=== PATIENT | female | born 1970 | race Caucasian/White ===

== ENCOUNTER 2016-07-11 12:33 | Inpatient (IN) | payer MEDICARE, OTHER ==
[~2016-07-11] VITALS: Ht 162.6 cm; Wt 71.2 kg
[~2016-07-11 12:33] MED LIST: BACT800T5 PO; CALTTAB10 PO; DARU800T PO; DOLU1TAB PO; FLUC200T63 PO; RITO100 PO; ZITH600T PO; [UNRECOGNIZED DRUG - CODE] PO
[2016-07-11 12:35] VITALS: BP 108/67; PULSE 121; RESP 14; TEMP 99.1; O2SAT 92
[2016-07-11 18:16] VITALS: TEMP 100.5
--- NOTE | 2016-07-11 18:24 | PD ---
HPI Chief Complaint: Headache Time Seen by Provider: 18:17 Travel History International Travel<30 days: No Contact w/Intl Traveler<30days: No Traveled to known affect area: No History of Present Illness HPI 46-year-old female presents to the emergency department for evaluation of severe headache, burning sensation in her throat, chest pain, abdominal pain, fevers. Patient states she walked her dog yesterday evening. When she came home, she felt tired so she laid down. She states that her dog came up to hurt all of a sudden she had a severe headache. She states that she has had a severe headache since then. She states she ran a fever of 103.0 this morning. She took 3 Tylenol which helped her symptoms. Patient also reports some mild chest pain, cough. Patient reports history of HIV. She states she is taking antivirals, but does not know the name. She does not know her CD4 count. 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 Patient denies any chance of reporting female sexual partner. PFSH Past Medical History Arthritis: Yes Autoimmune Disease: Yes (AIDS 2004) Anxiety: Yes Depression: Yes Cancer: No Cardiovascular Problems: No Cerebrovascular Accident: No Diminished Hearing: No Endocrine: No Genitourinary: No Immune Disorder: Yes Musculoskeletal: Yes Reproductive: No Respiratory: Yes Immunizations Current: Yes Migraines: Yes Seizures: No ?: Not LMP: 07/08/16 Past Surgical History Abdominal Surgery: Yes (hernia surgery as an ) Section: Yes Ear Surgery: No Endocrine Surgery: No Eye Surgery: No Gynecologic Surgery: Yes ( 2011) Oral Surgery: Yes (tooth extractionx 5) Social History Alcohol Use: Yes (1 BEER A DAY) Tobacco Use: No (QUIT 2 WEEKS AGO) Substance Use: No Allergies-Medications (Allergen,Severity, Reaction): Coded Allergies: Penicillin (Verified Allergy, Intermediate, 11/01/14) Reported Meds & Prescriptions Reported Meds & Active Scripts Active Bactrim DS (Sulfamethoxazole-Trimethoprim DS) 1 Tab Tab 2 Tab PO DAILY PCP Prophylaxis Zithromax (Azithromycin) 600 Mg Tab 1,200 Mg PO Q7D MAC prohpylaxis Reported Prezista (Darunavir Ethanolate) 800 Mg Tab 800 Mg PO DAILY TAKE WITH DINNER Norvir (Ritonavir) 100 Mg Cap 100 Mg PO DAILY TAKE WITH DINNER Lamivudine 300 Mg Tab 300 Mg PO DAILY TAKE WITH DINNER Tivicay (Dolutegravir Sodium) 50 Mg Tab 50 Mg PO BID TAKE TWICE A DAY FOR 6 WEEKS THEN DECREASE TO ONCE A DAY Caltrate 600+D (Calcium/Vitamin D) + Tab 1 Tab PO BID Diflucan 200 mg (Fluconazole) 200 Mg Tab 200 Mg PO DAILY Review of Systems Except as stated in HPI: all other systems reviewed are Neg Physical Exam Narrative GENERAL: Well-developed well-nourished female patient, temp of 100.5. Patient is moaning and crying in exam room. SKIN: Warm and dry. HEAD: Normocephalic. Atraumatic. EYES: No scleral icterus. No injection or drainage. NECK: Supple, trachea midline. No JVD or lymphadenopathy. CARDIOVASCULAR: Regular rate and rhythm without murmurs, gallops, or rubs. RESPIRATORY: Breath sounds equal bilaterally. No accessory muscle use. Lungs sounds are clear to auscultation. GASTROINTESTINAL: Abdomen soft, non-tender, nondistended. MUSCULOSKELETAL: No cyanosis, or edema. Bilateral upper and lower extremity strength 5/5. All extremities are neurovascularly intact. BACK: Nontender without obvious deformity. No CVA tenderness. NEUROLOGICAL: Awake and alert. Cranial nerves II through XII intact. Motor and sensory grossly within normal limits. Five out of 5 muscle strength in all muscle groups. Normal speech. Data Data Last Documented VS Vital Signs Date Time Temp Pulse Resp B/P Pulse Ox O2 Delivery O2 Flow Rate FiO2 07/11/16 18:16 100.5 07/11/16 12:35 121 14 108/67 92 Room Air Orders Electrocardiogram (07/11/16 18:15) Complete Blood Count With Diff (07/11/16 18:15) Comprehensive Metabolic Panel (07/11/16 18:15) Prothrombin Time / Inr (Pt) (07/11/16 18:15) Act Partial Throm Time (Ptt) (07/11/16 18:15) Lactic Acid Sepsis Protocol (07/11/16 18:15) Magnesium (Mg) (07/11/16 18:15) Lipase (07/11/16 18:15) Ckmb (Isoenzyme) Profile (07/11/16 18:15) Troponin I (07/11/16 18:15) Urinalysis - C+S If Indicated (07/11/16 18:15) Influenzae A/B Antigen (07/11/16 18:15) Blood Culture (07/11/16 18:15) Chest, Single Ap (07/11/16 18:15) Blood Glucose (07/11/16 18:15) Ecg Monitoring (07/11/16 18:15) Iv Access Insert/Monitor (07/11/16 18:15) Oximetry (07/11/16 18:15) Oxygen Administration (07/11/16 18:15) Ct Brain W/O Iv Contrast(Rout) (07/11/16 18:15) Sodium Chlor 0.9% 1000 Ml Inj (Ns 1000 M (07/11/16 19:00) Labs Laboratory Tests Test 07/11/16 18:15 White Blood Count 1.4 TH/MM3 Red Blood Count 3.01 MIL/MM3 Hemoglobin 8.8 GM/DL Hematocrit 26.4 % Mean Corpuscular Volume 87.6 FL Mean Corpuscular Hemoglobin 29.2 PG Mean Corpuscular Hemoglobin 33.3 % Concent Red Cell Distribution Width 17.3 % Platelet Count 106 TH/MM3 Mean Platelet Volume 9.1 FL Neutrophils (%) (Auto) % Lymphocytes (%) (Auto) % Monocytes (%) (Auto) % Eosinophils (%) (Auto) % Basophils (%) (Auto) % Neutrophils # (Auto) TH/MM3 Lymphocytes # (Auto) TH/MM3 Monocytes # (Auto) TH/MM3 Eosinophils # (Auto) TH/MM3 Basophils # (Auto) TH/MM3 CBC Comment AUTO DIFF Prothrombin Time 11.6 SEC Prothromb Time International 1.0 RATIO Ratio Activated Partial 35.9 SEC Thromboplast Time Lactic Acid Level 1.0 mmol/L MDM Medical Decision Making Medical Screen Exam Complete: Yes Emergency Medical Condition: Yes Medical Record Reviewed: Yes Differential Diagnosis Pneumonia versus sepsis versus UTI versus meningitis Narrative Course 46-year-old female with a past medical history of HIV. Patient was admitted in 2014 for AIDS and sepsis. Patient reports fever, severe headache, cough, wheezing. EKG, CBC, CMP, lipase, CK-MB, troponin magnesium, PTT, PT/INR, blood cultures 2, lactic acid, influenza swab, chest x-ray, CT of the brain are ordered and pending. Workup is initiated in triage. Once a medical bed becomes available, patient will be transferred and care assumed by that provider. Elizabeth Agosto Jul 11, 2016 18:24
[2016-07-11 18:45] LABS: HEMATOCRIT 26.4 % (35.0-46.0); MEAN CELL VOLUME 87.6 FL (80.0-100.0); MEAN CORPUSCULAR HEMOGLOBIN 29.2 PG (27.0-34.0); MEAN CORPUSCULAR HGB CONC 33.3 % (32.0-36.0); PLATELET COUNT 106 TH/MM3 (150-450); RED BLOOD COUNT 3.01 MIL/MM3 (4.00-5.30); RED CELL DISTRIBUTION WIDTH 17.3 % (11.6-17.2); WHITE BLOOD COUNT 1.4 TH/MM3 (4.0-11.0)
[2016-07-11 18:58] LABS: APTT (PATIENT) 35.9 SEC (24.3-30.1); PROTHROMBIN TIME - PATIENT 11.6 SEC (9.8-11.6)
[2016-07-11] MEDS ORDERED: SODIUM CHLOR 0.9% 1000 ML INJ 1,000 ML IV ONE ×2 (19:00→21:45)
[2016-07-11 19:01] LABS: HEMO FLAGS AUTO DIFF
--- NOTE | 2016-07-11 19:12 | RADRPT ---
EXAM DATE/TIME: 07/11/2016 18:59 [facility] COMPARISON: No previous studies available for comparison. INDICATIONS : Cephalgia with left neck pain starting today. RADIATION DOSE: 42.47 CTDIvol (mGy) MEDICAL HISTORY : AIDS SURGICAL HISTORY : None. ENCOUNTER: Initial ACUITY: 1 day PAIN SCALE: 10/10 LOCATION: cranial TECHNIQUE: Multiple contiguous axial images were obtained of the head. Using automated exposure control and adj ustment of the mA and/or kV according to patient size, radiation dose was kept as low as reasonably a chievable to obtain optimal diagnostic quality images. FINDINGS: CEREBRUM: The ventricles are normal for age. No evidence of midline shift, mass lesion, hemorrhage or acute in farction. No extra-axial fluid collections are seen. POSTERIOR FOSSA: The cerebellum and brainstem are intact. The 4th ventricle is midline. The cerebellopontine angle i s unremarkable. EXTRACRANIAL: The visualized portion of the orbits is intact. There is mucosal disease throughout the sinuses. Ther e is increased density seen in the mastoid air cells bilaterally. SKULL: The calvaria is intact. No evidence of skull fracture. CONCLUSION: 1. No intracranial abnormality seen. 2. Sinus disease throughout and scattered areas of increased density/fluid in the mastoid air cells. . Anderson Gary MD on July 11, 2016 at 19:09 Board Certified Radiologist. This report was verified electronically.
--- NOTE | 2016-07-11 19:14 | RADRPT ---
EXAM DATE/TIME: 07/11/2016 18:47 [facility] COMPARISON: CHEST SINGLE AP, November 03, 2014, 9:03. INDICATIONS : Fever and short of breath for 2 days. MEDICAL HISTORY : None. SURGICAL HISTORY : None. ENCOUNTER: Initial ACUITY: 2 days PAIN SCORE: 2/10 LOCATION: Bilateral chest FINDINGS: A single view of the chest demonstrates the lungs to be symmetrically aerated without evidence of mas s, infiltrate or effusion. The cardiomediastinal contours are unremarkable. Osseous structures are intact. CONCLUSION: No acute disease. Anderson Gary MD on July 11, 2016 at 19:12 Board Certified Radiologist. This report was verified electronically.
[2016-07-11 19:17] LABS: ALKALINE PHOSPHATASE 105 U/L (45-117); ALT (GPT) 10 U/L (10-53); ANION GAP 10 MEQ/L (5-15); AST (GOT) 19 U/L (15-37); BICARBONATE 21.6 MEQ/L (21.0-32.0); BLOOD UREA NITROGEN 13 MG/DL (7-18); CHLORIDE 93 MEQ/L (98-107); GLOMERULAR FILTRATION RATE 42 ML/MIN (>89); MAGNESIUM 1.7 MG/DL (1.5-2.5); SODIUM (NA) 125 MEQ/L (136-145); TOTAL BILIRUBIN ADULT 0.3 MG/DL (0.2-1.0)
[2016-07-11 19:25] LABS: CREATINE KINASE 90 U/L (26-192); POTASSIUM 3.7 MEQ/L (3.5-5.1)
[2016-07-11] MEDS ORDERED: IBUPROFEN 800 MG TAB PO ONE (19:30)
[2016-07-11 19:35] VITALS: BP 122/64; PULSE 120; RESP 20; TEMP 102.7; O2SAT 96
[2016-07-11] MEDS ORDERED: AZTREONAM INJ 2,000 MG in SODIUM CHLORIDE 0.9% INJ 100 ML IV STA (19:40)
[2016-07-11] MEDS ORDERED: VANCOMYCIN INJ 1,000 MG in SODIUM CHLOR 0.9% 250 ML INJ 250 ML IV STA (19:40)
[2016-07-11] MEDS ORDERED: ONDANSETRON HCL 4 MG/2 ML VIAL IV PUSH ONE (19:45)
[2016-07-11] MEDS ORDERED: ORPHENADRINE INJ 60 MG/2 ML AMP IV ONE (19:45)
--- NOTE | 2016-07-11 19:50 | PD ---
HPI Chief Complaint: Headache Time Seen by Provider: 19:43 Travel History International Travel<30 days: No Contact w/Intl Traveler<30days: No Traveled to known affect area: No History of Present Illness HPI Patient is a 46-year-old female who presented to emergency department for evaluation of fevers and headache. Patient was initially seen in triage where her workup was initiated. Patient states that she was walking her dog last night when she started to feel very fatigued, but at times she got home she had the worse headache of her life. She states that it was accompanied by significant neck pain that felt like a "popping sensation". Patient reports nausea and vomiting as well. Patient is HIV positive, she reports compliance with her antiviral medications. She is unsure of her CD4 count but stated that her viral load was undetectable 3 months ago. PFSH Past Medical History Arthritis: Yes Autoimmune Disease: Yes (HIV positive) Anxiety: Yes Depression: Yes Cancer: No Cardiovascular Problems: No Cerebrovascular Accident: No Diminished Hearing: No Endocrine: No Genitourinary: No Headaches: Yes Reproductive: No Respiratory: Yes Immunizations Current: Yes Migraines: Yes Seizures: No Tetanus Vaccination: > 5 Years Influenza Vaccination: Yes ?: Not LMP: 07/08/16 Past Surgical History Abdominal Surgery: Yes (hernia surgery as an ) Section: Yes Ear Surgery: No Endocrine Surgery: No Eye Surgery: No Gynecologic Surgery: Yes ( 2011) Oral Surgery: Yes (tooth extraction x 5) Other Surgery: Yes Social History Alcohol Use: Yes (1 BEER A DAY) Tobacco Use: No (QUIT 5 DAYS AGO) Substance Use: No Allergies-Medications (Allergen,Severity, Reaction): Coded Allergies: Penicillin (Verified Allergy, Intermediate, 11/01/14) Reported Meds & Prescriptions Reported Meds & Active Scripts Active Reported Vitamin D (Cholecalciferol) 1,000 Unit Tab 1,000 Units PO DAILY Valtrex (Valacyclovir HCl) 1 Gm Tab 1,000 Mg PO DAILY Sulfamethoxazole-Trimethoprim 800-160 Mg Tab 1 Tab PO MO WE FR Thera (Multiple Vitamin) 1 Tab Tab 1 Tab PO DAILY Prezcobix (Darunavir-Cobicistat) 800-150 Mg Tab 1 Tab PO DAILY Lamivudine 300 Mg Tab 300 Mg PO DAILY Fluconazole 200 Mg Tab 200 Mg PO DAILY Calcium 600 with Vitamin D (Calcium Carbonate-Cholecalciferol) 600-400 mg-Unit Tab 1 Tab PO BID Review of Systems Except as stated in HPI: all other systems reviewed are Neg General / Constitutional: Positive: Fever, Chills Eyes: No: Visual changes HENT: Positive: Headaches, Sore Throat, Neck Stiffness, Neck Pain Cardiovascular: No: Chest Pain or Discomfort Respiratory: No: Shortness of Breath Gastrointestinal: Positive: Nausea, Vomiting, No: Abdominal Pain Genitourinary: No: Dysuria Musculoskeletal: Positive: Myalgias Neurologic: Positive: Weakness, Headache, No: Dizziness, Syncope, Focal Abnormalities, Change in Mentation, Sensory Disturbance Physical Exam Narrative GENERAL: Well-developed, well-nourished, alert female. Appears acutely uncomfortable, in no distress. Patient is tearful. SKIN: Warm and dry. HEAD: Atraumatic. Normocephalic. EYES: Pupils equal and round. No scleral icterus. No injection or drainage. Photophobia ENT: No nasal bleeding or discharge. Mucous membranes pink and moist. NECK: Trachea midline. No JVD. Tenderness to palpation in cervical paraspinal musculature on the left side. Positive meningeal signs CARDIOVASCULAR: Regular rate and rhythm. No murmur appreciated. RESPIRATORY: No accessory muscle use. Expiratory wheezing noted in bases bilaterally. No increased work of breathing, no nasal flaring, no retractions noted. GASTROINTESTINAL: Abdomen soft, non-tender, nondistended. Hepatic and splenic margins not palpable. MUSCULOSKELETAL: No obvious deformities. No clubbing. No cyanosis. No edema. NEUROLOGICAL: Awake and alert. No obvious cranial nerve deficits. Motor grossly within normal limits. Normal speech. PSYCHIATRIC: Appropriate mood and affect; insight and judgment normal. Data Data Last Documented VS Vital Signs Date Time Temp Pulse Resp B/P Pulse Ox O2 Delivery O2 Flow Rate FiO2 07/11/16 21:10 99.8 97 20 102/61 96 Room Air Orders Electrocardiogram (07/11/16 18:15) Complete Blood Count With Diff (07/11/16 18:15) Comprehensive Metabolic Panel (07/11/16 18:15) Prothrombin Time / Inr (Pt) (07/11/16 18:15) Act Partial Throm Time (Ptt) (07/11/16 18:15) Lactic Acid Sepsis Protocol (07/11/16 18:15) Magnesium (Mg) (07/11/16 18:15) Lipase (07/11/16 18:15) Ckmb (Isoenzyme) Profile (07/11/16 18:15) Troponin I (07/11/16 18:15) Urinalysis - C+S If Indicated (07/11/16 18:15) Influenzae A/B Antigen (07/11/16 18:15) Blood Culture (07/11/16 18:15) Chest, Single Ap (07/11/16 18:15) Blood Glucose (07/11/16 18:15) Ecg Monitoring (07/11/16 18:15) Iv Access Insert/Monitor (07/11/16 18:15) Oximetry (07/11/16 18:15) Oxygen Administration (07/11/16 18:15) Ct Brain W/O Iv Contrast(Rout) (07/11/16 18:15) Sodium Chlor 0.9% 1000 Ml Inj (Ns 1000 M (07/11/16 19:00) Ibuprofen (Motrin) (07/11/16 19:30) Orphenadrine Inj (Norflex Inj) (07/11/16 19:45) Ondansetron Inj (Zofran Inj) (07/11/16 19:45) Pneumococcal Urinary Antigen (07/11/16 19:40) Legionella Urinary Antigen (07/11/16 19:40) Aztreonam Inj (Azactam Inj) (07/11/16 19:40) Vancomycin Inj (Vancomycin Inj) (07/11/16 19:40) Bacterial Antigen Csf (07/11/16 19:51) Csf Hsv I/Ii Dna,Pcr (07/11/16 19:51) Csf Cell Count + Differential (07/11/16 19:51) Glucose, Csf (07/11/16 19:51) Total Protein, Csf (07/11/16 19:51) Csf Culture And Gram Stain (07/11/16 19:51) Cath For Specimen (07/11/16 20:03) Urine Culture (07/11/16 19:54) Csf Cryptococcus Antigen (07/11/16 21:00) Sodium Chlor 0.9% 1000 Ml Inj (Ns 1000 M (07/11/16 21:45) Admit Order (Ed Use Only) (07/11/16 21:36) Labs Laboratory Tests Test 07/11/16 07/11/16 18:15 19:54 White Blood Count 1.4 TH/MM3 Red Blood Count 3.01 MIL/MM3 Hemoglobin 8.8 GM/DL Hematocrit 26.4 % Mean Corpuscular Volume 87.6 FL Mean Corpuscular Hemoglobin 29.2 PG Mean Corpuscular Hemoglobin 33.3 % Concent Red Cell Distribution Width 17.3 % Platelet Count 106 TH/MM3 Mean Platelet Volume 9.1 FL Neutrophils (%) (Auto) % Lymphocytes (%) (Auto) % Monocytes (%) (Auto) % Eosinophils (%) (Auto) % Basophils (%) (Auto) % Neutrophils # (Auto) TH/MM3 Lymphocytes # (Auto) TH/MM3 Monocytes # (Auto) TH/MM3 Eosinophils # (Auto) TH/MM3 Basophils # (Auto) TH/MM3 CBC Comment AUTO DIFF Differential Total Cells 100 Counted Neutrophils % (Manual) 3 % Lymphocytes % 47 % Monocytes % 50 % Neutrophils # (Manual) 0.0 TH/MM3 Differential Comment FINAL DIFF MANUAL Platelet Estimate LOW Platelet Morphology Comment NORMAL Ovalocytes 1+ Prothrombin Time 11.6 SEC Prothromb Time International 1.0 RATIO Ratio Activated Partial 35.9 SEC Thromboplast Time Sodium Level 125 MEQ/L Potassium Level 3.7 MEQ/L Chloride Level 93 MEQ/L Carbon Dioxide Level 21.6 MEQ/L Anion Gap 10 MEQ/L Blood Urea Nitrogen 13 MG/DL Creatinine 1.36 MG/DL Estimat Glomerular Filtration 42 ML/MIN Rate Random Glucose 112 MG/DL Lactic Acid Level 1.0 mmol/L Calcium Level 8.6 MG/DL Magnesium Level 1.7 MG/DL Total Bilirubin 0.3 MG/DL Aspartate Amino Transf 19 U/L (AST/SGOT) Alanine Aminotransferase 10 U/L (ALT/SGPT) Alkaline Phosphatase 105 U/L Total Creatine Kinase 90 U/L Troponin I LESS THAN 0.02 NG/ML Total Protein 7.9 GM/DL Albumin 2.8 GM/DL Lipase 85 U/L Urine Color YELLOW Urine Turbidity CLOUDY Urine pH 7.0 Urine Specific [place] 1.028 Urine Protein 100 mg/dL Urine Glucose (UA) NEG mg/dL Urine Ketones NEG mg/dL Urine Occult Blood MOD Urine Nitrite NEG Urine Bilirubin NEG Urine Urobilinogen 2.0 MG/DL Urine Leukocyte Esterase NEG Urine RBC LESS THAN 1 /hpf Urine WBC 3 /hpf Urine Squamous Epithelial 13 /hpf Cells Urine Bacteria RARE /hpf Urine Mucus FEW /lpf Microscopic Urinalysis Comment CATH-CULTURE IND MDM Medical Decision Making Medical Screen Exam Complete: Yes Emergency Medical Condition: Yes Interpretation(s) Vital Signs Date Time Temp Pulse Resp B/P Pulse Ox O2 Delivery O2 Flow Rate FiO2 07/11/16 18:16 100.5 07/11/16 12:35 99.1 121 14 108/67 92 Room Air Differential Diagnosis Bacterial meningitis versus viral meningitis versus sinusitis versus pneumonia versus sepsis versus AIDS Narrative Course Patient's a 46-year-old female presenting to emergency department for evaluation of headache, neck pain, fever. Patient's symptoms started last night , she reports nausea and vomiting. Patient's workup was started in triage, upon presentation to the room she was noted to have a fever of 102.7. Patient is placed on telemetry monitoring, IV access was initiated, IV fluids, Motrin, antibiotics ordered per sepsis protocol. CBC shows neutropenia with a white blood cell count 1.4, neutrophils at 0.0. Chemistry with a sodium of 125, creatinine 1.36, lactic acid is 1, troponin is normal. Urinalysis shows occult blood, rare bacteria, mucus. Reflex culture pending. Chest x-ray shows no acute disease CT of the brain shows no intracranial abnormality, it does report sinus disease throughout and scattered areas of increased density fluid in the mastoid air cells. Due to meningeal signs lumbar puncture was performed by my attending physician. Please see attending physician's note regarding that procedure. Patient tolerated well. Vital signs are reassessed, patient is currently afebrile. Her heart rate responded well to the IV fluids. Additional liter is ordered. Patient is neutropenic, meet sepsis criteria. She will be admitted. Discussed with Dr. Degroot, who accepted admission. Sepsis Criteria SIRS Criteria (2 or more): Temp > 100.9 or < 96.8, Heart rate over 90, WBC > 79854, < 4000 or > 10% bands Criteria Outcome: Meets SIRS criteria Diagnosis Primary Impression: Sepsis Qualified Code: A41.9 - Sepsis, due to unspecified organism Additional Impressions: Fever Qualified Code: R50.9 - Fever, unspecified fever cause Sinusitis Qualified Code: J32.9 - Sinusitis, unspecified chronicity, unspecified location Immunocompromised state Neutropenia, febrile Admitting Information Admitting Physician Requests: Admit Condition: Stable Kaylan Gleason Jul 11, 2016 19:50
[2016-07-11 20:15] LABS: OVALOCYTES 1+ (NORMAL); PLATELET ESTIMATE SMEAR LOW (NORMAL); PLATELET MORPHOLOGY NORMAL (NORMAL); POLYS (SEG NEUTROPHILS) 3 % (16-70); SCAN/DIFF FINAL DIFF MANUAL; WBC DIFF SAMPLE 100
[2016-07-11 20:37] LABS: BACTERIA, URINE RARE /hpf; BLOOD, URINE MOD (NEG); GLUCOSE,URINE NEG (NEG); KETONE, URINE NEG (NEG); MUCUS URINE FEW /lpf (OCC); NITRITE,URINE NEG (NEG); SQUAMOUS EPITHELIAL CELL URINE 13 /hpf (0-5); URINE COLOR YELLOW (YELLW/STRAW)
[2016-07-11 20:39] LABS: COMMENT (UR) CATH-CULTURE IND; CULTURE IF INDICATED CATH CULTURE IND
[2016-07-11 20:42] VITALS: BP 97/62; PULSE 118; RESP 20; O2SAT 96
[2016-07-11] MEDS ORDERED: DARU1TAB2 PO (21:09)
[2016-07-11] MEDS ORDERED: FLUC200T2 PO (21:09)
[2016-07-11] MEDS ORDERED: CALC1TAB87 PO (21:09)
[2016-07-11] MEDS ORDERED: THERTAB56 PO (21:09)
[2016-07-11] MEDS ORDERED: LAMI1TAB8 PO (21:09)
[2016-07-11] MEDS ORDERED: VITA100064 PO (21:09)
[2016-07-11] MEDS ORDERED: SULF1TAB23 PO (21:09)
[2016-07-11] MEDS ORDERED: VALT1TAB PO (21:09)
[2016-07-11 21:10] VITALS: BP 102/61; PULSE 97; RESP 20; TEMP 99.8; O2SAT 96
--- NOTE | 2016-07-11 21:22 | PD ---
Physical Exam Narrative I, Dr. Curtis, have reviewed the advance practice practitioner's documentation and am in agreement, met with the patient face to face, made the diagnosis, and the medical decision making was done by me. *My assessment and Findings: Sinus headache vs. sinusitis vs. meningitis 46yo F with HIV here with headache, fever, neck pain. She does have left ear pain, URI symptoms and ttp sinusitis. However, pt empirically given antibiotics to cover meningitis and LP was performed in the ED after negative CT brain. Pt febrile and tachycardic, admitted for sepsis work up in neutropenic/immunocompromised patient. Data Data Last Documented VS Vital Signs Date Time Temp Pulse Resp B/P Pulse Ox O2 Delivery O2 Flow Rate FiO2 07/11/16 21:10 99.8 97 20 102/61 96 Room Air Orders Electrocardiogram (07/11/16 18:15) Complete Blood Count With Diff (07/11/16 18:15) Comprehensive Metabolic Panel (07/11/16 18:15) Prothrombin Time / Inr (Pt) (07/11/16 18:15) Act Partial Throm Time (Ptt) (07/11/16 18:15) Lactic Acid Sepsis Protocol (07/11/16 18:15) Magnesium (Mg) (07/11/16 18:15) Lipase (07/11/16 18:15) Ckmb (Isoenzyme) Profile (07/11/16 18:15) Troponin I (07/11/16 18:15) Urinalysis - C+S If Indicated (07/11/16 18:15) Influenzae A/B Antigen (07/11/16 18:15) Blood Culture (07/11/16 18:15) Chest, Single Ap (07/11/16 18:15) Blood Glucose (07/11/16 18:15) Ecg Monitoring (07/11/16 18:15) Iv Access Insert/Monitor (07/11/16 18:15) Oximetry (07/11/16 18:15) Oxygen Administration (07/11/16 18:15) Ct Brain W/O Iv Contrast(Rout) (07/11/16 18:15) Sodium Chlor 0.9% 1000 Ml Inj (Ns 1000 M (07/11/16 19:00) Ibuprofen (Motrin) (07/11/16 19:30) Orphenadrine Inj (Norflex Inj) (07/11/16 19:45) Ondansetron Inj (Zofran Inj) (07/11/16 19:45) Pneumococcal Urinary Antigen (07/11/16 19:40) Legionella Urinary Antigen (07/11/16 19:40) Aztreonam Inj (Azactam Inj) (07/11/16 19:40) Vancomycin Inj (Vancomycin Inj) (07/11/16 19:40) Bacterial Antigen Csf (07/11/16 19:51) Csf Hsv I/Ii Dna,Pcr (07/11/16 19:51) Csf Cell Count + Differential (07/11/16 19:51) Glucose, Csf (07/11/16 19:51) Total Protein, Csf (07/11/16 19:51) Csf Culture And Gram Stain (07/11/16 19:51) Cath For Specimen (07/11/16 20:03) Urine Culture (07/11/16 19:54) Csf Cryptococcus Antigen (07/11/16 21:00) Sodium Chlor 0.9% 1000 Ml Inj (Ns 1000 M (07/11/16 21:45) Admit Order (Ed Use Only) (07/11/16 21:36) Labs Laboratory Tests Test 07/11/16 07/11/16 07/11/16 18:15 19:54 20:50 White Blood Count 1.4 TH/MM3 Red Blood Count 3.01 MIL/MM3 Hemoglobin 8.8 GM/DL Hematocrit 26.4 % Mean Corpuscular Volume 87.6 FL Mean Corpuscular Hemoglobin 29.2 PG Mean Corpuscular Hemoglobin 33.3 % Concent Red Cell Distribution Width 17.3 % Platelet Count 106 TH/MM3 Mean Platelet Volume 9.1 FL Neutrophils (%) (Auto) % Lymphocytes (%) (Auto) % Monocytes (%) (Auto) % Eosinophils (%) (Auto) % Basophils (%) (Auto) % Neutrophils # (Auto) TH/MM3 Lymphocytes # (Auto) TH/MM3 Monocytes # (Auto) TH/MM3 Eosinophils # (Auto) TH/MM3 Basophils # (Auto) TH/MM3 CBC Comment AUTO DIFF Differential Total Cells 100 Counted Neutrophils % (Manual) 3 % Lymphocytes % 47 % Monocytes % 50 % Neutrophils # (Manual) 0.0 TH/MM3 Differential Comment FINAL DIFF MANUAL Platelet Estimate LOW Platelet Morphology Comment NORMAL Ovalocytes 1+ Prothrombin Time 11.6 SEC Prothromb Time International 1.0 RATIO Ratio Activated Partial 35.9 SEC Thromboplast Time Sodium Level 125 MEQ/L Potassium Level 3.7 MEQ/L Chloride Level 93 MEQ/L Carbon Dioxide Level 21.6 MEQ/L Anion Gap 10 MEQ/L Blood Urea Nitrogen 13 MG/DL Creatinine 1.36 MG/DL Estimat Glomerular Filtration 42 ML/MIN Rate Random Glucose 112 MG/DL Lactic Acid Level 1.0 mmol/L Calcium Level 8.6 MG/DL Magnesium Level 1.7 MG/DL Total Bilirubin 0.3 MG/DL Aspartate Amino Transf 19 U/L (AST/SGOT) Alanine Aminotransferase 10 U/L (ALT/SGPT) Alkaline Phosphatase 105 U/L Total Creatine Kinase 90 U/L Troponin I LESS THAN 0.02 NG/ML Total Protein 7.9 GM/DL Albumin 2.8 GM/DL Lipase 85 U/L Urine Color YELLOW Urine Turbidity CLOUDY Urine pH 7.0 Urine Specific [place] 1.028 Urine Protein 100 mg/dL Urine Glucose (UA) NEG mg/dL Urine Ketones NEG mg/dL Urine Occult Blood MOD Urine Nitrite NEG Urine Bilirubin NEG Urine Urobilinogen 2.0 MG/DL Urine Leukocyte Esterase NEG Urine RBC LESS THAN 1 /hpf Urine WBC 3 /hpf Urine Squamous Epithelial 13 /hpf Cells Urine Bacteria RARE /hpf Urine Mucus FEW /lpf Microscopic Urinalysis Comment CATH-CULTURE IND CSF Volume (Tube 1) 1.0 ML CSF Supernatant Color (tube 1) CLEAR CSF Gross Blood (Tube 1) TRACE CSF Volume (Tube 2) 1.1 ML CSF Supernatant Color (tube 2) CLEAR CSF Gross Blood (Tube 2) 0 CSF WBC (Tube 2) 62 /MM3 CSF RBC (Tube 2) 1 /MM3 CSF Volume (Tube 3) 1.0 ML CSF Supernatant Color (tube 3) CLEAR CSF Volume (Tube 4) 1.5 ML CSF Supernatant Color (tube 4) CLEAR CSF Gross Blood (Tube 4) 0 CSF Neutrophils 0 % CSF Lymphocytes 88 % CSF Monocytes 12 % CSF Glucose 63 MG/DL CSF Total Protein 50.2 MG/DL MDM Supervised Visit with MARIAA: Yes Procedures Procedure Narrative LUMBAR PUNCTURE: The patient was placed in the sitting position. The lumbar area of the back was prepped with Betadine and sterilely draped. The L3 -- L4 interspace was infiltrated with 1% lidocaine plain. Number 20 gauge LP needle was placed in the interspace. Opening pressure deferred. Number 4 milliliters of clear CSF were obtained. First few drops were pinkish, likely secondary to traumatic tap. Patient tolerated procedure well. Diagnosis Primary Impression: Sepsis Qualified Code: A41.9 - Sepsis, due to unspecified organism Admitting Information Admitting Physician Requests: Admit Adriana Curtis DO Jul 11, 2016 21:22
[2016-07-11] MEDS ORDERED: SODIUM CHLORIDE 0.9% FLUSH 5 ML FLUSH FLUSH PRN (21:45)
[2016-07-11] MEDS ORDERED: BISACODYL 10 MG SUPP PR PRN (21:45)
[2016-07-11] MEDS ORDERED: Vancomycin Consult Pharmacy 1 EA OTHER SCH (21:45)
--- NOTE | 2016-07-11 21:45 | HHI.HP ---
[facility] Marek Dangelo MD Admission Diagnosis sepsis, fever, neutropenia Diagnoses: (1) Sepsis Diagnosis: Principal (2) Neutropenic fever Diagnosis: Principal (3) AIDS Diagnosis: Principal (4) Renal insufficiency Diagnosis: Principal Travel History International Travel<30 Days: No Contact w/Intl Traveler <30 Da: No Traveled to Known Affected Are: No History of Present Illness This is a 46-year-old female with a PMH of HIV/AIDS (unknown CD4), Anxiety and Depression who presented to the ER with complaints of generalized weakness, headache, sore throat and fever. Reports temp of 103 this morning, notes progressive weakness throughout the day. Report compliance w/ HAART regimen but doesn't know names of medications and doesn't know CD4 count, states last viral level 3 months ago was undetectable. On arrival, BP 108/67, HR 121, O2 sat 92% on RA, Temp 102.7. WBC 1.4, absolute neutrophil count 0, Platelets 106 , previously 281 on 11/08/14. Na 125. Creatinine 1.36, previously 1.21 on . Lactic Acid 1.0. U/a negative for UTI. CT Head with no acute intracranial findings. CXR with no acute disease. S/p LP in ER, pending results. Blood/Urine cultures sent, s/p Vanc/Azactam. Review of Systems Except as stated in HPI: all other systems reviewed are Neg ROS: 14 point review of systems otherwise negative. Past Family Social History Past Medical History PMH: HIV/AIDS (unknown CD4), Anxiety and Depression Past Surgical History PAST SURGICAL HISTORY: Hernia Repair, , Tooth Extraction Allergies: Coded Allergies: Penicillin (Verified Allergy, Intermediate, 11/01/14) Family History PAST FAMILY HISTORY: Reviewed. No h/o DM or CAD Social History PAST SOCIAL HISTORY: Drinks 1 beer daily. Quit tobacco 2 weeks ago. Negative for drug abuse. Physical Exam Vital Signs Vital Signs Date Time Temp Pulse Resp B/P Pulse Ox O2 Delivery O2 Flow Rate FiO2 07/11/16 21:10 99.8 97 20 102/61 96 Room Air 07/11/16 20:42 118 20 97/62 96 07/11/16 19:35 102.7 120 20 122/64 96 Room Air 07/11/16 18:16 100.5 07/11/16 12:35 99.1 121 14 108/67 92 Room Air Physical Exam PE: GENERAL: Middle-aged female in no acute distress. HEENT: PERRLA, EOMI. No scleral icterus or conjunctival pallor. No lid lag or facial droop. CARDIOVASCULAR: Regular rate and rhythm. No obvious murmurs to auscultation. No chest tenderness to palpation. RESPIRATORY: No obvious rhonchi or wheezing. Clear to auscultation. Breath sounds equal bilaterally. GASTROINTESTINAL: Abdomen soft, non-tender, nondistended. BS normal. MUSCULOSKELETAL: Extremities without clubbing, cyanosis, or edema. No obvious deformities. NEUROLOGICAL: Awake, alert and oriented x4. No focal neurologic deficits. Moving both upper and lower extremities spontaneously. Laboratory Laboratory Tests Test 07/11/16 07/11/16 18:15 19:54 White Blood Count 1.4 Red Blood Count 3.01 Hemoglobin 8.8 Hematocrit 26.4 Mean Corpuscular Volume 87.6 Mean Corpuscular Hemoglobin 29.2 Mean Corpuscular Hemoglobin 33.3 Concent Red Cell Distribution Width 17.3 Platelet Count 106 Mean Platelet Volume 9.1 Neutrophils (%) (Auto) Lymphocytes (%) (Auto) Monocytes (%) (Auto) Eosinophils (%) (Auto) Basophils (%) (Auto) Neutrophils # (Auto) Lymphocytes # (Auto) Monocytes # (Auto) Eosinophils # (Auto) Basophils # (Auto) CBC Comment AUTO DIFF Differential Total Cells 100 Counted Neutrophils % (Manual) 3 Lymphocytes % 47 Monocytes % 50 Neutrophils # (Manual) 0.0 Differential Comment FINAL DIFF MANUAL Platelet Estimate LOW Platelet Morphology Comment NORMAL Ovalocytes 1+ Prothrombin Time 11.6 Prothromb Time International 1.0 Ratio Activated Partial 35.9 Thromboplast Time Sodium Level 125 Potassium Level 3.7 Chloride Level 93 Carbon Dioxide Level 21.6 Anion Gap 10 Blood Urea Nitrogen 13 Creatinine 1.36 Estimat Glomerular Filtration 42 Rate Random Glucose 112 Lactic Acid Level 1.0 Calcium Level 8.6 Magnesium Level 1.7 Total Bilirubin 0.3 Aspartate Amino Transf 19 (AST/SGOT) Alanine Aminotransferase 10 (ALT/SGPT) Alkaline Phosphatase 105 Total Creatine Kinase 90 Troponin I LESS THAN 0.02 Total Protein 7.9 Albumin 2.8 Lipase 85 Urine Color YELLOW Urine Turbidity CLOUDY Urine pH 7.0 Urine Specific Bard 1.028 Urine Protein 100 Urine Glucose (UA) NEG Urine Ketones NEG Urine Occult Blood MOD Urine Nitrite NEG Urine Bilirubin NEG Urine Urobilinogen 2.0 Urine Leukocyte Esterase NEG Urine RBC LESS THAN 1 Urine WBC 3 Urine Squamous Epithelial 13 Cells Urine Bacteria RARE Urine Mucus FEW Microscopic Urinalysis Comment CATH-CULTURE IND Date/Time Procedure Status Source Growth 07/11/16 19:54 Urine Culture Received Urine Catheterized Urine Pending 07/11/16 19:54 Legionella Antigen Received Urine Clean Catch Pending 07/11/16 19:54 Streptococcus pneumoniae Antigen (M Received Urine Clean Catch Pending 07/11/16 18:15 Aerobic Blood Culture Received Blood Peripheral Pending 07/11/16 18:15 Anaerobic Blood Culture Received Blood Peripheral Pending 07/11/16 18:10 Influenza Types A,B Antigen (DALE) - Final Complete Nasal Aspirate NEGATIVE FOR FLU A AND B ANTIGEN.... Result Diagram: 07/11/16181407/11/161814 Assessment and Plan Problem List: (1) Sepsis ICD Code: A41.9 Status: Acute (2) Neutropenic fever ICD Code: D70.9 Status: Acute (3) AIDS ICD Code: B20 Status: Acute (4) Renal insufficiency ICD Code: N28.9 Status: Acute Assessment and Plan A/P: 1. Sepsis: Temp 102.7, WBC 1.4, HR 118, Source-unclear. +Immunocompromised. S/p LP in ER, results pending. Blood/Urine cultures sent, s/p IV Vanc/Azactam. Follow up cultures, continue IV Abx, add IV Acyclovir. Consult ID for further recommendations. 2. Neutropenic Fever: WBC 1.4, neutrophil count 0, etiology unclear as above. +Immunocompromised w/ h/o HIV/AIDS, continue w/ broad spectrum antibiotics, add antiviral for further coverage. ID Consult as above. CT Head w/ no acute findings, CXR negative, images reviewed by me. 3. HIV/AIDS: Reports compliance w/ HAART however cannot recall name of medications, doesn't know CD4 count. States last viral level 3 months ago was undetectable. Check CD4. 4. Renal Insufficiency: Acute on Chronic. Creatinine 1.36, previously 1.21 on 11/08/14. U/a negative. IVF, repeat labs in am. 5. DVT Prophylaxis: SCD/Teds. 6. Social work for d/c planning as needed. 7. Case discussed w/ ER physician at length. Physician Certification 2 Midnight Certification Type: Admission for Inpatient Services Order for Inpatient Services The services are ordered in accordance with Medicare regulations or non- Medicare payer requirements, as applicable. In the case of services not specified as inpatient-only, they are appropriately provided as inpatient services in accordance with the 2-midnight benchmark. Estimated LOS (days): 2 days is the estimated time the patient will need to remain in the hospital, assuming treatment plan goals are met and no additional complications. Post-Hospital Plan: Not yet determined Problem Qualifiers (1) Sepsis: Qualified Code: A41.9 - Sepsis, due to unspecified organism Adriana Degroot MD Jul 11, 2016 21:44
[2016-07-11] MEDS: SODIUM CHLOR 0.9% 1000 ML INJ 1,000 ML IV SCH (22:06)
[2016-07-11 22:24] LABS: GROSS BLOOD TUBE #1 TRACE (0); GROSS BLOOD TUBE #4 0 (0); SUPERNATE COLOR TUBE #1 CLEAR (CLEAR); SUPERNATE COLOR TUBE #2 CLEAR (CLEAR); SUPERNATE COLOR TUBE #3 CLEAR (CLEAR); SUPERNATE COLOR TUBE #4 CLEAR (CLEAR); VOLUME TUBE # 2 1.1 ML; VOLUME TUBE # 4 1.5 ML; WBC TUBE #2 62 /MM3 (0-10)
[2016-07-11 22:48] LABS: CSF LYMPHOCYTES 88 %; CSF NEUTROPHILS 0 %; GROSS BLOOD TUBE #2 0 (0)
[2016-07-11 22:49] LABS: CSF MONOCYTES 12 %
[2016-07-11 23:05] VITALS: BP 98/54; PULSE 88; RESP 16; TEMP 98.4; O2SAT 95
[2016-07-11] MEDS: SODIUM CHLORIDE 0.9% IV SCH (23:42)
[2016-07-11] MEDS: ACYCLOVIR IV SCH (23:42)
[2016-07-12] VITALS (8 sets, daily range): BP systolic 94–118; BP diastolic 51–68; PULSE 92–108; RESP 18–22; TEMP 97.9–102.6; O2SAT 95–97
[2016-07-12] MEDS: AZTREONAM INJ 2,000 MG in SODIUM CHLORIDE 0.9% INJ 100 ML IV SCH ×3 (04:46→20:55)
[2016-07-12 05:18] LABS: BASOPHIL % 1.5 % (0.0-2.0); EOSINOPHIL % 2.7 % (0.0-4.0); HEMATOCRIT 21.7 % (35.0-46.0); LYMPH % 44.9 % (9.0-44.0); LYMPHOCYTE # 0.5 TH/MM3 (1.0-4.8); MEAN CELL VOLUME 87.1 FL (80.0-100.0); MEAN CORPUSCULAR HEMOGLOBIN 29.9 PG (27.0-34.0); MEAN CORPUSCULAR HGB CONC 34.4 % (32.0-36.0); MONO % 46.8 % (0.0-8.0); NEUT % 4.1 % (16.0-70.0); PLATELET COUNT 77 TH/MM3 (150-450); RED BLOOD COUNT 2.49 MIL/MM3 (4.00-5.30); RED CELL DISTRIBUTION WIDTH 17.2 % (11.6-17.2); WHITE BLOOD COUNT 1.1 TH/MM3 (4.0-11.0)
[2016-07-12 05:21] LABS: HEMO FLAGS AUTO DIFF
[2016-07-12] MEDS: MORPHINE SULFATE 4 MG/ML INJ IV PRN ×4 (05:33→21:02)
[2016-07-12 05:52] LABS: ALKALINE PHOSPHATASE 85 U/L (45-117); ALT (GPT) 7 U/L (10-53); ANION GAP 9 MEQ/L (5-15); AST (GOT) 9 U/L (15-37); BICARBONATE 21.2 MEQ/L (21.0-32.0); BLOOD UREA NITROGEN 15 MG/DL (7-18); CHLORIDE 104 MEQ/L (98-107); GLOMERULAR FILTRATION RATE 39 ML/MIN (>89); POTASSIUM 3.4 MEQ/L (3.5-5.1); SODIUM (NA) 134 MEQ/L (136-145); TOTAL BILIRUBIN ADULT 0.2 MG/DL (0.2-1.0)
[2016-07-12] MEDS: SODIUM CHLORIDE 0.9% IV SCH ×2 (06:00→18:41)
[2016-07-12] MEDS: ACYCLOVIR IV SCH ×2 (06:00→18:41)
[2016-07-12 07:14] LABS: BANDS 1 % (0-6); BASOPHILS 1 % (0-2); EOSINOPHILS 2 % (0-4); METAMYELOCYTES 1 % (0-1); POLYS (SEG NEUTROPHILS) 3 % (16-70); WBC DIFF SAMPLE 100
[2016-07-12 07:21] LABS: NEUTROPHIL # MANUAL DIFF 0.1 TH/MM3 (1.8-7.7)
[2016-07-12 07:22] LABS: PLATELET ESTIMATE SMEAR LOW (NORMAL); PLATELET MORPHOLOGY NORMAL (NORMAL); SCAN/DIFF FINAL DIFF MANUAL
[2016-07-12] MEDS: SODIUM CHLOR 0.9% 1000 ML INJ 1,000 ML IV SCH ×2 (07:36→17:16)
[2016-07-12] MEDS: SODIUM CHLORIDE 0.9% FLUSH 5 ML FLUSH FLUSH SCH ×2 (08:20→20:54)
--- NOTE | 2016-07-12 08:44 | EKG ---
Date Performed: 07/11/2016 Time Performed: 18:23:20 PTAGE: 46 years EKG: SINUS TACHYCARDIA NONSPECIFIC T-WAVE ABNORMALITY ABNORMAL RHYTHM ECG NO PREVIOUS TRACING DOCTOR: Dilip Fajardo Interpretating Date/Time 07/12/2016 08:41:15
[2016-07-12] MEDS ORDERED: DARU800T PO (11:14)
[2016-07-12] MEDS ORDERED: DOLU1TAB PO (11:16)
[2016-07-12] MEDS ORDERED: LAMI1TAB8 PO (11:17)
[2016-07-12] MEDS ORDERED: RITO100 PO (11:19)
[2016-07-12] MEDS: VANCOMYCIN INJ 1,500 MG in SODIUM CHLORID 0.9% 500 ML INJ 500 ML IV SCH (12:29)
[2016-07-12] MEDS ORDERED: valACYclovir HCL 500 MG TAB PO SCH (13:30)
--- NOTE | 2016-07-12 13:38 | HHI.PR ---
Subjective Remarks Follow-up sepsis/neutropenic fever 07/12/16-patient seen and examined, reports improvement of nausea and vomiting. Currently afebrile. States she is very compliant with HAART Objective Vitals Vital Signs Date Time Temp Pulse Resp B/P Pulse Ox O2 Delivery O2 Flow Rate FiO2 07/12/16 11:32 96 07/12/16 08:00 98.9 107 22 95/62 97 07/12/16 08:00 Room Air 07/12/16 04:00 98.1 96 18 98/55 96 07/12/16 00:00 98.0 92 18 94/52 95 07/11/16 23:05 98.4 88 16 98/54 95 07/11/16 23:00 Room Air 07/11/16 21:10 99.8 97 20 102/61 96 Room Air 07/11/16 20:42 118 20 97/62 96 07/11/16 19:35 102.7 120 20 122/64 96 Room Air 07/11/16 18:16 100.5 Result Diagram: 07/12/16 0501 07/12/16 0501 Imaging Last Impressions Head CT 07/11/161814 Signed Impressions: Service Date/Time: Monday, July 11, 2016 18:59 - CONCLUSION: 1. No intracranial abnormality seen. 2. Sinus disease throughout and scattered areas of increased density/fluid in the mastoid air cells. . Anderson Gary MD Chest X-Ray 07/11/161814 Signed Impressions: Service Date/Time: Monday, July 11, 2016 18:47 - CONCLUSION: No acute disease. Anderson Gary MD Objective Remarks GENERAL: NAD SKIN: Warm and dry. HEAD: Normocephalic. EYES: No scleral icterus. No injection or drainage. NECK: Supple, trachea midline. No JVD or lymphadenopathy. CARDIOVASCULAR: Regular rate and rhythm without murmurs, gallops, or rubs. RESPIRATORY: Breath sounds equal bilaterally. No accessory muscle use. GASTROINTESTINAL: Abdomen soft, non-tender, nondistended. MUSCULOSKELETAL: No cyanosis, or edema. BACK: Nontender without obvious deformity. No CVA tenderness. A/P Problem List: (1) Sepsis ICD Code: A41.9 Status: Acute (2) Neutropenic fever ICD Code: D70.9 Status: Acute (3) AIDS ICD Code: B20 Status: Acute (4) Renal insufficiency ICD Code: N28.9 Status: Acute Assessment and Plan 46-year-old female with 1. Sepsis: Source-unclear. +Immunocompromised. S/p LP in ER, results pending. Blood/Urine cultures sent, continue with IV Vanc/Azactam/acyclovir. Will check flu A and B antigen as well as urinary pneumococcal antigens Follow up cultures, continue IV Abx, add IV Acyclovir. Consult ID for further recommendations. 2. Neutropenic Fever: WBC 1.4, neutrophil count 0, etiology unclear as above. +Immunocompromised w/ h/o HIV/AIDS, continue w/ broad spectrum antibiotics. ID Consult as above. CT Head w/ no acute findings, CXR negative, 3. HIV/AIDS: Resume HAART; lymphocyte profile pending 4. Renal Insufficiency: Acute on Chronic. Continue with gentle IV fluid hydration 5. DVT Prophylaxis: SCD/Teds. Problem Qualifiers (1) Sepsis: Qualified Code: A41.9 - Sepsis, due to unspecified organism Erickson Mayen MD Jul 12, 2016 13:38
[2016-07-12] MEDS ORDERED: DOLUTEGRAVIR SODIUM 50 MG TAB PO SCH (15:00)
[2016-07-12] MEDS ORDERED: RITONAVIR 100 MG TAB PO SCH (16:00)
[2016-07-12] MEDS ORDERED: DARUNAVIR 800 MG TAB PO SCH (16:00)
[2016-07-12 16:50] LABS: AMPHETAMINE, URINE NEG (NEG); BARBITURATES, URINE NEG (NEG); COCAINE, URINE NEG (NEG)
[2016-07-12] MEDS: DOLUTEGRAVIR SODIUM 50 MG TAB PO SCH (17:00)
[2016-07-12] MEDS: MULTIVITAMIN TAB PO SCH (17:16)
[2016-07-12] MEDS: cefTRIAXone INJ 2,000 MG in SODIUM CHLORIDE 0.9% INJ 100 ML IV SCH (17:16)
[2016-07-12] MEDS: ACETAMINOPHEN 325 MG TAB PO PRN (18:09)
[2016-07-12] MEDS: NYSTATIN SUSP 500,000 U/5 ML CUP SWISH-SWAL SCH ×2 (18:41→20:55)
[2016-07-12] MEDS: CALCIUM/VITAMIN D 250 MG/125 U TAB PO SCH (20:54)
[2016-07-13] VITALS (8 sets, daily range): BP systolic 94–120; BP diastolic 54–68; PULSE 83–118; RESP 16–20; TEMP 97.6–100.3; O2SAT 95–99
[2016-07-13] MEDS: MORPHINE SULFATE 4 MG/ML INJ IV PRN (00:24)
[2016-07-13] MEDS: SODIUM CHLOR 0.9% 1000 ML INJ 1,000 ML IV SCH ×3 (03:05→21:20)
[2016-07-13] MEDS: cefTRIAXone INJ 2,000 MG in SODIUM CHLORIDE 0.9% INJ 100 ML IV SCH ×2 (03:05→16:04)
[2016-07-13] MEDS: ACETAMINOPHEN/HYDROcodone 325 MG/5 MG TAB PO PRN ×5 (03:15→21:18)
[2016-07-13] MEDS: AZTREONAM INJ 2,000 MG in SODIUM CHLORIDE 0.9% INJ 100 ML IV SCH ×3 (03:48→21:16)
[2016-07-13] MEDS: SODIUM CHLORIDE 0.9% IV SCH ×2 (05:45→18:31)
[2016-07-13] MEDS: ACYCLOVIR IV SCH ×2 (05:45→18:31)
[2016-07-13] MEDS: DOLUTEGRAVIR SODIUM 50 MG TAB PO SCH ×2 (05:46→17:00)
[2016-07-13 08:01] LABS: MEAN CELL VOLUME 87.4 FL (80.0-100.0); MEAN CORPUSCULAR HEMOGLOBIN 29.7 PG (27.0-34.0); PLATELET COUNT 103 TH/MM3 (150-450); RED BLOOD COUNT 2.23 MIL/MM3 (4.00-5.30); RED CELL DISTRIBUTION WIDTH 17.6 % (11.6-17.2); WHITE BLOOD COUNT 1.3 TH/MM3 (4.0-11.0)
[2016-07-13 08:28] LABS: BICARBONATE 19.7 MEQ/L (21.0-32.0); POTASSIUM 3.3 MEQ/L (3.5-5.1)
[2016-07-13 08:50] LABS: HEMO FLAGS AUTO DIFF
[2016-07-13 08:53] LABS: HEMATOCRIT 19.5 % (35.0-46.0)
[2016-07-13] MEDS: NYSTATIN SUSP 500,000 U/5 ML CUP SWISH-SWAL SCH ×4 (08:54→21:17)
[2016-07-13] MEDS: MULTIVITAMIN TAB PO SCH (08:55)
[2016-07-13] MEDS: CALCIUM/VITAMIN D 250 MG/125 U TAB PO SCH ×2 (08:55→21:17)
[2016-07-13] MEDS: SODIUM CHLORIDE 0.9% FLUSH 5 ML FLUSH FLUSH SCH ×2 (08:55→21:17)
[2016-07-13] MEDS ORDERED: SULFAMETHOXAZOLE-TRIMETHOPRIM DS 800-160 MG TAB PO SCH (09:00)
[2016-07-13 09:44] LABS: HSV 1,PCR Negative (Negative)
[2016-07-13 09:57] LABS: BANDS 7 % (0-6); BASOPHILS 5 % (0-2); EOSINOPHILS 9 % (0-4); POLYS (SEG NEUTROPHILS) 3 % (16-70); WBC DIFF SAMPLE 100
[2016-07-13 09:59] LABS: KERATOCYTES OCC (NORMAL); OVALOCYTES 1+ (NORMAL); PLATELET ESTIMATE SMEAR LOW (NORMAL); PLATELET MORPHOLOGY NORMAL (NORMAL); SCAN/DIFF FINAL DIFF MANUAL
[2016-07-13] MEDS ORDERED: INFLUENZA VIRUS VACCINE (QUADRIVALENT) 0.5 ML SYR IM ONE (10:00)
[2016-07-13] MEDS ORDERED: PNEUMOCOCCAL POLYVALENT INJ 25 MCG/0.5 ML SYR IM ONE (10:00)
[2016-07-13 10:03] LABS: NEUTROPHIL # MANUAL DIFF 0.1 TH/MM3 (1.8-7.7)
--- NOTE | 2016-07-13 11:38 | HHI.PR ---
Subjective Remarks Follow-up sepsis/neutropenic fever 07/12/16-patient seen and examined, reports improvement of nausea and vomiting. Currently afebrile. States she is very compliant with HAART 07/13/16-patient seen and examined, spiking fevers with nonproductive cough, states she's at the end of her periods Objective Vitals Vital Signs Date Time Temp Pulse Resp B/P Pulse Ox O2 Delivery O2 Flow Rate FiO2 07/13/16 10:28 88 07/13/16 08:00 98.3 87 18 99/57 97 07/13/16 08:00 Room Air 07/13/16 04:00 100.3 102 18 94/54 95 07/13/16 00:00 99.7 104 20 110/63 99 07/12/16 20:00 96 Room Air 07/12/16 20:00 97.9 106 18 96/51 96 07/12/16 19:55 105 07/12/16 16:00 102.6 108 20 118/68 95 07/12/16 12:00 99.5 103 22 106/59 96 I/O 07/12/16 07/12/16 07/12/16 07/13/16 07/13/16 07/13/16 07:00 15:00 23:00 07:00 15:00 23:00 Intake Total 720 ml 400 ml 1280 ml Output Total 1750 ml Balance -1030 ml 400 ml 1280 ml Intake Oral 720 ml 480 ml IV Total 400 ml 800 ml Output Urine Total 1750 ml # Voids 2 5 # Bowel Movements 3 0 Result Diagram: 07/13/1612 07/13/16 0712 Objective Remarks GENERAL: NAD SKIN: Warm and dry. HEAD: Normocephalic. EYES: No scleral icterus. No injection or drainage. NECK: Supple, trachea midline. No JVD or lymphadenopathy. CARDIOVASCULAR: Regular rate and rhythm without murmurs, gallops, or rubs. RESPIRATORY: Breath sounds equal bilaterally. No accessory muscle use. GASTROINTESTINAL: Abdomen soft, non-tender, nondistended. MUSCULOSKELETAL: No cyanosis, or edema. BACK: Nontender without obvious deformity. No CVA tenderness. A/P Problem List: (1) Sepsis ICD Code: A41.9 Status: Acute (2) Neutropenic fever ICD Code: D70.9 Status: Acute (3) AIDS ICD Code: B20 Status: Acute (4) Renal insufficiency ICD Code: N28.9 Status: Acute Assessment and Plan 46-year-old female with 1. Sepsis: Source-unclear. +Immunocompromised. S/p LP in ER and monitor report. Blood/Urine cultures sent, continue with IV Vanc/Azactam/acyclovir. flu A and B antigen negative however as positive for urinary pneumococcal antigen. Follow up cultures, continue IV Abx, add IV Acyclovir. Consult ID for further recommendations. 2. Neutropenic Fever: WBC 1.4, neutrophil count 0, etiology unclear as above. +Immunocompromised w/ h/o HIV/AIDS, continue w/ broad spectrum antibiotics. ID Consult as above. CT Head w/ no acute findings, CXR negative, 3. HIV/AIDS: continue HAART; lymphocyte profile pending 4. Renal Insufficiency: Acute on Chronic. Continue with gentle IV fluid hydration 5. DVT Prophylaxis: SCD/Teds. 6. Anemia: Likely of acute blood loss, repeat H&H now and transfuse 1 unit packed red blood cell. Monitor H/H Problem Qualifiers (1) Sepsis: Qualified Code: A41.9 - Sepsis, due to unspecified organism Erickson Mayen MD Jul 13, 2016 11:38
[2016-07-13 13:06] LABS: HEMATOCRIT 21.1 % (35.0-46.0)
[2016-07-13] MEDS: VANCOMYCIN INJ 1,500 MG in SODIUM CHLORID 0.9% 500 ML INJ 500 ML IV SCH (13:19)
[2016-07-13] MEDS ORDERED: ACETAMINOPHEN 325 MG TAB PO PRN (14:15)
[2016-07-13] MEDS ORDERED: diphenhydrAMINE HCL 25 MG CAP PO PRN (14:15)
[2016-07-13] MEDS ORDERED: SODIUM CHLOR 0.9% 250 ML INJ 250 ML IV ONE (15:00)
--- NOTE | 2016-07-13 19:12 | PD.ID.CON ---
History of Present Illness Service ID Consult Requested By Dr Degroot Reason for Consult HIV and neutropenic fever Primary Care Physician Marek Dangelo MD Diagnoses: History of Present Illness This is a 46-year-old female with a PMH of HIV/AIDS (unknown CD4), Anxiety and Depression who presented to the ER with complaints of generalized weakness, headache, sore throat and fever of 103 this morning notes progressive weakness throughout the day. Report compliance w/ HAART regimen but doesn't know names of medications and doesn't know CD4 count, states last viral level 3 months ago was undetectable. Her absolute neutrophil count was 0 on admission, today up to 100 She was started on Vanc/Azactam. SHe has P done and she has lymphocytic pleocytosis and elevated protein, CSF clx negative at 48 hrs she has positive pneumococcal antigen and CFTX was added Head CT showed increased density/fluid in the mastoid air cells and her CXR was negative Review of Systems Constitutional: COMPLAINS OF: Fatigue, Fever Ears, nose, mouth, throat: COMPLAINS OF: Hearing loss, Throat pain Musculoskeletal: COMPLAINS OF: Neck pain Neurologic: COMPLAINS OF: Headache Except as stated in HPI: all other systems reviewed are Neg Past Family Social History Allergies: Coded Allergies: Penicillin (Verified Allergy, Intermediate, 11/01/14) Past Medical History HIV/AIDS (unknown CD4), Anxiety and Depression Past Surgical History Hernia Repair, , Tooth Extraction Active Ordered Medications Medications where reviewed in EMR Antibiotics Include: azactam acyclovir vancomycin trim-sulfa CFTX Family History Reviewed. No h/o DM or CAD Social History Drinks 1 beer daily. Quit tobacco 2 weeks ago. Negative for drug abuse. Physical Exam Vital Signs Vital Signs Date Time Temp Pulse Resp B/P Pulse Ox O2 Delivery O2 Flow Rate FiO2 07/13/16 16:00 98.1 90 18 108/55 96 07/13/16 12:00 97.6 83 20 98/61 95 07/13/16 10:28 88 07/13/16 08:00 98.3 87 18 99/57 97 07/13/16 08:00 Room Air 07/13/16 04:00 100.3 102 18 94/54 95 07/13/16 00:00 99.7 104 20 110/63 99 07/12/16 20:00 96 Room Air 07/12/16 20:00 97.9 106 18 96/51 96 07/12/16 19:55 105 Physical Exam CONSTITUTIONAL/GENERAL: This is an adequately nourished patient, in no apparent distress. TUBES/LINES/DRAINS: SKIN: No jaundice, rashes, or lesions. Ecchymoses on upper extremities. No wounds seen anteriorly. Skin temperature appropriate. Not diaphoretic. HEAD: Atraumatic. Normocephalic. EYES: Pupils equal and round and reactive. Extraocular motions intact. No scleral icterus. No injection or drainage. Fundi not examined. ENT: Hearing grossly mildly decreased. Nose without bleeding or purulent drainage. Throat without visible erythema, exudates, masses, or lesions. NECK: Trachea midline. Somewhat stiff, tender. Tender to palpation over mostly back of the neck and mastoid sinuses b/l CARDIOVASCULAR: Regular rate and rhythm without murmurs, gallops, or rubs. No JVD. Peripheral pulses symmetric. RESPIRATORY/CHEST: Symmetric, unlabored respirations. Clear to auscultation. Breath sounds equal bilaterally. No wheezes, rales, or rhonchi. GASTROINTESTINAL: Abdomen soft, non-tender, nondistended. No hepato-splenomegaly , or palpable masses. No guarding. Bowel sounds present. GENITOURINARY: Without palpable bladder distension. MUSCULOSKELETAL: Extremities without clubbing, cyanosis, or edema. No joint tenderness or effusion noted. No calf tenderness. No mottling or clubbing. LYMPHATICS: No palpable cervical or supraclavicular adenopathy. NEUROLOGICAL: Awake and alert. Motor and sensory grossly within normal limits. Follows commands. Speech normal. Moves all extremities. PSYCHIATRIC: No obvious anxiety/depression. no apparent hallucinations or other psychotic thought process. Laboratory Laboratory Tests Test 07/13/16 07/13/16 07/13/16 07/13/16 07:12 12:31 17:47 18:15 White Blood Count 1.3 Red Blood Count 2.23 Hemoglobin 6.6 7.2 Hematocrit 19.5 21.1 Mean Corpuscular Volume 87.4 Mean Corpuscular Hemoglobin 29.7 Mean Corpuscular Hemoglobin 34.0 Concent Red Cell Distribution Width 17.6 Platelet Count 103 Mean Platelet Volume 9.3 Neutrophils (%) (Auto) Lymphocytes (%) (Auto) Monocytes (%) (Auto) Eosinophils (%) (Auto) Basophils (%) (Auto) Neutrophils # (Auto) Lymphocytes # (Auto) Monocytes # (Auto) Eosinophils # (Auto) Basophils # (Auto) CBC Comment AUTO DIFF Differential Total Cells 100 Counted Neutrophils % (Manual) 3 Band Neutrophils % 7 Lymphocytes % 36 Monocytes % 40 Eosinophils % 9 Basophils % 5 Neutrophils # (Manual) 0.1 Differential Comment FINAL DIFF MANUAL Platelet Estimate LOW Platelet Morphology Comment NORMAL Ovalocytes 1+ Keratocytes OCC Sodium Level 134 Potassium Level 3.3 Chloride Level 105 Carbon Dioxide Level 19.7 Anion Gap 9 Blood Urea Nitrogen 11 Creatinine 1.13 Estimat Glomerular Filtration 52 Rate Random Glucose 98 Calcium Level 7.6 Blood Type O POSITIVE O POSITIVE Antibody Screen NEGATIVE Crossmatch Leukocyte-Reduced Red Blood Cells Blood Bank Comment Date/Time Procedure Status Source Growth 07/12/16 14:30 Streptococcus pneumoniae Antigen (M - Final Complete Urine Clean Catch Pos For Pneumococcal Antigen 07/11/16 20:50 Gram Stain - Final Resulted Cerebral Spinal Fluid Lumbar Puncture 07/11/16 20:50 CSF Culture - Preliminary Resulted Cerebral Spinal Fluid Lumbar Puncture NO GROWTH IN 48 HOURS. 07/11/16 19:54 Urine Culture - Final Complete Urine Catheterized Urine 10-50,000 CFU/ML MIXED MIC... 07/11/16 19:54 Legionella Antigen - Final Complete Urine Clean Catch PRESUMPTIVE NEGATIVE FOR LEGIONELLA P... 07/11/16 19:54 Streptococcus pneumoniae Antigen (M - Final Complete Pos For Pneumococcal Antigen 07/11/16 18:15 Aerobic Blood Culture - Preliminary Resulted Blood Peripheral NO GROWTH IN 2 DAYS 07/11/16 18:15 Anaerobic Blood Culture - Preliminary Resulted Blood Peripheral NO GROWTH IN 2 DAYS 07/11/16 18:10 Influenza Types A,B Antigen (DALE) - Final Complete Nasal Aspirate NEGATIVE FOR FLU A AND B ANTIGEN.... Result Diagram: 07/13/16 1231 07/13/16 0712 Imaging Last Impressions Head CT 07/11/161814 Signed Impressions: Service Date/Time: Monday, July 11, 2016 18:59 - CONCLUSION: 1. No intracranial abnormality seen. 2. Sinus disease throughout and scattered areas of increased density/fluid in the mastoid air cells. . Anderson Gary MD Chest X-Ray 07/11/161814 Signed Impressions: Service Date/Time: Monday, July 11, 2016 18:47 - CONCLUSION: No acute disease. Anderson Gary MD Assessment and Plan Assessment and Plan HIV, AIDS, states compliance - Dr Sunmer pt - per pt account CD4 > 200 and viral load close to undetectable - denies OIs Neutropenia ? infx vs medx Invasive pneumococcal dz : ? mastoiditis vs meningitis (CSF clx is neg so far) - CXR not cw PNA - cont HAART as per pt s profile:Prezcobix, Epivir and Tivicay - Hematology consult - cont CFTX dc acyclovir since HSV negative Adilia Tanner MD Jul 13, 2016 19:12
[2016-07-14] VITALS (9 sets, daily range): BP systolic 109–117; BP diastolic 55–80; PULSE 86–100; RESP 16–20; TEMP 98.1–99.1; O2SAT 95–97
[2016-07-14] MEDS: ACETAMINOPHEN/HYDROcodone 325 MG/5 MG TAB PO PRN ×2 (02:07→09:28)
[2016-07-14] MEDS: ONDANSETRON HCL 4 MG/2 ML VIAL IVP PRN (02:07)
[2016-07-14 03:54] LABS: CD4/CD8 RATIO 0.8 (0.86-5.00)
[2016-07-14] MEDS: AZTREONAM INJ 2,000 MG in SODIUM CHLORIDE 0.9% INJ 100 ML IV SCH ×3 (04:44→20:04)
[2016-07-14] MEDS: cefTRIAXone INJ 2,000 MG in SODIUM CHLORIDE 0.9% INJ 100 ML IV SCH ×2 (04:46→15:18)
[2016-07-14] MEDS: SODIUM CHLORIDE 0.9% IV SCH ×2 (05:55→17:07)
[2016-07-14] MEDS: DOLUTEGRAVIR SODIUM 50 MG TAB PO SCH ×2 (05:55→17:00)
[2016-07-14] MEDS: ACYCLOVIR IV SCH ×2 (05:55→17:07)
[2016-07-14] MEDS: MORPHINE SULFATE 4 MG/ML INJ IV PRN ×2 (06:25→09:25)
[2016-07-14 07:38] LABS: MEAN CELL VOLUME 86.9 FL (80.0-100.0); MEAN CORPUSCULAR HEMOGLOBIN 29.9 PG (27.0-34.0); MEAN CORPUSCULAR HGB CONC 34.4 % (32.0-36.0); PLATELET COUNT 137 TH/MM3 (150-450); RED BLOOD COUNT 2.53 MIL/MM3 (4.00-5.30); RED CELL DISTRIBUTION WIDTH 16.9 % (11.6-17.2)
[2016-07-14 07:57] LABS: HEMO FLAGS AUTO DIFF
[2016-07-14 08:05] LABS: BICARBONATE 18.6 MEQ/L (21.0-32.0); POTASSIUM 3.6 MEQ/L (3.5-5.1)
[2016-07-14] MEDS: SODIUM CHLORIDE 0.9% FLUSH 5 ML FLUSH FLUSH SCH ×2 (09:00→20:06)
[2016-07-14] MEDS ORDERED: PNEUMOCOCCAL POLYVALENT INJ 25 MCG/0.5 ML SYR IM ONE (09:00)
[2016-07-14] MEDS ORDERED: INFLUENZA VIRUS VACCINE (QUADRIVALENT) 0.5 ML SYR IM ONE (09:00)
[2016-07-14] MEDS: CALCIUM/VITAMIN D 250 MG/125 U TAB PO SCH ×2 (09:27→20:02)
[2016-07-14] MEDS: SODIUM CHLOR 0.9% 1000 ML INJ 1,000 ML IV SCH ×2 (09:27→20:07)
[2016-07-14] MEDS: MULTIVITAMIN TAB PO SCH (09:27)
[2016-07-14] MEDS: NYSTATIN SUSP 500,000 U/5 ML CUP SWISH-SWAL SCH ×4 (09:27→20:13)
[2016-07-14 10:21] LABS: EOSINOPHILS 5 % (0-4); WBC DIFF SAMPLE 100
[2016-07-14 10:28] LABS: PLATELET ESTIMATE SMEAR LOW (NORMAL); PLATELET MORPHOLOGY NORMAL (NORMAL); SCAN/DIFF FINAL DIFF MANUAL
[2016-07-14 10:29] LABS: OVALOCYTES 1+ (NORMAL)
--- NOTE | 2016-07-14 11:28 | HHI.PR ---
Subjective Remarks Reports she does not like Morphine. Kake better but some upset stomach. Expressed frustration about her current condition. Reports fullness in ears bilaterally. Reports pain behind the ears. Objective Vitals Vital Signs Date Time Temp Pulse Resp B/P Pulse Ox O2 Delivery O2 Flow Rate FiO2 07/14/16 10:53 20 07/14/16 09:24 22 07/14/16 08:00 98.1 96 16 113/65 95 07/14/16 04:30 98.4 96 18 112/65 95 07/14/16 04:00 98.4 94 18 112/65 95 07/14/16 01:35 98.6 90 16 110/74 97 07/14/16 01:15 99.1 95 16 117/80 95 07/14/16 00:00 99.1 95 16 117/80 95 07/13/16 20:00 98.5 103 16 120/68 98 07/13/16 19:58 118 07/13/16 19:45 Room Air 07/13/16 16:00 98.1 90 18 108/55 96 07/13/16 12:00 97.6 83 20 98/61 95 I/O 07/13/16 07/13/16 07/13/16 07/14/16 07/14/16 07/14/16 07:00 15:00 23:00 07:00 15:00 23:00 Intake Total 1280 ml 480 ml 240 ml 120 ml Balance 1280 ml 480 ml 240 ml 120 ml Intake Oral 480 ml 480 ml 240 ml 120 ml IV Total 800 ml # Voids 5 7 1 1 # Bowel Movements 0 0 1 0 Result Diagram: 07/14/16 0635 07/14/16 0635 Objective Remarks GENERAL: This is a well-nourished, well-developed patient, in no apparent distress. ENT: Right ear is full of hard wax, unable to visualize TM. Left ear TM is bulging and there is fluid behind it. Tender to palpation over the right mastoid. CARDIOVASCULAR: Normal rate and regular rhythm without murmurs, gallops, or rubs. RESPIRATORY: Good respiratory efforts. Breath sounds equal and clear to auscultation bilaterally. GASTROINTESTINAL: Abdomen soft, non-tender, non-distended. Normal active bowel sounds MUSCULOSKELETAL: Extremities without cyanosis, or edema. NEURO: Alert & Oriented x4 to person, place, time, situation. Moves all ext x4 PSYCH: Appropriate mood and affect. A/P Problem List: (1) Sepsis ICD Code: A41.9 Status: Acute (2) Neutropenic fever ICD Code: D70.9 Status: Acute (3) AIDS ICD Code: B20 Status: Acute (4) Renal insufficiency ICD Code: N28.9 Status: Acute Assessment and Plan 46-year-old female with Sepsis: positive for urinary pneumococcal antigen. +Immunocompromised. Source- unclear. ? Invasive pneumococcal disease, questionable mastoiditis, otitis media, meningitis less likely S/p LP in ER. Blood/Urine cultures sent, continue Rocephin per infectious disease.. flu A and B antigen negative. Follow cultures. Neutropenic Fever: Neutrophil count 0, etiology unclear as above. + Immunocompromised w/ h/o HIV/AIDS, continue w/ broad spectrum antibiotics. ID following as above. Consult hematology for assistance given neutropenia, anemia , and thrombocytopenia.. HIV/AIDS: continue HAART; lymphocyte profile pending Anemia: Likely of acute blood loss from menses, S/P transfusion. Follow H&H. Renal Insufficiency: Acute on Chronic. Improving. Continue with gentle IV fluid hydration DVT Prophylaxis: SCD/Teds. Problem Qualifiers (1) Sepsis: Qualified Code: A41.9 - Sepsis, due to unspecified organism Candelario Rasheed MD Jul 14, 2016 11:28
[2016-07-14] MEDS ORDERED: PHARMACY ORDERED LAB XX ONE (12:45)
[2016-07-14] MEDS: VANCOMYCIN INJ 1,500 MG in SODIUM CHLORID 0.9% 500 ML INJ 500 ML IV SCH (13:28)
[2016-07-14] MEDS ORDERED: DIATRIZOATE MEGLUM/DIATRIZOATE SOD 9 ML CUP PO ONE (14:30)
[2016-07-14 14:36] LABS: RETIC % 0.2 % (0.4-3.0)
[2016-07-14 15:11] LABS: BETA HCG QUANT LESS THAN 1 MIU/ML (0-5); FERRITIN 340 NG/ML (8-252); LDH SERUM 155 U/L (84-246); TRANSFERRIN IRON PROFILE 167 MG/DL (200-360)
--- NOTE | 2016-07-14 15:27 | MB ---
cc: TIANA MCNAMARA M.D.CANKaren DATE OF CONSULTATION: 07/14/2016. REASON FOR CONSULTATION: Hematology was consulted to render opinion regarding a patient with HIV admitted with neutropenic fever and pancytopenia. HISTORY OF PRESENT ILLNESS: The patient is 46-year-old female diagnosed with HIV / AIDS in 2004. She is being followed by Dr. Dangelo. She states that she has been compliant with taking her HAART. Checkup in March was good. She was doing well until she experienced fever up to 103. She had a sore throat, headache and increased weakness. She came to the hospital and was found to have pancytopenia. Her hemoglobin trended down to as low as 6.6 and she had one unit of packed red blood cell transfusion. White cell count trended down to 1000 with an absolute neutrophil count of 0. She denies any weight loss. She had nausea, occasional vomiting. She had some abdominal discomfort. She has been having diarrhea once or twice a day. She denies any dysuria or hematuria. She denies any bleeding or bruising. PAST MEDICAL HISTORY: 1. HIV / AIDS. 2. Anxiety and depression. PAST SURGICAL HISTORY: 1. Hernia repair. 2. section. 3. Tooth extraction. FAMILY HISTORY: Noncontributory. SOCIAL HISTORY: She smokes two packs a day for 33 years. She just quit two weeks ago. She drinks six or seven beers a day. ALLERGIES: PENICILLIN. MEDICATIONS: 1. Bactrim. 2. Calcium. 3. Acyclovir. 4. Nystatin. 5. Epivir. 6. . 7. Ceftriaxone. 8. Multivitamins. 9. Vancomycin. 10. Azactam. REVIEW OF SYSTEMS: CONSTITUTIONAL: Had fever as above. EYES: Denies any blurry vision or double vision. ENT: Denies any mouth sores or voice changes. CARDIOVASCULAR: Denies any chest pressure or palpitations. RESPIRATORY: Denies shortness of breath. She had dyspnea on exertion and cough with whitish sputum. GI: Had had nausea. Occasional vomiting. She had abdominal discomfort and diarrhea. Denies any melena or hematochezia. : Denies any dysuria or hematuria. MUSCULOSKELETAL: Negative. HEMATOLOGIC: As above. DERMATOLOGIC: Negative. PSYCHIATRIC: Negative. NEUROLOGIC: Negative. PHYSICAL EXAMINATION: VITAL SIGNS: Temperature 98.1, blood pressure 109/55, 02 saturation 97%. GENERAL: She is alert and oriented times three and in no acute distress. She is a little pale. HEAD, EYES, EARS, NOSE, THROAT: Atraumatic, normocephalic. Pupils equal, round, reactive to light. Extraocular muscles are intact. No scleral icterus. OROPHARYNX: Moist mucosa. No lesions. NECK: No thyromegaly. No palpable mass. LYMPHATIC: No palpable cervical, clavicular, axillary or inguinal lymph nodes. CARDIOVASCULAR: Regular S1 and S2. No murmur. LUNGS: Clear to auscultation. wheezing. ABDOMEN: Abdomen soft. A little fullness in the left upper quadrant. No significant tenderness. I could not palpate the liver. EXTREMITIES: No cyanosis. No clubbing. No significant edema. BACK: No paravertebral tenderness. SKIN: No rash or petechiae. NEUROLOGIC EXAM: Nonfocal. LABORATORY DATA: Reviewed. ASSESSMENT: 1. Pancytopenia. She presented with significant leukopenia with an absolute neutrophil count of 0. She also had significant anemia and received one unit of packed red blood cells transfusion. Platelet count has been fluctuating the last few days. She may have pancytopenia due to underlying HIV / AIDS. She could also have a viral infection that is causing further bone marrow suppression. Other differential would include a vitamin deficiency, iron deficiency. There is also a possibility she may have splenomegaly causing the pancytopenia. At this point, I am going to check her iron and vitamin studies. Will also get a CT scan to further evaluate the liver and spleen. Will consider giving her a Neupogen injection if workup is unremarkable. Will consider doing a bone marrow biopsy if her blood count does not continue to improve. 2. Sepsis / neutropenic fever. Blood culture showed Pneumococcal antigen. She is currently on antibiotics per infectious disease. She is now afebrile. 3. HIV / AIDS. She is currently on HAART. She is followed by infectious disease. 4. Anxiety and depression. 5. Renal insufficiency may be due to the HIV. RECOMMENDATIONS: 1. Proceed with laboratory evaluation as outlined above. 2. Get a CT to evaluate the liver and spleen. 3. Consider giving her Neupogen. 4. Will consider doing a bone marrow biopsy if her blood count does not continue to improve. Thank you Dr. Rasheed for asking me to see this patient. MD VIVIENNE Dumont/FRANCESCA /1:57 PM /3:14 PM IS[facility]
--- NOTE | 2016-07-14 19:12 | RADRPT ---
EXAM DATE/TIME: 07/14/2016 18:35 [facility] COMPARISON: No previous studies available for comparison. INDICATIONS : Sepsis, neutropenia. Patient with history of HIV. ORAL CONTRAST: Prescribed oral contrast ingested. RADIATION DOSE: 13.12 CTDIvol (mGy) MEDICAL HISTORY : HIV. SURGICAL HISTORY : section. Umbilical hernia repair. ENCOUNTER: Initial ACUITY: 1 day PAIN SCALE: 0/10 LOCATION: abdomen TECHNIQUE: Volumetric scanning of the abdomen and pelvis was performed. Using automated exposure control and ad justment of the mA and/or kV according to patient size, radiation dose was kept as low as reasonably achievable to obtain optimal diagnostic quality images. FINDINGS: There are small bilateral effusions with patchy basilar airspace disease. The liver is enlarged to 22.7 cm and the spleen is 17 cm. Small hiatal. There is a 1.7 cm left adrena l adenoma. Right adrenal unremarkable. Kidneys and pancreas unremarkable. There is some gallbladder w all thickening. No bowel obstruction. Small amount of free fluid in the pelvis. Minimal anasarca. No acute bony abnor malities. CONCLUSION: 1. Patchy basilar air space disease in the lungs which could represent mild bronchopneumonia with sma ll bilateral pleural effusions. 2. Hepatosplenomegaly as above with mild ascites. Minimal anasarca. No obstruction or free air. Mild ileus. Urbano Yee MD on July 14, 2016 at 19:04 Board Certified Radiologist. This report was verified electronically.
[2016-07-15] VITALS (7 sets, daily range): BP systolic 102–129; BP diastolic 61–73; PULSE 86–94; RESP 12–20; TEMP 98–99.8; O2SAT 93–97
[2016-07-15] MEDS: cefTRIAXone INJ 2,000 MG in SODIUM CHLORIDE 0.9% INJ 100 ML IV SCH ×2 (01:25→16:15)
[2016-07-15 03:25] LABS: CSF CRYPTOCOCCUS AG CONF ND (NOT DETECTD)
[2016-07-15] MEDS: AZTREONAM INJ 2,000 MG in SODIUM CHLORIDE 0.9% INJ 100 ML IV SCH ×3 (03:59→20:18)
[2016-07-15] MEDS: VANCOMYCIN INJ 1,000 MG in SODIUM CHLOR 0.9% 250 ML INJ 250 ML IV SCH (05:43)
[2016-07-15] MEDS: SODIUM CHLOR 0.9% 1000 ML INJ 1,000 ML IV SCH (05:44)
[2016-07-15] MEDS: SODIUM CHLORIDE 0.9% IV SCH ×2 (05:45→17:09)
[2016-07-15] MEDS: ACYCLOVIR IV SCH ×2 (05:45→17:09)
[2016-07-15] MEDS: SODIUM CHLORIDE 0.9% FLUSH 5 ML FLUSH FLUSH SCH ×2 (08:32→20:20)
--- NOTE | 2016-07-15 08:32 | PD.ONC.PN ---
Subjective Subjective Remarks Tmax 99.8 overnight. Patient complaining of feeling of fullness in her ears and difficulty hearing present since she entered the hospital. No other complaints. Objective Data Date Time Temp Pulse Resp B/P Pulse Ox O2 Delivery O2 Flow Rate FiO2 07/15/16 04:00 99.8 93 20 102/70 94 07/15/16 00:00 99.1 94 20 116/71 93 07/14/16 20:14 100 07/14/16 20:00 98.9 95 20 112/72 96 07/14/16 19:45 Room Air 07/14/16 18:49 20 07/14/16 12:00 98.1 86 16 109/55 97 07/14/16 10:53 20 07/14/16 09:24 22 07/15/16 07/15/16 07/15/16 06:59 14:59 22:59 Intake Total 320 ml Balance 320 ml Result Diagram: 07/14/16 0635 07/14/16 0635 Laboratory Results Laboratory Tests Test 07/14/16 13:25 Iron Level 76 MCG/DL Total Iron Binding Capacity 234 MCG/DL Percent Iron Saturation 32.5 % Ferritin 340 NG/ML Lactate Dehydrogenase 155 U/L Vitamin B12 Level 1606 PG/ML Folate GREATER THAN 20.0 NG/ML Human Chorionic Gonadotropin, LESS THAN 1 Quant MIU/ML Vancomycin Level Trough 8.0 MCG/ML Culture Results Microbiology Date/Time Procedure Status Source Growth 07/12/16 14:30 Streptococcus pneumoniae Antigen (M - Final Complete Urine Clean Catch Pos For Pneumococcal Antigen Imaging Studies Last Impressions Abdomen/Pelvis CT 07/14/16 0000 Signed Impressions: Service Date/Time: Thursday, July 14, 2016 18:35 - CONCLUSION: 1. Patchy basilar air space disease in the lungs which could represent mild bronchopneumonia with small bilateral pleural effusions. 2. Hepatosplenomegaly as above with mild ascites. Minimal anasarca. No obstruction or free air. Mild ileus. Urbano Yee MD Head CT 07/11/161814 Signed Impressions: Service Date/Time: Monday, July 11, 2016 18:59 - CONCLUSION: 1. No intracranial abnormality seen. 2. Sinus disease throughout and scattered areas of increased density/fluid in the mastoid air cells. . Anderson Gary MD Chest X-Ray 07/11/161814 Signed Impressions: Service Date/Time: Monday, July 11, 2016 18:47 - CONCLUSION: No acute disease. Anderson Gary MD Administered Medications Medications (Trade) Dose Ordered Sig/Carolyn Route PRN Reason Start Time Stop Time Status Last Admin Dose Admin Aztreonam 2000 mg/ Sodium Chloride 100 ml @ 200 mls/hr Q8H IV 07/12/16 04:00 07/15/16 03:59 Sodium Chloride (NS 1000 ml Inj) 1,000 ml @ 100 mls/hr Q10H IV 07/11/16 21:36 07/15/16 05:44 IV Flush (NS Flush) 2 ml BID FLUSH 07/12/16 09:00 07/14/16 20:06 Ondansetron HCl (Zofran Inj) 4 mg Q6H PRN IVP NAUSEA OR VOMITING 07/11/16 21:45 07/14/16 02:07 Acetaminophen 650 mg 650 mg Q6H PRN PO FEVER/PAIN SCALE 1 TO 2 07/11/16 21:45 07/12/16 18:09 Acyclovir Sodium 680 mg/Sodium Chloride 150 ml @ 150 mls/hr Q12H IV 07/12/16 18:00 07/15/16 05:45 Ceftriaxone Sodium/Sodium Chloride (Rocephin Inj/NS Inj) 100 ml @ 200 mls/hr Q12H IV 07/12/16 15:00 07/15/16 01:25 Nystatin (Mycostatin Liq) 5 ml QID SWISH-SWAL 07/12/16 18:00 07/14/16 17:08 Oxycodone HCl 10 mg 10 mg Q4H PRN PO PAIN GREATER THAN 5 07/14/16 12:45 07/15/16 05:45 Vancomycin HCl/ Sodium Chloride (Vancomycin Inj/ NS 250 ml Inj) 260 ml @ 260 mls/hr Q18H IV 07/15/16 06:00 07/15/16 05:43 Calcium/Vitamin D (Oscal-D 250-125) 250 mg DAILY@21 PO 07/14/16 21:00 07/14/16 20:02 Objective Remarks GENERAL: Young woman, sitting up in bed in nad. SKIN: Warm and dry. HEAD: Normocephalic. EYES: No scleral icterus. No injection or drainage. ' EARS: external canal's clear bilaterally with scant soft cerumen present. TMs full without visible cone of light. no perforation. no erythema. NECK: Supple, trachea midline CARDIOVASCULAR: Regular rate and rhythm RESPIRATORY: Breath sounds equal bilaterally. No accessory muscle use. GASTROINTESTINAL: Abdomen soft, non-tender, nondistended. EXTREMITIES: No cyanosis MUSCULOSKELETAL: Adequate muscle tone. NEUROLOGICAL: No obvious focal deficit. Awake, alert, and oriented x3. Assessment/Plan Problem List: (1) Sepsis Status: Acute Plan: --urine culture + Pneumococcal antigen. --BC no growth --on antibiotics per infectious disease. (2) Pancytopenia Status: Acute Plan: --likely multifactorial due to underlying HIV / AIDS +splenomegaly + viral infection --iron studies more consistent with anemia of chronic disease than iron deficiency --vitamin B12/folate--no deficiency --CT ab shows hepatosplenomegaly --Will consider giving Neupogen if workup unremarkable. --Will consider bone marrow biopsy if blood count does not improve. Assessment 46y/o female HIV admitted with neutropenic fever and pancytopenia. h/o HIV / AIDS-dx 2004. compliant with HAART Anxiety and depression. +renal insufficiency Plan 1. UPDATE: will start Neupogen today 2. continue abx per ID Attending Statement The exam, history, and the medical decision-making described in the above note were completed with the assistance of the mid-level provider. I reviewed and agree with the findings presented. I attest that I had a [id number] encounter with the patient on the same day, and personally performed and documented my assessment and findings in the medical record. No new complaints. Remains neutropenic. CT showed HSM likely due to HIV/AIDS. Will check hepatitis panel/CMV. Reviewed CT with her. Start neupogen. If no improvement, will need bone marrow biopsy. Problem Qualifiers (1) Sepsis: Qualified Code: A41.9 - Sepsis, due to unspecified organism Yolanda Bustamante Jul 15, 2016 08:32 Leonidas Ogden MD Jul 15, 2016 11:47
[2016-07-15] MEDS: NYSTATIN SUSP 500,000 U/5 ML CUP SWISH-SWAL SCH ×4 (08:33→20:21)
[2016-07-15] MEDS ORDERED: PNEUMOCOCCAL POLYVALENT INJ 25 MCG/0.5 ML SYR IM ONE (10:00)
[2016-07-15] MEDS ORDERED: INFLUENZA VIRUS VACCINE (QUADRIVALENT) 0.5 ML SYR IM ONE (10:00)
[2016-07-15 10:08] LABS: HEMATOCRIT 22.6 % (35.0-46.0); MEAN CELL VOLUME 87.2 FL (80.0-100.0); MEAN CORPUSCULAR HEMOGLOBIN 29.7 PG (27.0-34.0); PLATELET COUNT 158 TH/MM3 (150-450); RED BLOOD COUNT 2.59 MIL/MM3 (4.00-5.30); RED CELL DISTRIBUTION WIDTH 16.6 % (11.6-17.2); WHITE BLOOD COUNT 0.9 TH/MM3 (4.0-11.0)
[2016-07-15 10:16] LABS: HEMO FLAGS AUTO DIFF
[2016-07-15 10:39] LABS: BICARBONATE 21.4 MEQ/L (21.0-32.0); POTASSIUM 3.3 MEQ/L (3.5-5.1)
[2016-07-15 11:16] LABS: BANDS 2 % (0-6); BASOPHILS 4 % (0-2); EOSINOPHILS 4 % (0-4); METAMYELOCYTES 2 % (0-1); POLYS (SEG NEUTROPHILS) 4 % (16-70); WBC DIFF SAMPLE 100
[2016-07-15 11:17] LABS: OVALOCYTES 1+ (NORMAL); PLATELET ESTIMATE SMEAR NORMAL (NORMAL); PLATELET MORPHOLOGY NORMAL (NORMAL); SCAN/DIFF FINAL DIFF MANUAL
[2016-07-15 11:20] LABS: NEUTROPHIL # MANUAL DIFF 0.1 TH/MM3 (1.8-7.7)
--- NOTE | 2016-07-15 11:24 | HHI.PR ---
Subjective Remarks Coughing yellow, occasional blood tinged sputum. Reports that she has hearing loss and has to read lips but could hear me while I'm wearing a mask. When I informed the patient about her CD4 count being 65, she immediately started crying. She reports she has been compliant and only missed a couple of doses. Objective Vitals Vital Signs Date Time Temp Pulse Resp B/P Pulse Ox O2 Delivery O2 Flow Rate FiO2 07/15/16 08:32 20 07/15/16 08:00 98.6 93 12 114/61 95 07/15/16 04:00 99.8 93 20 102/70 94 07/15/16 00:00 99.1 94 20 116/71 93 07/14/16 20:14 100 07/14/16 20:00 98.9 95 20 112/72 96 07/14/16 19:45 Room Air 07/14/16 12:00 98.1 86 16 109/55 97 I/O 07/14/16 07/14/16 07/14/16 07/15/16 07/15/16 07/15/16 07:00 15:00 23:00 07:00 15:00 23:00 Intake Total 120 ml 480 ml 2299 ml 320 ml Balance 120 ml 480 ml 2299 ml 320 ml Intake Oral 120 ml 480 ml 400 ml 320 ml IV Total 1899 ml # Voids 1 0 3 3 # Bowel Movements 0 0 0 1 Result Diagram: 07/15/1690407/15/16904 Objective Remarks GENERAL: This is a well-nourished, well-developed patient, in no apparent distress. ENT: Right ear is full of hard wax, unable to visualize TM. Left ear TM is bulging and there is fluid behind it. Tender to palpation over the right mastoid. CARDIOVASCULAR: Normal rate and regular rhythm without murmurs, gallops, or rubs. RESPIRATORY: Good respiratory efforts. Breath sounds equal and clear to auscultation bilaterally. GASTROINTESTINAL: Abdomen soft, non-tender, non-distended. Normal active bowel sounds MUSCULOSKELETAL: Extremities without cyanosis, or edema. NEURO: Alert & Oriented x4 to person, place, time, situation. Moves all ext x4 PSYCH: Appropriate mood and affect. A/P Problem List: (1) Sepsis ICD Code: A41.9 Status: Acute (2) Neutropenic fever ICD Code: D70.9 Status: Acute (3) AIDS ICD Code: B20 Status: Acute (4) Renal insufficiency ICD Code: N28.9 Status: Acute Assessment and Plan 46-year-old female with Sepsis: positive for urinary pneumococcal antigen. +Immunocompromised. Source- unclear. ? Invasive pneumococcal disease, possible pneumonia on CT. questionable mastoiditis, otitis media, meningitis less likely S/p LP in ER. Blood/Urine cultures sent, continue Rocephin per infectious disease.. flu A and B antigen negative. Follow cultures. - Obtain sputum culture. Neutropenic Fever and pancytopenia: Neutrophil count 0. +Immunocompromised w/ h/o HIV/AIDS, continue w/ broad spectrum antibiotics. ID following as above. Appreciate hematology following. Patient started on Neupogen. Reported hearing loss: She does have effusion on the right hear as I can see. Left hear is full of wax. Will try Debrox to clean out the ears. HIV/AIDS: continue HAART; lymphocyte profile shows CD4 count of 65. Patient reports compliance with HAART medications. Infectious disease following. Anemia: Likely of acute blood loss from menses, S/P transfusion. Follow H&H. Renal Insufficiency: Acute on Chronic. Resolved with IV fluid. Continue to monitor labs. DVT Prophylaxis: SCD/Teds. Chemoprophylaxis contraindicated given pancytopenia. Problem Qualifiers (1) Sepsis: Qualified Code: A41.9 - Sepsis, due to unspecified organism Candelario Rasheed MD Jul 15, 2016 11:23
[2016-07-15] MEDS: CARBAMIDE PEROXIDE 6.5% OTIC SOLN 15 ML BTL EACH EAR SCH ×2 (16:13→20:17)
[2016-07-15] MEDS: FILGRASTIM 480 MCG/1.6 ML VIAL SQ SCH (17:09)
[2016-07-15] MEDS: CALCIUM/VITAMIN D 250 MG/125 U TAB PO SCH (20:20)
[2016-07-16] VITALS (7 sets, daily range): BP systolic 98–130; BP diastolic 52–77; PULSE 68–94; RESP 12–20; TEMP 98–100; O2SAT 93–97
[2016-07-16] MEDS: VANCOMYCIN INJ 1,000 MG in SODIUM CHLOR 0.9% 250 ML INJ 250 ML IV SCH ×2 (00:27→16:04)
[2016-07-16] MEDS: cefTRIAXone INJ 2,000 MG in SODIUM CHLORIDE 0.9% INJ 100 ML IV SCH ×2 (02:37→15:02)
[2016-07-16] MEDS: AZTREONAM INJ 2,000 MG in SODIUM CHLORIDE 0.9% INJ 100 ML IV SCH ×2 (04:14→12:15)
[2016-07-16] MEDS: SODIUM CHLORIDE 0.9% IV SCH (05:32)
[2016-07-16] MEDS: ACYCLOVIR IV SCH (05:32)
[2016-07-16 08:45] LABS: HEMATOCRIT 22.6 % (35.0-46.0); MEAN CELL VOLUME 86.4 FL (80.0-100.0); MEAN CORPUSCULAR HEMOGLOBIN 30.1 PG (27.0-34.0); MEAN CORPUSCULAR HGB CONC 34.8 % (32.0-36.0); PLATELET COUNT 150 TH/MM3 (150-450); RED BLOOD COUNT 2.62 MIL/MM3 (4.00-5.30); RED CELL DISTRIBUTION WIDTH 16.6 % (11.6-17.2); WHITE BLOOD COUNT 2.1 TH/MM3 (4.0-11.0)
[2016-07-16 08:54] LABS: HEMO FLAGS AUTO DIFF
[2016-07-16] MEDS: ONDANSETRON HCL 4 MG/2 ML VIAL IVP PRN ×2 (09:14→18:29)
[2016-07-16] MEDS: SODIUM CHLORIDE 0.9% FLUSH 5 ML FLUSH FLUSH SCH ×2 (09:14→21:24)
[2016-07-16] MEDS: CARBAMIDE PEROXIDE 6.5% OTIC SOLN 15 ML BTL EACH EAR SCH ×2 (09:15→21:26)
[2016-07-16] MEDS: NYSTATIN SUSP 500,000 U/5 ML CUP SWISH-SWAL SCH ×4 (09:19→21:00)
[2016-07-16 09:47] LABS: BICARBONATE 22.2 MEQ/L (21.0-32.0); POTASSIUM 3.7 MEQ/L (3.5-5.1)
--- NOTE | 2016-07-16 10:17 | PD.ONC.PN ---
Subjective Subjective Remarks Tmax 100.0 overnight. Pt sitting up in bed talking with nurse. She is complaining that she still cannot hear well. She is hoping that her ears can be flushed. No other complaints. Objective Data Date Time Temp Pulse Resp B/P Pulse Ox O2 Delivery O2 Flow Rate FiO2 07/16/16 08:00 99.2 94 12 98/52 93 07/16/16 04:00 100.0 86 20 101/54 95 07/16/16 00:00 98.2 94 20 130/76 97 07/15/16 20:20 86 07/15/16 20:00 98.0 88 20 123/72 97 07/15/16 19:30 Room Air 07/15/16 17:44 95 Room Air 07/15/16 17:26 20 07/15/16 16:00 99.3 90 12 129/73 93 07/15/16 12:00 98.8 87 12 112/70 95 07/16/16 07/16/16 07/16/16 07:00 15:00 23:00 Intake Total 380 ml Balance 380 ml Result Diagram: 07/16/16 0747 07/16/16 0856 Laboratory Results Laboratory Tests Test 07/16/16 07/16/16 07:47 08:56 White Blood Count 2.1 TH/MM3 Red Blood Count 2.62 MIL/MM3 Hemoglobin 7.9 GM/DL Hematocrit 22.6 % Mean Corpuscular Volume 86.4 FL Mean Corpuscular Hemoglobin 30.1 PG Mean Corpuscular Hemoglobin 34.8 % Concent Red Cell Distribution Width 16.6 % Platelet Count 150 TH/MM3 Mean Platelet Volume 8.0 FL Neutrophils (%) (Auto) % Lymphocytes (%) (Auto) % Monocytes (%) (Auto) % Eosinophils (%) (Auto) % Basophils (%) (Auto) % Neutrophils # (Auto) TH/MM3 Lymphocytes # (Auto) TH/MM3 Monocytes # (Auto) TH/MM3 Eosinophils # (Auto) TH/MM3 Basophils # (Auto) TH/MM3 CBC Comment AUTO DIFF Sodium Level 133 MEQ/L Potassium Level 3.7 MEQ/L Chloride Level 100 MEQ/L Carbon Dioxide Level 22.2 MEQ/L Anion Gap 11 MEQ/L Blood Urea Nitrogen 7 MG/DL Creatinine 0.97 MG/DL Estimat Glomerular Filtration 62 ML/MIN Rate Random Glucose 99 MG/DL Calcium Level 8.4 MG/DL Culture Results Microbiology Date/Time Procedure Status Source Growth 07/15/16 12:30 Gram Stain - Final Resulted Sputum Expectorated Sputum 07/15/16 12:30 Sputum Culture Resulted Sputum Expectorated Sputum Pending 07/15/16 12:30 Fungal Smear Received Sputum Expectorated Sputum Pending 07/15/16 12:30 Fungal Culture Received Sputum Expectorated Sputum Pending 07/15/16 12:30 Acid Fast Stain Received Sputum Expectorated Sputum Pending 07/15/16 12:30 Mycobacterial Culture Received Sputum Expectorated Sputum Pending Administered Medications Medications (Trade) Dose Ordered Sig/Carolyn Route PRN Reason Start Time Stop Time Status Last Admin Dose Admin Aztreonam/Sodium Chloride (Azactam Inj/NS Inj) 100 ml @ 200 mls/hr Q8H IV 07/12/16 04:00 07/16/16 04:14 IV Flush (NS Flush) 2 ml BID FLUSH 07/12/16 09:00 07/16/16 09:14 Ondansetron HCl (Zofran Inj) 4 mg Q6H PRN IVP NAUSEA OR VOMITING 07/11/16 21:45 07/16/16 09:14 Acetaminophen (Tylenol) 650 mg Q6H PRN PO FEVER/PAIN SCALE 1 TO 2 07/11/16 21:45 07/12/16 18:09 Patient Own Medication PT OWN MED: Darunavir-Cobicistat 800-150... DAILY PO 07/12/16 16:00 Hold 07/15/16 08:30 Acyclovir Sodium 680 mg/Sodium Chloride 150 ml @ 150 mls/hr Q12H IV 07/12/16 18:00 07/16/16 05:32 Ceftriaxone Sodium/Sodium Chloride (Rocephin Inj/NS Inj) 100 ml @ 200 mls/hr Q12H IV 07/12/16 15:00 07/16/16 02:37 Nystatin (Mycostatin Liq) 5 ml QID SWISH-SWAL 07/12/16 18:00 07/14/16 17:08 Oxycodone HCl 10 mg 10 mg Q4H PRN PO PAIN GREATER THAN 5 07/14/16 12:45 07/16/16 05:32 Vancomycin HCl/ Sodium Chloride (Vancomycin Inj/ NS 250 ml Inj) 260 ml @ 260 mls/hr Q18H IV 07/15/16 06:00 07/16/16 00:27 Calcium/Vitamin D (Oscal-D 250-125) 250 mg DAILY@21 PO 07/14/16 21:00 07/15/16 20:20 Carbamide Peroxide (Debrox 6.5% Otic) 5 drop Q12HR EACH EAR 07/15/16 13:00 07/16/16 09:15 Filgrastim (Neupogen Inj) 480 mcg DAILY@14 SQ 07/15/16 14:00 07/15/16 17:09 Objective Remarks GENERAL: Young adult female, sitting up in bed in no distress. SKIN: Warm and dry. HEAD: Normocephalic. EYES: No scleral icterus. No injection or drainage. NECK: Supple, trachea midline CARDIOVASCULAR: +S1/S2. RESPIRATORY: Breath sounds equal bilaterally. No accessory muscle use. GASTROINTESTINAL: Abdomen soft, non-tender, nondistended. EXTREMITIES: No cyanosis. No edema. MUSCULOSKELETAL: Adequate muscle tone. NEUROLOGICAL: No obvious focal deficit. Awake, alert, and oriented x3. Assessment/Plan Problem List: (1) Sepsis Status: Acute Plan: -- Sputum cultures pending --urine culture + Pneumococcal antigen. --BC no growth --on antibiotics per infectious disease. (2) Pancytopenia Status: Acute Plan: -- WBC slightly improved today; ANC pending. --likely multifactorial due to underlying HIV / AIDS +splenomegaly + viral infection --iron studies more consistent with anemia of chronic disease than iron deficiency --vitamin B12/folate--no deficiency --CT ab shows hepatosplenomegaly --Will consider bone marrow biopsy if blood count does not improve. Assessment 46y/o female HIV admitted with neutropenic fever and pancytopenia. h/o HIV / AIDS-dx 2004. compliant with HAART Anxiety and depression. +renal insufficiency Plan 1. Continue daily Neupogen. 2. WBC somewhat improved today; ANC pending. 3. Continue Abx. 4. Supportive care. Attending Statement The exam, history, and the medical decision-making described in the above note were completed with the assistance of the mid-level provider. I reviewed and agree with the findings presented. I attest that I had a [id number] encounter with the patient on the same day, and personally performed and documented my assessment and findings in the medical record. Has low grade fever. Received neupogen yesterday, WBC trending up. CMV pending. Continue neupogen and monitor CBC. Problem Qualifiers (1) Sepsis: Qualified Code: A41.9 - Sepsis, due to unspecified organism Dolly Smith Jul 16, 2016 10:17 Leonidas Ogden MD Jul 16, 2016 15:20
[2016-07-16 10:57] LABS: BANDS 16 % (0-6); EOSINOPHILS 3 % (0-4); POLYS (SEG NEUTROPHILS) 31 % (16-70); WBC DIFF SAMPLE 100
[2016-07-16 10:58] LABS: PLATELET ESTIMATE SMEAR NORMAL (NORMAL); PLATELET MORPHOLOGY NORMAL (NORMAL); SCAN/DIFF FINAL DIFF MANUAL
--- NOTE | 2016-07-16 12:27 | HHI.PR ---
Subjective Remarks Patient still complains of ear fullness, otherwise reports that she is feeling better. Afebrile. Coughing less. Objective Vitals Vital Signs Date Time Temp Pulse Resp B/P Pulse Ox O2 Delivery O2 Flow Rate FiO2 07/16/16 12:00 98.5 80 12 101/58 94 07/16/16 09:48 87 07/16/16 09:48 Room Air 07/16/16 08:00 99.2 94 12 98/52 93 07/16/16 04:00 100.0 86 20 101/54 95 07/16/16 00:00 98.2 94 20 130/76 97 07/15/16 20:20 86 07/15/16 20:00 98.0 88 20 123/72 97 07/15/16 19:30 Room Air 07/15/16 17:44 95 Room Air 07/15/16 17:26 20 07/15/16 16:00 99.3 90 12 129/73 93 I/O 07/15/16 07/15/16 07/15/16 07/16/16 07/16/16 07/16/16 07:00 15:00 23:00 07:00 15:00 23:00 Intake Total 320 ml 300 ml 3769 ml 380 ml Balance 320 ml 300 ml 3769 ml 380 ml Intake Oral 320 ml 300 ml 680 ml 380 ml IV Total 3089 ml # Voids 3 3 3 # Bowel Movements 1 1 1 0 Result Diagram: 07/16/16 0747 07/16/16 0856 Objective Remarks GENERAL: This is a well-nourished, well-developed patient, in no apparent distress. ENT: Right ear is full of hard wax, unable to visualize TM. Left ear TM is bulging and there is fluid behind it. Tender to palpation over the right mastoid. CARDIOVASCULAR: Normal rate and regular rhythm without murmurs, gallops, or rubs. RESPIRATORY: Good respiratory efforts. Breath sounds equal and clear to auscultation bilaterally. GASTROINTESTINAL: Abdomen soft, non-tender, non-distended. Normal active bowel sounds MUSCULOSKELETAL: Extremities without cyanosis, or edema. NEURO: Alert & Oriented x4 to person, place, time, situation. Moves all ext x4 PSYCH: Appropriate mood and affect. A/P Problem List: (1) Sepsis ICD Code: A41.9 Status: Acute (2) Neutropenic fever ICD Code: D70.9 Status: Acute (3) AIDS ICD Code: B20 Status: Acute (4) Renal insufficiency ICD Code: N28.9 Status: Acute Assessment and Plan 46-year-old female with Sepsis: positive for urinary pneumococcal antigen. +Immunocompromised. Possible Invasive pneumococcal disease, probable pneumonia on CT. questionable mastoiditis, otitis media, meningitis less likely S/p LP in ER. Blood/Urine cultures sent, continue Rocephin and vancomycin per infectious disease.. flu A and B antigen negative. Follow cultures. -Sputum culture pending Neutropenic Fever and pancytopenia: Neutrophil count 0. +Immunocompromised w/ h/o HIV/AIDS, continue w/ broad spectrum antibiotics. ID following as above. Appreciate hematology following. Patient started on Neupogen per hematology. Reported hearing loss: She does have effusion on the right hear as I can see. Left hear is full of wax. Tried to irrigate with water without success. Will attempt to disimpact tomorrow. HIV/AIDS: continue HAART; lymphocyte profile shows CD4 count of 65. Patient reports compliance with HAART medications. Infectious disease following. Anemia: Likely of acute blood loss from menses, S/P transfusion. H&H stable. Continue to follow. On Neupogen per hematology as above. Renal Insufficiency: Acute on Chronic. Resolved with IV fluid. Continue to monitor labs. DVT Prophylaxis: SCD/Teds. Chemoprophylaxis contraindicated given pancytopenia. Problem Qualifiers (1) Sepsis: Qualified Code: A41.9 - Sepsis, due to unspecified organism Candelario Rasheed MD Jul 16, 2016 12:27
[2016-07-16] MEDS: FILGRASTIM 480 MCG/1.6 ML VIAL SQ SCH (15:03)
--- NOTE | 2016-07-16 16:37 | HHI.IDPN ---
Subjective Subjective Remarks doing better WBC up co some GI upset ambulating afebrile Antibiotics acyclovir azactam CFTX vanco Past Medical History HIV Allergies: Coded Allergies: Penicillin (Verified Allergy, Intermediate, 11/01/14) Objective . Vital Signs Date Time Temp Pulse Resp B/P Pulse Ox O2 Delivery O2 Flow Rate FiO2 07/16/16 12:00 98.5 80 12 101/58 94 07/16/16 09:48 87 07/16/16 09:48 Room Air 07/16/16 08:00 99.2 94 12 98/52 93 07/16/16 04:00 100.0 86 20 101/54 95 07/16/16 00:00 98.2 94 20 130/76 97 07/15/16 20:20 86 07/15/16 20:00 98.0 88 20 123/72 97 07/15/16 19:30 Room Air 07/15/16 17:44 95 Room Air 07/15/16 17:26 20 07/15/16 07/15/16 07/16/16 15:00 23:00 07:00 Intake Total 300 ml 3769 ml 380 ml Balance 300 ml 3769 ml 380 ml Intake Oral 300 ml 680 ml 380 ml IV Total 3089 ml # Voids 3 3 # Bowel Movements 1 1 0 . Laboratory Tests Test 07/15/16 07/16/16 09:05 07:47 White Blood Count 0.9 TH/MM3 2.1 TH/MM3 Red Blood Count 2.59 MIL/MM3 2.62 MIL/MM3 Hemoglobin 7.7 GM/DL 7.9 GM/DL Hematocrit 22.6 % 22.6 % Mean Corpuscular Volume 87.2 FL 86.4 FL Mean Corpuscular Hemoglobin 29.7 PG 30.1 PG Mean Corpuscular Hemoglobin 34.0 % 34.8 % Concent Red Cell Distribution Width 16.6 % 16.6 % Platelet Count 158 TH/MM3 150 TH/MM3 Mean Platelet Volume 8.3 FL 8.0 FL Neutrophils (%) (Auto) % % Lymphocytes (%) (Auto) % % Monocytes (%) (Auto) % % Eosinophils (%) (Auto) % % Basophils (%) (Auto) % % Neutrophils # (Auto) TH/MM3 TH/MM3 Lymphocytes # (Auto) TH/MM3 TH/MM3 Monocytes # (Auto) TH/MM3 TH/MM3 Eosinophils # (Auto) TH/MM3 TH/MM3 Basophils # (Auto) TH/MM3 TH/MM3 CBC Comment AUTO DIFF AUTO DIFF Differential Total Cells 100 100 Counted Neutrophils % (Manual) 4 % 31 % Band Neutrophils % 2 % 16 % Lymphocytes % 50 % 27 % Monocytes % 34 % 23 % Eosinophils % 4 % 3 % Basophils % 4 % Neutrophils # (Manual) 0.1 TH/MM3 1.0 TH/MM3 Metamyelocytes 2 % Differential Comment FINAL DIFF FINAL DIFF MANUAL MANUAL Platelet Estimate NORMAL NORMAL Platelet Morphology Comment NORMAL NORMAL Ovalocytes 1+ Laboratory Tests Test 07/15/16 07/16/16 09:05 08:56 Sodium Level 132 MEQ/L 133 MEQ/L Potassium Level 3.3 MEQ/L 3.7 MEQ/L Chloride Level 100 MEQ/L 100 MEQ/L Carbon Dioxide Level 21.4 MEQ/L 22.2 MEQ/L Anion Gap 11 MEQ/L 11 MEQ/L Blood Urea Nitrogen 8 MG/DL 7 MG/DL Creatinine 1.00 MG/DL 0.97 MG/DL Estimat Glomerular Filtration 60 ML/MIN 62 ML/MIN Rate Random Glucose 118 MG/DL 99 MG/DL Calcium Level 8.0 MG/DL 8.4 MG/DL Lactate Dehydrogenase 161 U/L Microbiology Date/Time Procedure Status Source Growth 07/15/16 12:30 Gram Stain - Final Resulted Sputum Expectorated Sputum 07/15/16 12:30 Sputum Culture - Preliminary Resulted Sputum Expectorated Sputum IMMATURE GROWTH - REINCUBATE 07/15/16 12:30 Fungal Smear Received Sputum Expectorated Sputum Pending 07/15/16 12:30 Fungal Culture Received Sputum Expectorated Sputum Pending 07/15/16 12:30 Acid Fast Stain Received Sputum Expectorated Sputum Pending 07/15/16 12:30 Mycobacterial Culture Received Sputum Expectorated Sputum Pending Imaging Last Impressions Abdomen/Pelvis CT 07/14/16 0000 Signed Impressions: Service Date/Time: Thursday, July 14, 2016 18:35 - CONCLUSION: 1. Patchy basilar air space disease in the lungs which could represent mild bronchopneumonia with small bilateral pleural effusions. 2. Hepatosplenomegaly as above with mild ascites. Minimal anasarca. No obstruction or free air. Mild ileus. Urbano Yee MD Head CT 07/11/161814 Signed Impressions: Service Date/Time: Monday, July 11, 2016 18:59 - CONCLUSION: 1. No intracranial abnormality seen. 2. Sinus disease throughout and scattered areas of increased density/fluid in the mastoid air cells. . Anderson Gary MD Chest X-Ray 07/11/161814 Signed Impressions: Service Date/Time: Monday, July 11, 2016 18:47 - CONCLUSION: No acute disease. Anderson Gary MD Physical Exam CONSTITUTIONAL/GENERAL: This is an adequately nourished patient, in no apparent distress. TUBES/LINES/DRAINS: SKIN: No jaundice, rashes, or lesions. Ecchymoses on upper extremities. No wounds seen anteriorly. Skin temperature appropriate. Not diaphoretic. EYES: Pupils equal and round and reactive. Extraocular motions intact. No scleral icterus. No injection or drainage. Fundi not examined. ENT: Hearing grossly mildly decreased. Nose without bleeding or purulent drainage. Throat without visible erythema, exudates, masses, or lesions. CARDIOVASCULAR: Regular rate and rhythm without murmurs, gallops, or rubs. No JVD. Peripheral pulses symmetric. RESPIRATORY/CHEST: Symmetric, unlabored respirations. Clear to auscultation. Breath sounds equal bilaterally. No wheezes, rales, or rhonchi. GASTROINTESTINAL: Abdomen soft, non-tender, nondistended. No hepato-splenomegaly , or palpable masses. No guarding. Bowel sounds present. MUSCULOSKELETAL: Extremities without clubbing, cyanosis, or edema. NEUROLOGICAL: Awake and alert. Motor and sensory grossly within normal limits. Follows commands. Speech normal. Moves all extremities. PSYCHIATRIC: No obvious anxiety/depression. no apparent hallucinations or other psychotic thought process. Assessment & Plan Remarks HIV, AIDS, states compliance - Neutropenia ? infx - WBC improving Invasive pneumococcal dz : ? mastoiditis vs meningitis (CSF clx is neg so far) - CXR not cw PNA CSF clx neg; HSV neg, everything seem ne except for elevted protein - cont HAART as per pt s profile:Prezcobix, Epivir and Tivicay: dw pharmacy/ nurse - appreciate Hematology consult - cont CFTX, - cont vanco for now - dc azactam dc acyclovir since HSV negative fu sputum clx Adilia Tanner MD Jul 16, 2016 16:37
[2016-07-16 17:52] LABS: HAEMOPHILUS FLU AG TYPE B Not Detected (Not Detected); N MENINGITIDIS GRP B/ECOLI K1 Not Detected (Not Detected); N MENINGITIDIS GRP C/W135 Not Detected (Not Detected); N.MENINGITIDIS GRP A/Y Not Detected (Not Detected); STREPTOCOCCUS PNEUMONIAE Not Detected (Not Detected)
[2016-07-16] MEDS: CALCIUM/VITAMIN D 250 MG/125 U TAB PO SCH (21:25)
[2016-07-17] VITALS (8 sets, daily range): BP systolic 100–119; BP diastolic 56–75; PULSE 73–90; RESP 16–20; TEMP 97.6–98.3; O2SAT 94–96
[2016-07-17] MEDS: cefTRIAXone INJ 2,000 MG in SODIUM CHLORIDE 0.9% INJ 100 ML IV SCH ×2 (03:33→16:47)
[2016-07-17 07:18] LABS: HEMATOCRIT 21.8 % (35.0-46.0); MEAN CELL VOLUME 86.2 FL (80.0-100.0); MEAN CORPUSCULAR HEMOGLOBIN 29.9 PG (27.0-34.0); MEAN CORPUSCULAR HGB CONC 34.7 % (32.0-36.0); PLATELET COUNT 125 TH/MM3 (150-450); RED BLOOD COUNT 2.53 MIL/MM3 (4.00-5.30); RED CELL DISTRIBUTION WIDTH 16.6 % (11.6-17.2); WHITE BLOOD COUNT 3.9 TH/MM3 (4.0-11.0)
[2016-07-17 07:33] LABS: HEMO FLAGS AUTO DIFF
[2016-07-17 08:31] LABS: BANDS 43 % (0-6); EOSINOPHILS 5 % (0-4); NEUTROPHIL # MANUAL DIFF 2.6 TH/MM3 (1.8-7.7); POLYS (SEG NEUTROPHILS) 24 % (16-70); WBC DIFF SAMPLE 100
[2016-07-17 08:32] LABS: DOHLE BODIES PRESENT (NONE SEEN); TOXIC GRANULATION 1+ (NORMAL)
[2016-07-17 08:33] LABS: PLATELET ESTIMATE SMEAR LOW (NORMAL); PLATELET MORPHOLOGY NORMAL (NORMAL); SCAN/DIFF FINAL DIFF MANUAL
[2016-07-17] MEDS: ONDANSETRON HCL 4 MG/2 ML VIAL IVP PRN ×2 (09:10→19:59)
[2016-07-17] MEDS: SODIUM CHLORIDE 0.9% FLUSH 5 ML FLUSH FLUSH SCH ×2 (09:14→20:43)
[2016-07-17] MEDS: NYSTATIN SUSP 500,000 U/5 ML CUP SWISH-SWAL SCH ×4 (09:14→20:42)
[2016-07-17] MEDS: CARBAMIDE PEROXIDE 6.5% OTIC SOLN 15 ML BTL EACH EAR SCH (09:14)
--- NOTE | 2016-07-17 09:54 | PD.ONC.PN ---
Subjective Subjective Remarks Afebrile overnight. Patient resting comfortably. No bleeding. She slept okay last night. She is tolerating Neupogen injection. Objective Data Date Time Temp Pulse Resp B/P Pulse Ox O2 Delivery O2 Flow Rate FiO2 07/17/16 04:00 98.3 77 16 101/56 96 07/17/16 00:00 97.8 81 18 106/60 94 07/16/16 20:00 98.1 83 18 113/77 94 07/16/16 16:00 98.0 68 12 114/56 94 07/16/16 12:00 98.5 80 12 101/58 94 Result Diagram: 07/17/16 0620 07/16/16 0856 Laboratory Results Laboratory Tests Test 07/17/16 06:20 White Blood Count 3.9 TH/MM3 Red Blood Count 2.53 MIL/MM3 Hemoglobin 7.6 GM/DL Hematocrit 21.8 % Mean Corpuscular Volume 86.2 FL Mean Corpuscular Hemoglobin 29.9 PG Mean Corpuscular Hemoglobin 34.7 % Concent Red Cell Distribution Width 16.6 % Platelet Count 125 TH/MM3 Mean Platelet Volume 8.3 FL Neutrophils (%) (Auto) % Lymphocytes (%) (Auto) % Monocytes (%) (Auto) % Eosinophils (%) (Auto) % Basophils (%) (Auto) % Neutrophils # (Auto) TH/MM3 Lymphocytes # (Auto) TH/MM3 Monocytes # (Auto) TH/MM3 Eosinophils # (Auto) TH/MM3 Basophils # (Auto) TH/MM3 CBC Comment AUTO DIFF Differential Total Cells 100 Counted Neutrophils % (Manual) 24 % Band Neutrophils % 43 % Lymphocytes % 10 % Monocytes % 18 % Eosinophils % 5 % Neutrophils # (Manual) 2.6 TH/MM3 Differential Comment FINAL DIFF MANUAL Toxic Granulation 1+ Dohle Bodies PRESENT Platelet Estimate LOW Platelet Morphology Comment NORMAL Culture Results Microbiology Date/Time Procedure Status Source Growth 07/15/16 12:30 Gram Stain - Final Complete Sputum Expectorated Sputum 07/15/16 12:30 Sputum Culture - Final Complete Sputum Expectorated Sputum HEAVY GROWTH NORMAL RESPIRATORY MIC 07/15/16 12:30 Fungal Smear - Final Resulted Sputum Expectorated Sputum FEW BUDDING YEAST WITH PSEUDOHYPHAE 07/15/16 12:30 Fungal Culture Resulted Sputum Expectorated Sputum Pending 07/15/16 12:30 Acid Fast Stain Received Sputum Expectorated Sputum Pending 07/15/16 12:30 Mycobacterial Culture Received Sputum Expectorated Sputum Pending Administered Medications Medications (Trade) Dose Ordered Sig/Carolyn Route PRN Reason Start Time Stop Time Status Last Admin Dose Admin IV Flush (NS Flush) 2 ml BID FLUSH 07/12/16 09:00 07/17/16 09:14 Ondansetron HCl (Zofran Inj) 4 mg Q6H PRN IVP NAUSEA OR VOMITING 07/11/16 21:45 07/17/16 09:10 Acetaminophen 650 mg 650 mg Q6H PRN PO FEVER/PAIN SCALE 1 TO 2 07/11/16 21:45 07/12/16 18:09 Ceftriaxone Sodium/Sodium Chloride (Rocephin Inj/NS Inj) 100 ml @ 200 mls/hr Q12H IV 07/12/16 15:00 07/17/16 03:33 Nystatin (Mycostatin Liq) 5 ml QID SWISH-SWAL 07/12/16 18:00 07/16/16 15:02 Oxycodone HCl 10 mg 10 mg Q4H PRN PO PAIN GREATER THAN 5 07/14/16 12:45 07/17/16 09:10 Vancomycin HCl/ Sodium Chloride (Vancomycin Inj/ NS 250 ml Inj) 260 ml @ 260 mls/hr Q18H IV 07/15/16 06:00 07/16/16 16:04 Calcium/Vitamin D (Oscal-D 250-125) 250 mg DAILY@21 PO 07/14/16 21:00 07/16/16 21:25 Carbamide Peroxide (Debrox 6.5% Otic) 5 drop Q12HR EACH EAR 07/15/16 13:00 07/17/16 09:14 Filgrastim (Neupogen Inj) 480 mcg DAILY@14 SQ 07/15/16 14:00 07/16/16 15:03 Patient Own Medication PT OWN MED: Darunavir-Cobicistat 800-150... DAILY PO 07/16/16 16:00 07/17/16 09:10 Objective Remarks GENERAL: Young woman, lying in bed watching TV SKIN: Warm and dry. HEAD: Normocephalic. EYES: No injection or drainage. NECK: Supple, trachea midline CARDIOVASCULAR: Regular rate and rhythm RESPIRATORY: Breath sounds equal bilaterally. No accessory muscle use. GASTROINTESTINAL: Abdomen soft, non-tender, nondistended. EXTREMITIES: No cyanosis MUSCULOSKELETAL: Adequate muscle tone. NEUROLOGICAL: awake and alert, normal speech. moving all extremities. Assessment/Plan Problem List: (1) Sepsis Status: Acute Plan: -- Sputum cultures + yeast --urine culture + Pneumococcal antigen. --BC no growth --on antibiotics per infectious disease. (2) Pancytopenia Status: Acute Plan: -- WBC improving with Neupogen --likely multifactorial due to underlying HIV / AIDS +splenomegaly + viral infection --iron studies more consistent with anemia of chronic disease than iron deficiency --vitamin B12/folate--no deficiency --CT ab shows hepatosplenomegaly --Will consider bone marrow biopsy if blood count does not improve. Assessment 46y/o female HIV admitted with neutropenic fever and pancytopenia. h/o HIV / AIDS-dx 2004. compliant with HAART Anxiety and depression. +renal insufficiency Plan 1. Continue daily Neupogen. 2. d/c neutropenic precautions 3. will defer to ID for management of antibiotics. Attending Statement The exam, history, and the medical decision-making described in the above note were completed with the assistance of the mid-level provider. I reviewed and agree with the findings presented. I attest that I had a [id number] encounter with the patient on the same day, and personally performed and documented my assessment and findings in the medical record. Tolerating neupogen. WBC trending up, neutropenia has resolved. Continue CBC. Problem Qualifiers (1) Sepsis: Qualified Code: A41.9 - Sepsis, due to unspecified organism Yolanda Bustamante Jul 17, 2016 09:54 Leonidas Ogden MD Jul 17, 2016 17:00
[2016-07-17] MEDS ORDERED: PHARMACY ORDERED LAB XX ONE (11:45)
[2016-07-17] MEDS: VANCOMYCIN INJ 1,000 MG in SODIUM CHLOR 0.9% 250 ML INJ 250 ML IV SCH (12:27)
--- NOTE | 2016-07-17 13:58 | HHI.PR ---
Subjective Remarks Patient reports that she is feeling better. No shortness of breath. Hearing is better today. Objective Vitals Vital Signs Date Time Temp Pulse Resp B/P Pulse Ox O2 Delivery O2 Flow Rate FiO2 07/17/16 09:20 Room Air 07/17/16 09:20 79 07/17/16 08:00 97.9 90 20 119/75 95 07/17/16 04:00 98.3 77 16 101/56 96 07/17/16 00:00 97.8 81 18 106/60 94 07/16/16 20:00 98.1 83 18 113/77 94 07/16/16 16:00 98.0 68 12 114/56 94 I/O 07/16/16 07/16/16 07/16/16 07/17/16 07/17/16 07/17/16 07:00 15:00 23:00 07:00 15:00 23:00 Intake Total 380 ml 720 ml 720 ml Balance 380 ml 720 ml 720 ml Intake Oral 380 ml 720 ml 720 ml # Voids 3 5 6 # Bowel Movements 0 0 0 Result Diagram: 07/17/16 0620 07/16/16 0856 Objective Remarks GENERAL: This is a well-nourished, well-developed patient, in no apparent distress. ENT: Right ear is full of hard wax, unable to visualize TM. Left ear TM is bulging and there is fluid behind it. Bilateral ear canals appear to be inflamed but improved compared to prior exam. Less tenderness over the right mastoid. CARDIOVASCULAR: Normal rate and regular rhythm without murmurs, gallops, or rubs. RESPIRATORY: Good respiratory efforts. Breath sounds equal and clear to auscultation bilaterally. GASTROINTESTINAL: Abdomen soft, non-tender, non-distended. Normal active bowel sounds MUSCULOSKELETAL: Extremities without cyanosis, or edema. NEURO: Alert & Oriented x4 to person, place, time, situation. Moves all ext x4 PSYCH: Appropriate mood and affect. A/P Problem List: (1) Sepsis ICD Code: A41.9 Status: Acute (2) Neutropenic fever ICD Code: D70.9 Status: Acute (3) AIDS ICD Code: B20 Status: Acute (4) Renal insufficiency ICD Code: N28.9 Status: Acute Assessment and Plan 46-year-old female with Sepsis: positive for urinary pneumococcal antigen. +Immunocompromised. Possible Invasive pneumococcal disease, probable pneumonia on CT. questionable mastoiditis, otitis media, meningitis less likely S/p LP in ER. Blood/Urine cultures sent, continue Rocephin and vancomycin per infectious disease.. flu A and B antigen negative. Follow cultures. -Sputum culture pending Neutropenic Fever and pancytopenia: Neutrophil count 0 on admission. + Immunocompromised w/ h/o HIV/AIDS, continue w/ broad spectrum antibiotics. ID following as above. Appreciate hematology following. Patient started on Neupogen per hematology. Cell counts improving. Reported hearing loss/pain: She does have effusion on the right hear as I can see. Left hear is full of wax. Tried to irrigate with water without success. Ear canal appear to be inflamed. Will try dexamethasone drops. HIV/AIDS: continue HAART; lymphocyte profile shows CD4 count of 65. Patient reports compliance with HAART medications. Infectious disease following. Anemia: Likely of acute blood loss from menses, S/P transfusion. H&H stable. Continue to follow. On Neupogen per hematology as above. Renal Insufficiency: Acute on Chronic. Resolved with IV fluid. Continue to monitor labs. DVT Prophylaxis: SCD/Teds. Chemoprophylaxis contraindicated given pancytopenia. Problem Qualifiers (1) Sepsis: Qualified Code: A41.9 - Sepsis, due to unspecified organism Candelario Rasheed MD Jul 17, 2016 13:58
[2016-07-17] MEDS: FILGRASTIM 480 MCG/1.6 ML VIAL SQ SCH (16:47)
[2016-07-17] MEDS: ACETAMINOPHEN 325 MG TAB PO PRN (16:54)
[2016-07-17] MEDS: NEOMYCIN/POLYMYXIN/HYDROCORT OTIC SOLN 10 ML BTL EACH EAR SCH (18:10)
[2016-07-17] MEDS: CALCIUM/VITAMIN D 250 MG/125 U TAB PO SCH (20:35)
[2016-07-18] VITALS (7 sets, daily range): BP systolic 99–106; BP diastolic 54–70; PULSE 69–104; RESP 16–18; TEMP 97.8–98.7; O2SAT 93–96
[2016-07-18] MEDS: ONDANSETRON HCL 4 MG/2 ML VIAL IVP PRN ×3 (02:14→21:12)
[2016-07-18] MEDS: cefTRIAXone INJ 2,000 MG in SODIUM CHLORIDE 0.9% INJ 100 ML IV SCH ×2 (04:05→14:25)
[2016-07-18] MEDS: NEOMYCIN/POLYMYXIN/HYDROCORT OTIC SOLN 10 ML BTL EACH EAR SCH ×4 (06:00→17:35)
[2016-07-18] MEDS: NYSTATIN SUSP 500,000 U/5 ML CUP SWISH-SWAL SCH ×4 (09:00→21:00)
[2016-07-18] MEDS: SODIUM CHLORIDE 0.9% FLUSH 5 ML FLUSH FLUSH SCH ×2 (09:31→21:13)
--- NOTE | 2016-07-18 10:23 | PD.ONC.PN ---
Subjective Subjective Remarks Afebrile overnight. Patient continues to complain of persistent difficulty with hearing. No bleeding. Tolerating Neupogen injection. Objective Data Date Time Temp Pulse Resp B/P Pulse Ox O2 Delivery O2 Flow Rate FiO2 07/18/16 08:01 98.2 82 18 101/70 95 07/18/16 04:00 98.7 86 18 102/60 93 07/18/16 00:00 98.5 77 18 104/61 93 07/17/16 20:10 97.6 73 17 111/62 07/17/16 20:03 Room Air 07/17/16 20:03 Room Air 07/17/16 17:25 97.6 77 18 115/65 95 07/17/16 16:00 97.6 77 18 115/65 95 07/17/16 12:00 97.6 77 20 100/58 95 07/18/16 07/18/16 07/18/16 07:00 15:00 23:00 Intake Total 480 ml Balance 480 ml Result Diagram: 07/17/16 0620 07/16/16 0856 Laboratory Results Laboratory Tests Test 07/17/16 12:30 Vancomycin Level Trough 9.4 MCG/ML Culture Results Microbiology Date/Time Procedure Status Source Growth 07/15/16 12:30 Gram Stain - Final Complete Sputum Expectorated Sputum 07/15/16 12:30 Sputum Culture - Final Complete Sputum Expectorated Sputum HEAVY GROWTH NORMAL RESPIRATORY MIC 07/15/16 12:30 Fungal Smear - Final Resulted Sputum Expectorated Sputum FEW BUDDING YEAST WITH PSEUDOHYPHAE 07/15/16 12:30 Fungal Culture - Preliminary Resulted Yeast Species 07/15/16 12:30 Acid Fast Stain - Final Resulted Sputum Expectorated Sputum NO ACID FAST BACILLI SEEN 07/15/16 12:30 Mycobacterial Culture Resulted Sputum Expectorated Sputum Pending Administered Medications Medications (Trade) Dose Ordered Sig/Carolyn Route PRN Reason Start Time Stop Time Status Last Admin Dose Admin IV Flush (NS Flush) 2 ml BID FLUSH 07/12/16 09:00 07/18/16 09:31 Ondansetron HCl (Zofran Inj) 4 mg Q6H PRN IVP NAUSEA OR VOMITING 07/11/16 21:45 07/18/16 02:14 Acetaminophen 650 mg 650 mg Q6H PRN PO FEVER/PAIN SCALE 1 TO 2 07/11/16 21:45 07/17/16 16:54 Ceftriaxone Sodium/Sodium Chloride (Rocephin Inj/NS Inj) 100 ml @ 200 mls/hr Q12H IV 07/12/16 15:00 07/18/16 04:05 Nystatin (Mycostatin Liq) 5 ml QID SWISH-SWAL 07/12/16 18:00 07/16/16 15:02 Oxycodone HCl (Roxicodone) 10 mg Q4H PRN PO PAIN GREATER THAN 5 07/14/16 12:45 07/18/16 06:15 Calcium/Vitamin D (Oscal-D 250-125) 250 mg DAILY@21 PO 07/14/16 21:00 07/17/16 20:35 Filgrastim (Neupogen Inj) 480 mcg DAILY@14 SQ 07/15/16 14:00 07/17/16 16:47 Patient Own Medication PT OWN MED: Darunavir-Cobicistat 800-150... DAILY PO 07/16/16 16:00 07/18/16 09:35 Vancomycin HCl/ Sodium Chloride (Vancomycin Inj/ NS 250 ml Inj) 250 ml @ 250 mls/hr Q12H IV 07/18/16 00:00 07/18/16 00:00 Neomycin/ Polymyxin/ Hydrocortisone (Cortisporin Otic Soln) 3 drop Q6HR EACH EAR 07/17/16 18:00 07/18/16 06:00 Objective Remarks GENERAL: Young woman, sitting up in bed in [facility]. SKIN: Warm and dry. HEAD: Normocephalic. EYES: No injection or drainage. NECK: Supple, trachea midline CARDIOVASCULAR: Regular rate and rhythm RESPIRATORY: Breath sounds equal bilaterally. No accessory muscle use. GASTROINTESTINAL: Abdomen soft, non-tender, nondistended. EXTREMITIES: No cyanosis MUSCULOSKELETAL: Adequate muscle tone. NEUROLOGICAL: AO x 3. normal speech. moving all extremities. Assessment/Plan Problem List: (1) Sepsis Status: Acute Plan: -- Sputum cultures + yeast --urine culture + Pneumococcal antigen. --BC no growth --on antibiotics per infectious disease. (2) Pancytopenia Status: Acute Plan: -- WBC improving with Neupogen --likely multifactorial due to underlying HIV / AIDS +splenomegaly + viral infection --iron studies more consistent with anemia of chronic disease than iron deficiency --vitamin B12/folate--no deficiency --CT ab shows hepatosplenomegaly Assessment 46y/o female HIV admitted with neutropenic fever and pancytopenia. h/o HIV / AIDS-dx 2004. compliant with HAART Anxiety and depression. +renal insufficiency Plan 1. Continue daily Neupogen until WBC >10K 2. supportive care Attending Statement The exam, history, and the medical decision-making described in the above note were completed with the assistance of the mid-level provider. I reviewed and agree with the findings presented. I attest that I had a [id number] encounter with the patient on the same day, and personally performed and documented my assessment and findings in the medical record. WBC trending up. No longer neutropenic. Stop the neupogen. Hgb stable. Problem Qualifiers (1) Sepsis: Qualified Code: A41.9 - Sepsis, due to unspecified organism Yolanda Bustamante Jul 18, 2016 10:23 Leonidas Ogden MD Jul 18, 2016 18:18
[2016-07-18 11:46] LABS: BASOPHIL % 0.3 % (0.0-2.0); EOSINOPHIL # 0.1 TH/MM3 (0-0.4); EOSINOPHIL % 0.5 % (0.0-4.0); HEMATOCRIT 22.4 % (35.0-46.0); LYMPH % 7.2 % (9.0-44.0); LYMPHOCYTE # 0.8 TH/MM3 (1.0-4.8); MEAN CORPUSCULAR HEMOGLOBIN 29.3 PG (27.0-34.0); MEAN CORPUSCULAR HGB CONC 33.7 % (32.0-36.0); MONO % 5.5 % (0.0-8.0); NEUT % 86.5 % (16.0-70.0); PLATELET COUNT 127 TH/MM3 (150-450); RED BLOOD COUNT 2.57 MIL/MM3 (4.00-5.30); RED CELL DISTRIBUTION WIDTH 16.6 % (11.6-17.2); WHITE BLOOD COUNT 11.6 TH/MM3 (4.0-11.0)
[2016-07-18 11:49] LABS: HEMO FLAGS AUTO DIFF
[2016-07-18 12:31] LABS: BANDS 29 % (0-6); BASOPHILS 1 % (0-2); EOSINOPHILS 2 % (0-4); NEUTROPHIL # MANUAL DIFF 9.9 TH/MM3 (1.8-7.7); POLYS (SEG NEUTROPHILS) 56 % (16-70); TOXIC GRANULATION 1+ (NORMAL); WBC DIFF SAMPLE 100
[2016-07-18 12:32] LABS: DOHLE BODIES PRESENT (NONE SEEN); KERATOCYTES OCC (NORMAL); PLATELET ESTIMATE SMEAR LOW (NORMAL); PLATELET MORPHOLOGY NORMAL (NORMAL); SCAN/DIFF FINAL DIFF MANUAL
[2016-07-18] MEDS: VANCOMYCIN 1,000 MG/NS 250 ML IV SCH ×4 (13:11)
[2016-07-18] MEDS: FILGRASTIM 480 MCG/1.6 ML VIAL SQ SCH (13:11)
--- NOTE | 2016-07-18 13:55 | HHI.PR ---
Subjective Remarks Patient continues to report persistent ear pain and hearing loss. Left ear pain is worse. No fevers. Objective Vitals Vital Signs Date Time Temp Pulse Resp B/P Pulse Ox O2 Delivery O2 Flow Rate FiO2 07/18/16 12:00 97.9 81 18 99/60 96 07/18/16 08:01 98.2 82 18 101/70 95 07/18/16 04:00 98.7 86 18 102/60 93 07/18/16 00:00 98.5 77 18 104/61 93 07/17/16 20:10 97.6 73 17 111/62 07/17/16 20:03 Room Air 07/17/16 20:03 Room Air 07/17/16 17:25 97.6 77 18 115/65 95 07/17/16 16:00 97.6 77 18 115/65 95 I/O 07/17/16 07/17/16 07/17/16 07/18/16 07/18/16 07/18/16 07:00 15:00 23:00 07:00 15:00 23:00 Intake Total 600 ml 240 ml 480 ml Balance 600 ml 240 ml 480 ml Intake Oral 600 ml 240 ml 480 ml # Voids 5 3 2 # Bowel Movements 2 0 0 Result Diagram: 07/18/16 1119 07/16/16 0856 Objective Remarks GENERAL: This is a well-nourished, well-developed patient, in no apparent distress. ENT: Right ear is full of hard wax, unable to visualize TM. Left ear TM is bulging and there is fluid behind it. Bilateral ear canals appear to be inflamed. Tenderness over the right mastoid. Cannot hear much on the left. CARDIOVASCULAR: Normal rate and regular rhythm without murmurs, gallops, or rubs. RESPIRATORY: Good respiratory efforts. Breath sounds equal and clear to auscultation bilaterally. GASTROINTESTINAL: Abdomen soft, non-tender, non-distended. Normal active bowel sounds MUSCULOSKELETAL: Extremities without cyanosis, or edema. NEURO: Alert & Oriented x4 to person, place, time, situation. Moves all ext x4. PSYCH: Appropriate mood and affect. A/P Problem List: (1) Sepsis ICD Code: A41.9 Status: Acute (2) Neutropenic fever ICD Code: D70.9 Status: Acute (3) AIDS ICD Code: B20 Status: Acute (4) Renal insufficiency ICD Code: N28.9 Status: Acute Assessment and Plan 46-year-old female with Sepsis: positive for urinary pneumococcal antigen. +Immunocompromised. Possible Invasive pneumococcal disease. Discussed with infectious disease, probably mastoiditis, and otitis as the source of sepsis. Meningitis less likely S/p LP in ER which has been negative. Blood/Urine cultures negative, continue Rocephin and vancomycin per infectious disease. flu A and B antigen negative. Follow cultures. -DW ID Consult ENT for mastoiditis, persistent hearing loss and hear pain. Neutropenic Fever and pancytopenia: Neutrophil count was 0 on admission. + Immunocompromised w/ h/o HIV/AIDS, continue w/ broad spectrum antibiotics. ID following as above. Appreciate hematology following. Patient started on Neupogen per hematology. Cell counts improving. Reported hearing loss/pain: She does have effusion on the right hear as I can see. Left hear is full of wax. Tried to irrigate with water without success. Ear canal appear to be inflamed. Trial of Corticosporin drops started yesterday.ENT consulted as above. HIV/AIDS: continue HAART; lymphocyte profile shows CD4 count of 65. Patient reports compliance with HAART medications. Infectious disease following. Anemia: Likely of acute blood loss from menses, S/P transfusion. H&H stable. Continue to follow. On Neupogen per hematology as above. Renal Insufficiency: Acute on Chronic. Resolved with IV fluid. Continue to monitor labs. DVT Prophylaxis: SCD/Teds. Chemoprophylaxis contraindicated given pancytopenia. Problem Qualifiers (1) Sepsis: Qualified Code: A41.9 - Sepsis, due to unspecified organism Candelario Rasheed MD Jul 18, 2016 13:55
[2016-07-18] MEDS ORDERED: FAMOTIDINE 20 MG TAB PO ONE (14:00)
[2016-07-18] MEDS: CALCIUM/VITAMIN D 250 MG/125 U TAB PO SCH (21:12)
[2016-07-18] MEDS: FAMOTIDINE 20 MG TAB PO SCH (21:12)
[2016-07-18] MEDS: ACETAMINOPHEN 325 MG TAB PO PRN (21:20)
[2016-07-19] VITALS (7 sets, daily range): BP systolic 107–125; BP diastolic 64–74; PULSE 64–91; RESP 16–18; TEMP 97.6–98.4; O2SAT 92–96
[2016-07-19] MEDS: VANCOMYCIN 1,000 MG/NS 250 ML IV SCH ×4 (01:10→12:00)
[2016-07-19] MEDS: NEOMYCIN/POLYMYXIN/HYDROCORT OTIC SOLN 10 ML BTL EACH EAR SCH ×4 (01:16→17:24)
[2016-07-19] MEDS: ACETAMINOPHEN 325 MG TAB PO PRN (01:31)
[2016-07-19] MEDS: cefTRIAXone INJ 2,000 MG in SODIUM CHLORIDE 0.9% INJ 100 ML IV SCH ×2 (02:44→15:11)
[2016-07-19] MEDS: NYSTATIN SUSP 500,000 U/5 ML CUP SWISH-SWAL SCH ×4 (08:08→21:00)
[2016-07-19] MEDS: FAMOTIDINE 20 MG TAB PO SCH ×2 (08:17→21:25)
[2016-07-19] MEDS: SODIUM CHLORIDE 0.9% FLUSH 5 ML FLUSH FLUSH SCH ×2 (08:19→21:25)
[2016-07-19] MEDS: ONDANSETRON HCL 4 MG/2 ML VIAL IVP PRN ×2 (08:24→15:13)
[2016-07-19 08:27] LABS: HEMATOCRIT 22.4 % (35.0-46.0); MEAN CELL VOLUME 86.7 FL (80.0-100.0); MEAN CORPUSCULAR HEMOGLOBIN 30.2 PG (27.0-34.0); MEAN CORPUSCULAR HGB CONC 34.8 % (32.0-36.0); PLATELET COUNT 109 TH/MM3 (150-450); RED BLOOD COUNT 2.59 MIL/MM3 (4.00-5.30); REVIEW FLAG FINAL; WHITE BLOOD COUNT 9.8 TH/MM3 (4.0-11.0)
[2016-07-19 08:31] LABS: AUTOMATED NEUTROPHIL # 8.1 TH/MM3 (1.8-7.7); BASOPHIL % 0.1 % (0.0-2.0); EOSINOPHIL # 0.1 TH/MM3 (0-0.4); HEMATOCRIT 22.3 % (35.0-46.0); LYMPH % 8.3 % (9.0-44.0); LYMPHOCYTE # 0.8 TH/MM3 (1.0-4.8); MEAN CELL VOLUME 86.9 FL (80.0-100.0); MEAN CORPUSCULAR HEMOGLOBIN 29.5 PG (27.0-34.0); MONO % 6.7 % (0.0-8.0); NEUT % 83.9 % (16.0-70.0); PLATELET COUNT 100 TH/MM3 (150-450); RED BLOOD COUNT 2.57 MIL/MM3 (4.00-5.30); RED CELL DISTRIBUTION WIDTH 16.9 % (11.6-17.2); WHITE BLOOD COUNT 9.7 TH/MM3 (4.0-11.0)
[2016-07-19 08:35] LABS: HEMO FLAGS AUTO DIFF
[2016-07-19 09:04] LABS: POTASSIUM 3.5 MEQ/L (3.5-5.1)
[2016-07-19 09:20] LABS: BANDS 4 % (0-6); BASOPHILS 3 % (0-2); EOSINOPHILS 1 % (0-4); MYELOCYTES 1 % (0-0); NEUTROPHIL # MANUAL DIFF 8.9 TH/MM3 (1.8-7.7); POLYS (SEG NEUTROPHILS) 87 % (16-70); WBC DIFF SAMPLE 100
[2016-07-19 09:21] LABS: HOWELL-JOLLY BODIES PRESENT (NONE SEEN); PLATELET ESTIMATE SMEAR LOW (NORMAL); PLATELET MORPHOLOGY NORMAL (NORMAL); SCAN/DIFF FINAL DIFF MANUAL
--- NOTE | 2016-07-19 10:32 | PD.ONC.PN ---
Subjective Subjective Remarks Afebrile overnight. patient continuing to complain of difficulty hearing. She had a hard time sleeping last night. Objective Data Date Time Temp Pulse Resp B/P Pulse Ox O2 Delivery O2 Flow Rate FiO2 07/19/16 08:01 97.6 74 18 115/65 96 07/19/16 04:00 97.7 66 17 111/69 94 07/19/16 00:00 97.8 64 17 107/65 93 07/18/16 21:24 Room Air 07/18/16 20:00 98.1 69 17 106/57 96 07/18/16 20:00 98.1 69 17 105/54 93 07/18/16 16:00 97.8 87 16 101/62 94 07/18/16 12:00 97.9 81 18 99/60 96 07/19/16 07/19/16 07/19/16 07:00 15:00 23:00 Intake Total 240 ml Balance 240 ml Result Diagram: 07/19/16 0707/19/16705 Laboratory Results Laboratory Tests Test 07/18/16 07/19/16 07/19/16 11:19 07:04 07:06 White Blood Count 11.6 TH/MM3 9.7 TH/MM3 9.8 TH/MM3 Red Blood Count 2.57 MIL/MM3 2.57 MIL/MM3 2.59 MIL/MM3 Hemoglobin 7.6 GM/DL 7.6 GM/DL 7.8 GM/DL Hematocrit 22.4 % 22.3 % 22.4 % Mean Corpuscular Volume 87.0 FL 86.9 FL 86.7 FL Mean Corpuscular Hemoglobin 29.3 PG 29.5 PG 30.2 PG Mean Corpuscular Hemoglobin 33.7 % 34.0 % 34.8 % Concent Red Cell Distribution Width 16.6 % 16.9 % 17.0 % Platelet Count 127 TH/MM3 100 TH/MM3 109 TH/MM3 Mean Platelet Volume 8.4 FL 8.4 FL 8.7 FL Neutrophils (%) (Auto) 86.5 % 83.9 % Lymphocytes (%) (Auto) 7.2 % 8.3 % Monocytes (%) (Auto) 5.5 % 6.7 % Eosinophils (%) (Auto) 0.5 % 1.0 % Basophils (%) (Auto) 0.3 % 0.1 % Neutrophils # (Auto) 10.0 TH/MM3 8.1 TH/MM3 Lymphocytes # (Auto) 0.8 TH/MM3 0.8 TH/MM3 Monocytes # (Auto) 0.6 TH/MM3 0.7 TH/MM3 Eosinophils # (Auto) 0.1 TH/MM3 0.1 TH/MM3 Basophils # (Auto) 0.0 TH/MM3 0.0 TH/MM3 CBC Comment AUTO DIFF AUTO DIFF Differential Total Cells 100 100 Counted Neutrophils % (Manual) 56 % 87 % Band Neutrophils % 29 % 4 % Lymphocytes % 7 % 2 % Monocytes % 5 % 2 % Eosinophils % 2 % 1 % Basophils % 1 % 3 % Neutrophils # (Manual) 9.9 TH/MM3 8.9 TH/MM3 Differential Comment FINAL DIFF FINAL DIFF MANUAL MANUAL Toxic Granulation 1+ Dohle Bodies PRESENT Platelet Estimate LOW LOW Platelet Morphology Comment NORMAL NORMAL Keratocytes OCC Myelocytes 1 % [place] Bodies PRESENT Sodium Level 136 MEQ/L Potassium Level 3.5 MEQ/L Chloride Level 101 MEQ/L Carbon Dioxide Level 27.0 MEQ/L Anion Gap 8 MEQ/L Blood Urea Nitrogen 5 MG/DL Creatinine 0.93 MG/DL Estimat Glomerular Filtration 65 ML/MIN Rate Random Glucose 86 MG/DL Calcium Level 9.0 MG/DL Administered Medications Medications (Trade) Dose Ordered Sig/Carolyn Route PRN Reason Start Time Stop Time Status Last Admin Dose Admin IV Flush (NS Flush) 2 ml BID FLUSH 07/12/16 09:00 07/19/16 08:19 Ondansetron HCl (Zofran Inj) 4 mg Q6H PRN IVP NAUSEA OR VOMITING 07/11/16 21:45 07/19/16 08:24 Acetaminophen 650 mg 650 mg Q6H PRN PO FEVER/PAIN SCALE 1 TO 2 07/11/16 21:45 07/19/16 01:31 Ceftriaxone Sodium/Sodium Chloride (Rocephin Inj/NS Inj) 100 ml @ 200 mls/hr Q12H IV 07/12/16 15:00 07/19/16 02:44 Nystatin (Mycostatin Liq) 5 ml QID SWISH-SWAL 07/12/16 18:00 07/16/16 15:02 Oxycodone HCl (Roxicodone) 10 mg Q4H PRN PO PAIN GREATER THAN 5 07/14/16 12:45 07/19/16 08:16 Calcium/Vitamin D (Oscal-D 250-125) 250 mg DAILY@21 PO 07/14/16 21:00 07/18/16 21:12 Patient Own Medication PT OWN MED: Darunavir-Cobicistat 800-150... DAILY PO 07/16/16 16:00 07/19/16 08:17 Vancomycin HCl/ Sodium Chloride (Vancomycin Inj/ NS 250 ml Inj) 250 ml @ 250 mls/hr Q12H IV 07/18/16 00:00 07/19/16 01:10 Neomycin/ Polymyxin/ Hydrocortisone (Cortisporin Otic Soln) 3 drop Q6HR EACH EAR 07/17/16 18:00 07/19/16 06:00 Famotidine (Pepcid) 20 mg BID PO 07/18/16 21:00 07/19/16 08:17 Objective Remarks GENERAL: Young woman, sitting upright in bed in nad. SKIN: Warm and dry. HEAD: Normocephalic. EYES: No injection or drainage. NECK: Supple, trachea midline CARDIOVASCULAR: Regular rate and rhythm RESPIRATORY: Breath sounds equal bilaterally. No accessory muscle use. GASTROINTESTINAL: Abdomen soft, non-tender, nondistended. EXTREMITIES: No cyanosis MUSCULOSKELETAL: Adequate muscle tone. NEUROLOGICAL: awake and alert, normal speech. moving all extremities. Assessment/Plan Problem List: (1) Sepsis Status: Acute Plan: -- Sputum cultures + yeast --urine culture + Pneumococcal antigen. --BC no growth --on antibiotics per infectious disease. (2) Pancytopenia Status: Acute Plan: -- WBC improved with neupogen. will monitor --likely multifactorial due to underlying HIV / AIDS +splenomegaly + viral infection --iron studies more consistent with anemia of chronic disease than iron deficiency --vitamin B12/folate--no deficiency --CT ab shows hepatosplenomegaly Assessment 46y/o female HIV admitted with neutropenic fever and pancytopenia. h/o HIV / AIDS-dx 2004. compliant with HAART Anxiety and depression. +renal insufficiency Plan 1. monitor CBC 2. supportive care Attending Statement The exam, history, and the medical decision-making described in the above note were completed with the assistance of the mid-level provider. I reviewed and agree with the findings presented. I attest that I had a [id number] encounter with the patient on the same day, and personally performed and documented my assessment and findings in the medical record. Neutropenia resolved with neupogen. Hgb and platelet stable. CMV negative. Continue to monitor. Problem Qualifiers (1) Sepsis: Qualified Code: A41.9 - Sepsis, due to unspecified organism Yolanda Bustamante Jul 19, 2016 10:32 Leonidas Ogden MD Jul 19, 2016 14:58
[2016-07-19] MEDS ORDERED: PHARMACY ORDERED LAB XX ONE (11:45)
--- NOTE | 2016-07-19 16:41 | HHI.PR ---
Subjective Remarks Patient reports that she is still having persistent ear pain. She feels unbalanced when she walked. She continues to report hearing loss. She does not believe it is improving. Objective Vitals Vital Signs Date Time Temp Pulse Resp B/P Pulse Ox O2 Delivery O2 Flow Rate FiO2 07/19/16 12:00 97.7 70 18 117/70 95 07/19/16 08:01 97.6 74 18 115/65 96 07/19/16 08:00 Room Air 07/19/16 08:00 Room Air 07/19/16 04:00 97.7 66 17 111/69 94 07/19/16 00:00 97.8 64 17 107/65 93 07/18/16 21:24 Room Air 07/18/16 20:00 98.1 69 17 106/57 96 07/18/16 20:00 98.1 69 17 105/54 93 I/O 07/18/16 07/18/16 07/18/16 07/19/16 07/19/16 07/19/16 07:00 15:00 23:00 07:00 15:00 23:00 Intake Total 480 ml 480 ml 480 ml 240 ml Balance 480 ml 480 ml 480 ml 240 ml Intake Oral 480 ml 480 ml 480 ml 240 ml # Voids 2 3 2 1 # Bowel Movements 0 1 Result Diagram: 07/19/16 0707/19/16 07 Objective Remarks GENERAL: This is a well-nourished, well-developed patient, in no apparent distress. ENT: Right ear is full of hard wax, unable to visualize TM. Left ear TM is bulging and there is fluid behind it. Bilateral ear canals appear to be inflamed. Tenderness over the right mastoid. Cannot hear much on the left per patient CARDIOVASCULAR: Normal rate and regular rhythm without murmurs, gallops, or rubs. RESPIRATORY: Good respiratory efforts. Breath sounds equal and clear to auscultation bilaterally. GASTROINTESTINAL: Abdomen soft, non-tender, non-distended. Normal active bowel sounds MUSCULOSKELETAL: Extremities without cyanosis, or edema. NEURO: Alert & Oriented x4 to person, place, time, situation. Moves all ext x4. PSYCH: Appropriate mood and affect. A/P Problem List: (1) Sepsis ICD Code: A41.9 Status: Acute (2) Neutropenic fever ICD Code: D70.9 Status: Acute (3) AIDS ICD Code: B20 Status: Acute (4) Renal insufficiency ICD Code: N28.9 Status: Acute Assessment and Plan 46-year-old female with Sepsis: positive for urinary pneumococcal antigen. +Immunocompromised. Possible Invasive pneumococcal disease. Discussed with infectious disease, probably mastoiditis, and otitis as the source of sepsis. Meningitis less likely S/p LP in ER which has been negative. Blood/Urine cultures negative, continue Rocephin and vancomycin per infectious disease. flu A and B antigen negative. Follow cultures. -DW ID, Consult ENT for mastoiditis, persistent hearing loss and hear pain. - Patient is reporting dizziness and lack of improvement. Will obtain MRI. Neutropenic Fever and pancytopenia: Neutrophil count was 0 on admission. + Immunocompromised w/ h/o HIV/AIDS, continue w/ broad spectrum antibiotics. ID following as above. Appreciate hematology following. Patient started on Neupogen per hematology. Cell counts improving. Reported hearing loss/pain: She does have effusion on the right hear as I can see. Left hear is full of wax. Tried to irrigate with water without success. Ear canal appear to be inflamed. Trial of Corticosporin drops started yesterday.ENT consulted as above. HIV/AIDS: continue HAART; lymphocyte profile shows CD4 count of 65. Patient reports compliance with HAART medications. Infectious disease following. Anemia: Likely of acute blood loss from menses, S/P transfusion. H&H stable. Continue to follow. On Neupogen per hematology as above. Renal Insufficiency: Acute on Chronic. Resolved with IV fluid. Continue to monitor labs. DVT Prophylaxis: SCD/Teds. Chemoprophylaxis contraindicated given pancytopenia. Problem Qualifiers (1) Sepsis: Qualified Code: A41.9 - Sepsis, due to unspecified organism Candelario Rasheed MD Jul 19, 2016 16:41
--- NOTE | 2016-07-19 22:35 | HHI.IDPN ---
Subjective Subjective Remarks Delayed entry pt ween earlier today around 1500 Pt co L ear pain; thinks she has intermittend drainage ENT was consulted afewbrile Antibiotics CFTX vanco Past Medical History HIV Allergies: Coded Allergies: Penicillin (Verified Allergy, Intermediate, 11/01/14) Objective . Vital Signs Date Time Temp Pulse Resp B/P Pulse Ox O2 Delivery O2 Flow Rate FiO2 07/19/16 16:01 98.4 71 18 113/64 96 07/19/16 12:00 97.7 70 18 117/70 95 07/19/16 08:01 97.6 74 18 115/65 96 07/19/16 08:00 Room Air 07/19/16 08:00 Room Air 07/19/16 04:00 97.7 66 17 111/69 94 07/19/16 00:00 97.8 64 17 107/65 93 07/18/16 07/18/16 07/19/16 15:00 23:00 07:00 Intake Total 480 ml 480 ml 240 ml Balance 480 ml 480 ml 240 ml Intake Oral 480 ml 480 ml 240 ml # Voids 3 2 1 # Bowel Movements 1 . Laboratory Tests Test 07/18/16 07/19/16 07/19/16 11:19 07:04 07:06 White Blood Count 11.6 TH/MM3 9.7 TH/MM3 9.8 TH/MM3 Red Blood Count 2.57 MIL/MM3 2.57 MIL/MM3 2.59 MIL/MM3 Hemoglobin 7.6 GM/DL 7.6 GM/DL 7.8 GM/DL Hematocrit 22.4 % 22.3 % 22.4 % Mean Corpuscular Volume 87.0 FL 86.9 FL 86.7 FL Mean Corpuscular Hemoglobin 29.3 PG 29.5 PG 30.2 PG Mean Corpuscular Hemoglobin 33.7 % 34.0 % 34.8 % Concent Red Cell Distribution Width 16.6 % 16.9 % 17.0 % Platelet Count 127 TH/MM3 100 TH/MM3 109 TH/MM3 Mean Platelet Volume 8.4 FL 8.4 FL 8.7 FL Neutrophils (%) (Auto) 86.5 % 83.9 % Lymphocytes (%) (Auto) 7.2 % 8.3 % Monocytes (%) (Auto) 5.5 % 6.7 % Eosinophils (%) (Auto) 0.5 % 1.0 % Basophils (%) (Auto) 0.3 % 0.1 % Neutrophils # (Auto) 10.0 TH/MM3 8.1 TH/MM3 Lymphocytes # (Auto) 0.8 TH/MM3 0.8 TH/MM3 Monocytes # (Auto) 0.6 TH/MM3 0.7 TH/MM3 Eosinophils # (Auto) 0.1 TH/MM3 0.1 TH/MM3 Basophils # (Auto) 0.0 TH/MM3 0.0 TH/MM3 CBC Comment AUTO DIFF AUTO DIFF Differential Total Cells 100 100 Counted Neutrophils % (Manual) 56 % 87 % Band Neutrophils % 29 % 4 % Lymphocytes % 7 % 2 % Monocytes % 5 % 2 % Eosinophils % 2 % 1 % Basophils % 1 % 3 % Neutrophils # (Manual) 9.9 TH/MM3 8.9 TH/MM3 Differential Comment FINAL DIFF FINAL DIFF MANUAL MANUAL Toxic Granulation 1+ Dohle Bodies PRESENT Platelet Estimate LOW LOW Platelet Morphology Comment NORMAL NORMAL Keratocytes OCC Myelocytes 1 % Rodriguez-[place] Bodies PRESENT Laboratory Tests Test 07/19/16 07:06 Sodium Level 136 MEQ/L Potassium Level 3.5 MEQ/L Chloride Level 101 MEQ/L Carbon Dioxide Level 27.0 MEQ/L Anion Gap 8 MEQ/L Blood Urea Nitrogen 5 MG/DL Creatinine 0.93 MG/DL Estimat Glomerular Filtration 65 ML/MIN Rate Random Glucose 86 MG/DL Calcium Level 9.0 MG/DL Imaging Last Impressions Abdomen/Pelvis CT 07/14/16 0000 Signed Impressions: Service Date/Time: Thursday, July 14, 2016 18:35 - CONCLUSION: 1. Patchy basilar air space disease in the lungs which could represent mild bronchopneumonia with small bilateral pleural effusions. 2. Hepatosplenomegaly as above with mild ascites. Minimal anasarca. No obstruction or free air. Mild ileus. Urbano Yee MD Head CT 07/11/161814 Signed Impressions: Service Date/Time: Monday, July 11, 2016 18:59 - CONCLUSION: 1. No intracranial abnormality seen. 2. Sinus disease throughout and scattered areas of increased density/fluid in the mastoid air cells. . Anderson Gary MD Chest X-Ray 07/11/161814 Signed Impressions: Service Date/Time: Monday, July 11, 2016 18:47 - CONCLUSION: No acute disease. Anderson Gary MD Physical Exam CONSTITUTIONAL/GENERAL: This is an adequately nourished patient, in no apparent distress. TUBES/LINES/DRAINS: SKIN: No jaundice, rashes, or lesions. Ecchymoses on upper extremities. No wounds seen anteriorly. Skin temperature appropriate. Not diaphoretic. EYES: Pupils equal and round and reactive. Extraocular motions intact. No scleral icterus. No injection or drainage. Fundi not examined. ENT: Hearing grossly mildly decreased.+ tenderness to palpation over b/l mastoid area, piero promeinent on the L Nose without bleeding or purulent drainage. Throat without visible erythema, exudates, masses, or lesions. CARDIOVASCULAR: Regular rate and rhythm without murmurs, gallops, or rubs. No JVD. Peripheral pulses symmetric. RESPIRATORY/CHEST: Symmetric, unlabored respirations. Clear to auscultation. Breath sounds equal bilaterally. No wheezes, rales, or rhonchi. GASTROINTESTINAL: Abdomen soft, non-tender, nondistended. No hepato-splenomegaly , or palpable masses. No guarding. Bowel sounds present. MUSCULOSKELETAL: Extremities without clubbing, cyanosis, or edema. NEUROLOGICAL: Awake and alert. Motor and sensory grossly within normal limits. Follows commands. Speech normal. Moves all extremities. PSYCHIATRIC: No obvious anxiety/depression. no apparent hallucinations or other psychotic thought process. Assessment & Plan Remarks HIV, AIDS, states compliance - on home Rx since admission Neutropenia ? infx - WBC normal Invasive pneumococcal dz : ? mastoiditis vs meningitis (CSF clx is neg so far) - CXR not cw PNA CSF clx neg; HSV neg, everything seem ne except for elevted protein - cont HAART as per pt s profile:Prezcobix, Epivir and Tivicay: [facility] nurse - awaiting ENT consult - cont CFTX, change to 2 gm daily - [address], MD Jul 19, 2016 22:35
[2016-07-19] MEDS: OXYMETAZOLINE HCL 0.05% 15 ML NASAL SPRAY NASAL SCH (23:49)
[2016-07-19] MEDS: CIPROFLOXACIN/HYDROCORTISONE OTIC 10 ML BTL EACH EAR SCH (23:50)
[2016-07-20] VITALS: BP 123/69; PULSE 73; RESP 16; TEMP 97.5; O2SAT 94
[2016-07-20 06:00] VITALS: BP 122/77; PULSE 73; RESP 18; TEMP 98.2; O2SAT 94
[2016-07-20 07:51] LABS: AUTOMATED NEUTROPHIL # 6.7 TH/MM3 (1.8-7.7); BASOPHIL % 0.5 % (0.0-2.0); EOSINOPHIL # 0.1 TH/MM3 (0-0.4); HEMATOCRIT 23.6 % (35.0-46.0); LYMPH % 9.7 % (9.0-44.0); LYMPHOCYTE # 0.8 TH/MM3 (1.0-4.8); MEAN CELL VOLUME 86.7 FL (80.0-100.0); MEAN CORPUSCULAR HEMOGLOBIN 29.8 PG (27.0-34.0); MEAN CORPUSCULAR HGB CONC 34.4 % (32.0-36.0); MONO % 8.9 % (0.0-8.0); NEUT % 79.9 % (16.0-70.0); PLATELET COUNT 95 TH/MM3 (150-450); RED BLOOD COUNT 2.73 MIL/MM3 (4.00-5.30); RED CELL DISTRIBUTION WIDTH 16.5 % (11.6-17.2); WHITE BLOOD COUNT 8.4 TH/MM3 (4.0-11.0)
[2016-07-20 08:00] VITALS: BP 118/67; PULSE 79; RESP 20; O2SAT 95
[2016-07-20 08:03] LABS: HEMO FLAGS AUTO DIFF
--- NOTE | 2016-07-20 08:36 | MB ---
cc: PRATEEK CALDERÓN MD DATE OF CONSULTATION 07/19/16 HISTORY OF PRESENT ILLNESS The patient is a 46-year-old female with a history of AIDS who has persistent bilateral ear pain and imbalance. She also notes hearing loss. She notes that the ear pain bilaterally has worsened when he started Cortisporin otic ear drops. She was admitted with severe neutropenia and anemia as well as sepsis for which she is being followed by infectious disease with diagnosis of pain, fever and pancytopenia and neutrophil count of zero upon admission. She has been on broad-spectrum antibiotics to include first generation cephalosporin and vancomycin. Her cell counts are improving. Her CAT scan of head was notable for bilateral sinus infection as well as fluid in the bilateral mastoids. Of note, the fluid in the mastoids appears to be non-coalescent meaning that the mastoid air cells are appearing to not coalesce. On examination, she does know that she has ear pain bilaterally. On gross examination she does not have any increase of the auricular, cephalic angle behind either ear that would suggest any sign of complicated mastoiditis. Her ear canals looked inflamed bilaterally possibly as a reaction to the neomycin and the Cortisporin otic ear solution. Her ear drums do not appear to be bulging today, however, there is fluid present behind the eardrum bilaterally. Thus, patient currently has sepsis. ASSESSMENT AND PLAN Sepsis. She also has bilateral sinus infection as well as bilateral effusion and appears to be non-coalescent mastoid fluid as well. She is on her broad septum antibiotics. I suggest switching over her Cortisporin otic to Ciprodex ear drops, which should cause a lot less inflammation in the ear canals and relieved some of her ear pain as well. We also want to make sure that we start Afrin nasal spray at least twice a day for the next 5 days to help drain the eustachian tubes of the middle ear fluid. Appreciate Infectious disease input and as the patient is noted to have sinus infections bilaterally in this immunocompromised patient, Infectious Disease to continue to evaluate broad-spectrum antibiotics for his sinusitis in an immunocompromised patient which is likely the combination they currently have the patient on. Also if the home team and infectious disease deem it appropriate steroids would certainly decrease the swelling in the sinuses and the middle ear to help possibly speed the process of the drainage of these sinuses and mastoid air cells. However, because the patient has the obvious immunocompromised position, she may not be a candidate for steroid as they decrease her immune response and this is something that likely does not at this time. Bedside recommend continuing the high-dose antibiotics and steroids only if the home team and the Infectious Disease doctors deem it safe in this immunocompromised patient and other measures to increase drainage of the eustachian tube and sinuses including Afrin. If the patient can do an [id number] sinus rinse to irrigate her sinuses, that may help as well. It would have to be distilled water and a NeilMed sinus rinse two bottles twice a day. This is something that is [id number] and the water would have to be distilled especially with her immunocompromised position. She does not appear to need a mastoidectomy at this time and I would not recommend any surgery at this time with immunocompromised situation. If, however, her ear situation were to deteriorate to a coalescent mastoiditis or something similar then may have to raise the echelon of care. Thank you for this consultation. Prateek Calderón MD CCP/ /8:27 PM /8:26 AM ISAC
[2016-07-20] MEDS: SODIUM CHLORIDE 0.9% FLUSH 5 ML FLUSH FLUSH SCH ×2 (08:41→22:19)
[2016-07-20] MEDS: CIPROFLOXACIN/HYDROCORTISONE OTIC 10 ML BTL EACH EAR SCH ×4 (08:41→22:20)
[2016-07-20] MEDS: FAMOTIDINE 20 MG TAB PO SCH ×2 (08:41→22:18)
[2016-07-20] MEDS: OXYMETAZOLINE HCL 0.05% 15 ML NASAL SPRAY NASAL SCH ×2 (08:41→22:20)
[2016-07-20] MEDS: NYSTATIN SUSP 500,000 U/5 ML CUP SWISH-SWAL SCH ×4 (08:41→21:00)
[2016-07-20 09:00] LABS: BANDS 7 % (0-6); EOSINOPHILS 3 % (0-4); METAMYELOCYTES 1 % (0-1); NEUTROPHIL # MANUAL DIFF 7.1 TH/MM3 (1.8-7.7); POLYS (SEG NEUTROPHILS) 77 % (16-70); WBC DIFF SAMPLE 100
[2016-07-20 09:01] LABS: OVALOCYTES 1+ (NORMAL); PLATELET ESTIMATE SMEAR LOW (NORMAL); PLATELET MORPHOLOGY NORMAL (NORMAL); SCAN/DIFF FINAL DIFF MANUAL
--- NOTE | 2016-07-20 10:20 | HHI.PR ---
Subjective Remarks Patient on her way to MRI. As I walked into the room she reached for a clipboard with a pen. I asked what happened "Why can't you talk" She said its because I can't hear you. RN was in the room. Her head was turned when I talked and it was obvious that she could hear me. Patient became upset, tearful and told me to go away. Objective Vitals Vital Signs Date Time Temp Pulse Resp B/P Pulse Ox O2 Delivery O2 Flow Rate FiO2 07/20/16 06:00 98.2 73 18 122/77 94 07/20/16 00:00 97.5 73 16 123/69 94 07/19/16 20:15 Room Air 07/19/16 20:15 Room Air 07/19/16 20:00 98.2 74 16 125/74 92 07/19/16 16:01 98.4 71 18 113/64 96 07/19/16 12:00 97.7 70 18 117/70 95 I/O 07/19/16 07/19/16 07/19/16 07/20/16 07/20/16 07/20/16 07:00 15:00 23:00 07:00 15:00 23:00 Intake Total 240 ml 480 ml 240 ml 360 ml Balance 240 ml 480 ml 240 ml 360 ml Intake Oral 240 ml 480 ml 240 ml 360 ml # Voids 1 4 3 2 # Bowel Movements 1 0 0 Result Diagram: 07/20/16 0618 07/19/16 0706 Objective Remarks Patient upset and would not let me examine her. A/P Problem List: (1) Sepsis ICD Code: A41.9 Status: Acute (2) Neutropenic fever ICD Code: D70.9 Status: Acute (3) AIDS ICD Code: B20 Status: Acute (4) Renal insufficiency ICD Code: N28.9 Status: Acute Assessment and Plan 46-year-old female with Sepsis: positive for urinary pneumococcal antigen. +Immunocompromised. Possible Invasive pneumococcal disease. Discussed with infectious disease, probably mastoiditis, and otitis as the source of sepsis. Meningitis less likely S/p LP in ER which has been negative. Blood/Urine cultures negative, continue Rocephin per infectious disease. flu A and B antigen negative. Follow cultures. - Patient evaluated by ENT. Hear drops changed to Ciprodex to help reduce inflammation. No surgical intervention indicated. - Patient reported dizziness and lack of improvement yesterday. She will have MRI today. Will have PT eval. - Will discuss with ID regarding course of antibiotic treatment. Neutropenic Fever and pancytopenia: Resolved. Neutrophil count was 0 on admission. +Immunocompromised w/ h/o HIV/AIDS. ID following as above. Appreciate hematology following. Patient started given Neupogen per hematology. Cell counts improving. Reported hearing loss/pain: ENT following, did not improve with Corticosporin drops. This was changed to Ciprodex by ENT. It is worth noting although the patient may have some hearing loss, it appears there is some exacerbation of the degree of hearing loss based on my conversation with the patient and discussion with the nurses. Hearing loss appear to be selective at times. On my prior encounters, she will often become tearful when we talk about her cell counts. HIV/AIDS: continue HAART; lymphocyte profile shows CD4 count of 65. Patient reports compliance with HAART medications. Infectious disease following. Anemia: On admission, Likely of acute blood loss from menses, S/P transfusion. H&H stable. Continue to follow. On Neupogen per hematology as above. Renal Insufficiency: Acute on Chronic. Resolved with IV fluid. Continue to monitor labs. DVT Prophylaxis: SCD/Teds. Chemoprophylaxis contraindicated given pancytopenia. Problem Qualifiers (1) Sepsis: Qualified Code: A41.9 - Sepsis, due to unspecified organism Candelario Rasheed MD Jul 20, 2016 10:20
[2016-07-20] MEDS ORDERED: GADODIAMIDE PF 287 MG/ML 5 ML VIAL (for RAD MRI) IV ONE (10:36)
--- NOTE | 2016-07-20 10:56 | RADRPT ---
EXAM DATE/TIME: 07/20/2016 10:19 [facility] COMPARISON: CT BRAIN W/O CONTRAST, July 11, 2016, 18:59. INDICATIONS : Infection/mastioditis. CONTRAST: 14 cc Omniscan (gadodiamide) IV MEDICAL HISTORY : HIV SURGICAL HISTORY : Inguinal hernia repair. section. ENCOUNTER: Initial ACUITY: 1 week PAIN SCORE: 5/10 LOCATION: cranial TECHNIQUE: Multiplanar, multisequence MRI of the brain was performed both prior to and following the administrat ion of paramagnetic contrast. FINDINGS: CEREBRUM: The ventricles are normal for age. No evidence of midline shift, mass lesion, hemorrhage or acute in farction. No extraaxial fluid collections are seen. The pituitary gland and suprasellar cistern are normal in configuration. WHITE MATTER: No significant signal abnormalities are seen in the white matter. POSTERIOR FOSSA: The cerebellum and brainstem are intact. The 4th ventricle is midline. The cerebellopontine angle is unremarkable. The cerebellar tonsils are normal in position. DIFFUSION IMAGING: No focal areas of restricted diffusion are seen. No evidence of acute infarction. EXTRACRANIAL: The visualized portions of the orbits are unremarkable. There is chronic sinus disease bilaterally. T here is mucosal thickening in the frontal and ethmoid sinuses bilaterally. There is moderate mucosal thickening in the maxillary sinuses bilaterally with a small air-fluid level on the left. There is di ffuse bilateral mastoiditis. There is diffuse sinusitis throughout the sphenoid sinuses. POST-CONTRAST: No abnormal areas of parenchymal or dural enhancement. No evidence of blood-brain barrier breakdown. CONCLUSION: 1. Unremarkable MRI of the brain. 2. Diffuse bilateral pansinusitis. 3. Bilateral mastoiditis. Bruno Granados MD on July 20, 2016 at 10:52 Board Certified Radiologist. This report was verified electronically.
--- NOTE | 2016-07-20 11:00 | PD.ONC.PN ---
Subjective Subjective Remarks Afebrile overnight. Patient very upset about multiple issues. her main frustration seems to be that she continues to have difficulty hearing. Objective Data Date Time Temp Pulse Resp B/P Pulse Ox O2 Delivery O2 Flow Rate FiO2 07/20/16 08:00 79 20 118/67 95 07/20/16 06:00 98.2 73 18 122/77 94 07/20/16 00:00 97.5 73 16 123/69 94 07/19/16 20:15 Room Air 07/19/16 20:15 Room Air 07/19/16 20:00 98.2 74 16 125/74 92 07/19/16 16:01 98.4 71 18 113/64 96 07/19/16 12:00 97.7 70 18 117/70 95 07/20/16 07/20/16 07/20/16 07:00 15:00 23:00 Intake Total 360 ml Balance 360 ml Result Diagram: 07/20/1618 07/19/16 0706 Laboratory Results Laboratory Tests Test 07/19/16 07/20/16 11:50 06:18 Vancomycin Level Trough 18.6 MCG/ML White Blood Count 8.4 TH/MM3 Red Blood Count 2.73 MIL/MM3 Hemoglobin 8.1 GM/DL Hematocrit 23.6 % Mean Corpuscular Volume 86.7 FL Mean Corpuscular Hemoglobin 29.8 PG Mean Corpuscular Hemoglobin 34.4 % Concent Red Cell Distribution Width 16.5 % Platelet Count 95 TH/MM3 Mean Platelet Volume 8.2 FL Neutrophils (%) (Auto) 79.9 % Lymphocytes (%) (Auto) 9.7 % Monocytes (%) (Auto) 8.9 % Eosinophils (%) (Auto) 1.0 % Basophils (%) (Auto) 0.5 % Neutrophils # (Auto) 6.7 TH/MM3 Lymphocytes # (Auto) 0.8 TH/MM3 Monocytes # (Auto) 0.8 TH/MM3 Eosinophils # (Auto) 0.1 TH/MM3 Basophils # (Auto) 0.0 TH/MM3 CBC Comment AUTO DIFF Differential Total Cells 100 Counted Neutrophils % (Manual) 77 % Band Neutrophils % 7 % Lymphocytes % 7 % Monocytes % 5 % Eosinophils % 3 % Neutrophils # (Manual) 7.1 TH/MM3 Metamyelocytes 1 % Differential Comment FINAL DIFF MANUAL Platelet Estimate LOW Platelet Morphology Comment NORMAL Ovalocytes 1+ Administered Medications Medications (Trade) Dose Ordered Sig/Carolyn Route PRN Reason Start Time Stop Time Status Last Admin Dose Admin IV Flush (NS Flush) 2 ml BID FLUSH 07/12/16 09:00 07/20/16 08:41 Ondansetron HCl (Zofran Inj) 4 mg Q6H PRN IVP NAUSEA OR VOMITING 07/11/16 21:45 07/19/16 15:13 Acetaminophen (Tylenol) 650 mg Q6H PRN PO FEVER/PAIN SCALE 1 TO 2 07/11/16 21:45 07/19/16 01:31 Nystatin (Mycostatin Liq) 5 ml QID SWISH-SWAL 07/12/16 18:00 07/16/16 15:02 Oxycodone HCl (Roxicodone) 10 mg Q4H PRN PO PAIN GREATER THAN 5 07/14/16 12:45 07/20/16 06:45 Patient Own Medication PT OWN MED: Darunavir-Cobicistat 800-150... DAILY PO 07/16/16 16:00 07/20/16 08:42 Famotidine (Pepcid) 20 mg BID PO 07/18/16 21:00 07/20/16 08:41 Oxymetazoline HCl (Afrin 0.05% Tomer Calvin) 1 spray BID NASAL 07/19/16 21:00 07/24/16 09:01 07/20/16 08:41 Ciprofloxacin/ Hydrocortisone (Cipro-Hc Otic Soln) 4 drop TID EACH EAR 07/19/16 23:00 07/20/16 08:41 Objective Remarks GENERAL: Tearful female, sitting up in bed. SKIN: Warm and dry. HEAD: Normocephalic. EYES: No injection or drainage. NECK: Supple, trachea midline. CARDIOVASCULAR: Regular rate and rhythm RESPIRATORY: Breath sounds equal bilaterally. No accessory muscle use. GASTROINTESTINAL: Abdomen soft, non-tender, nondistended. EXTREMITIES: No cyanosis NEUROLOGICAL: No obvious focal deficit. Awake, alert, and oriented x3. Assessment/Plan Problem List: (1) Pancytopenia Status: Acute Plan: -- WBC improved with neupogen. will monitor --platelet count will fluctuate but seems to stay around 90-100K --hgb stable. --likely multifactorial due to underlying HIV / AIDS +splenomegaly + viral infection --iron studies more consistent with anemia of chronic disease than iron deficiency --vitamin B12/folate--no deficiency --CT ab shows hepatosplenomegaly Assessment 46y/o female HIV admitted with neutropenic fever and pancytopenia. h/o HIV / AIDS-dx 2004. compliant with HAART Anxiety and depression. +renal insufficiency Plan 1. monitor CBC 2. supportive care Attending Statement The exam, history, and the medical decision-making described in the above note were completed with the assistance of the mid-level provider. I reviewed and agree with the findings presented. I attest that I had a [id number] encounter with the patient on the same day, and personally performed and documented my assessment and findings in the medical record. WBC is stable. Hgb and platelet are also stable. Continue HAART per ID. Yolanda Bustamante Jul 20, 2016 11:00 Leonidas Ogden MD Jul 20, 2016 18:04
[2016-07-20 12:00] VITALS: BP 106/70; PULSE 76; RESP 20; TEMP 98; O2SAT 93
[2016-07-20] MEDS: cefTRIAXone INJ 2,000 MG in SODIUM CHLORIDE 0.9% INJ 100 ML IV SCH (15:00)
[2016-07-20 16:00] VITALS: BP 108/66; PULSE 78; RESP 20; TEMP 98.3; O2SAT 95
--- NOTE | 2016-07-20 18:38 | HHI.IDPN ---
Subjective Subjective Remarks Pt was seen by ENT who rec'd conservative mngmnt Pt is clinically doing well, but co worsening b/l ear discomfort and decreased hearing Repeat MRI showing persistent diffuse bilateral pansinusitis and bilateral mastoiditis Antibiotics CFTX Past Medical History HIV Allergies: Coded Allergies: Penicillin (Verified Allergy, Intermediate, 11/01/14) Objective . Vital Signs Date Time Temp Pulse Resp B/P Pulse Ox O2 Delivery O2 Flow Rate FiO2 07/20/16 12:00 98.0 76 20 106/70 93 07/20/16 08:00 79 20 118/67 95 07/20/16 08:00 94 Room Air 07/20/16 06:00 98.2 73 18 122/77 94 07/20/16 00:00 97.5 73 16 123/69 94 07/19/16 20:15 Room Air 07/19/16 20:15 Room Air 07/19/16 20:00 98.2 74 16 125/74 92 07/19/16 07/19/16 07/20/16 15:00 23:00 07:00 Intake Total 480 ml 240 ml 360 ml Balance 480 ml 240 ml 360 ml Intake Oral 480 ml 240 ml 360 ml # Voids 4 3 2 # Bowel Movements 1 0 0 . Laboratory Tests Test 07/19/16 07/19/16 07/20/16 07:04 07:06 06:18 White Blood Count 9.7 TH/MM3 9.8 TH/MM3 8.4 TH/MM3 Red Blood Count 2.57 MIL/MM3 2.59 MIL/MM3 2.73 MIL/MM3 Hemoglobin 7.6 GM/DL 7.8 GM/DL 8.1 GM/DL Hematocrit 22.3 % 22.4 % 23.6 % Mean Corpuscular Volume 86.9 FL 86.7 FL 86.7 FL Mean Corpuscular Hemoglobin 29.5 PG 30.2 PG 29.8 PG Mean Corpuscular Hemoglobin 34.0 % 34.8 % 34.4 % Concent Red Cell Distribution Width 16.9 % 17.0 % 16.5 % Platelet Count 100 TH/MM3 109 TH/MM3 95 TH/MM3 Mean Platelet Volume 8.4 FL 8.7 FL 8.2 FL Neutrophils (%) (Auto) 83.9 % 79.9 % Lymphocytes (%) (Auto) 8.3 % 9.7 % Monocytes (%) (Auto) 6.7 % 8.9 % Eosinophils (%) (Auto) 1.0 % 1.0 % Basophils (%) (Auto) 0.1 % 0.5 % Neutrophils # (Auto) 8.1 TH/MM3 6.7 TH/MM3 Lymphocytes # (Auto) 0.8 TH/MM3 0.8 TH/MM3 Monocytes # (Auto) 0.7 TH/MM3 0.8 TH/MM3 Eosinophils # (Auto) 0.1 TH/MM3 0.1 TH/MM3 Basophils # (Auto) 0.0 TH/MM3 0.0 TH/MM3 CBC Comment AUTO DIFF AUTO DIFF Differential Total Cells 100 100 Counted Neutrophils % (Manual) 87 % 77 % Band Neutrophils % 4 % 7 % Lymphocytes % 2 % 7 % Monocytes % 2 % 5 % Eosinophils % 1 % 3 % Basophils % 3 % Neutrophils # (Manual) 8.9 TH/MM3 7.1 TH/MM3 Myelocytes 1 % Differential Comment FINAL DIFF FINAL DIFF MANUAL MANUAL Platelet Estimate LOW LOW Platelet Morphology Comment NORMAL NORMAL Rodriguez-[place] Bodies PRESENT Metamyelocytes 1 % Ovalocytes 1+ Laboratory Tests Test 07/19/16 07:06 Sodium Level 136 MEQ/L Potassium Level 3.5 MEQ/L Chloride Level 101 MEQ/L Carbon Dioxide Level 27.0 MEQ/L Anion Gap 8 MEQ/L Blood Urea Nitrogen 5 MG/DL Creatinine 0.93 MG/DL Estimat Glomerular Filtration 65 ML/MIN Rate Random Glucose 86 MG/DL Calcium Level 9.0 MG/DL Imaging Last Impressions Brain MRI 07/20/16 0000 Signed Impressions: Service Date/Time: Wednesday, July 20, 2016 10:19 - CONCLUSION: 1. Unremarkable MRI of the brain. 2. Diffuse bilateral pansinusitis. 3. Bilateral mastoiditis. Bruno Granados MD Abdomen/Pelvis CT 07/14/16 0000 Signed Impressions: Service Date/Time: Thursday, July 14, 2016 18:35 - CONCLUSION: 1. Patchy basilar air space disease in the lungs which could represent mild bronchopneumonia with small bilateral pleural effusions. 2. Hepatosplenomegaly as above with mild ascites. Minimal anasarca. No obstruction or free air. Mild ileus. Urbano Yee MD Head CT 07/11/16 1815 Signed Impressions: Service Date/Time: Monday, July 11, 2016 18:59 - CONCLUSION: 1. No intracranial abnormality seen. 2. Sinus disease throughout and scattered areas of increased density/fluid in the mastoid air cells. . Anderson Gary MD Chest X-Ray 07/11/161814 Signed Impressions: Service Date/Time: Monday, July 11, 2016 18:47 - CONCLUSION: No acute disease. Anderson Gary MD Physical Exam CONSTITUTIONAL/GENERAL: This is an adequately nourished patient, in no apparent distress. TUBES/LINES/DRAINS: SKIN: No jaundice, rashes, or lesions. Ecchymoses on upper extremities. No wounds seen anteriorly. Skin temperature appropriate. Not diaphoretic. EYES: Pupils equal and round and reactive. Extraocular motions intact. No scleral icterus. No injection or drainage. Fundi not examined. ENT: Hearing grossly mildly decreased.+ tenderness to palpation over b/l mastoid area, piero promeinent on the L Nose without bleeding or purulent drainage. Throat without visible erythema, exudates, masses, or lesions. CARDIOVASCULAR: Regular rate and rhythm without murmurs, gallops, or rubs. No JVD. Peripheral pulses symmetric. RESPIRATORY/CHEST: Symmetric, unlabored respirations. Clear to auscultation. Breath sounds equal bilaterally. No wheezes, rales, or rhonchi. GASTROINTESTINAL: Abdomen soft, non-tender, nondistended. No hepato-splenomegaly , or palpable masses. No guarding. Bowel sounds present. MUSCULOSKELETAL: Extremities without clubbing, cyanosis, or edema. NEUROLOGICAL: Awake and alert. Motor and sensory grossly within normal limits. Follows commands. Speech normal. Moves all extremities. PSYCHIATRIC: No obvious anxiety/depression. no apparent hallucinations or other psychotic thought process. Assessment & Plan Remarks HIV, AIDS, states compliance - on home Rx since admission Neutropenia ? infx - WBC normal Invasive pneumococcal dz : ? mastoiditis vs meningitis (CSF clx is neg so far) - CXR not cw PNA CSF clx neg; HSV neg, everything seem ne except for elevted protein - cont HAART as per pt s profile:Prezcobix, Epivir and Tivicay: dw pharmacy/ nurse - cont CFTX, change to 2 gm daily - will add levaquine and clindamycin (both po) - because of immunosuppression will try to avoid sterroid use, however may be reconsidered if no response to adjusted abx dw pt dw RN Adilia Tanner MD Jul 20, 2016 18:38
[2016-07-20 20:00] VITALS: BP 132/70; PULSE 79; RESP 18; TEMP 98.2; O2SAT 97
[2016-07-20] MEDS: LEVOFLOXACIN 750 MG TAB PO SCH (22:18)
[2016-07-20] MEDS: CLINDAMYCIN 150 MG CAP PO SCH (22:18)
[2016-07-21] VITALS: BP_SYST 122; BP_SYST 132; BP_DIAS 66; BP_DIAS 70; PULSE 69; PULSE 79; RESP 18; TEMP 98.2; TEMP 98.5; O2SAT 96; O2SAT 97
[2016-07-21] MEDS: CLINDAMYCIN 150 MG CAP PO SCH ×4 (02:55→19:43)
[2016-07-21] MEDS: ONDANSETRON HCL 4 MG/2 ML VIAL IVP PRN ×3 (03:31→16:45)
[2016-07-21 04:00] VITALS: BP 113/67; PULSE 84; RESP 18; TEMP 98.3; O2SAT 96
[2016-07-21 07:09] LABS: AUTOMATED NEUTROPHIL # 6.4 TH/MM3 (1.8-7.7); BASOPHIL % 0.6 % (0.0-2.0); EOSINOPHIL % 0.6 % (0.0-4.0); HEMATOCRIT 23.9 % (35.0-46.0); LYMPHOCYTE # 0.7 TH/MM3 (1.0-4.8); MEAN CELL VOLUME 86.5 FL (80.0-100.0); MEAN CORPUSCULAR HEMOGLOBIN 30.1 PG (27.0-34.0); MEAN CORPUSCULAR HGB CONC 34.8 % (32.0-36.0); MONO % 9.8 % (0.0-8.0); PLATELET COUNT 83 TH/MM3 (150-450); RED BLOOD COUNT 2.76 MIL/MM3 (4.00-5.30); RED CELL DISTRIBUTION WIDTH 16.2 % (11.6-17.2)
[2016-07-21 07:25] LABS: BICARBONATE 28.1 MEQ/L (21.0-32.0); POTASSIUM 4.1 MEQ/L (3.5-5.1)
[2016-07-21 08:00] VITALS: BP 119/68; PULSE 75; RESP 20; TEMP 97.8; O2SAT 97
[2016-07-21 08:08] LABS: HEMO FLAGS AUTO DIFF
[2016-07-21] MEDS: NYSTATIN SUSP 500,000 U/5 ML CUP SWISH-SWAL SCH ×4 (09:00→19:44)
--- NOTE | 2016-07-21 09:11 | HHI.PR ---
Subjective Remarks Patient reports persistent pain in bilateral ears but think its slightly better today. She states she cannot hear on the left but can hear some on the right. ENT requested another CT with special attention to temporal bone area. She denies dizziness today. Objective Vitals Vital Signs Date Time Temp Pulse Resp B/P Pulse Ox O2 Delivery O2 Flow Rate FiO2 07/21/16 04:00 98.3 84 18 113/67 96 07/21/16 00:00 98.5 69 18 122/66 96 07/20/16 20:00 98.2 79 18 132/70 97 07/20/16 16:00 98.3 78 20 108/66 95 07/20/16 12:00 98.0 76 20 106/70 93 I/O 07/20/16 07/20/16 07/20/16 07/21/16 07/21/16 07/21/16 07:00 15:00 23:00 07:00 15:00 23:00 Intake Total 360 ml 600 ml 290 ml Balance 360 ml 600 ml 290 ml Intake Oral 360 ml 600 ml 290 ml # Voids 2 4 2 # Bowel Movements 0 0 1 Result Diagram: 07/21/16 0547 07/21/16 0547 Objective Remarks GENERAL: This is a well-nourished, well-developed patient, in no apparent distress. CARDIOVASCULAR: Normal rate and regular rhythm without murmurs, gallops, or rubs. RESPIRATORY: Good respiratory efforts. Breath sounds equal and clear to auscultation bilaterally. NEURO: Alert & Oriented x4 to person, place, time, situation. Moves all ext x4 PSYCH: Calm today A/P Problem List: (1) Sepsis ICD Code: A41.9 Status: Acute (2) Neutropenic fever ICD Code: D70.9 Status: Acute (3) AIDS ICD Code: B20 Status: Acute (4) Renal insufficiency ICD Code: N28.9 Status: Acute Assessment and Plan 46-year-old female with Sepsis: positive for urinary pneumococcal antigen. +Immunocompromised. Possible Invasive pneumococcal disease. Discussed with infectious disease, probably mastoiditis, and otitis as the source of sepsis. Meningitis less likely S/p LP in ER which has been negative. Blood/Urine cultures negative, flu A and B antigen negative. Follow cultures. -Appreciate ENT following. Hear drops changed to Ciprodex to help reduce inflammation. No surgical intervention indicated. -Appreciate infectious disease following. Continue Rocephin. Levaquin and clindamycin was added. Neutropenic Fever and pancytopenia: Resolved. Neutrophil count was 0 on admission. +Immunocompromised w/ h/o HIV/AIDS. ID following as above. Appreciate hematology following. Patient started given Neupogen per hematology. Cell counts improving. Neutropenia resolved. Reported hearing loss/pain: Likely secondary to otitis and mastoiditis. ENT following. HIV/AIDS: continue HAART; lymphocyte profile shows CD4 count of 65. Patient reports compliance with HAART medications. Infectious disease following. Anemia: On admission, Likely of acute blood loss from menses, S/P transfusion. H&H stable. Continue to follow. On Neupogen per hematology as above. Renal Insufficiency: Acute on Chronic. Resolved with IV fluid. Continue to monitor labs. DVT Prophylaxis: SCD/Teds. Chemoprophylaxis contraindicated given pancytopenia. Problem Qualifiers (1) Sepsis: Qualified Code: A41.9 - Sepsis, due to unspecified organism Candelario Rasheed MD Jul 21, 2016 09:11
[2016-07-21] MEDS: FAMOTIDINE 20 MG TAB PO SCH ×2 (09:50→19:43)
[2016-07-21] MEDS: SODIUM CHLORIDE 0.9% FLUSH 5 ML FLUSH FLUSH SCH ×2 (09:50→19:44)
[2016-07-21] MEDS: OXYMETAZOLINE HCL 0.05% 15 ML NASAL SPRAY NASAL SCH ×2 (09:53→19:44)
[2016-07-21 12:00] VITALS: BP 96/54; PULSE 79; RESP 20; TEMP 98.1; O2SAT 94
[2016-07-21] MEDS: CIPROFLOXACIN/HYDROCORTISONE OTIC 10 ML BTL EACH EAR SCH ×2 (15:00→16:46)
[2016-07-21] MEDS: cefTRIAXone INJ 2,000 MG in SODIUM CHLORIDE 0.9% INJ 100 ML IV SCH (15:01)
[2016-07-21 15:27] LABS: PLATELET ESTIMATE SMEAR LOW (NORMAL); PLATELET MORPHOLOGY NORMAL (NORMAL); SCAN/DIFF AUTO DIFF CONFIRMED
[2016-07-21 16:00] VITALS: BP 91/64; PULSE 80; RESP 20; TEMP 98.3; O2SAT 93
[2016-07-21] MEDS: LEVOFLOXACIN 750 MG TAB PO SCH (19:44)
[2016-07-21 20:00] VITALS: BP 108/70; PULSE 72; RESP 18; TEMP 97.5; O2SAT 96
[2016-07-22] VITALS (7 sets, daily range): BP systolic 92–117; BP diastolic 63–82; PULSE 66–82; RESP 18–20; TEMP 97.5–98.2; O2SAT 94–97
[2016-07-22] MEDS: ONDANSETRON HCL 4 MG/2 ML VIAL IVP PRN ×3 (00:46→14:22)
--- NOTE | 2016-07-22 01:31 | RADRPT ---
EXAM DATE/TIME: 07/22/2016 01:19 [facility] COMPARISON: CT BRAIN W/O CONTRAST, July 11, 2016, 18:59. INDICATIONS : Dizziness. RADIATION DOSE: 41.42 CTDIvol (mGy) MEDICAL HISTORY : HIV. SURGICAL HISTORY : section. ENCOUNTER: Initial ACUITY: 1 day PAIN SCALE: 0/10 LOCATION: cranial TECHNIQUE: Multiple contiguous axial images were obtained of the head. Using automated exposure control and adj ustment of the mA and/or kV according to patient size, radiation dose was kept as low as reasonably a chievable to obtain optimal diagnostic quality images. FINDINGS: No hemorrhage, infarct, or mass. Ventricles and cisterns are of normal size and configuration. There is bilateral middle ear and mastoid opacification, air-fluid level or mucosal thickening in the left maxillary sinus and left sphenoid sinus. No fractures. CONCLUSION: Normal appearance of the brain. Opacified middle ears and mastoid air cells and sinus disease. Ole Dean MD on July 22, 2016 at 1:28 Board Certified Radiologist. This report was verified electronically.
[2016-07-22] MEDS: ACETAMINOPHEN 325 MG TAB PO PRN (01:47)
[2016-07-22] MEDS: CLINDAMYCIN 150 MG CAP PO SCH ×4 (01:50→20:15)
[2016-07-22] MEDS: SODIUM CHLORIDE 0.9% FLUSH 5 ML FLUSH FLUSH SCH ×2 (08:30→20:16)
[2016-07-22] MEDS: FAMOTIDINE 20 MG TAB PO SCH ×2 (08:30→20:15)
[2016-07-22] MEDS: OXYMETAZOLINE HCL 0.05% 15 ML NASAL SPRAY NASAL SCH ×2 (08:32→20:15)
[2016-07-22] MEDS: CIPROFLOXACIN/HYDROCORTISONE OTIC 10 ML BTL EACH EAR SCH ×3 (08:32→16:55)
[2016-07-22] MEDS: NYSTATIN SUSP 500,000 U/5 ML CUP SWISH-SWAL SCH ×4 (08:32→20:03)
[2016-07-22] MEDS: IBUPROFEN 600 MG TAB PO PRN (08:41)
[2016-07-22 10:32] LABS: MEAN CELL VOLUME 86.7 FL (80.0-100.0); MEAN CORPUSCULAR HEMOGLOBIN 29.2 PG (27.0-34.0); MEAN CORPUSCULAR HGB CONC 33.6 % (32.0-36.0); PLATELET COUNT 79 TH/MM3 (150-450); RED BLOOD COUNT 2.89 MIL/MM3 (4.00-5.30); RED CELL DISTRIBUTION WIDTH 16.6 % (11.6-17.2); WHITE BLOOD COUNT 6.8 TH/MM3 (4.0-11.0)
[2016-07-22 10:39] LABS: REVIEW FLAG FINAL
[2016-07-22 10:55] LABS: BICARBONATE 28.7 MEQ/L (21.0-32.0); POTASSIUM 4.1 MEQ/L (3.5-5.1)
[2016-07-22] MEDS: cefTRIAXone INJ 2,000 MG in SODIUM CHLORIDE 0.9% INJ 100 ML IV SCH (14:22)
--- NOTE | 2016-07-22 15:01 | HHI.PR ---
Subjective Remarks Patient stated she feels awful. She c/o post nasal gtt. Denied any fever or chills. Asked for IV antibiotics. Objective Vitals Vital Signs Date Time Temp Pulse Resp B/P Pulse Ox O2 Delivery O2 Flow Rate FiO2 07/22/16 13:02 99/64 96 07/22/16 12:00 97.6 82 20 92/63 95 07/22/16 08:00 97.5 77 20 110/77 97 07/22/16 04:00 98.2 70 18 117/66 95 07/22/16 00:00 98.2 66 18 105/68 94 07/21/16 20:00 97.5 72 18 108/70 96 07/21/16 16:00 98.3 80 20 91/64 93 I/O 07/21/16 07/21/16 07/21/16 07/22/16 07/22/16 07/22/16 07:00 15:00 23:00 07:00 15:00 23:00 Intake Total 720 ml 480 ml 100 ml 0 ml Balance 720 ml 480 ml 100 ml 0 ml Intake Oral 720 ml 480 ml 100 ml IV Total 0 ml 0 ml # Voids 4 2 1 # Bowel Movements 0 0 0 Result Diagram: 07/22/1685807/22/1659 Objective Remarks Gen NAD HEENT: OPc clear. no TTP of sinuses. CV RRR. no r/m/g Abd soft NDNT Medications and IVs Current Medications Sodium Chloride (NS 1000 ml Inj) 1,000 ml @ 999 mls/hr BOLUS ONCE IV Last administered on 07/11/16 19:54; Start 07/11/16 at 19:00; Stop 07/11/16 at 20:00 ; Status DC Ibuprofen (Motrin) 800 mg ONCE ONCE PO Last administered on 07/11/16 19:30; Start 07/11/16 at 19:30; Stop 07/11/16 at 19:31; Status DC Orphenadrine Citrate (Norflex Inj) 60 mg ONCE ONCE IV Last administered on 21:17; Start 07/11/16 at 19:45; Stop 07/11/16 at 19:46; Status DC Ondansetron HCl 4 mg 4 mg ONCE ONCE IV PUSH Last administered on 07/11/16 21: 17; Start 07/11/16 at 19:45; Stop 07/11/16 at 19:46; Status DC Aztreonam 2000 mg/ Sodium Chloride 100 ml @ 200 mls/hr ONCE STAT IV Last administered on 07/11/16 23:42; Start 07/11/16 at 19:40; Stop 07/11/16 at 20:09 ; Status DC Vancomycin HCl 1000 mg/Sodium Chloride 250 ml @ 250 mls/hr ONCE STAT IV Last administered on 07/11/16 22:05; Start 07/11/16 at 19:40; Stop 07/11/16 at 20:39 ; Status DC Sodium Chloride 1,000 ml @ 999 mls/hr BOLUS ONCE IV Last administered on 07/11 22:06; Start 07/11/16 at 21:45; Stop 07/11/16 at 22:45; Status DC Pharmacy Profile Note 0 ml @ 0 mls/hr UNSCH OTHER ; Start 07/11/16 at 21:45; Stop 07/19/16 at 22:36; Status DC Acyclovir Sodium 680 mg/Sodium Chloride 150 ml @ 150 mls/hr Q8H IV Last administered on 07/12/16 06:00; Start 07/11/16 at 22:00; Stop 07/12/16 at 13:43 ; Status DC Aztreonam 2000 mg/ Sodium Chloride 100 ml @ 200 mls/hr Q8H IV Last administered on 07/16/16 12:15; Start 07/12/16 at 04:00; Stop 07/16/16 at 16:38 ; Status DC Sodium Chloride (NS 1000 ml Inj) 1,000 ml @ 100 mls/hr Q10H IV Last administered on 07/15/16 05:44; Start 07/11/16 at 21:36; Stop 07/15/16 at 14:40 ; Status DC IV Flush (NS Flush) 2 ml UNSCH PRN FLUSH FLUSH AFTER USING IV ACCESS; Start at 21:45 IV Flush (NS Flush) 2 ml BID FLUSH Last administered on 07/22/16 08:30; Start 07/12/16 at 09:00 Ondansetron HCl (Zofran Inj) 4 mg Q6H PRN IVP NAUSEA OR VOMITING Last administered on 07/22/16 14:22; Start 07/11/16 at 21:45 Bisacodyl (Dulcolax Supp) 10 mg DAILY PRN OR CONSTIPATION; Start 07/11/16 at 21 :45 Acetaminophen (Tylenol) 650 mg Q6H PRN PO FEVER/PAIN SCALE 1 TO 2 Last administered on 07/22/16 01:47; Start 07/11/16 at 21:45 Acetaminophen/ Hydrocodone Bitart ([place] 5-325 Mg) 1 tab Q4H PRN PO PAIN SCALE 3 TO 5 Last administered on 07/14/16 09:28; Start 07/11/16 at 21:45; Stop 07/14/16 at 12:42; Status DC Morphine Sulfate 2 mg 2 mg Q3H PRN IV Pain 6-10 Last administered on 07/14/16 06:25; Start 07/11/16 at 21:45; Stop 07/14/16 at 12:42; Status DC Vancomycin HCl/ Sodium Chloride (Vancomycin Inj/ NS 500 ml Inj) 515 ml @ 250 mls/hr Q24H IV Last administered on 07/14/16 13:28; Start 07/12/16 at 13:00; Stop 07/14/16 at 15:08; Status DC Miscellaneous Information SPECIFIC LAB TO BE DRAWN:VANCOMYCIN TROUGH DATE TO... ONCE ONCE XX Last administered on 07/14/16 12:45; Start 07/14/16 at 12:45; Stop 07/14/16 at 12:49; Status DC Pneumococcal Polyvalent Vaccine (Pneumovax-23 Inj) 25 mcg ONCE ONCE IM ; Start 07/13/16 at 10:00; Stop 07/13/16 at 10:01; Status Cancel Influenza Virus Vaccine (Flu (Quadrivalent) Vaccine Inj) 0.5 ml ONCE ONCE IM ; Start 07/13/16 at 10:00; Stop 07/13/16 at 10:01; Status Cancel Calcium/Vitamin D (Oscal-D 250-125) 250 mg BID PO Last administered on 09:27; Start 07/12/16 at 21:00; Stop 07/14/16 at 18:32; Status DC Darunavir (Prezista) 800 mg AC DINNER PO ; Start 07/12/16 at 16:00; Stop at 16:00; Status DC Lamivudine (Epivir) 300 mg AC DINNER PO ; Start 07/12/16 at 16:00; Stop at 16:00; Status DC Lamivudine (Epivir) 300 mg DAILY PO Last administered on 07/14/16 09:27; Start 07/12/16 at 16:00; Stop 07/14/16 at 18:30; Status DC Multivitamins (Theragran) 1 tab DAILY PO Last administered on 07/14/16 09:27; Start 07/12/16 at 14:00; Stop 07/14/16 at 18:30; Status DC Ritonavir (Norvir) 100 mg AC DINNER PO ; Start 07/12/16 at 16:00; Stop at 16:00; Status DC Valacyclovir HCl (Valtrex) 1,000 mg DAILY PO ; Start 07/12/16 at 13:30; Stop at 13:31; Status DC Patient Own Medication PT OWN MED: Darunavir-Cobicistat 800-150... DAILY PO Last administered on 07/15/16 08:30; Start 07/12/16 at 16:00; Stop 07/16/16 at 15:51; Status DC Acyclovir Sodium/ Sodium Chloride (Zovirax Inj/NS Inj) 150 ml @ 150 mls/hr Q12H IV Last administered on 07/16/16 05:32; Start 07/12/16 at 18:00; Stop at 16:38; Status DC Trimethoprim/ Sulfamethoxazole 1 tab 1 tab MoWeFr PO Last administered on 08:54; Start 07/13/16 at 09:00; Stop 07/14/16 at 18:30; Status DC Ceftriaxone Sodium/Sodium Chloride (Rocephin Inj/NS Inj) 100 ml @ 200 mls/hr Q12H IV Last administered on 07/19/16 15:11; Start 07/12/16 at 15:00; Stop at 22:36; Status DC Nystatin (Mycostatin Liq) 5 ml QID SWISH-SWAL Last administered on 07/20/16 12:04; Start 07/12/16 at 18:00 Ibuprofen 600 mg 600 mg Q6H PRN PO muscle spasm Last administered on 07/22/16 08:41; Start 07/12/16 at 17:45 Sodium Chloride (NS 250 ml Inj) 250 ml @ 15 mls/hr ONCE ONCE IV ; Start at 15:00; Stop 07/14/16 at 07:39; Status DC Acetaminophen (Tylenol) 650 mg Q4H PRN PO SEE LABEL COMMENTS; Start 07/13/16 at 14:15; Stop 07/13/16 at 18:16; Status DC Diphenhydramine HCl (Benadryl) 25 mg Q4H PRN PO SEE LABEL COMMENTS; Start 07/13 at 14:15; Stop 07/13/16 at 18:16; Status DC Influenza Virus Vaccine (Flu (Quadrivalent) Vaccine Inj) 0.5 ml ONCE ONCE IM ; Start 07/14/16 at 09:00; Stop 07/14/16 at 09:01; Status DC Pneumococcal Polyvalent Vaccine (Pneumovax-23 Inj) 25 mcg ONCE ONCE IM ; Start 07/14/16 at 09:00; Stop 07/14/16 at 09:01; Status DC Influenza Virus Vaccine (Flu (Quadrivalent) Vaccine Inj) 0.5 ml ONCE ONCE IM ; Start 07/15/16 at 10:00; Stop 07/15/16 at 10:01; Status Cancel Pneumococcal Polyvalent Vaccine (Pneumovax-23 Inj) 25 mcg ONCE ONCE IM ; Start 07/15/16 at 10:00; Stop 07/15/16 at 10:01; Status Cancel Oxycodone HCl (Roxicodone) 10 mg Q4H PRN PO PAIN GREATER THAN 5 Last administered on 07/21/16 19:43; Start 07/14/16 at 12:45 Diatrizoate Meglum/ Diatrizoate Sod 18 ml 18 ml ONCE ONCE PO Last administered on 07/14/16 15:17; Start 07/14/16 at 14:30; Stop 07/14/16 at 14:31 ; Status DC Vancomycin HCl/ Sodium Chloride (Vancomycin Inj/ NS 250 ml Inj) 260 ml @ 260 mls/hr Q18H IV Last administered on 07/17/16 12:27; Start 07/15/16 at 06:00; Stop 07/17/16 at 14:06; Status DC Miscellaneous Information SPECIFIC LAB TO BE KAIN... ONCE ONCE XX Last administered on 07/17/16 12:28; Start 07/17/16 at 11:45; Stop 07/17/16 at 11:46 ; Status DC Calcium/Vitamin D (Oscal-D 250-125) 250 mg DAILY@21 PO Last administered on 21:12; Start 07/14/16 at 21:00; Stop 07/19/16 at 14:02; Status DC Carbamide Peroxide (Debrox 6.5% Otic) 5 drop Q12HR EACH EAR Last administered on 07/17/16 09:14; Start 07/15/16 at 13:00; Stop 07/17/16 at 15:49; Status DC Filgrastim (Neupogen Inj) 480 mcg DAILY@14 SQ Last administered on 07/18/16 13 :11; Start 07/15/16 at 14:00; Stop 07/18/16 at 13:40; Status DC Patient Own Medication PT OWN MED: Darunavir-Cobicistat 800-150... DAILY PO Last administered on 07/22/16 08:30; Start 07/16/16 at 16:00 Vancomycin HCl/ Sodium Chloride (Vancomycin Inj/ NS 250 ml Inj) 250 ml @ 250 mls/hr Q12H IV Last administered on 07/19/16 12:00; Start 07/18/16 at 00:00; Stop 07/19/16 at 22:37; Status DC Miscellaneous Information SPECIFIC LAB TO BE KAIN... ONCE ONCE XX Last administered on 07/19/16 12:00; Start 07/19/16 at 11:45; Stop 07/19/16 at 11:46 ; Status DC Neomycin/ Polymyxin/ Hydrocortisone (Cortisporin Otic Soln) 3 drop Q6HR EACH EAR Last administered on 07/19/16 17:24; Start 07/17/16 at 18:00; Stop at 20:32; Status DC Famotidine (Pepcid) 20 mg BID PO Last administered on 07/22/16 08:30; Start at 21:00 Famotidine (Pepcid) 20 mg ONCE ONCE PO Last administered on 07/18/16 14:25; Start 07/18/16 at 14:00; Stop 07/18/16 at 14:01; Status DC Oxymetazoline HCl (Afrin 0.05% [place]) 1 spray BID NASAL Last administered on 07/22/16 08:32; Start 07/19/16 at 21:00; Stop 07/24/16 at 09:01 Ciprofloxacin/ Hydrocortisone 4 drop 4 drop TID EACH EAR Last administered on 12:48; Start 07/19/16 at 23:00 Ceftriaxone Sodium/Sodium Chloride (Rocephin Inj/NS Inj) 100 ml @ 200 mls/hr Q24H IV Last administered on 07/22/16 14:22; Start 07/20/16 at 15:00 Gadodiamide (Omniscan Pf Inj) 14 ml STK-MED ONCE IV Last administered on 10:36; Start 07/20/16 at 10:36; Stop 07/20/16 at 10:37; Status DC Levofloxacin (Levaquin) 750 mg DAILY@20 PO Last administered on 07/21/16 19:44 ; Start 07/20/16 at 20:00 Clindamycin HCl (Cleocin) 300 mg Q6H PO Last administered on 07/22/16 13:01; Start 07/20/16 at 20:00 A/P Problem List: (1) Sepsis ICD Code: A41.9 Status: Acute (2) Neutropenic fever ICD Code: D70.9 Status: Acute (3) AIDS ICD Code: B20 Status: Acute (4) Renal insufficiency ICD Code: N28.9 Status: Acute Assessment and Plan 46-year-old female with Sepsis: positive for urinary pneumococcal antigen. +Immunocompromised. Possible Invasive pneumococcal disease. Discussed with infectious disease, probably mastoiditis, and otitis as the source of sepsis. Meningitis less likely S/p LP in ER which has been negative. Blood/Urine cultures negative, flu A and B antigen negative. Follow cultures. -Appreciate ENT following. Hear drops changed to Ciprodex to help reduce inflammation. No surgical intervention indicated. -Appreciate infectious disease following. Continue Rocephin. Levaquin and clindamycin was added. Neutropenic Fever and pancytopenia: Resolved. Neutrophil count was 0 on admission. +Immunocompromised w/ h/o HIV/AIDS. ID following as above. Appreciate hematology following. Patient started given Neupogen per hematology. Cell counts improving. Neutropenia resolved. Reported hearing loss/pain: Likely secondary to otitis and mastoiditis. ENT following. HIV/AIDS: continue HAART; lymphocyte profile shows CD4 count of 65. Patient reports compliance with HAART medications. Infectious disease following. Anemia: On admission, Likely of acute blood loss from menses, S/P transfusion. H&H stable. Continue to follow. On Neupogen per hematology as above. Renal Insufficiency: Acute on Chronic. Resolved with IV fluid. Continue to monitor labs. DVT Prophylaxis: SCD/Teds. Chemoprophylaxis contraindicated given pancytopenia. Dispo: once off IV antibiotics can be d/c to home. Problem Qualifiers (1) Sepsis: Qualified Code: A41.9 - Sepsis, due to unspecified organism Chely Almanzar MD Jul 22, 2016 15:01
[2016-07-22] MEDS: predniSONE 10 MG TAB PO SCH (16:55)
[2016-07-22] MEDS: LEVOFLOXACIN 750 MG TAB PO SCH (20:15)
[2016-07-23] VITALS: BP 129/86; PULSE 72; RESP 18; TEMP 98.1; O2SAT 96
[2016-07-23] MEDS: CLINDAMYCIN 150 MG CAP PO SCH ×4 (01:49→21:16)
[2016-07-23 04:00] VITALS: BP 119/81; PULSE 77; RESP 18; TEMP 98.1; O2SAT 98
[2016-07-23 07:44] LABS: HEMATOCRIT 25.3 % (35.0-46.0); MEAN CELL VOLUME 86.7 FL (80.0-100.0); MEAN CORPUSCULAR HEMOGLOBIN 29.4 PG (27.0-34.0); MEAN CORPUSCULAR HGB CONC 33.9 % (32.0-36.0); PLATELET COUNT 81 TH/MM3 (150-450); RED BLOOD COUNT 2.91 MIL/MM3 (4.00-5.30); RED CELL DISTRIBUTION WIDTH 16.6 % (11.6-17.2); WHITE BLOOD COUNT 9.2 TH/MM3 (4.0-11.0)
[2016-07-23 07:48] LABS: REVIEW FLAG FINAL
[2016-07-23 07:52] LABS: BICARBONATE 25.7 MEQ/L (21.0-32.0); POTASSIUM 4.5 MEQ/L (3.5-5.1)
[2016-07-23 08:01] VITALS: BP 108/73; PULSE 78; RESP 20; TEMP 98; O2SAT 96
[2016-07-23] MEDS: FAMOTIDINE 20 MG TAB PO SCH ×2 (08:34→21:16)
[2016-07-23] MEDS: NYSTATIN SUSP 500,000 U/5 ML CUP SWISH-SWAL SCH ×4 (08:34→21:00)
[2016-07-23] MEDS: predniSONE 10 MG TAB PO SCH ×3 (08:34→18:00)
[2016-07-23] MEDS: OXYMETAZOLINE HCL 0.05% 15 ML NASAL SPRAY NASAL SCH ×2 (08:36→21:16)
[2016-07-23] MEDS: CIPROFLOXACIN/HYDROCORTISONE OTIC 10 ML BTL EACH EAR SCH ×3 (08:37→18:00)
[2016-07-23] MEDS: SODIUM CHLORIDE 0.9% FLUSH 5 ML FLUSH FLUSH SCH ×2 (09:00→21:16)
[2016-07-23] MEDS: ONDANSETRON HCL 4 MG/2 ML VIAL IVP PRN (09:32)
--- NOTE | 2016-07-23 10:38 | PD.ONC.PN ---
Subjective Subjective Remarks Afebrile overnight. Patient sad today. She wants to know when she will be going home. No bleeding events. Objective Data Date Time Temp Pulse Resp B/P Pulse Ox O2 Delivery O2 Flow Rate FiO2 07/23/16 08:01 98.0 78 20 108/73 96 07/23/16 04:00 98.1 77 18 119/81 98 07/23/16 00:00 98.1 72 18 129/86 96 07/22/16 20:00 97.6 77 18 117/82 95 07/22/16 16:00 98.1 77 20 103/67 97 07/22/16 13:02 99/64 96 07/22/16 12:00 97.6 82 20 92/63 95 07/23/16 07/23/16 07/23/16 07:00 15:00 23:00 Intake Total 240 ml Balance 240 ml Result Diagram: 07/23/1625 07/23/16 0625 Laboratory Results Laboratory Tests Test 07/23/16 06:25 White Blood Count 9.2 TH/MM3 Red Blood Count 2.91 MIL/MM3 Hemoglobin 8.6 GM/DL Hematocrit 25.3 % Mean Corpuscular Volume 86.7 FL Mean Corpuscular Hemoglobin 29.4 PG Mean Corpuscular Hemoglobin 33.9 % Concent Red Cell Distribution Width 16.6 % Platelet Count 81 TH/MM3 Mean Platelet Volume 8.1 FL Sodium Level 132 MEQ/L Potassium Level 4.5 MEQ/L Chloride Level 97 MEQ/L Carbon Dioxide Level 25.7 MEQ/L Anion Gap 9 MEQ/L Blood Urea Nitrogen 14 MG/DL Creatinine 1.18 MG/DL Estimat Glomerular Filtration 50 ML/MIN Rate Random Glucose 100 MG/DL Calcium Level 9.9 MG/DL Administered Medications Medications (Trade) Dose Ordered Sig/Carolyn Route PRN Reason Start Time Stop Time Status Last Admin Dose Admin IV Flush (NS Flush) 2 ml BID FLUSH 07/12/16 09:00 07/23/16 09:00 Ondansetron HCl (Zofran Inj) 4 mg Q6H PRN IVP NAUSEA OR VOMITING 07/11/16 21:45 07/23/16 09:32 Acetaminophen (Tylenol) 650 mg Q6H PRN PO FEVER/PAIN SCALE 1 TO 2 07/11/16 21:45 07/22/16 01:47 Nystatin (Mycostatin Liq) 5 ml QID SWISH-SWAL 07/12/16 18:00 07/20/16 12:04 Ibuprofen (Motrin) 600 mg Q6H PRN PO muscle spasm 07/12/16 17:45 07/22/16 08:41 Oxycodone HCl (Roxicodone) 10 mg Q4H PRN PO PAIN GREATER THAN 5 07/14/16 12:45 07/23/16 01:49 Patient Own Medication PT OWN MED: Darunavir-Cobicistat 800-150... DAILY PO 07/16/16 16:00 07/23/16 08:34 Famotidine (Pepcid) 20 mg BID PO 07/18/16 21:00 07/23/16 08:34 Oxymetazoline HCl (Afrin 0.05% Tomer [place]) 1 spray BID NASAL 07/19/16 21:00 07/24/16 09:01 07/23/16 08:36 Ciprofloxacin/ Hydrocortisone 4 drop 4 drop TID EACH EAR 07/19/16 23:00 07/23/16 08:37 Ceftriaxone Sodium/Sodium Chloride (Rocephin Inj/NS Inj) 100 ml @ 200 mls/hr Q24H IV 07/20/16 15:00 07/22/16 14:22 Levofloxacin (Levaquin) 750 mg DAILY@20 PO 07/20/16 20:00 07/22/16 20:15 Clindamycin HCl (Cleocin) 300 mg Q6H PO 07/20/16 20:00 07/23/16 08:34 Prednisone (Deltasone) 10 mg TID PO 07/22/16 18:00 07/23/16 08:34 Objective Remarks GENERAL: Young woman, lying in bed, sleeping on approach, easily awakened. SKIN: Warm and dry. HEAD: Normocephalic. EYES: No injection or drainage. NECK: Supple, trachea midline. CARDIOVASCULAR: Regular rate and rhythm RESPIRATORY: Breath sounds equal bilaterally. No accessory muscle use. GASTROINTESTINAL: Abdomen soft, non-tender, nondistended. EXTREMITIES: No cyanosis NEUROLOGICAL: awake and alert. normal speech Assessment/Plan Problem List: (1) Pancytopenia Status: Acute Plan: -- WBC now WNL --platelet count declining--possibly antibiotic effect, will monitor --hgb stable. --likely multifactorial due to underlying HIV / AIDS +splenomegaly + viral infection --iron studies more consistent with anemia of chronic disease than iron deficiency --vitamin B12/folate--no deficiency --CT ab shows hepatosplenomegaly Assessment 46y/o female HIV admitted with neutropenic fever and pancytopenia. h/o HIV / AIDS-dx 2004. compliant with HAART Anxiety and depression. +renal insufficiency Plan 1. monitor CBC 2. supportive care Attending Statement The exam, history, and the medical decision-making described in the above note were completed with the assistance of the mid-level provider. I reviewed and agree with the findings presented. I attest that I had a [id number] encounter with the patient on the same day, and personally performed and documented my assessment and findings in the medical record. No new c/o. WBC normal. Hgb and platelet still low due to HIV/AIDS. Continue to monitor. Yolanda Bustamante Jul 23, 2016 10:38 Leonidas Ogden MD Jul 23, 2016 14:57
[2016-07-23 12:01] VITALS: BP 94/63; PULSE 75; RESP 20; TEMP 98.5; O2SAT 95
[2016-07-23] MEDS: cefTRIAXone INJ 2,000 MG in SODIUM CHLORIDE 0.9% INJ 100 ML IV SCH (15:00)
[2016-07-23 16:01] VITALS: BP 116/74; PULSE 72; RESP 20; TEMP 97.6; O2SAT 97
--- NOTE | 2016-07-23 16:29 | HHI.PR ---
Subjective Remarks Patient stated intensity of pain is the same and continues to feel nauseated. She remains afebrile. Objective Vitals Vital Signs Date Time Temp Pulse Resp B/P Pulse Ox O2 Delivery O2 Flow Rate FiO2 07/23/16 12:01 98.5 75 20 94/63 95 07/23/16 08:01 98.0 78 20 108/73 96 07/23/16 08:01 98.0 78 20 108/73 96 07/23/16 04:00 98.1 77 18 119/81 98 07/23/16 00:00 98.1 72 18 129/86 96 07/22/16 20:00 97.6 77 18 117/82 95 I/O 07/22/16 07/22/16 07/22/16 07/23/16 07/23/16 07/23/16 07:00 15:00 23:00 07:00 15:00 23:00 Intake Total 100 ml 480 ml 480 ml 240 ml Balance 100 ml 480 ml 480 ml 240 ml Intake Oral 100 ml 480 ml 480 ml 240 ml IV Total 0 ml # Voids 1 3 2 2 # Bowel Movements 0 0 0 0 Result Diagram: 07/23/16 0625 07/23/16 0625 Imaging Last Impressions Head CT 07/21/16 0000 Signed Impressions: Service Date/Time: Friday, July 22, 2016 01:19 - CONCLUSION: Normal appearance of the brain. Opacified middle ears and mastoid air cells and sinus disease. Ole Dean MD Brain MRI 07/20/16 0000 Signed Impressions: Service Date/Time: Wednesday, July 20, 2016 10:19 - CONCLUSION: 1. Unremarkable MRI of the brain. 2. Diffuse bilateral pansinusitis. 3. Bilateral mastoiditis. Bruno Granados MD Abdomen/Pelvis CT 07/14/16 0000 Signed Impressions: Service Date/Time: Thursday, July 14, 2016 18:35 - CONCLUSION: 1. Patchy basilar air space disease in the lungs which could represent mild bronchopneumonia with small bilateral pleural effusions. 2. Hepatosplenomegaly as above with mild ascites. Minimal anasarca. No obstruction or free air. Mild ileus. Urbano Yee MD Chest X-Ray 07/11/16 7130 Signed Impressions: Service Date/Time: Monday, July 11, 2016 18:47 - CONCLUSION: No acute disease. Anderson Gary MD Objective Remarks Gen NAD HEENT: OPc clear. no TTP of sinuses. CV RRR. no r/m/g Abd soft NDNT Medications and IVs Current Medications Sodium Chloride (NS 1000 ml Inj) 1,000 ml @ 999 mls/hr BOLUS ONCE IV Last administered on 07/11/16 19:54; Start 07/11/16 at 19:00; Stop 07/11/16 at 20:00 ; Status DC Ibuprofen (Motrin) 800 mg ONCE ONCE PO Last administered on 07/11/16 19:30; Start 07/11/16 at 19:30; Stop 07/11/16 at 19:31; Status DC Orphenadrine Citrate (Norflex Inj) 60 mg ONCE ONCE IV Last administered on 21:17; Start 07/11/16 at 19:45; Stop 07/11/16 at 19:46; Status DC Ondansetron HCl 4 mg 4 mg ONCE ONCE IV PUSH Last administered on 07/11/16 21: 17; Start 07/11/16 at 19:45; Stop 07/11/16 at 19:46; Status DC Aztreonam 2000 mg/ Sodium Chloride 100 ml @ 200 mls/hr ONCE STAT IV Last administered on 07/11/16 23:42; Start 07/11/16 at 19:40; Stop 07/11/16 at 20:09 ; Status DC Vancomycin HCl 1000 mg/Sodium Chloride 250 ml @ 250 mls/hr ONCE STAT IV Last administered on 07/11/16 22:05; Start 07/11/16 at 19:40; Stop 07/11/16 at 20:39 ; Status DC Sodium Chloride 1,000 ml @ 999 mls/hr BOLUS ONCE IV Last administered on 07/11 22:06; Start 07/11/16 at 21:45; Stop 07/11/16 at 22:45; Status DC Pharmacy Profile Note 0 ml @ 0 mls/hr UNSCH OTHER ; Start 07/11/16 at 21:45; Stop 07/19/16 at 22:36; Status DC Acyclovir Sodium 680 mg/Sodium Chloride 150 ml @ 150 mls/hr Q8H IV Last administered on 07/12/16 06:00; Start 07/11/16 at 22:00; Stop 07/12/16 at 13:43 ; Status DC Aztreonam 2000 mg/ Sodium Chloride 100 ml @ 200 mls/hr Q8H IV Last administered on 07/16/16 12:15; Start 07/12/16 at 04:00; Stop 07/16/16 at 16:38 ; Status DC Sodium Chloride (NS 1000 ml Inj) 1,000 ml @ 100 mls/hr Q10H IV Last administered on 07/15/16 05:44; Start 07/11/16 at 21:36; Stop 07/15/16 at 14:40 ; Status DC IV Flush (NS Flush) 2 ml UNSCH PRN FLUSH FLUSH AFTER USING IV ACCESS; Start at 21:45 IV Flush (NS Flush) 2 ml BID FLUSH Last administered on 07/23/16 09:00; Start 07/12/16 at 09:00 Ondansetron HCl (Zofran Inj) 4 mg Q6H PRN IVP NAUSEA OR VOMITING Last administered on 07/23/16 09:32; Start 07/11/16 at 21:45 Bisacodyl (Dulcolax Supp) 10 mg DAILY PRN [place] CONSTIPATION; Start 07/11/16 at 21 :45 Acetaminophen (Tylenol) 650 mg Q6H PRN PO FEVER/PAIN SCALE 1 TO 2 Last administered on 07/22/16 01:47; Start 07/11/16 at 21:45 Acetaminophen/ Hydrocodone Bitart ([place] 5-325 Mg) 1 tab Q4H PRN PO PAIN SCALE 3 TO 5 Last administered on 07/14/16 09:28; Start 07/11/16 at 21:45; Stop 07/14/16 at 12:42; Status DC Morphine Sulfate 2 mg 2 mg Q3H PRN IV Pain 6-10 Last administered on 07/14/16 06:25; Start 07/11/16 at 21:45; Stop 07/14/16 at 12:42; Status DC Vancomycin HCl/ Sodium Chloride (Vancomycin Inj/ NS 500 ml Inj) 515 ml @ 250 mls/hr Q24H IV Last administered on 07/14/16 13:28; Start 07/12/16 at 13:00; Stop 07/14/16 at 15:08; Status DC Miscellaneous Information SPECIFIC LAB TO BE DRAWN:VANCOMYCIN TROUGH DATE TO... ONCE ONCE XX Last administered on 07/14/16 12:45; Start 07/14/16 at 12:45; Stop 07/14/16 at 12:49; Status DC Pneumococcal Polyvalent Vaccine (Pneumovax-23 Inj) 25 mcg ONCE ONCE IM ; Start 07/13/16 at 10:00; Stop 07/13/16 at 10:01; Status Cancel Influenza Virus Vaccine (Flu (Quadrivalent) Vaccine Inj) 0.5 ml ONCE ONCE IM ; Start 07/13/16 at 10:00; Stop 07/13/16 at 10:01; Status Cancel Calcium/Vitamin D (Oscal-D 250-125) 250 mg BID PO Last administered on 09:27; Start 07/12/16 at 21:00; Stop 07/14/16 at 18:32; Status DC Darunavir (Prezista) 800 mg AC DINNER PO ; Start 07/12/16 at 16:00; Stop at 16:00; Status DC Lamivudine (Epivir) 300 mg AC DINNER PO ; Start 07/12/16 at 16:00; Stop at 16:00; Status DC Lamivudine (Epivir) 300 mg DAILY PO Last administered on 07/14/16 09:27; Start 07/12/16 at 16:00; Stop 07/14/16 at 18:30; Status DC Multivitamins (Theragran) 1 tab DAILY PO Last administered on 07/14/16 09:27; Start 07/12/16 at 14:00; Stop 07/14/16 at 18:30; Status DC Ritonavir (Norvir) 100 mg AC DINNER PO ; Start 07/12/16 at 16:00; Stop at 16:00; Status DC Valacyclovir HCl (Valtrex) 1,000 mg DAILY PO ; Start 07/12/16 at 13:30; Stop at 13:31; Status DC Patient Own Medication PT OWN MED: Darunavir-Cobicistat 800-150... DAILY PO Last administered on 07/15/16 08:30; Start 07/12/16 at 16:00; Stop 07/16/16 at 15:51; Status DC Acyclovir Sodium/ Sodium Chloride (Zovirax Inj/NS Inj) 150 ml @ 150 mls/hr Q12H IV Last administered on 07/16/16 05:32; Start 07/12/16 at 18:00; Stop at 16:38; Status DC Trimethoprim/ Sulfamethoxazole 1 tab 1 tab MoWeFr PO Last administered on 08:54; Start 07/13/16 at 09:00; Stop 07/14/16 at 18:30; Status DC Ceftriaxone Sodium/Sodium Chloride (Rocephin Inj/NS Inj) 100 ml @ 200 mls/hr Q12H IV Last administered on 07/19/16 15:11; Start 07/12/16 at 15:00; Stop at 22:36; Status DC Nystatin (Mycostatin Liq) 5 ml QID SWISH-SWAL Last administered on 07/20/16 12:04; Start 07/12/16 at 18:00 Ibuprofen 600 mg 600 mg Q6H PRN PO muscle spasm Last administered on 07/22/16 08:41; Start 07/12/16 at 17:45 Sodium Chloride (NS 250 ml Inj) 250 ml @ 15 mls/hr ONCE ONCE IV ; Start at 15:00; Stop 07/14/16 at 07:39; Status DC Acetaminophen (Tylenol) 650 mg Q4H PRN PO SEE LABEL COMMENTS; Start 07/13/16 at 14:15; Stop 07/13/16 at 18:16; Status DC Diphenhydramine HCl (Benadryl) 25 mg Q4H PRN PO SEE LABEL COMMENTS; Start 07/13 at 14:15; Stop 07/13/16 at 18:16; Status DC Influenza Virus Vaccine (Flu (Quadrivalent) Vaccine Inj) 0.5 ml ONCE ONCE IM ; Start 07/14/16 at 09:00; Stop 07/14/16 at 09:01; Status DC Pneumococcal Polyvalent Vaccine (Pneumovax-23 Inj) 25 mcg ONCE ONCE IM ; Start 07/14/16 at 09:00; Stop 07/14/16 at 09:01; Status DC Influenza Virus Vaccine (Flu (Quadrivalent) Vaccine Inj) 0.5 ml ONCE ONCE IM ; Start 07/15/16 at 10:00; Stop 07/15/16 at 10:01; Status Cancel Pneumococcal Polyvalent Vaccine (Pneumovax-23 Inj) 25 mcg ONCE ONCE IM ; Start 07/15/16 at 10:00; Stop 07/15/16 at 10:01; Status Cancel Oxycodone HCl (Roxicodone) 10 mg Q4H PRN PO PAIN GREATER THAN 5 Last administered on 07/23/16 11:48; Start 07/14/16 at 12:45 Diatrizoate Meglum/ Diatrizoate Sod 18 ml 18 ml ONCE ONCE PO Last administered on 07/14/16 15:17; Start 07/14/16 at 14:30; Stop 07/14/16 at 14:31 ; Status DC Vancomycin HCl/ Sodium Chloride (Vancomycin Inj/ NS 250 ml Inj) 260 ml @ 260 mls/hr Q18H IV Last administered on 07/17/16 12:27; Start 07/15/16 at 06:00; Stop 07/17/16 at 14:06; Status DC Miscellaneous Information SPECIFIC LAB TO BE KAIN... ONCE ONCE XX Last administered on 07/17/16 12:28; Start 07/17/16 at 11:45; Stop 07/17/16 at 11:46 ; Status DC Calcium/Vitamin D (Oscal-D 250-125) 250 mg DAILY@21 PO Last administered on 21:12; Start 07/14/16 at 21:00; Stop 07/19/16 at 14:02; Status DC Carbamide Peroxide (Debrox 6.5% Otic) 5 drop Q12HR EACH EAR Last administered on 07/17/16 09:14; Start 07/15/16 at 13:00; Stop 07/17/16 at 15:49; Status DC Filgrastim (Neupogen Inj) 480 mcg DAILY@14 SQ Last administered on 07/18/16 13 :11; Start 07/15/16 at 14:00; Stop 07/18/16 at 13:40; Status DC Patient Own Medication PT OWN MED: Darunavir-Cobicistat 800-150... DAILY PO Last administered on 07/23/16 08:34; Start 07/16/16 at 16:00 Vancomycin HCl/ Sodium Chloride (Vancomycin Inj/ NS 250 ml Inj) 250 ml @ 250 mls/hr Q12H IV Last administered on 07/19/16 12:00; Start 07/18/16 at 00:00; Stop 07/19/16 at 22:37; Status DC Miscellaneous Information SPECIFIC LAB TO BE KAIN... ONCE ONCE XX Last administered on 07/19/16 12:00; Start 07/19/16 at 11:45; Stop 07/19/16 at 11:46 ; Status DC Neomycin/ Polymyxin/ Hydrocortisone (Cortisporin Otic Soln) 3 drop Q6HR EACH EAR Last administered on 07/19/16 17:24; Start 07/17/16 at 18:00; Stop at 20:32; Status DC Famotidine (Pepcid) 20 mg BID PO Last administered on 07/23/16 08:34; Start at 21:00 Famotidine (Pepcid) 20 mg ONCE ONCE PO Last administered on 07/18/16 14:25; Start 07/18/16 at 14:00; Stop 07/18/16 at 14:01; Status DC Oxymetazoline HCl (Afrin 0.05% [place]) 1 spray BID NASAL Last administered on 07/23/16 08:36; Start 07/19/16 at 21:00; Stop 07/24/16 at 09:01 Ciprofloxacin/ Hydrocortisone 4 drop 4 drop TID EACH EAR Last administered on 11:25; Start 07/19/16 at 23:00 Ceftriaxone Sodium/Sodium Chloride (Rocephin Inj/NS Inj) 100 ml @ 200 mls/hr Q24H IV Last administered on 07/22/16 14:22; Start 07/20/16 at 15:00 Gadodiamide (Omniscan Pf Inj) 14 ml STK-MED ONCE IV Last administered on 10:36; Start 07/20/16 at 10:36; Stop 07/20/16 at 10:37; Status DC Levofloxacin (Levaquin) 750 mg DAILY@20 PO Last administered on 07/22/16 20:15 ; Start 07/20/16 at 20:00 Clindamycin HCl (Cleocin) 300 mg Q6H PO Last administered on 07/23/16 08:34; Start 07/20/16 at 20:00 Prednisone (Deltasone) 10 mg TID PO Last administered on 07/23/16 11:25; Start 07/22/16 at 18:00 A/P Problem List: (1) Sepsis ICD Code: A41.9 Status: Acute (2) Neutropenic fever ICD Code: D70.9 Status: Acute (3) AIDS ICD Code: B20 Status: Acute (4) Renal insufficiency ICD Code: N28.9 Status: Acute Assessment and Plan 46-year-old female with Sepsis: positive for urinary pneumococcal antigen. +Immunocompromised. Possible Invasive pneumococcal disease. Discussed with infectious disease, probably mastoiditis, and otitis as the source of sepsis. Meningitis less likely S/p LP in ER which has been negative. Blood/Urine cultures negative, flu A and B antigen negative. Follow cultures. -Appreciate ENT following. Hear drops changed to Ciprodex to help reduce inflammation. No surgical intervention indicated. -Appreciate infectious disease following. Continue Rocephin. Levaquin and clindamycin was added. -continue with prednisone. Neutropenic Fever and pancytopenia: Resolved. Neutrophil count was 0 on admission. +Immunocompromised w/ h/o HIV/AIDS. ID following as above. Appreciate hematology following. Patient started given Neupogen per hematology. Cell counts improving. Neutropenia resolved. Reported hearing loss/pain: Likely secondary to otitis and mastoiditis. ENT following. HIV/AIDS: continue HAART; lymphocyte profile shows CD4 count of 65. Patient reports compliance with HAART medications. Infectious disease following. Anemia: On admission, Likely of acute blood loss from menses, S/P transfusion. H&H stable. Continue to follow. On Neupogen per hematology as above. Renal Insufficiency: Acute on Chronic. Resolved with IV fluid. Continue to monitor labs. DVT Prophylaxis: SCD/Teds. Chemoprophylaxis contraindicated given pancytopenia. Dispo: once off IV antibiotics can be d/c to home. Problem Qualifiers (1) Sepsis: Qualified Code: A41.9 - Sepsis, due to unspecified organism Chely Almanzar MD Jul 23, 2016 16:29
[2016-07-23 20:00] VITALS: BP 117/71; PULSE 72; RESP 18; TEMP 98; O2SAT 96
[2016-07-23] MEDS: LEVOFLOXACIN 750 MG TAB PO SCH (21:15)
[2016-07-24] VITALS: BP 127/77; PULSE 67; RESP 18; TEMP 97.8; O2SAT 97
[2016-07-24] MEDS: ONDANSETRON HCL 4 MG/2 ML VIAL IVP PRN (02:16)
[2016-07-24] MEDS: CLINDAMYCIN 150 MG CAP PO SCH ×4 (02:16→21:19)
[2016-07-24 04:00] VITALS: BP 106/66; PULSE 72; RESP 18; TEMP 97.8; O2SAT 96
[2016-07-24 08:00] VITALS: BP 100/56; PULSE 75; RESP 16; TEMP 97.7; O2SAT 97
[2016-07-24] MEDS: NYSTATIN SUSP 500,000 U/5 ML CUP SWISH-SWAL SCH ×4 (09:00→21:00)
[2016-07-24] MEDS: SODIUM CHLORIDE 0.9% FLUSH 5 ML FLUSH FLUSH SCH ×2 (09:00→21:00)
[2016-07-24 09:13] LABS: HEMATOCRIT 25.1 % (35.0-46.0); MEAN CELL VOLUME 85.3 FL (80.0-100.0); MEAN CORPUSCULAR HEMOGLOBIN 29.5 PG (27.0-34.0); MEAN CORPUSCULAR HGB CONC 34.6 % (32.0-36.0); PLATELET COUNT 82 TH/MM3 (150-450); RED BLOOD COUNT 2.94 MIL/MM3 (4.00-5.30); RED CELL DISTRIBUTION WIDTH 16.6 % (11.6-17.2); WHITE BLOOD COUNT 8.8 TH/MM3 (4.0-11.0)
[2016-07-24 09:20] LABS: REVIEW FLAG FINAL
--- NOTE | 2016-07-24 09:33 | PD.ONC.PN ---
Subjective Subjective Remarks Afebrile overnight. Patient tearful. She wants to go home she states. Hearing improved but states she still has difficulty with hearing. Objective Data Date Time Temp Pulse Resp B/P Pulse Ox O2 Delivery O2 Flow Rate FiO2 07/24/16 08:00 97.7 75 16 100/56 97 07/24/16 04:00 97.8 72 18 106/66 96 07/24/16 00:00 97.8 67 18 127/77 97 07/23/16 20:00 98.0 72 18 117/71 96 07/23/16 16:01 97.6 72 20 116/74 97 07/23/16 12:01 98.5 75 20 94/63 95 07/24/16 07/24/16 07/24/16 07:00 15:00 23:00 Intake Total 240 ml Balance 240 ml Result Diagram: 07/24/16 0855 07/23/16 0625 Laboratory Results Laboratory Tests Test 07/24/16 08:55 White Blood Count 8.8 TH/MM3 Red Blood Count 2.94 MIL/MM3 Hemoglobin 8.7 GM/DL Hematocrit 25.1 % Mean Corpuscular Volume 85.3 FL Mean Corpuscular Hemoglobin 29.5 PG Mean Corpuscular Hemoglobin 34.6 % Concent Red Cell Distribution Width 16.6 % Platelet Count 82 TH/MM3 Mean Platelet Volume 7.4 FL Administered Medications Medications (Trade) Dose Ordered Sig/Carolyn Route PRN Reason Start Time Stop Time Status Last Admin Dose Admin IV Flush (NS Flush) 2 ml BID FLUSH 07/12/16 09:00 07/23/16 21:16 Ondansetron HCl (Zofran Inj) 4 mg Q6H PRN IVP NAUSEA OR VOMITING 07/11/16 21:45 07/24/16 02:16 Acetaminophen (Tylenol) 650 mg Q6H PRN PO FEVER/PAIN SCALE 1 TO 2 07/11/16 21:45 07/22/16 01:47 Nystatin (Mycostatin Liq) 5 ml QID SWISH-SWAL 07/12/16 18:00 07/20/16 12:04 Ibuprofen (Motrin) 600 mg Q6H PRN PO muscle spasm 07/12/16 17:45 07/22/16 08:41 Oxycodone HCl (Roxicodone) 10 mg Q4H PRN PO PAIN GREATER THAN 5 07/14/16 12:45 07/24/16 04:50 Patient Own Medication PT OWN MED: Darunavir-Cobicistat 800-150... DAILY PO 07/16/16 16:00 07/23/16 08:34 Famotidine (Pepcid) 20 mg BID PO 07/18/16 21:00 07/23/16 21:16 Ciprofloxacin/ Hydrocortisone 4 drop 4 drop TID EACH EAR 07/19/16 23:00 07/23/16 18:00 Ceftriaxone Sodium/Sodium Chloride (Rocephin Inj/NS Inj) 100 ml @ 200 mls/hr Q24H IV 07/20/16 15:00 07/23/16 15:00 Levofloxacin (Levaquin) 750 mg DAILY@20 PO 07/20/16 20:00 07/23/16 21:15 Clindamycin HCl (Cleocin) 300 mg Q6H PO 07/20/16 20:00 07/24/16 02:16 Prednisone (Deltasone) 10 mg TID PO 07/22/16 18:00 07/23/16 18:00 Objective Remarks GENERAL: Young woman, sitting up in bed eating breakfast in [facility]. SKIN: Warm and dry. HEAD: Normocephalic. EYES: No injection or drainage. NECK: Supple, trachea midline. CARDIOVASCULAR: Regular rate and rhythm RESPIRATORY: Breath sounds equal bilaterally. No accessory muscle use. GASTROINTESTINAL: Abdomen soft, non-tender, nondistended. EXTREMITIES: No cyanosis NEUROLOGICAL: awake and alert. normal speech. able to move extremities. Assessment/Plan Problem List: (1) Pancytopenia Status: Acute Plan: -- WBC now WNL --platelet count low but stable--likely due to antibiotic effect + splenomegaly- ->will continue to monitor --hgb stable. --likely multifactorial due to underlying HIV / AIDS +splenomegaly + viral infection --iron studies more consistent with anemia of chronic disease than iron deficiency --vitamin B12/folate--no deficiency --CT ab shows hepatosplenomegaly Assessment 46y/o female HIV admitted with neutropenic fever and pancytopenia. h/o HIV / AIDS-dx 2004. compliant with HAART Anxiety and depression. +renal insufficiency Plan 1. monitor CBC 2. supportive care Attending Statement The exam, history, and the medical decision-making described in the above note were completed with the assistance of the mid-level provider. I reviewed and agree with the findings presented. I attest that I had a [id number] encounter with the patient on the same day, and personally performed and documented my assessment and findings in the medical record. No new symptoms. No bleeding. WBC stable. Hgb and platelet are low but stable. Anticipate improvement with treatment of HIV/AIDS. Yolanda Bustamante Jul 24, 2016 09:33 Leonidas Ogden MD Jul 24, 2016 17:20
[2016-07-24] MEDS: FAMOTIDINE 20 MG TAB PO SCH ×2 (09:42→21:19)
[2016-07-24] MEDS: predniSONE 10 MG TAB PO SCH ×3 (09:42→18:00)
[2016-07-24] MEDS: OXYMETAZOLINE HCL 0.05% 15 ML NASAL SPRAY NASAL SCH (09:43)
[2016-07-24] MEDS: CIPROFLOXACIN/HYDROCORTISONE OTIC 10 ML BTL EACH EAR SCH ×3 (09:43→18:00)
[2016-07-24 09:50] LABS: POTASSIUM 4.3 MEQ/L (3.5-5.1)
[2016-07-24 12:00] VITALS: BP 95/54; PULSE 84; RESP 16; TEMP 97.5; O2SAT 96
--- NOTE | 2016-07-24 14:09 | HHI.PR ---
Subjective Remarks f/u for mastoiditis patient stated she hears her right ear better. still difficult to hear from left ear. She stated she is feeling better. She remains afebrile. Objective Vitals Vital Signs Date Time Temp Pulse Resp B/P Pulse Ox O2 Delivery O2 Flow Rate FiO2 07/24/16 12:00 97.5 84 16 95/54 96 07/24/16 08:00 97.7 75 16 100/56 97 07/24/16 04:00 97.8 72 18 106/66 96 07/24/16 00:00 97.8 67 18 127/77 97 07/23/16 20:00 98.0 72 18 117/71 96 07/23/16 16:01 97.6 72 20 116/74 97 I/O 07/23/16 07/23/16 07/23/16 07/24/16 07/24/16 07/24/16 07:00 15:00 23:00 07:00 15:00 23:00 Intake Total 240 ml 600 ml 240 ml Balance 240 ml 600 ml 240 ml Intake Oral 240 ml 600 ml 240 ml # Voids 2 6 2 # Bowel Movements 0 1 0 Result Diagram: 07/24/1655 07/24/16 0855 Objective Remarks Gen NAD HEENT: OPc clear. no TTP of sinuses. CV RRR. no r/m/g Abd soft NDNT Medications and IVs Current Medications Sodium Chloride (NS 1000 ml Inj) 1,000 ml @ 999 mls/hr BOLUS ONCE IV Last administered on 07/11/16 19:54; Start 07/11/16 at 19:00; Stop 07/11/16 at 20:00 ; Status DC Ibuprofen (Motrin) 800 mg ONCE ONCE PO Last administered on 07/11/16 19:30; Start 07/11/16 at 19:30; Stop 07/11/16 at 19:31; Status DC Orphenadrine Citrate (Norflex Inj) 60 mg ONCE ONCE IV Last administered on 21:17; Start 07/11/16 at 19:45; Stop 07/11/16 at 19:46; Status DC Ondansetron HCl 4 mg 4 mg ONCE ONCE IV PUSH Last administered on 07/11/16 21: 17; Start 07/11/16 at 19:45; Stop 07/11/16 at 19:46; Status DC Aztreonam 2000 mg/ Sodium Chloride 100 ml @ 200 mls/hr ONCE STAT IV Last administered on 07/11/16 23:42; Start 07/11/16 at 19:40; Stop 07/11/16 at 20:09 ; Status DC Vancomycin HCl 1000 mg/Sodium Chloride 250 ml @ 250 mls/hr ONCE STAT IV Last administered on 07/11/16 22:05; Start 07/11/16 at 19:40; Stop 07/11/16 at 20:39 ; Status DC Sodium Chloride 1,000 ml @ 999 mls/hr BOLUS ONCE IV Last administered on 07/11 22:06; Start 07/11/16 at 21:45; Stop 07/11/16 at 22:45; Status DC Pharmacy Profile Note 0 ml @ 0 mls/hr UNSCH OTHER ; Start 07/11/16 at 21:45; Stop 07/19/16 at 22:36; Status DC Acyclovir Sodium 680 mg/Sodium Chloride 150 ml @ 150 mls/hr Q8H IV Last administered on 07/12/16 06:00; Start 07/11/16 at 22:00; Stop 07/12/16 at 13:43 ; Status DC Aztreonam 2000 mg/ Sodium Chloride 100 ml @ 200 mls/hr Q8H IV Last administered on 07/16/16 12:15; Start 07/12/16 at 04:00; Stop 07/16/16 at 16:38 ; Status DC Sodium Chloride (NS 1000 ml Inj) 1,000 ml @ 100 mls/hr Q10H IV Last administered on 07/15/16 05:44; Start 07/11/16 at 21:36; Stop 07/15/16 at 14:40 ; Status DC IV Flush (NS Flush) 2 ml UNSCH PRN FLUSH FLUSH AFTER USING IV ACCESS; Start at 21:45 IV Flush (NS Flush) 2 ml BID FLUSH Last administered on 07/23/16 21:16; Start 07/12/16 at 09:00 Ondansetron HCl (Zofran Inj) 4 mg Q6H PRN IVP NAUSEA OR VOMITING Last administered on 07/24/16 02:16; Start 07/11/16 at 21:45 Bisacodyl (Dulcolax Supp) 10 mg DAILY PRN [place] CONSTIPATION; Start 07/11/16 at 21 :45 Acetaminophen (Tylenol) 650 mg Q6H PRN PO FEVER/PAIN SCALE 1 TO 2 Last administered on 07/22/16 01:47; Start 07/11/16 at 21:45 Acetaminophen/ Hydrocodone Bitart ([place] 5-325 Mg) 1 tab Q4H PRN PO PAIN SCALE 3 TO 5 Last administered on 07/14/16 09:28; Start 07/11/16 at 21:45; Stop 07/14/16 at 12:42; Status DC Morphine Sulfate 2 mg 2 mg Q3H PRN IV Pain 6-10 Last administered on 07/14/16 06:25; Start 07/11/16 at 21:45; Stop 07/14/16 at 12:42; Status DC Vancomycin HCl/ Sodium Chloride (Vancomycin Inj/ NS 500 ml Inj) 515 ml @ 250 mls/hr Q24H IV Last administered on 07/14/16 13:28; Start 07/12/16 at 13:00; Stop 07/14/16 at 15:08; Status DC Miscellaneous Information SPECIFIC LAB TO BE DRAWN:VANCOMYCIN TROUGH DATE TO... ONCE ONCE XX Last administered on 07/14/16 12:45; Start 07/14/16 at 12:45; Stop 07/14/16 at 12:49; Status DC Pneumococcal Polyvalent Vaccine (Pneumovax-23 Inj) 25 mcg ONCE ONCE IM ; Start 07/13/16 at 10:00; Stop 07/13/16 at 10:01; Status Cancel Influenza Virus Vaccine (Flu (Quadrivalent) Vaccine Inj) 0.5 ml ONCE ONCE IM ; Start 07/13/16 at 10:00; Stop 07/13/16 at 10:01; Status Cancel Calcium/Vitamin D (Oscal-D 250-125) 250 mg BID PO Last administered on 09:27; Start 07/12/16 at 21:00; Stop 07/14/16 at 18:32; Status DC Darunavir (Prezista) 800 mg AC DINNER PO ; Start 07/12/16 at 16:00; Stop at 16:00; Status DC Lamivudine (Epivir) 300 mg AC DINNER PO ; Start 07/12/16 at 16:00; Stop at 16:00; Status DC Lamivudine (Epivir) 300 mg DAILY PO Last administered on 07/14/16 09:27; Start 07/12/16 at 16:00; Stop 07/14/16 at 18:30; Status DC Multivitamins (Theragran) 1 tab DAILY PO Last administered on 07/14/16 09:27; Start 07/12/16 at 14:00; Stop 07/14/16 at 18:30; Status DC Ritonavir (Norvir) 100 mg AC DINNER PO ; Start 07/12/16 at 16:00; Stop at 16:00; Status DC Valacyclovir HCl (Valtrex) 1,000 mg DAILY PO ; Start 07/12/16 at 13:30; Stop at 13:31; Status DC Patient Own Medication PT OWN MED: Darunavir-Cobicistat 800-150... DAILY PO Last administered on 07/15/16 08:30; Start 07/12/16 at 16:00; Stop 07/16/16 at 15:51; Status DC Acyclovir Sodium/ Sodium Chloride (Zovirax Inj/NS Inj) 150 ml @ 150 mls/hr Q12H IV Last administered on 07/16/16 05:32; Start 07/12/16 at 18:00; Stop at 16:38; Status DC Trimethoprim/ Sulfamethoxazole 1 tab 1 tab MoWeFr PO Last administered on 08:54; Start 07/13/16 at 09:00; Stop 07/14/16 at 18:30; Status DC Ceftriaxone Sodium/Sodium Chloride (Rocephin Inj/NS Inj) 100 ml @ 200 mls/hr Q12H IV Last administered on 07/19/16 15:11; Start 07/12/16 at 15:00; Stop at 22:36; Status DC Nystatin (Mycostatin Liq) 5 ml QID SWISH-SWAL Last administered on 07/20/16 12:04; Start 07/12/16 at 18:00 Ibuprofen 600 mg 600 mg Q6H PRN PO muscle spasm Last administered on 2/26/17at 08:41; Start 07/12/16 at 17:45 Sodium Chloride (NS 250 ml Inj) 250 ml @ 15 mls/hr ONCE ONCE IV ; Start at 15:00; Stop 07/14/16 at 07:39; Status DC Acetaminophen (Tylenol) 650 mg Q4H PRN PO SEE LABEL COMMENTS; Start 07/13/16 at 14:15; Stop 07/13/16 at 18:16; Status DC Diphenhydramine HCl (Benadryl) 25 mg Q4H PRN PO SEE LABEL COMMENTS; Start 07/13 at 14:15; Stop 07/13/16 at 18:16; Status DC Influenza Virus Vaccine (Flu (Quadrivalent) Vaccine Inj) 0.5 ml ONCE ONCE IM ; Start 07/14/16 at 09:00; Stop 07/14/16 at 09:01; Status DC Pneumococcal Polyvalent Vaccine (Pneumovax-23 Inj) 25 mcg ONCE ONCE IM ; Start 07/14/16 at 09:00; Stop 07/14/16 at 09:01; Status DC Influenza Virus Vaccine (Flu (Quadrivalent) Vaccine Inj) 0.5 ml ONCE ONCE IM ; Start 07/15/16 at 10:00; Stop 07/15/16 at 10:01; Status Cancel Pneumococcal Polyvalent Vaccine (Pneumovax-23 Inj) 25 mcg ONCE ONCE IM ; Start 07/15/16 at 10:00; Stop 07/15/16 at 10:01; Status Cancel Oxycodone HCl (Roxicodone) 10 mg Q4H PRN PO PAIN GREATER THAN 5 Last administered on 07/24/16 04:50; Start 07/14/16 at 12:45 Diatrizoate Meglum/ Diatrizoate Sod 18 ml 18 ml ONCE ONCE PO Last administered on 07/14/16 15:17; Start 07/14/16 at 14:30; Stop 07/14/16 at 14:31 ; Status DC Vancomycin HCl/ Sodium Chloride (Vancomycin Inj/ NS 250 ml Inj) 260 ml @ 260 mls/hr Q18H IV Last administered on 07/17/16 12:27; Start 07/15/16 at 06:00; Stop 07/17/16 at 14:06; Status DC Miscellaneous Information SPECIFIC LAB TO BE KAIN... ONCE ONCE XX Last administered on 07/17/16 12:28; Start 07/17/16 at 11:45; Stop 07/17/16 at 11:46 ; Status DC Calcium/Vitamin D (Oscal-D 250-125) 250 mg DAILY@21 PO Last administered on 21:12; Start 07/14/16 at 21:00; Stop 07/19/16 at 14:02; Status DC Carbamide Peroxide (Debrox 6.5% Otic) 5 drop Q12HR EACH EAR Last administered on 07/17/16 09:14; Start 07/15/16 at 13:00; Stop 07/17/16 at 15:49; Status DC Filgrastim (Neupogen Inj) 480 mcg DAILY@14 SQ Last administered on 07/18/16 13 :11; Start 07/15/16 at 14:00; Stop 07/18/16 at 13:40; Status DC Patient Own Medication PT OWN MED: Darunavir-Cobicistat 800-150... DAILY PO Last administered on 07/24/16 09:00; Start 07/16/16 at 16:00 Vancomycin HCl/ Sodium Chloride (Vancomycin Inj/ NS 250 ml Inj) 250 ml @ 250 mls/hr Q12H IV Last administered on 07/19/16 12:00; Start 07/18/16 at 00:00; Stop 07/19/16 at 22:37; Status DC Miscellaneous Information SPECIFIC LAB TO BE KAIN... ONCE ONCE XX Last administered on 07/19/16 12:00; Start 07/19/16 at 11:45; Stop 07/19/16 at 11:46 ; Status DC Neomycin/ Polymyxin/ Hydrocortisone (Cortisporin Otic Soln) 3 drop Q6HR EACH EAR Last administered on 07/19/16 17:24; Start 07/17/16 at 18:00; Stop at 20:32; Status DC Famotidine (Pepcid) 20 mg BID PO Last administered on 07/24/16 09:42; Start at 21:00 Famotidine (Pepcid) 20 mg ONCE ONCE PO Last administered on 07/18/16 14:25; Start 07/18/16 at 14:00; Stop 07/18/16 at 14:01; Status DC Oxymetazoline HCl (Afrin 0.05% [place]) 1 spray BID NASAL Last administered on 07/24/16 09:43; Start 07/19/16 at 21:00; Stop 07/24/16 at 09:01; Status DC Ciprofloxacin/ Hydrocortisone 4 drop 4 drop TID EACH EAR Last administered on 12:01; Start 07/19/16 at 23:00 Ceftriaxone Sodium/Sodium Chloride (Rocephin Inj/NS Inj) 100 ml @ 200 mls/hr Q24H IV Last administered on 07/23/16 15:00; Start 07/20/16 at 15:00 Gadodiamide (Omniscan Pf Inj) 14 ml STK-MED ONCE IV Last administered on 10:36; Start 07/20/16 at 10:36; Stop 07/20/16 at 10:37; Status DC Levofloxacin (Levaquin) 750 mg DAILY@20 PO Last administered on 07/23/16 21:15 ; Start 07/20/16 at 20:00 Clindamycin HCl (Cleocin) 300 mg Q6H PO Last administered on 07/24/16 09:41; Start 07/20/16 at 20:00 Prednisone (Deltasone) 10 mg TID PO Last administered on 07/24/16 12:01; Start 07/22/16 at 18:00 A/P Problem List: (1) Sepsis ICD Code: A41.9 Status: Acute (2) Neutropenic fever ICD Code: D70.9 Status: Acute (3) AIDS ICD Code: B20 Status: Acute (4) Renal insufficiency ICD Code: N28.9 Status: Acute Assessment and Plan 46-year-old female with Sepsis - positive for urinary pneumococcal antigen. +Immunocompromised. Due to mastoiditis - S/p LP in ER which has been negative. Blood/Urine cultures negative, flu A and B antigen negative. Follow cultures. -Appreciate ENT following. Hear drops changed to Ciprodex to help reduce inflammation. No surgical intervention indicated. -Appreciate infectious disease following. Continue Rocephin, levaquin and clindamycin per infectious disease. -continue with prednisone. Neutropenic Fever and pancytopenia - Resolved. -Neutrophil count was 0 on admission. +Immunocompromised w/ h/o HIV/AIDS. ID following as above. - Appreciate hematology following. s/p Neupogen. Reported hearing loss/pain -IMPROVING - Likely secondary to otitis and mastoiditis. ENT following. HIV/AIDS -continue HAART; -lymphocyte profile shows CD4 count of 65. Patient reports compliance with HAART medications. - Infectious disease following. Anemia - On admission, Likely of acute blood loss from menses, S/P transfusion. H&H stable. Continue to follow. On Neupogen per hematology as above. Renal Insufficiency - Acute on Chronic. Resolved with IV fluid. Continue to monitor labs. DVT Prophylaxis: SCD/Teds. Chemoprophylaxis contraindicated given pancytopenia. Dispo: once off IV antibiotics okay with ENT can be d/c to home. Problem Qualifiers (1) Sepsis: Qualified Code: A41.9 - Sepsis, due to unspecified organism Chely Almanzar MD Jul 24, 2016 14:09
[2016-07-24] MEDS: cefTRIAXone INJ 2,000 MG in SODIUM CHLORIDE 0.9% INJ 100 ML IV SCH (14:30)
[2016-07-24 16:00] VITALS: BP 117/70; PULSE 74; RESP 14; TEMP 97.6; O2SAT 96
[2016-07-24 20:00] VITALS: BP 108/72; PULSE 73; RESP 18; TEMP 97.5; O2SAT 96
[2016-07-24] MEDS: LEVOFLOXACIN 750 MG TAB PO SCH (21:19)
[2016-07-25] VITALS: BP 118/80; PULSE 70; RESP 18; TEMP 98; O2SAT 94
[2016-07-25] MEDS: CLINDAMYCIN 150 MG CAP PO SCH ×4 (02:32→20:58)
[2016-07-25] MEDS: ONDANSETRON HCL 4 MG/2 ML VIAL IVP PRN ×3 (02:34→21:04)
[2016-07-25 04:00] VITALS: BP 115/73; PULSE 68; RESP 18; TEMP 97.6; O2SAT 94
[2016-07-25 08:00] VITALS: BP 114/81; PULSE 70; RESP 16; TEMP 97.9; O2SAT 98
[2016-07-25] MEDS: FAMOTIDINE 20 MG TAB PO SCH ×2 (08:55→20:58)
[2016-07-25] MEDS: NYSTATIN SUSP 500,000 U/5 ML CUP SWISH-SWAL SCH ×4 (08:55→20:58)
[2016-07-25] MEDS: predniSONE 10 MG TAB PO SCH ×3 (08:55→17:36)
[2016-07-25] MEDS: SODIUM CHLORIDE 0.9% FLUSH 5 ML FLUSH FLUSH SCH ×2 (08:56→20:58)
[2016-07-25] MEDS: CIPROFLOXACIN/HYDROCORTISONE OTIC 10 ML BTL EACH EAR SCH ×3 (08:56→17:36)
--- NOTE | 2016-07-25 11:20 | PD.ONC.PN ---
Subjective Subjective Remarks Afebrile overnight. Patient resting comfortably without complaint. Her hearing in her right ear is much improved. Objective Data Date Time Temp Pulse Resp B/P Pulse Ox O2 Delivery O2 Flow Rate FiO2 07/25/16 08:00 97.9 70 16 114/81 98 07/25/16 04:00 97.6 68 18 115/73 94 07/25/16 00:00 98.0 70 18 118/80 94 07/24/16 20:00 97.5 73 18 108/72 96 07/24/16 16:00 97.6 74 14 117/70 96 07/24/16 12:00 97.5 84 16 95/54 96 07/25/16 07/25/16 07/25/16 07:00 15:00 23:00 Intake Total 480 ml Balance 480 ml Result Diagram: 07/24/16 0855 07/24/16 0855 Administered Medications Medications (Trade) Dose Ordered Sig/Carolyn Route PRN Reason Start Time Stop Time Status Last Admin Dose Admin IV Flush (NS Flush) 2 ml BID FLUSH 07/12/16 09:00 07/25/16 08:56 Ondansetron HCl (Zofran Inj) 4 mg Q6H PRN IVP NAUSEA OR VOMITING 07/11/16 21:45 07/25/16 02:34 Acetaminophen (Tylenol) 650 mg Q6H PRN PO FEVER/PAIN SCALE 1 TO 2 07/11/16 21:45 07/22/16 01:47 Nystatin (Mycostatin Liq) 5 ml QID SWISH-SWAL 07/12/16 18:00 07/20/16 12:04 Ibuprofen (Motrin) 600 mg Q6H PRN PO muscle spasm 07/12/16 17:45 07/22/16 08:41 Oxycodone HCl (Roxicodone) 10 mg Q4H PRN PO PAIN GREATER THAN 5 07/14/16 12:45 07/25/16 06:32 Patient Own Medication PT OWN MED: Darunavir-Cobicistat 800-150... DAILY PO 07/16/16 16:00 07/25/16 08:59 Famotidine (Pepcid) 20 mg BID PO 07/18/16 21:00 07/25/16 08:55 Ciprofloxacin/ Hydrocortisone 4 drop 4 drop TID EACH EAR 07/19/16 23:00 07/25/16 08:56 Ceftriaxone Sodium/Sodium Chloride (Rocephin Inj/NS Inj) 100 ml @ 200 mls/hr Q24H IV 07/20/16 15:00 07/23/16 15:00 Levofloxacin (Levaquin) 750 mg DAILY@20 PO 07/20/16 20:00 07/24/16 21:19 Clindamycin HCl (Cleocin) 300 mg Q6H PO 07/20/16 20:00 07/25/16 08:56 Prednisone (Deltasone) 10 mg TID PO 07/22/16 18:00 07/25/16 08:55 Objective Remarks GENERAL: Young woman, lying supine in bed in nad. SKIN: Warm and dry. HEAD: Normocephalic. EYES: No injection or drainage. NECK: Supple, trachea midline. CARDIOVASCULAR: Regular rate and rhythm RESPIRATORY: Breath sounds equal bilaterally. No accessory muscle use. GASTROINTESTINAL: Abdomen soft, non-tender, nondistended. EXTREMITIES: No cyanosis NEUROLOGICAL: awake and alert. moving extremities. normal speech. Assessment/Plan Assessment 46y/o female HIV admitted with neutropenic fever and pancytopenia. Neutropenia now resolved. Hematology following for pancytopenia. h/o HIV / AIDS-dx 2004. compliant with HAART Anxiety and depression. +renal insufficiency Plan 1. WBC remains WNL. will continue to monitor 2. platelets are stable. no bleeding. monitor Attending Statement The exam, history, and the medical decision-making described in the above note were completed with the assistance of the mid-level provider. I reviewed and agree with the findings presented. I attest that I had a [id number] encounter with the patient on the same day, and personally performed and documented my assessment and findings in the medical record. No new symptoms. Blood counts are stable. Continue HAART. Yolanda Bustamante Jul 25, 2016 11:20 Leonidas Ogden MD Jul 25, 2016 13:45
[2016-07-25 12:00] VITALS: BP 110/64; PULSE 71; RESP 14; TEMP 98.1; O2SAT 96
--- NOTE | 2016-07-25 13:09 | HHI.PR ---
Subjective Remarks f/u for mastoiditis Patient stated she does not feel well and she continues left hearing loss and pressure. Patient asking to be seen by ENT again. Otherwise she remains afebrile. Objective Vitals Vital Signs Date Time Temp Pulse Resp B/P Pulse Ox O2 Delivery O2 Flow Rate FiO2 07/25/16 12:00 98.1 71 14 110/64 96 07/25/16 08:00 97.9 70 16 114/81 98 07/25/16 04:00 97.6 68 18 115/73 94 07/25/16 00:00 98.0 70 18 118/80 94 07/24/16 20:00 97.5 73 18 108/72 96 07/24/16 16:00 97.6 74 14 117/70 96 I/O 07/24/16 07/24/16 07/24/16 07/25/16 07/25/16 07/25/16 07:00 15:00 23:00 07:00 15:00 23:00 Intake Total 240 ml 1257 ml 240 ml 480 ml Balance 240 ml 1257 ml 240 ml 480 ml Intake Oral 240 ml 1257 ml 240 ml 480 ml # Voids 2 3 2 2 # Bowel Movements 0 0 0 0 Result Diagram: 07/24/1685407/24/16854 Objective Remarks Gen NAD HEENT: OPc clear. no TTP of sinuses. CV RRR. no r/m/g Abd soft NDNT Medications and IVs Current Medications Sodium Chloride (NS 1000 ml Inj) 1,000 ml @ 999 mls/hr BOLUS ONCE IV Last administered on 07/11/16 19:54; Start 07/11/16 at 19:00; Stop 07/11/16 at 20:00 ; Status DC Ibuprofen (Motrin) 800 mg ONCE ONCE PO Last administered on 07/11/16 19:30; Start 07/11/16 at 19:30; Stop 07/11/16 at 19:31; Status DC Orphenadrine Citrate (Norflex Inj) 60 mg ONCE ONCE IV Last administered on 21:17; Start 07/11/16 at 19:45; Stop 07/11/16 at 19:46; Status DC Ondansetron HCl 4 mg 4 mg ONCE ONCE IV PUSH Last administered on 07/11/16 21: 17; Start 07/11/16 at 19:45; Stop 07/11/16 at 19:46; Status DC Aztreonam 2000 mg/ Sodium Chloride 100 ml @ 200 mls/hr ONCE STAT IV Last administered on 07/11/16 23:42; Start 07/11/16 at 19:40; Stop 07/11/16 at 20:09 ; Status DC Vancomycin HCl 1000 mg/Sodium Chloride 250 ml @ 250 mls/hr ONCE STAT IV Last administered on 07/11/16 22:05; Start 07/11/16 at 19:40; Stop 07/11/16 at 20:39 ; Status DC Sodium Chloride 1,000 ml @ 999 mls/hr BOLUS ONCE IV Last administered on 07/11 22:06; Start 07/11/16 at 21:45; Stop 07/11/16 at 22:45; Status DC Pharmacy Profile Note 0 ml @ 0 mls/hr UNSCH OTHER ; Start 07/11/16 at 21:45; Stop 07/19/16 at 22:36; Status DC Acyclovir Sodium 680 mg/Sodium Chloride 150 ml @ 150 mls/hr Q8H IV Last administered on 07/12/16 06:00; Start 07/11/16 at 22:00; Stop 07/12/16 at 13:43 ; Status DC Aztreonam 2000 mg/ Sodium Chloride 100 ml @ 200 mls/hr Q8H IV Last administered on 07/16/16 12:15; Start 07/12/16 at 04:00; Stop 07/16/16 at 16:38 ; Status DC Sodium Chloride (NS 1000 ml Inj) 1,000 ml @ 100 mls/hr Q10H IV Last administered on 07/15/16 05:44; Start 07/11/16 at 21:36; Stop 07/15/16 at 14:40 ; Status DC IV Flush (NS Flush) 2 ml UNSCH PRN FLUSH FLUSH AFTER USING IV ACCESS; Start at 21:45 IV Flush (NS Flush) 2 ml BID FLUSH Last administered on 07/25/16 08:56; Start 07/12/16 at 09:00 Ondansetron HCl (Zofran Inj) 4 mg Q6H PRN IVP NAUSEA OR VOMITING Last administered on 07/25/16 02:34; Start 07/11/16 at 21:45 Bisacodyl (Dulcolax Supp) 10 mg DAILY PRN AL CONSTIPATION; Start 07/11/16 at 21 :45 Acetaminophen (Tylenol) 650 mg Q6H PRN PO FEVER/PAIN SCALE 1 TO 2 Last administered on 07/22/16 01:47; Start 07/11/16 at 21:45 Acetaminophen/ Hydrocodone Bitart (Mathias 5-325 Mg) 1 tab Q4H PRN PO PAIN SCALE 3 TO 5 Last administered on 07/14/16 09:28; Start 07/11/16 at 21:45; Stop 07/14/16 at 12:42; Status DC Morphine Sulfate 2 mg 2 mg Q3H PRN IV Pain 6-10 Last administered on 07/14/16 06:25; Start 07/11/16 at 21:45; Stop 07/14/16 at 12:42; Status DC Vancomycin HCl/ Sodium Chloride (Vancomycin Inj/ NS 500 ml Inj) 515 ml @ 250 mls/hr Q24H IV Last administered on 07/14/16 13:28; Start 07/12/16 at 13:00; Stop 07/14/16 at 15:08; Status DC Miscellaneous Information SPECIFIC LAB TO BE DRAWN:VANCOMYCIN TROUGH DATE TO... ONCE ONCE XX Last administered on 07/14/16 12:45; Start 07/14/16 at 12:45; Stop 07/14/16 at 12:49; Status DC Pneumococcal Polyvalent Vaccine (Pneumovax-23 Inj) 25 mcg ONCE ONCE IM ; Start 07/13/16 at 10:00; Stop 07/13/16 at 10:01; Status Cancel Influenza Virus Vaccine (Flu (Quadrivalent) Vaccine Inj) 0.5 ml ONCE ONCE IM ; Start 07/13/16 at 10:00; Stop 07/13/16 at 10:01; Status Cancel Calcium/Vitamin D (Oscal-D 250-125) 250 mg BID PO Last administered on 09:27; Start 07/12/16 at 21:00; Stop 07/14/16 at 18:32; Status DC Darunavir (Prezista) 800 mg AC DINNER PO ; Start 07/12/16 at 16:00; Stop at 16:00; Status DC Lamivudine (Epivir) 300 mg AC DINNER PO ; Start 07/12/16 at 16:00; Stop at 16:00; Status DC Lamivudine (Epivir) 300 mg DAILY PO Last administered on 07/14/16 09:27; Start 07/12/16 at 16:00; Stop 07/14/16 at 18:30; Status DC Multivitamins (Theragran) 1 tab DAILY PO Last administered on 07/14/16 09:27; Start 07/12/16 at 14:00; Stop 07/14/16 at 18:30; Status DC Ritonavir (Norvir) 100 mg AC DINNER PO ; Start 07/12/16 at 16:00; Stop at 16:00; Status DC Valacyclovir HCl (Valtrex) 1,000 mg DAILY PO ; Start 07/12/16 at 13:30; Stop at 13:31; Status DC Patient Own Medication PT OWN MED: Darunavir-Cobicistat 800-150... DAILY PO Last administered on 07/15/16 08:30; Start 07/12/16 at 16:00; Stop 07/16/16 at 15:51; Status DC Acyclovir Sodium/ Sodium Chloride (Zovirax Inj/NS Inj) 150 ml @ 150 mls/hr Q12H IV Last administered on 07/16/16 05:32; Start 07/12/16 at 18:00; Stop at 16:38; Status DC Trimethoprim/ Sulfamethoxazole 1 tab 1 tab MoWeFr PO Last administered on 08:54; Start 07/13/16 at 09:00; Stop 07/14/16 at 18:30; Status DC Ceftriaxone Sodium/Sodium Chloride (Rocephin Inj/NS Inj) 100 ml @ 200 mls/hr Q12H IV Last administered on 07/19/16 15:11; Start 07/12/16 at 15:00; Stop at 22:36; Status DC Nystatin (Mycostatin Liq) 5 ml QID SWISH-SWAL Last administered on 07/20/16 12:04; Start 07/12/16 at 18:00 Ibuprofen 600 mg 600 mg Q6H PRN PO muscle spasm Last administered on 07/22/16 08:41; Start 07/12/16 at 17:45 Sodium Chloride (NS 250 ml Inj) 250 ml @ 15 mls/hr ONCE ONCE IV ; Start at 15:00; Stop 07/14/16 at 07:39; Status DC Acetaminophen (Tylenol) 650 mg Q4H PRN PO SEE LABEL COMMENTS; Start 07/13/16 at 14:15; Stop 07/13/16 at 18:16; Status DC Diphenhydramine HCl (Benadryl) 25 mg Q4H PRN PO SEE LABEL COMMENTS; Start 07/13 at 14:15; Stop 07/13/16 at 18:16; Status DC Influenza Virus Vaccine (Flu (Quadrivalent) Vaccine Inj) 0.5 ml ONCE ONCE IM ; Start 07/14/16 at 09:00; Stop 07/14/16 at 09:01; Status DC Pneumococcal Polyvalent Vaccine (Pneumovax-23 Inj) 25 mcg ONCE ONCE IM ; Start 07/14/16 at 09:00; Stop 07/14/16 at 09:01; Status DC Influenza Virus Vaccine (Flu (Quadrivalent) Vaccine Inj) 0.5 ml ONCE ONCE IM ; Start 07/15/16 at 10:00; Stop 07/15/16 at 10:01; Status Cancel Pneumococcal Polyvalent Vaccine (Pneumovax-23 Inj) 25 mcg ONCE ONCE IM ; Start 07/15/16 at 10:00; Stop 07/15/16 at 10:01; Status Cancel Oxycodone HCl (Roxicodone) 10 mg Q4H PRN PO PAIN GREATER THAN 5 Last administered on 07/25/16 06:32; Start 07/14/16 at 12:45 Diatrizoate Meglum/ Diatrizoate Sod 18 ml 18 ml ONCE ONCE PO Last administered on 07/14/16 15:17; Start 07/14/16 at 14:30; Stop 07/14/16 at 14:31 ; Status DC Vancomycin HCl/ Sodium Chloride (Vancomycin Inj/ NS 250 ml Inj) 260 ml @ 260 mls/hr Q18H IV Last administered on 07/17/16 12:27; Start 07/15/16 at 06:00; Stop 07/17/16 at 14:06; Status DC Miscellaneous Information SPECIFIC LAB TO BE KAIN... ONCE ONCE XX Last administered on 07/17/16 12:28; Start 07/17/16 at 11:45; Stop 07/17/16 at 11:46 ; Status DC Calcium/Vitamin D (Oscal-D 250-125) 250 mg DAILY@21 PO Last administered on 21:12; Start 07/14/16 at 21:00; Stop 07/19/16 at 14:02; Status DC Carbamide Peroxide (Debrox 6.5% Otic) 5 drop Q12HR EACH EAR Last administered on 07/17/16 09:14; Start 07/15/16 at 13:00; Stop 07/17/16 at 15:49; Status DC Filgrastim (Neupogen Inj) 480 mcg DAILY@14 SQ Last administered on 07/18/16 13 :11; Start 07/15/16 at 14:00; Stop 07/18/16 at 13:40; Status DC Patient Own Medication PT OWN MED: Darunavir-Cobicistat 800-150... DAILY PO Last administered on 07/25/16 08:59; Start 07/16/16 at 16:00 Vancomycin HCl/ Sodium Chloride (Vancomycin Inj/ NS 250 ml Inj) 250 ml @ 250 mls/hr Q12H IV Last administered on 07/19/16 12:00; Start 07/18/16 at 00:00; Stop 07/19/16 at 22:37; Status DC Miscellaneous Information SPECIFIC LAB TO BE KAIN... ONCE ONCE XX Last administered on 07/19/16 12:00; Start 07/19/16 at 11:45; Stop 07/19/16 at 11:46 ; Status DC Neomycin/ Polymyxin/ Hydrocortisone (Cortisporin Otic Soln) 3 drop Q6HR EACH EAR Last administered on 07/19/16 17:24; Start 07/17/16 at 18:00; Stop at 20:32; Status DC Famotidine (Pepcid) 20 mg BID PO Last administered on 07/25/16 08:55; Start at 21:00 Famotidine (Pepcid) 20 mg ONCE ONCE PO Last administered on 07/18/16 14:25; Start 07/18/16 at 14:00; Stop 07/18/16 at 14:01; Status DC Oxymetazoline HCl (Afrin 0.05% [place]er [place]) 1 spray BID NASAL Last administered on 07/24/16 09:43; Start 07/19/16 at 21:00; Stop 07/24/16 at 09:01; Status DC Ciprofloxacin/ Hydrocortisone 4 drop 4 drop TID EACH EAR Last administered on 08:56; Start 07/19/16 at 23:00 Ceftriaxone Sodium/Sodium Chloride (Rocephin Inj/NS Inj) 100 ml @ 200 mls/hr Q24H IV Last administered on 07/23/16 15:00; Start 07/20/16 at 15:00 Gadodiamide (Omniscan Pf Inj) 14 ml STK-MED ONCE IV Last administered on 10:36; Start 07/20/16 at 10:36; Stop 07/20/16 at 10:37; Status DC Levofloxacin (Levaquin) 750 mg DAILY@20 PO Last administered on 07/24/16 21:19 ; Start 07/20/16 at 20:00 Clindamycin HCl (Cleocin) 300 mg Q6H PO Last administered on 07/25/16 08:56; Start 07/20/16 at 20:00 Prednisone (Deltasone) 10 mg TID PO Last administered on 07/25/16 08:55; Start 07/22/16 at 18:00 A/P Problem List: (1) Sepsis ICD Code: A41.9 Status: Acute (2) Neutropenic fever ICD Code: D70.9 Status: Acute (3) AIDS ICD Code: B20 Status: Acute (4) Renal insufficiency ICD Code: N28.9 Status: Acute Assessment and Plan 46-year-old female with Sepsis/Mastoiditis - positive for urinary pneumococcal antigen. +Immunocompromised. Due to mastoiditis - S/p LP in ER which has been negative. Blood/Urine cultures negative, flu A and B antigen negative. Follow cultures. -Appreciate ENT following. on Ciprodex. No surgical intervention indicated at the moment. -Appreciate infectious disease following. Continue Rocephin, levaquin and clindamycin per infectious disease. -continue with prednisone. Reported hearing loss/pain -IMPROVING in right ear but not left. - Likely secondary to otitis and mastoiditis. -will reconsult ENT. Neutropenic Fever and pancytopenia - Resolved. -Neutrophil count was 0 on admission. +Immunocompromised w/ h/o HIV/AIDS. ID following as above. - Appreciate hematology following. s/p Neupogen. HIV/AIDS -continue HAART; -lymphocyte profile shows CD4 count of 65. Patient reports compliance with HAART medications. - Infectious disease following. Anemia - On admission, Likely of acute blood loss from menses, S/P transfusion. H&H stable. Continue to follow. On Neupogen per hematology as above. Renal Insufficiency - Acute on Chronic. Resolved with IV fluid. Continue to monitor labs. DVT Prophylaxis: SCD/Teds. Chemoprophylaxis contraindicated given pancytopenia. Dispo:At the moment little improvement in symptoms. Once off IV antibiotics and okay with ENT can be d/c to home. Problem Qualifiers (1) Sepsis: Qualified Code: A41.9 - Sepsis, due to unspecified organism Chely Almanzar MD Jul 25, 2016 13:09
[2016-07-25] MEDS: cefTRIAXone INJ 2,000 MG in SODIUM CHLORIDE 0.9% INJ 100 ML IV SCH (14:11)
[2016-07-25] MEDS: IBUPROFEN 600 MG TAB PO PRN (14:13)
--- NOTE | 2016-07-25 15:13 | HHI.IDPN ---
Subjective Subjective Remarks hearing , pain improving afebrile co upper GI discomfort aw abx, no diarrhe CT temp bone OK Antibiotics CFTX leva clinda Past Medical History HIV Allergies: Coded Allergies: Penicillin (Verified Allergy, Intermediate, 11/01/14) Objective . Vital Signs Date Time Temp Pulse Resp B/P Pulse Ox O2 Delivery O2 Flow Rate FiO2 07/25/16 12:00 98.1 71 14 110/64 96 07/25/16 08:00 97.9 70 16 114/81 98 07/25/16 04:00 97.6 68 18 115/73 94 07/25/16 00:00 98.0 70 18 118/80 94 07/24/16 20:00 97.5 73 18 108/72 96 07/24/16 16:00 97.6 74 14 117/70 96 07/24/16 07/24/16 07/25/16 15:00 23:00 07:00 Intake Total 1257 ml 240 ml 480 ml Balance 1257 ml 240 ml 480 ml Intake Oral 1257 ml 240 ml 480 ml # Voids 3 2 2 # Bowel Movements 0 0 0 . Laboratory Tests Test 07/24/16 08:55 White Blood Count 8.8 TH/MM3 Red Blood Count 2.94 MIL/MM3 Hemoglobin 8.7 GM/DL Hematocrit 25.1 % Mean Corpuscular Volume 85.3 FL Mean Corpuscular Hemoglobin 29.5 PG Mean Corpuscular Hemoglobin 34.6 % Concent Red Cell Distribution Width 16.6 % Platelet Count 82 TH/MM3 Mean Platelet Volume 7.4 FL Laboratory Tests Test 07/24/16 08:55 Sodium Level 130 MEQ/L Potassium Level 4.3 MEQ/L Chloride Level 94 MEQ/L Carbon Dioxide Level 27.0 MEQ/L Anion Gap 9 MEQ/L Blood Urea Nitrogen 17 MG/DL Creatinine 1.29 MG/DL Estimat Glomerular Filtration 45 ML/MIN Rate Random Glucose 106 MG/DL Calcium Level 9.2 MG/DL Imaging Last Impressions Head CT 07/21/16 0000 Signed Impressions: Service Date/Time: Friday, July 22, 2016 01:19 - CONCLUSION: Normal appearance of the brain. Opacified middle ears and mastoid air cells and sinus disease. Ole Dean MD Brain MRI 07/20/16 0000 Signed Impressions: Service Date/Time: Wednesday, July 20, 2016 10:19 - CONCLUSION: 1. Unremarkable MRI of the brain. 2. Diffuse bilateral pansinusitis. 3. Bilateral mastoiditis. Bruno Granados MD Abdomen/Pelvis CT 07/14/16 0000 Signed Impressions: Service Date/Time: Thursday, July 14, 2016 18:35 - CONCLUSION: 1. Patchy basilar air space disease in the lungs which could represent mild bronchopneumonia with small bilateral pleural effusions. 2. Hepatosplenomegaly as above with mild ascites. Minimal anasarca. No obstruction or free air. Mild ileus. Urbano Yee MD Chest X-Ray 07/11/165 Signed Impressions: Service Date/Time: Monday, July 11, 2016 18:47 - CONCLUSION: No acute disease. Anderson Gary MD Physical Exam CONSTITUTIONAL/GENERAL: This is an adequately nourished patient, in no apparent distress. TUBES/LINES/DRAINS: SKIN: No jaundice, rashes, or lesions. EYES: Pupils equal and round and reactive. Extraocular motions intact. No scleral icterus. No injection or drainage. Fundi not examined. ENT: Hearing grossly appear bwnl today .No tenderness to palpation over b/l mastoid area, piero promeinent on the L Nose without bleeding or purulent drainage. Throat without visible erythema, exudates, masses, or lesions. CARDIOVASCULAR: Regular rate and rhythm without murmurs, gallops, or rubs. No JVD. Peripheral pulses symmetric. RESPIRATORY/CHEST: Symmetric, unlabored respirations. Clear to auscultation. Breath sounds equal bilaterally. No wheezes, rales, or rhonchi. GASTROINTESTINAL: Abdomen soft, non-tender, nondistended. No hepato-splenomegaly , or palpable masses. No guarding. Bowel sounds present. MUSCULOSKELETAL: Extremities without clubbing, cyanosis, or edema. NEUROLOGICAL: Awake and alert. Motor and sensory grossly within normal limits. Follows commands. Speech normal. Moves all extremities. PSYCHIATRIC: No obvious anxiety/depression. no apparent hallucinations or other psychotic thought process. Assessment & Plan Remarks HIV, AIDS, states compliance - on home Rx since admission Neutropenia ? infx - WBC normal Invasive pneumococcal dz : ? mastoiditis vs meningitis (CSF clx is neg so far) - CXR not cw PNA CSF clx neg; HSV neg, everything seem ne except for elevted protein Severe mastoiditis, sinusitis - improving - cont HAART as per pt s profile:Prezcobix, Epivir and Tivicay: dw pharmacy/ nurse - dc CFTX, change to 2 gm daily - cont levaquine and clindamycin (both po) x 2weeks - OK to dc home once ENT clears will need to fu with ENT and Dr Dangelo as op - because of immunosuppression will try to avoid sterroid use, however may be reconsidered if no response to adjusted abx dw pt dw Adilia Rich MD Jul 25, 2016 15:13
--- NOTE | 2016-07-25 15:31 | HHI.PR ---
Subjective Remarks ID now has on po meds. Chronic sinuitis and chronic mastoiditis. Objective Vital Signs Date Time Temp Pulse Resp B/P Pulse Ox O2 Delivery O2 Flow Rate FiO2 07/25/16 12:00 98.1 71 14 110/64 96 07/25/16 08:00 97.9 70 16 114/81 98 07/25/16 04:00 97.6 68 18 115/73 94 07/25/16 00:00 98.0 70 18 118/80 94 07/24/16 20:00 97.5 73 18 108/72 96 07/24/16 16:00 97.6 74 14 117/70 96 I/O 07/24/16 07/24/16 07/24/16 07/25/16 07/25/16 07/25/16 07:00 15:00 23:00 07:00 15:00 23:00 Intake Total 240 ml 1257 ml 240 ml 480 ml 462 ml Balance 240 ml 1257 ml 240 ml 480 ml 462 ml Intake Oral 240 ml 1257 ml 240 ml 480 ml 360 ml IV Total 102 ml # Voids 2 3 2 2 2 # Bowel Movements 0 0 0 0 0 Result Diagram: 07/24/16 0855 07/24/16 0855 Assessment and Plan Assessment and Plan On PO meds per ID and cleared for discharge. Chronic mastoiditis and chronic sinusitis No acute surgical intervention. Cannot offer much at bedside here. Needs good office exam under microscope. Recommend discharge and follow with Dr Calderón as an outpatient. Urbano Kenny MD Jul 25, 2016 15:31
[2016-07-25 16:00] VITALS: BP 121/76; PULSE 80; RESP 16; TEMP 98.8; O2SAT 97
[2016-07-25 20:00] VITALS: BP 108/63; PULSE 71; RESP 16; TEMP 98.3; O2SAT 97
[2016-07-25] MEDS: LEVOFLOXACIN 750 MG TAB PO SCH (20:57)
[2016-07-26 00:14] VITALS: BP 109/65; PULSE 72; RESP 16; TEMP 98.1; O2SAT 97
[2016-07-26] MEDS: CLINDAMYCIN 150 MG CAP PO SCH ×4 (02:59→22:20)
[2016-07-26] MEDS: IBUPROFEN 600 MG TAB PO PRN (03:00)
[2016-07-26] MEDS: ONDANSETRON HCL 4 MG/2 ML VIAL IVP PRN (03:01)
[2016-07-26 04:00] VITALS: BP 109/61; PULSE 75; RESP 18; TEMP 98.6; O2SAT 96
[2016-07-26 08:00] VITALS: BP 116/78; PULSE 71; RESP 20; TEMP 98.1; O2SAT 99
[2016-07-26 08:08] LABS: HEMATOCRIT 23.1 % (35.0-46.0); MEAN CELL VOLUME 86.1 FL (80.0-100.0); MEAN CORPUSCULAR HEMOGLOBIN 29.6 PG (27.0-34.0); MEAN CORPUSCULAR HGB CONC 34.4 % (32.0-36.0); PLATELET COUNT 77 TH/MM3 (150-450); RED BLOOD COUNT 2.68 MIL/MM3 (4.00-5.30); RED CELL DISTRIBUTION WIDTH 16.8 % (11.6-17.2); WHITE BLOOD COUNT 5.7 TH/MM3 (4.0-11.0)
[2016-07-26 08:10] LABS: REVIEW FLAG FINAL
[2016-07-26 08:29] LABS: BICARBONATE 26.1 MEQ/L (21.0-32.0); POTASSIUM 4.7 MEQ/L (3.5-5.1)
[2016-07-26] MEDS: NYSTATIN SUSP 500,000 U/5 ML CUP SWISH-SWAL SCH ×4 (09:00→21:00)
[2016-07-26] MEDS: FAMOTIDINE 20 MG TAB PO SCH ×2 (09:28→22:20)
[2016-07-26] MEDS: predniSONE 10 MG TAB PO SCH ×3 (09:28→18:20)
[2016-07-26] MEDS: SODIUM CHLORIDE 0.9% FLUSH 5 ML FLUSH FLUSH SCH ×2 (09:30→22:20)
[2016-07-26] MEDS: CIPROFLOXACIN/HYDROCORTISONE OTIC 10 ML BTL EACH EAR SCH ×3 (09:31→18:00)
--- NOTE | 2016-07-26 11:43 | HHI.PR ---
Subjective Remarks Patient complains of difficulty hearing the last line, still with muffled sounds. Overall pain has improved. Overall she has felt better since admission. No complaint of chills or fever. Eating well. Objective Vitals Vital Signs Date Time Temp Pulse Resp B/P Pulse Ox O2 Delivery O2 Flow Rate FiO2 07/26/16 08:00 98.1 71 20 116/78 99 07/26/16 04:00 98.6 75 18 109/61 96 07/26/16 00:14 98.1 72 16 109/65 97 07/25/16 23:30 Room Air 07/25/16 20:00 98.3 71 16 108/63 97 07/25/16 20:00 Room Air 07/25/16 16:00 98.8 80 16 121/76 97 07/25/16 12:00 98.1 71 14 110/64 96 I/O 07/25/16 07/25/16 07/25/16 07/26/16 07/26/16 07/26/16 07:00 15:00 23:00 07:00 15:00 23:00 Intake Total 480 ml 462 ml 120 ml Balance 480 ml 462 ml 120 ml Intake Oral 480 ml 360 ml 120 ml IV Total 102 ml # Voids 2 2 4 # Bowel Movements 0 0 1 Result Diagram: 07/26/16 0659 07/26/16 0659 Objective Remarks GENERAL: This is a well-nourished, well-developed patient, in no apparent distress. HEENT: left sided mastoid and upper neck tenderness CARDIOVASCULAR: Regular rate and rhythm RESPIRATORY: Clear to auscultation. Breath sounds equal bilaterally. No wheezes , rales, or rhonchi. GASTROINTESTINAL: Abdomen soft, non-tender, nondistended. Normal active bowel sounds MUSCULOSKELETAL: Extremities without clubbing, cyanosis, or edema. NEURO: Alert & Oriented x4 to person, place, time, situation. Moves all ext x4 A/P Problem List: (1) Sepsis ICD Code: A41.9 Status: Acute (2) Neutropenic fever ICD Code: D70.9 Status: Acute (3) AIDS ICD Code: B20 Status: Acute (4) Renal insufficiency ICD Code: N28.9 Status: Acute (5) CKD (chronic kidney disease), stage III ICD Code: N18.3 Status: Chronic Assessment and Plan Sepsis/Mastoiditis - appreciate infectious disease recommendations. Continue with antibiotics as per recommendations. - positive for urinary pneumococcal antigen. +Immunocompromised. Due to mastoiditis - S/p LP in ER which has been negative. Blood/Urine cultures negative, flu A and B antigen negative. Follow cultures. -Appreciate ENT following. on Ciprodex HC. No surgical intervention indicated at the moment. -Appreciate infectious disease following. Continue Rocephin, levaquin, and clindamycin per infectious disease. -continue with prednisone. Reported hearing loss/pain continue to be IMPROVING in right ear but not left. - Likely secondary to otitis and mastoiditis. Status post evaluation with ENT, Dr. Kenny. Neutropenic Fever and pancytopenia - now Resolved. -Neutrophil count was 0 on admission. +Immunocompromised w/ h/o HIV/AIDS. ID following as above. - Appreciate hematology following. s/p Neupogen. HIV/AIDS -continue HAART; -lymphocyte profile shows CD4 count of 65. Patient reports compliance with HAART medications. - Infectious disease following. Follow-up as an outpatient. Anemia - On admission, Likely of acute blood loss from menses, S/P transfusion. H&H stable. Continue to follow. Renal Insufficiency - Acute on Chronic kidney disease stage III. Resolved with IV fluid. Continue to monitor labs. DVT Prophylaxis: SCD/Teds. Chemoprophylaxis contraindicated given pancytopenia. Discharge Planning Discharge to home when clear by infectious disease and ENT. Problem Qualifiers (1) Sepsis: Qualified Code: A41.9 - Sepsis, due to unspecified organism Suly José MD Jul 26, 2016 11:43
[2016-07-26 12:00] VITALS: BP 119/69; PULSE 82; RESP 20; TEMP 98.3; O2SAT 99
--- NOTE | 2016-07-26 12:30 | MB ---
cc: PRATEEK CALDERÓN MD DATE OF PROGRESS NOTE: 07/22/2016 PROGRESS NOTE Of note, I have been following the patient daily regarding her labs and clinical status. Her CT scan was read this morning and as we were going through images [id number], it does appear that her sinusitis is improving, although still present; however, the opacification of her mastoid air cells has slightly increased. Now there is opacification in bilateral mastoid air cells. However, on going over with the radiologist on-call, at 1551 today, there is no coalescence of the mastoid air cells. Thus, there is no active bony erosion of the mastoid air cells that would necessitate aggressive measures. On examination today, the patient has mild tenderness in the bilateral auricular and post-auricular areas. However, there is definitely no swelling overlying the mastoid air cells as well as no redness either. There is no protrusion of the ears that would be consistent with any auricular temporal angle increase. Examination of the ears notes bilateral middle ear fluid but no bulging of the eardrum. The neutrophils are beginning to improve. The patient's platelets are continuing with their slow downward trend and the platelets are currently 79,000. ASSESSMENT: The patient is a pleasant 46-year-old HIV positive patient with a thrombocytopenia and immunosuppression with an overlying infection of the bilateral middle ears and sinuses. I spoke with Dr. Almanzar and she will look into speaking with the infectious disease doctors about starting Decadron 10 milligrams q.8 or whatever lower dose they deem appropriate for this patient's clinical situation. I discussed the concern for surgical intervention because of her low platelets and her immunosuppression and her overall care generally speaking. If the patient were to develop complications of mastoiditis or any coalescence of her mastoid air cells then it would be prudent at that time to transfer the patient to a higher echelon of care as mentioned before. This would include care with a neurootologist on board. [place] may be a consideration. However, she may improve with the addition of the Decadron as mentioned. The patient is continuing the Afrin as I mentioned earlier. Recommend patient not doing nasal saline rinses to at least do heavy copious sprays with the [place] spray. This can be done four times a day with a half of a bottle of the [place] spray per dose. This is just to clean out her sinuses that much more and ideally help clear the openings for her miliary spaces as well. If the patient is still an inpatient within the next five days, I recommend repeating the CT scan at that time. Also, if there is noted to be any redness behind the patient's ear or swelling behind the patient's ear or any complications of mastoiditis to include visual changes, cranial nerve deficits including facial nerve deficits, or any other unusual findings related to this, recommend recontacting ENT regarding this. Prateek Calderón MD CCP/JCC /4:14 PM /12:29 PM
[2016-07-26 16:00] VITALS: BP 115/77; PULSE 82; RESP 20; TEMP 98.1; O2SAT 99
[2016-07-26 20:00] VITALS: BP 128/79; PULSE 80; RESP 20; TEMP 98; O2SAT 98
[2016-07-26] MEDS: LEVOFLOXACIN 750 MG TAB PO SCH (22:20)
[2016-07-27] VITALS: BP 122/58; PULSE 76; RESP 20; TEMP 97.9; O2SAT 97
[2016-07-27 04:00] VITALS: BP 108/62; PULSE 70; RESP 20; TEMP 98; O2SAT 97
[2016-07-27] MEDS: CLINDAMYCIN 150 MG CAP PO SCH ×2 (04:05→09:34)
[2016-07-27] MEDS: ONDANSETRON HCL 4 MG/2 ML VIAL IVP PRN (06:38)
[2016-07-27 08:00] VITALS: BP 137/81; PULSE 61; RESP 16; TEMP 97.7; O2SAT 100
[2016-07-27] MEDS: CIPROFLOXACIN/HYDROCORTISONE OTIC 10 ML BTL EACH EAR SCH (09:00)
[2016-07-27] MEDS: NYSTATIN SUSP 500,000 U/5 ML CUP SWISH-SWAL SCH (09:00)
[2016-07-27] MEDS: FAMOTIDINE 20 MG TAB PO SCH (09:33)
[2016-07-27] MEDS: SODIUM CHLORIDE 0.9% FLUSH 5 ML FLUSH FLUSH SCH (09:34)
[2016-07-27] MEDS: predniSONE 10 MG TAB PO SCH (09:34)
[2016-07-27] MEDS: IBUPROFEN 600 MG TAB PO PRN (09:38)
[2016-07-27] MEDS ORDERED: LEVA750T PO (11:33)
[2016-07-27] MEDS ORDERED: CIPRHC10A EACH EAR (11:33)
[2016-07-27] MEDS ORDERED: CLIN1CAP6 PO (11:33)
[2016-07-27] MEDS ORDERED: PERC10TA27 PO (11:34)
--- NOTE | 2016-07-27 11:37 | HHI.DCPOC ---
Discharge Care Plan Diagnosis: (1) Sepsis (2) Mastoiditis Goals to Promote Your Health * To prevent worsening of your condition and complications * To maintain your health at the optimal level Directions to Meet Your Goals Take your medications as prescribed Follow your dietary instruction Follow activity as directed Complete your antibiotics as prescribed. Follow-up with ENT physician Dr. Calderón Keep your appointments as scheduled Take your immunizations and boosters as scheduled If your symptoms worsen call your PCP, if no PCP go to Urgent Care Center or Emergency Room Smoking is Dangerous to Your Health. Avoid second hand smoke Call the 24-hour hour crisis hotline for domestic abuse at Suly José MD Jul 27, 2016 11:37
--- NOTE | 2016-07-27 11:44 | HHI.DS ---
Discharge Summary Admission Date Jul 11, 2016 at 21:38 Discharge Date: Jul 27, 2016 Admitting Diagnosis sepsis, fever, neutropenia (1) Sepsis ICD Code: A41.9 Diagnosis: Principal (2) Mastoiditis ICD Code: H70.90 Diagnosis: Principal (3) Neutropenic fever ICD Code: D70.9 Diagnosis: Secondary (4) AIDS ICD Code: B20 Diagnosis: Secondary (5) CKD (chronic kidney disease), stage III ICD Code: N18.3 Diagnosis: Secondary Procedures none Brief History - From Admission This is a 46-year-old female with a PMH of HIV/AIDS (unknown CD4), Anxiety and Depression who presented to the ER with complaints of generalized weakness, headache, sore throat and fever. Reports temp of 103 this morning, notes progressive weakness throughout the day. Report compliance w/ HAART regimen but doesn't know names of medications and doesn't know CD4 count, states last viral level 3 months ago was undetectable. On arrival, BP 108/67, HR 121, O2 sat 92% on RA, Temp 102.7. WBC 1.4, absolute neutrophil count 0, Platelets 106 , previously 281 on 11/08/14. Na 125. Creatinine 1.36, previously 1.21 on . Lactic Acid 1.0. U/a negative for UTI. CT Head with no acute intracranial findings. CXR with no acute disease. S/p LP in ER, pending results. Blood/Urine cultures sent, s/p Vanc/Azactam. CBC/BMP: 07/26/16 0659 07/26/16 0659 Significant Findings Laboratory Tests Test 07/26/16 06:59 Red Blood Count 2.68 MIL/MM3 (4.00-5.30) Hemoglobin 7.9 GM/DL (11.6-15.3) Hematocrit 23.1 % (35.0-46.0) Platelet Count 77 TH/MM3 (150-450) Sodium Level 133 MEQ/L (136-145) Blood Urea Nitrogen 23 MG/DL (7-18) Creatinine 1.34 MG/DL (0.50-1.00) Estimat Glomerular Filtration 43 ML/MIN (>89) Rate Imaging Last Impressions Head CT 07/21/16 0000 Signed Impressions: Service Date/Time: Friday, July 22, 2016 01:19 - CONCLUSION: Normal appearance of the brain. Opacified middle ears and mastoid air cells and sinus disease. Ole Dean MD Brain MRI 07/20/16 0000 Signed Impressions: Service Date/Time: Wednesday, July 20, 2016 10:19 - CONCLUSION: 1. Unremarkable MRI of the brain. 2. Diffuse bilateral pansinusitis. 3. Bilateral mastoiditis. Bruno Granados MD Abdomen/Pelvis CT 07/14/16 0000 Signed Impressions: Service Date/Time: Thursday, July 14, 2016 18:35 - CONCLUSION: 1. Patchy basilar air space disease in the lungs which could represent mild bronchopneumonia with small bilateral pleural effusions. 2. Hepatosplenomegaly as above with mild ascites. Minimal anasarca. No obstruction or free air. Mild ileus. Urbano Yee MD Chest X-Ray 07/11/161814 Signed Impressions: Service Date/Time: Monday, July 11, 2016 18:47 - CONCLUSION: No acute disease. Anderson Gary MD PE at Discharge GENERAL: This is a well-nourished, well-developed patient, in no apparent distress. HEENT: left sided mastoid and upper neck tenderness CARDIOVASCULAR: Regular rate and rhythm RESPIRATORY: Clear to auscultation. Breath sounds equal bilaterally. No wheezes , rales, or rhonchi. GASTROINTESTINAL: Abdomen soft, non-tender, nondistended. Normal active bowel sounds MUSCULOSKELETAL: Extremities without clubbing, cyanosis, or edema. NEURO: Alert & Oriented x4 to person, place, time, situation. Moves all ext x4 Pt update on day of discharge Patient states she still is having hard time hearing on the left side. She understands that no further interventions can be provided here in the hospital setting and she'll need follow-up with her ENT physician for further detail office physical exam evaluation and continued treatment with oral antibiotics and eardrops. Hospital Course These are the medical issues addressed during this hospitalization: Sepsis/Mastoiditis - patient was admitted to the hospital for IV antibiotics and received IV Azactam, vancomycin, Rocephin per infectious disease recommendations. She was also seen by ENT physician who recommended continuing antibiotics and also antibiotic otic drops with continued outpatient close follow-up. Repeat CT of the mastoids and sinuses did not show worsening changes during the hospitalization therefore recommendations are to continue with oral antibiotics and to be discharged as an outpatient for ENT outpatient follow-up. - Patient also had positive for urinary pneumococcal antigen. + Immunocompromised. Due to mastoiditis - S/p LP in ER which has been negative. Blood/Urine cultures negative, flu A and B antigen negative. -ENT physician Dr. Stephane Rodriguez recommended. on Ciprodex HC. No surgical intervention indicated at the moment. Per infectious disease physician the recommendations are to continue with oral clindamycin Levaquin for 2 more weeks as an outpatient. Neutropenic Fever and pancytopenia - now Resolved. Patient was also seen by saddle maker during this hospitalization -Neutrophil count was 0 on admission. +Immunocompromised w/ h/o HIV/AIDS. ID following as above. - Appreciate hematology following. Neupogen was given with improvement. HIV/AIDS -continue HAART; -lymphocyte profile shows CD4 count of 65. Patient reports compliance with HAART medications. - Infectious disease following. Follow-up as an outpatient. Anemia - On admission, Likely of acute blood loss from menses, S/P transfusion. H&H stable had remained stable during hospitalization. Renal Insufficiency - Acute on Chronic kidney disease stage III. Resolved with IV fluid. Continue to monitor labs. Pt Condition on Discharge: Good Discharge Disposition: Discharge Home Discharge Time: <= 30 minutes Discharge Instructions DIET: Follow Instructions for: As Tolerated, No Restrictions Activities you can perform: Regular-No Restrictions Follow up Referrals: Ear Nose Throat with Prateek Calderón MD New Medications: Ciprofloxacin-Hydrocortisone Otic Drops (Cipro Hc Otic Drops) 0.2-1% Susp 4 DROP EACH EAR BID Infection #1 Ref 0 BOTTLE Clindamycin (Clindamycin) 300 Mg Cap 300 MG PO TID Infection #42 Ref 0 CAP Levofloxacin (Levaquin) 750 Mg Tab 750 MG PO DAILY Infection #14 Ref 0 TAB Oxycodone-Acetaminophen (Percocet) 10-325 mg Tab 1 TAB PO Q4H PRN PAIN #30 Ref 0 TAB Continued Medications: Calcium Carbonate-Cholecalciferol (Calcium 600 with Vitamin D) 600-400 mg-Unit Tab 1 TAB PO BID Calcium Supplement Ref 0 TAB Cholecalciferol (Vitamin D) 1,000 Unit Tab 1000 UNITS PO DAILY Nutritional Supplement #1 Ref 0 BOTTLE Darunavir (Prezista) 800 Mg Tab 800 MG PO AC DINNER Mgmt Viral Infection #30 Ref 0 TAB Darunavir-Cobicistat (Prezcobix) 800-150 Mg Tab 1 TAB PO DAILY Mgmt Viral Infection #30 Ref 0 TAB Dolutegravir (Tivicay) 50 Mg Tab 50 MG PO BID Mgmt Viral Infection #60 Ref 0 TAB Fluconazole (Fluconazole) 200 Mg Tab 200 MG PO DAILY Infection Ref 0 TAB Lamivudine (Lamivudine) 300 Mg Tab 300 MG PO DAILY Mgmt Viral Infection #30 Ref 0 TAB Lamivudine (Lamivudine) 300 Mg Tab 300 MG PO AC DINNER Mgmt Viral Infection #30 Ref 0 TAB Multiple Vitamin (Thera) 1 Tab Tab 1 TAB PO DAILY Ritonavir (Norvir) 100 Mg Cap 100 MG PO AC DINNER Mgmt Viral Infection #180 Ref 0 CAP Sulfamethoxazole-Trimethoprim (Sulfamethoxazole-Trimethoprim) 800-160 Mg Tab 1 TAB PO Mo We Fr Infection #14 Ref 0 TAB Valacyclovir (Valtrex) 1 Gm Tab 1000 MG PO DAILY Mgmt Viral Infection #30 Ref 0 TAB Suly José MD Jul 27, 2016 11:44
[2016-07-27 11:49] VITALS: BP 111/64; PULSE 83; RESP 16; TEMP 97.9; O2SAT 97
[2016-10-24] MEDS ORDERED: VITA100064 PO (10:23)
[2016-10-24] MEDS ORDERED: FLUC200T2 PO (10:23)
[2016-10-24] MEDS ORDERED: THERTAB53 PO (10:23)
[2016-10-31] MEDS ORDERED: PRED20 PO (09:56)
== END 2016-07-27 13:17 | disposition home or self-care (01) | DRG 975 ==
LOC: NETRI 12:33 → NEDA 21:38 → N04A 23:17
PROVIDERS: ADMIT Family Medicine; ATTEND Family Medicine
PROC: 009U3ZX Drainage of Spinal Canal, Percutaneous Approach, Diagnostic (ICD-10-PCS; principal; 2016-07-11)
PROC: 30233N1 Transfusion of Nonautologous Red Blood Cells into Peripheral Vein, Percutaneous Approach (ICD-10-PCS; 2016-07-14)
DX: A41.9 Sepsis, unspecified organism (principal); B20 Human immunodeficiency virus [HIV] disease; D62 Acute posthemorrhagic anemia; N18.3 Chronic kidney disease, stage 3 (moderate); D70.3 Neutropenia due to infection; R50.81 Fever presenting with conditions classified elsewhere; F41.9 Anxiety disorder, unspecified; F32.9 Major depressive disorder, single episode, unspecified; M19.90 Unspecified osteoarthritis, unspecified site; H70.13 Chronic mastoiditis, bilateral; J32.4 Chronic pansinusitis; H91.93 Unspecified hearing loss, bilateral; N28.9 Disorder of kidney and ureter, unspecified; Z87.891 Personal history of nicotine dependence
CPT/HCPCS: 36430; 62270; 70450; 70553; 71010; 74176; 76937; 80048; 80053; 80074; 80202; 80307; 81001; 82550; 82607; 82728; 82746; 82945; 83540; 83550; 83605; 83615; 83690; 83735; 84157; 84484; 84702; 85007; 85014; 85018; 85025; 85027; 85044; 85610; 85730; 86355; 86357; 86359; 86360; 86403; 86850; 86900; 86901; 86920; 87015; 87040; 87070; 87086; 87102; 87106; 87116; 87205; 87206; 87449; 87496; 87529; 87804; 89051; 93005; 96361; 96374; 96375; A9579; J0133; J0696; J1442; J2270; J2360; J2405; J3370; J7030; J7040; J7050; J7512; P9016; Q9963

== ENCOUNTER 2016-08-27 18:23 | Inpatient (IN) | payer MEDICARE, OTHER ==
[~2016-08-27] VITALS: Ht 162.6 cm; Wt 67.6 kg
[~2016-08-27 18:23] MED LIST changes: -BACT800T5 PO; +CALC1TAB87 PO; -CALTTAB10 PO; +CIPRHC10A EACH EAR; +CLIN1CAP6 PO; +DARU1TAB2 PO; +FLUC200T2 PO; -FLUC200T63 PO; +LAMI1TAB8 PO; +LEVA750T PO; +PERC10TA27 PO; +SULF1TAB23 PO; +THERTAB56 PO; +VALT1TAB PO; +VITA100064 PO; -ZITH600T PO; -[UNRECOGNIZED DRUG - CODE] PO
[2016-08-27 18:24] VITALS: BP 98/56; PULSE 118; RESP 28; TEMP 98.6; O2SAT 96
[2016-08-27] MEDS ORDERED: SODIUM CHLOR 0.9% 1000 ML INJ 1,000 ML IV SCH (18:48)
[2016-08-27] MEDS ORDERED: CEFEPIME INJ 1,000 MG in SODIUM CHLORIDE 0.9% INJ 100 ML IV ONE (19:00)
[2016-08-27] MEDS ORDERED: SODIUM CHLORIDE 0.9% FLUSH 10 ML FLUSH IV FLUSH PRN (19:00)
[2016-08-27] MEDS ORDERED: AZITHROMYCIN INJ 500 MG in SODIUM CHLOR 0.9% 250 ML INJ 250 ML IV ONE (19:00)
[2016-08-27] MEDS ORDERED: VANCOMYCIN INJ 1,000 MG in SODIUM CHLOR 0.9% 250 ML INJ 250 ML IV ONE (19:00)
--- NOTE | 2016-08-27 19:05 | PD ---
HPI Chief Complaint: Abnormal Results Time Seen by Provider: 18:39 Travel History International Travel<30 days: No Contact w/Intl Traveler<30days: No Traveled to known affect area: No History of Present Illness HPI 46-year-old female with history of HIV/AIDS on HARRT, unknown last CD4 count, unknown last viral load, sent in by her infectious disease physician Dr. Dangelo for abnormal labs and abnormal CT abdomen pelvis. The patient reports that she was admitted to the hospital in June and was discharged in July after having been diagnosed with mastoiditis. For the last couple of weeks she has been having increasing weakness, shortness of breath, and a cough. No hemoptysis. No abdominal pain. She does not know the results of the CT abdomen pelvis that was performed today at [facility]. I was able to access the results of the patient's CT scan and it shows bilateral lower lobe pulmonary consolidations as well as abnormal lymph nodes in her abdomen. PFSH Past Medical History Arthritis: Yes Autoimmune Disease: Yes (HIV positive) Anxiety: Yes Depression: Yes Cancer: No Cardiovascular Problems: No Cerebrovascular Accident: No Diminished Hearing: No Endocrine: No Gastrointestinal Disorders: Yes (pt states diarrhea, related to antiviral medications) Genitourinary: No Headaches: Yes Immune Disorder: Yes Musculoskeletal: Yes Psychiatric: Yes Reproductive: No Respiratory: Yes Immunizations Current: Yes Migraines: Yes Seizures: No Tetanus Vaccination: > 5 Years Influenza Vaccination: Yes ?: Not LMP: 07/01/16 : 5 Para: 3 Past Surgical History Abdominal Surgery: Yes (hernia surgery as an infant) Section: Yes Ear Surgery: No Endocrine Surgery: No Eye Surgery: No Gynecologic Surgery: Yes ( 2011) Oral Surgery: Yes (tooth extraction x 5) Other Surgery: Yes Social History Alcohol Use: No Tobacco Use: No (QUIT 5 DAYS AGO) Substance Use: No Allergies-Medications (Allergen,Severity, Reaction): Coded Allergies: Penicillin (Verified Allergy, Intermediate, rash, 08/27/16) Reported Meds & Prescriptions Reported Meds & Active Scripts Active Percocet (Oxycodone-Acetaminophen) 10-325 mg Tab 1 Tab PO Q4H PRN Reported Caltrate 600+D (Calcium Carbonate-Cholecalciferol) 600-800 Mg-Unit Tab 1 Tab PO BID Tivicay (Dolutegravir Sodium) 50 Mg Tab 50 Mg PO AC LUNCH Valtrex (Valacyclovir HCl) 1 Gm Tab 1,000 Mg PO AC LUNCH Sulfamethoxazole-Trimethoprim 800-160 Mg Tab 1 Tab PO MOWEFR @1200 Thera (Multiple Vitamin) 1 Tab Tab 1 Tab PO AC LUNCH Prezcobix (Darunavir-Cobicistat) 800-150 Mg Tab 1 Tab PO AC LUNCH Lamivudine 300 Mg Tab 300 Mg PO AC LUNCH Fluconazole 200 Mg Tab 200 Mg PO AC LUNCH Review of Systems Except as stated in HPI: all other systems reviewed are Neg Physical Exam Narrative GENERAL: Well-developed, well-nourished, no acute distress. SKIN: Focused skin assessment warm/dry. Diffuse pallor. No petechiae. HEAD: Atraumatic. Normocephalic. EYES: Pupils equal and round. No scleral icterus. No injection or drainage. ENT: Mucous membranes pink and dry. NECK: Trachea midline. No JVD. No nuchal rigidity. CARDIOVASCULAR: Tachycardic, regular. RESPIRATORY: No accessory muscle use. Clear to auscultation. Breath sounds equal bilaterally. GASTROINTESTINAL: Abdomen soft, non-tender, nondistended. Normal bowel sounds. MUSCULOSKELETAL: No obvious deformities. No clubbing. No cyanosis. No edema. NEUROLOGICAL: Awake and alert. No obvious cranial nerve deficits. Motor grossly within normal limits. Normal speech. PSYCHIATRIC: Appropriate mood and affect; insight and judgment normal. Data Data Last Documented VS Vital Signs Date Time Temp Pulse Resp B/P Pulse Ox O2 Delivery O2 Flow Rate FiO2 08/27/16 18:51 17 08/27/16 18:24 98.6 118 98/56 96 Room Air Orders Beta Hcg (Quant/Titer) (08/27/16 18:48) Complete Blood Count With Diff (08/27/16 18:48) Comprehensive Metabolic Panel (08/27/16 18:48) Lipase (08/27/16 18:48) Lactic Acid (08/27/16 18:48) Prothrombin Time / Inr (Pt) (08/27/16 18:48) Act Partial Throm Time (Ptt) (08/27/16 18:48) Urinalysis - C+S If Indicated (08/27/16 18:48) Iv Access Insert/Monitor (08/27/16 18:48) Ecg Monitoring (08/27/16 18:48) Oximetry (08/27/16 18:48) Sodium Chlor 0.9% 1000 Ml Inj (Ns 1000 M (08/27/16 18:48) Sodium Chloride 0.9% Flush (Ns Flush) (08/27/16 19:00) Electrocardiogram (08/27/16 18:48) Blood Culture (08/27/16 18:48) Chest, Single Ap (08/27/16 ) Cefepime Inj (Maxipime Inj) (08/27/16 19:00) Azithromycin Inj (Zithromax Inj) (08/27/16 19:00) Vancomycin Inj (Vancomycin Inj) (08/27/16 19:00) Sodium Chlor 0.9% 1000 Ml Inj (Ns 1000 M (08/27/16 19:15) Ckmb (Isoenzyme) Profile (08/27/16 19:26) Troponin I (08/27/16 19:26) Labs Laboratory Tests Test 08/27/16 19:20 White Blood Count 1.9 TH/MM3 Red Blood Count 1.19 MIL/MM3 Hemoglobin 3.6 GM/DL Hematocrit 10.0 % Mean Corpuscular Volume 84.1 FL Mean Corpuscular Hemoglobin 30.1 PG Mean Corpuscular Hemoglobin 35.8 % Concent Red Cell Distribution Width 16.2 % Platelet Count 139 TH/MM3 Mean Platelet Volume 9.1 FL Neutrophils (%) (Auto) 42.9 % Lymphocytes (%) (Auto) 29.4 % Monocytes (%) (Auto) 26.3 % Eosinophils (%) (Auto) 0.8 % Basophils (%) (Auto) 0.6 % Neutrophils # (Auto) 0.8 TH/MM3 Lymphocytes # (Auto) 0.6 TH/MM3 Monocytes # (Auto) 0.5 TH/MM3 Eosinophils # (Auto) 0.0 TH/MM3 Basophils # (Auto) 0.0 TH/MM3 CBC Comment AUTO DIFF Sodium Level 129 MEQ/L Potassium Level 3.4 MEQ/L Chloride Level 94 MEQ/L Carbon Dioxide Level 19.6 MEQ/L Anion Gap 15 MEQ/L Blood Urea Nitrogen 12 MG/DL Creatinine 1.08 MG/DL Estimat Glomerular Filtration 55 ML/MIN Rate Random Glucose 116 MG/DL Lactic Acid Level 1.1 mmol/L Calcium Level 8.7 MG/DL Total Bilirubin 0.2 MG/DL Aspartate Amino Transf 17 U/L (AST/SGOT) Alanine Aminotransferase 20 U/L (ALT/SGPT) Alkaline Phosphatase 102 U/L Total Protein 7.8 GM/DL Albumin 2.7 GM/DL Lipase 1139 U/L Human Chorionic Gonadotropin, LESS THAN 1 Quant MIU/ML MDM Medical Decision Making Medical Screen Exam Complete: Yes Emergency Medical Condition: Yes Medical Record Reviewed: Yes Differential Diagnosis Sepsis, pneumonia, neutropenia, pancytopenia, Narrative Course Vital signs show heart rate 118, blood pressure 98/56, pulse ox 96% on room air , oral temp of 98.6F. 8:15 PM: I was notified of the patient's hemoglobin is 3.6 and her hematocrit is 10. 2 units of emergency release blood were ordered as well as 2 units of crossmatched blood. Stool is heme-negative and brown. CBC is remarkable for WBC 1.9, hemoglobin 3.6, hematocrit 10, platelets 139. CMP is remarkable for sodium 129, chloride 94, bicarbonate 19.6, Lipase is 1139. Patient was made aware of all findings. She was consented for emergency release blood transfusion. Case discussed with information engineer Dr. Connelly who will admit the patient to his service. Critical Care Narrative Aggregate critical care time was 35 minutes. Time to perform other separately billable procedures was not included in the critical care time. My time did not include minutes spent treating any other patients simultaneously or on activities that did not directly contribute to the patient's treatment. The services I provided to this patient were to treat and/or prevent clinically significant deterioration that could result in: , permanent disability, worsening clinical condition. I provided critical care services requiring my management, as noted below: Chart data review, documentation time, medication orders and management, vital sign assessments/reviewing monitor data, ordering and reviewing lab tests, ordering and interpreting/reviewing x-rays and diagnostic studies, care of the patient and discussion of the patient with the admitting physicians. Diagnosis Primary Impression: Anemia Qualified Code: D64.9 - Anemia, unspecified type Additional Impressions: Pneumonia Qualified Code: J18.9 - Pneumonia of both lungs due to infectious organism, unspecified part of lung Lymphadenopathy Pancreatitis Qualified Code: K85.90 - Acute pancreatitis, unspecified complication status, unspecified pancreatitis type Admitting Information Admitting Physician Requests: Admit Shravan Andrade MD Aug 27, 2016 19:05
[2016-08-27] MEDS ORDERED: SODIUM CHLOR 0.9% 1000 ML INJ 1,000 ML IV ONE (19:15)
[2016-08-27] MEDS ORDERED: CALTTAB PO (19:40)
[2016-08-27 19:54] LABS: AUTOMATED NEUTROPHIL # 0.8 TH/MM3 (1.8-7.7); BASOPHIL % 0.6 % (0.0-2.0); EOSINOPHIL % 0.8 % (0.0-4.0); LYMPH % 29.4 % (9.0-44.0); LYMPHOCYTE # 0.6 TH/MM3 (1.0-4.8); MEAN CELL VOLUME 84.1 FL (80.0-100.0); MEAN CORPUSCULAR HEMOGLOBIN 30.1 PG (27.0-34.0); MEAN CORPUSCULAR HGB CONC 35.8 % (32.0-36.0); MONO % 26.3 % (0.0-8.0); NEUT % 42.9 % (16.0-70.0); PLATELET COUNT 139 TH/MM3 (150-450); RED BLOOD COUNT 1.19 MIL/MM3 (4.00-5.30); RED CELL DISTRIBUTION WIDTH 16.2 % (11.6-17.2); WHITE BLOOD COUNT 1.9 TH/MM3 (4.0-11.0)
--- NOTE | 2016-08-27 19:58 | RADRPT ---
EXAM DATE/TIME: 08/27/2016 18:59 [facility] COMPARISON: CHEST SINGLE AP, July 11, 2016, 18:47. INDICATIONS : Shortness of breath. MEDICAL HISTORY : HIV. SURGICAL HISTORY : section. ENCOUNTER: Initial ACUITY: 1 day PAIN SCORE: 0/10 LOCATION: Bilateral chest FINDINGS: The lungs are clear without infiltrate, nodule, or mass. There is no appreciable pleural effusion fo r technique. Heart and mediastinum are unremarkable. CONCLUSION: No acute cardiopulmonary disease. Nadia Chu MD on August 27, 2016 at 19:56 Board Certified Radiologist. This report was verified electronically.
[2016-08-27 20:06] LABS: ANION GAP 15 MEQ/L (5-15); AST (GOT) 17 U/L (15-37); BICARBONATE 19.6 MEQ/L (21.0-32.0); BLOOD UREA NITROGEN 12 MG/DL (7-18); CHLORIDE 94 MEQ/L (98-107); GLOMERULAR FILTRATION RATE 55 ML/MIN (>89); POTASSIUM 3.4 MEQ/L (3.5-5.1); SODIUM (NA) 129 MEQ/L (136-145)
[2016-08-27 20:09] LABS: HEMO FLAGS AUTO DIFF
[2016-08-27 20:10] LABS: ALKALINE PHOSPHATASE 102 U/L (45-117); ALT (GPT) 20 U/L (10-53); BETA HCG QUANT LESS THAN 1 MIU/ML (0-5); TOTAL BILIRUBIN ADULT 0.2 MG/DL (0.2-1.0)
[2016-08-27] MEDS ORDERED: SODIUM CHLOR 0.9% 250 ML INJ 250 ML IV ONE (20:15)
[2016-08-27 20:22] LABS: APTT (PATIENT) 27.1 SEC (24.3-30.1); INTERNATIONAL NORMALIZED RATIO 1.1 RATIO; PROTHROMBIN TIME - PATIENT 11.9 SEC (9.8-11.6)
[2016-08-27 20:25] LABS: BLOOD, URINE NEG (NEG); COMMENT (UR) CULT NOT INDICATED; CULTURE IF INDICATED CULT NOT INDICATED; GLUCOSE,URINE NEG (NEG); KETONE, URINE NEG (NEG); NITRITE,URINE NEG (NEG); SQUAMOUS EPITHELIAL CELL URINE 1 /hpf (0-5); URINE COLOR YELLOW (YELLW/STRAW)
[2016-08-27 20:40] LABS: BANDS 25 % (0-6); BASOPHILS 1 % (0-2); CORRECTED NUCLEATED RBC 1 /100 WBC (0-0); METAMYELOCYTES 3 % (0-1); MYELOCYTES 2 % (0-0); NEUTROPHIL # MANUAL DIFF 1.2 TH/MM3 (1.8-7.7); POLYS (SEG NEUTROPHILS) 33 % (16-70); WBC DIFF SAMPLE 100
[2016-08-27 20:41] LABS: OVALOCYTES 1+ (NORMAL); PLATELET ESTIMATE SMEAR LOW (NORMAL); PLATELET MORPHOLOGY NORMAL (NORMAL); SCAN/DIFF FINAL DIFF MANUAL; TEARDROP RBCS 1+ (NORMAL)
[2016-08-27] MEDS ORDERED: VANCOMYCIN INJ 1,000 MG in SODIUM CHLOR 0.9% 250 ML INJ 250 ML IV SCH (20:45)
[2016-08-27] MEDS ORDERED: ZOLPIDEM TARTRATE 5 MG TAB PO PRN (20:45)
[2016-08-27] MEDS ORDERED: SODIUM CHLORIDE 0.9% FLUSH 10 ML FLUSH PRN (20:45)
[2016-08-27] MEDS ORDERED: METOCLOPRAMIDE HCL 10 MG/2 ML VIAL IV PRN (20:45)
[2016-08-27] MEDS ORDERED: LORazepam 2 MG/ML VIAL IV PRN (20:45)
[2016-08-27] MEDS ORDERED: RESP: ALBUTEROL 2.5 MG/IPRATROPIUM 0.5 MG NEB (PRN) INH (20:45)
[2016-08-27] MEDS ORDERED: MORPHINE SULFATE 4 MG/ML INJ IV PRN (20:45)
[2016-08-27] MEDS ORDERED: CEFEPIME INJ 2,000 MG in SODIUM CHLORIDE 0.9% INJ 100 ML IV SCH (20:45)
[2016-08-27] MEDS ORDERED: MISCELLANEOUS NURSING INFORMATION XX SCH (20:45)
[2016-08-27] MEDS ORDERED: Vancomycin Consult Pharmacy 1 EA OTHER SCH (20:45)
[2016-08-27] MEDS ORDERED: CHLORHEXIDINE GLUCONATE 2 % 1 PACK (2 CLOTHS) TOP PRN (20:45)
[2016-08-27 20:55] VITALS: BP 102/68; PULSE 109; RESP 22; TEMP 99; O2SAT 98
[2016-08-27] MEDS: DOCUSATE SODIUM 100 MG CAP PO SCH (21:00)
[2016-08-27 21:10] VITALS: BP 106/54; PULSE 106; RESP 24; TEMP 99.1; O2SAT 96
[2016-08-27 21:18] LABS: BLOOD GAS BASE EXCESS -6.3 mmol/L (-2-2); BLOOD GAS CARBOXYHEMOGLOBIN 1.1 % (0-4); BLOOD GAS HCO3 17 mmol/L (22-26); BLOOD GAS METHEMOGLOBIN 0.5 % (0-2); BLOOD GAS O2 HGB SATURATION 94 % (90-100); BLOOD GAS OXYGEN CONTENT 7.8 Vol % (12.0-20.0); BLOOD GAS PCO2 23 mmHg (38-42); BLOOD GAS PO2 77 mmHG (61-120); BLOOD GAS TOTAL HGB 5.8 G/DL (12.0-16.0); CRITICAL VALUE YES; DRAW SITE LT RADIAL; LITER FLOW 4 L/M; NUMBER OF ARTERIAL PUNCTURES 1; OXYGEN DEVICE NASAL CANNULA; STAT YES; TEMP CORR TO 98.6; ULNAR PULSE PRESENT
--- NOTE | 2016-08-27 21:18 | HHI.HP ---
[facility] Service Critical Care Medicine Primary Care Physician Marek Dangelo MD Admission Diagnosis severe anemia, pneumonia, lymphadenopathy, pancreatitis Diagnosis: Travel History International Travel<30 Days: No Contact w/Intl Traveler <30 Da: No Traveled to Known Affected Are: No History of Present Illness 46-year-old female with history of HIV/AIDS on HARRT, unknown last CD4 count, unknown last viral load, sent in by her infectious disease physician Dr. Dangelo for abnormal labs and abnormal CT abdomen pelvis. She was admitted to the hospital in June and was discharged in July after having been diagnosed with mastoiditis. For the last couple of weeks she has been having increasing weakness, shortness of breath, and a cough. No hemoptysis. No abdominal pain. She had an outpatient CAT scan of the abdomen and pelvis at the [facility] imaging facility that shows bilateral lower lobe pulmonary consolidations as well as abnormal lymph nodes in her abdomen. Review of Systems Constitutional: COMPLAINS OF: Diaphoretic episodes, Fatigue, Fever, DENIES: Weight gain, Weight loss, Chills, Dizziness, Change in appetite, Night Sweats Endocrine: DENIES: Abnorml menstrual pattern, Heat/cold intolerance, Polydipsia , Polyuria, Polyphagia Eyes: DENIES: Blurred vision, Diplopia, Eye inflammation, Eye pain, Vision loss , Photosensitivity, Double Vision Ears, nose, mouth, throat: DENIES: Tinnitus, Hearing loss, Vertigo, Nasal discharge, Oral lesions, Throat pain, Hoarseness, Ear Pain, Running Nose, Epistaxis, Sinus Pain, Toothache, Odynophagia Respiratory: DENIES: Apneas, Cough, Snoring, Wheezing, Hemoptysis, Sputum production, Shortness of breath Cardiovascular: DENIES: Chest pain, Palpitations, Syncope, Dyspnea on Exertion , PND, Lower Extremity Edema, Orthopnea, Claudication Gastrointestinal: DENIES: Abdominal pain, Black stools, Bloody stools, Constipation, Diarrhea, Nausea, Vomiting, Difficulty Swallowing, Anorexia Genitourinary: DENIES: Abnormal vaginal bleeding, Dysmenorrhea, Dyspareunia, Sexual dysfunction, Urinary frequency, Urinary incontinence, Urgency, Hematuria , Dysuria, Nocturia, Vaginal discharge Musculoskeletal: DENIES: Joint pain, Muscle aches, Stiffness, Joint Swelling, Back pain, Neck pain Integumentary: DENIES: Abnormal pigmentation, Pruritus, Rash, Nail changes, Breast masses, Breast skin changes, Nipple discharge Hematologic/lymphatic: DENIES: Bruising, Lymphadenopathy Immunologic/allergic: DENIES: Eczema, Urticaria Neurologic: DENIES: Abnormal gait, Headache, Localized weakness, Paresthesias, Seizures, Speech Problems, Tremor, Poor Balance Psychiatric: DENIES: Anxiety, Confusion, Mood changes, Depression, Hallucinations, Agitation, Suicidal Ideation, Homicidal Ideation, Delusions Past Family Social History Allergies: Coded Allergies: Penicillin (Verified Allergy, Intermediate, rash, 08/27/16) Past Medical History HIV/AIDS Anxiety Depression Past Surgical History Hernia Repair, , Tooth Extraction Reported Medications Reported Meds & Active Scripts Active Percocet (Oxycodone-Acetaminophen) 10-325 mg Tab 1 Tab PO Q4H PRN Reported Caltrate 600+D (Calcium Carbonate-Cholecalciferol) 600-800 Mg-Unit Tab 1 Tab PO BID Tivicay (Dolutegravir Sodium) 50 Mg Tab 50 Mg PO AC LUNCH Valtrex (Valacyclovir HCl) 1 Gm Tab 1,000 Mg PO AC LUNCH Sulfamethoxazole-Trimethoprim 800-160 Mg Tab 1 Tab PO MOWEFR @1200 Thera (Multiple Vitamin) 1 Tab Tab 1 Tab PO AC LUNCH Prezcobix (Darunavir-Cobicistat) 800-150 Mg Tab 1 Tab PO AC LUNCH Lamivudine 300 Mg Tab 300 Mg PO AC LUNCH Fluconazole 200 Mg Tab 200 Mg PO AC LUNCH Active Ordered Medications Current Medications Medications (Trade) Dose Ordered Sig/Carolyn Route PRN Reason Start Time Stop Time Status Last Admin Dose Admin Sodium Chloride 250 ml @ 15 mls/hr ONCE ONCE IV 08/27/16 20:15 08/28/16 12:54 08/27/16 21:37 Sodium Chloride (NS 1000 ml Inj) 1,000 ml @ 84 mls/hr [id number] IV 08/27/16 21:00 08/28/16 00:12 Sodium Chloride (NS Flush) 2 ml UNSCH PRN .XX FLUSH AFTER USING IV ACCESS 08/27/16 20:45 Sodium Chloride (NS Flush) 2 ml BID .XX 08/27/16 21:00 08/28/16 00:13 Acetaminophen (Tylenol) 650 mg Q6H PRN PO PAIN 1-10 AND/OR FEVER >101F 08/27/16 20:45 Morphine Sulfate (Morphine Inj) 2 mg Q2H PRN IV PAIN SCALE 6 TO 10 08/27/16 20:45 Famotidine (Pepcid Inj) 20 mg Q12HR IV PUSH 08/27/16 21:00 08/27/16 21:56 Lorazepam (Ativan Inj) 2 mg Q4H PRN IV Agitation/Sedation 08/27/16 20:45 Ondansetron HCl (Zofran Inj) 4 mg Q6H PRN IV NAUSEA OR VOMITING 08/27/16 20:45 Metoclopramide HCl (Reglan Inj) 10 mg Q6H PRN IV NAUSEA OR VOMITING 08/27/16 20:45 Docusate Sodium (Colace) 100 mg BID PO 08/27/16 21:00 Zolpidem Tartrate (Ambien) 5 mg HS PRN PO INSOMNIA 08/27/16 20:45 Heparin Sodium (Porcine) (Heparin Inj) 5,000 units Q12H SQ 08/27/16 21:00 08/27/16 21:57 Miscellaneous Information 1 [id number] XX 08/27/16 20:45 08/27/16 20:45 Chlorhexidine Gluconate (Chlorhexidine 2% Cloth) 3 pack Taper DAILY@04 TOP 08/28/16 04:00 08/24/17 03:59 08/28/16 03:16 Chlorhexidine Gluconate 3 pack 3 pack UNSCH PRN TOP HYGIENIC CARE 08/27/16 20:45 Azithromycin 500 mg/Sodium Chloride 250 ml @ 250 mls/hr Q24H IV 08/28/16 20:00 Pharmacy Profile Note (Vancomycin Consult Pharmacy) 0 ml @ 0 mls/hr UNSCH OTHER 08/27/16 20:45 Methylprednisolone Sodium Succinate 40 mg 40 mg Q12H IV 08/27/16 21:00 08/27/16 21:56 Cefepime HCl 2000 mg/Sodium Chloride 100 ml @ 200 mls/hr Q12H IV 08/28/16 03:00 08/28/16 03:16 Vancomycin HCl/ Sodium Chloride (Vancomycin Inj/ NS 250 ml Inj) 250 ml @ 250 mls/hr Q18H IV 08/28/16 14:00 Miscellaneous Information SPECIFIC LAB TO BE DRAWN:VANCO TROUGH DATE TO BE DRJohnny. ONCE ONCE .XX 08/30/16 01:45 08/30/16 01:46 Family History Noncontributory Social History Drinks 1 beer daily. Quit tobacco few weeks ago. Negative for drug abuse. Physical Exam Vital Signs Vital Signs Date Time Temp Pulse Resp B/P Pulse Ox O2 Delivery O2 Flow Rate FiO2 08/27/16 20:55 99.0 109 22 102/68 98 Nasal Cannula 4 08/27/16 18:51 17 08/27/16 18:24 98.6 118 28 98/56 96 Room Air Physical Exam GENERAL: Well-nourished, well-developed pale patient. SKIN: Warm and dry and pale. HEAD: Normocephalic. EYES: No scleral icterus. No injection or drainage. NECK: Supple, trachea midline. No JVD or lymphadenopathy. CARDIOVASCULAR: Regular rate and rhythm without murmurs, gallops, or rubs. RESPIRATORY: Breath sounds equal bilaterally. No accessory muscle use. GASTROINTESTINAL: Abdomen soft, non-tender, nondistended. MUSCULOSKELETAL: No cyanosis, or edema. BACK: Nontender without obvious deformity. No CVA tenderness. EXTREMITIES: No clubbing cyanosis or edema Laboratory Laboratory Tests Test 08/27/16 08/27/16 08/27/16 19:20 19:50 20:10 White Blood Count 1.9 Red Blood Count 1.19 Hemoglobin 3.6 Hematocrit 10.0 Mean Corpuscular Volume 84.1 Mean Corpuscular Hemoglobin 30.1 Mean Corpuscular Hemoglobin 35.8 Concent Red Cell Distribution Width 16.2 Platelet Count 139 Mean Platelet Volume 9.1 Neutrophils (%) (Auto) 42.9 Lymphocytes (%) (Auto) 29.4 Monocytes (%) (Auto) 26.3 Eosinophils (%) (Auto) 0.8 Basophils (%) (Auto) 0.6 Neutrophils # (Auto) 0.8 Lymphocytes # (Auto) 0.6 Monocytes # (Auto) 0.5 Eosinophils # (Auto) 0.0 Basophils # (Auto) 0.0 CBC Comment AUTO DIFF Differential Total Cells 100 Counted Neutrophils % (Manual) 33 Band Neutrophils % 25 Lymphocytes % 25 Monocytes % 11 Basophils % 1 Neutrophils # (Manual) 1.2 Metamyelocytes 3 Myelocytes 2 Nucleated Red Blood Cells 1 Differential Comment FINAL DIFF MANUAL Platelet Estimate LOW Platelet Morphology Comment NORMAL Tear Drop Cells 1+ Ovalocytes 1+ Prothrombin Time 11.9 Prothromb Time International 1.1 Ratio Activated Partial 27.1 Thromboplast Time Sodium Level 129 Potassium Level 3.4 Chloride Level 94 Carbon Dioxide Level 19.6 Anion Gap 15 Blood Urea Nitrogen 12 Creatinine 1.08 Estimat Glomerular Filtration 55 Rate Random Glucose 116 Lactic Acid Level 1.1 Calcium Level 8.7 Total Bilirubin 0.2 Aspartate Amino Transf 17 (AST/SGOT) Alanine Aminotransferase 20 (ALT/SGPT) Alkaline Phosphatase 102 Total Protein 7.8 Albumin 2.7 Lipase 1139 Human Chorionic Gonadotropin, LESS THAN 1 Quant Urine Color YELLOW Urine Turbidity CLEAR Urine pH 6.0 Urine Specific [place] 1.016 Urine Protein 30 Urine Glucose (UA) NEG Urine Ketones NEG Urine Occult Blood NEG Urine Nitrite NEG Urine Bilirubin NEG Urine Urobilinogen LESS THAN 2.0 Urine Leukocyte Esterase NEG Urine RBC LESS THAN 1 Urine WBC 2 Urine Squamous Epithelial 1 Cells Microscopic Urinalysis Comment CULT NOT INDICATED Blood Type O POSITIVE Date/Time Procedure Status Source Growth 08/27/16 19:20 Aerobic Blood Culture Received Blood Peripheral Pending 08/27/16 19:20 Anaerobic Blood Culture Received Blood Peripheral Pending Result Diagram: 08/27/16191908/27/161919 Assessment and Plan Assessment and Plan Community-acquired pneumonia - Bilateral infiltrates on a CT - Broad-spectrum antibiotic - Low up cultures - ID consult Lymphoma??? - Multiple enlarged lymph nodes on CT - Severe anemia - Leukopenia - Consult hematology Anemia - Due to above - Transfuse PRBCs - Further per investment broker HIV-AIDS - Resume HAART meds - ID consult DVT GI prophylaxis - Subcutaneous heparin/Pepcid Critical Care: The total critical care time was 35 minutes. Time to perform other separately billable procedures was not included in the critical care time. Solo Connelly MD Aug 27, 2016 21:18
[2016-08-27 21:55] VITALS: BP 110/69; PULSE 113; RESP 24; TEMP 99.4; O2SAT 94
[2016-08-27] MEDS: FAMOTIDINE 20 MG/2 ML VIAL IV PUSH SCH (21:56)
[2016-08-27] MEDS: methylPREDNISolone SOD SUCC 40 MG/1 ML VIAL IV SCH (21:56)
[2016-08-27] MEDS: HEPARIN SODIUM - SQ 10,000 UNITS/ML VIAL SQ SCH (21:57)
[2016-08-27 22:55] VITALS: BP 119/72; PULSE 107; RESP 26; TEMP 99.3; O2SAT 96
[2016-08-27] MEDS: RESP: ALBUTEROL 2.5 MG/IPRATROPIUM 0.5 MG NEB (SCH) INH (23:27)
[2016-08-27 23:28] VITALS: O2SAT 95
[2016-08-28] VITALS (13 sets, daily range): BP systolic 99–131; BP diastolic 61–83; PULSE 80–107; RESP 19–27; TEMP 97.1–100.6; O2SAT 90–99
[2016-08-28] MEDS: SODIUM CHLOR 0.9% 1000 ML INJ 1,000 ML IV SCH ×2 (00:12→08:55)
[2016-08-28] MEDS: SODIUM CHLORIDE 0.9% FLUSH 10 ML FLUSH SCH ×3 (00:13→20:14)
[2016-08-28 01:53] LABS: CREATINE KINASE 70 U/L (26-192)
[2016-08-28] MEDS: CHLORHEXIDINE GLUCONATE 2 % 1 PACK (2 CLOTHS) TOP SCH (03:16)
[2016-08-28] MEDS: CEFEPIME INJ 2,000 MG in SODIUM CHLORIDE 0.9% INJ 100 ML IV SCH ×2 (03:16→15:25)
[2016-08-28] MEDS: RESP: ALBUTEROL 2.5 MG/IPRATROPIUM 0.5 MG NEB (SCH) INH ×5 (04:17→22:09)
[2016-08-28 04:27] LABS: AUTOMATED NEUTROPHIL # 0.9 TH/MM3 (1.8-7.7); BASOPHIL % 0.3 % (0.0-2.0); EOSINOPHIL % 0.2 % (0.0-4.0); LYMPH % 23.3 % (9.0-44.0); LYMPHOCYTE # 0.3 TH/MM3 (1.0-4.8); MEAN CELL VOLUME 84.5 FL (80.0-100.0); MEAN CORPUSCULAR HEMOGLOBIN 29.9 PG (27.0-34.0); MEAN CORPUSCULAR HGB CONC 35.4 % (32.0-36.0); NEUT % 63.2 % (16.0-70.0); PLATELET COUNT 123 TH/MM3 (150-450); RED BLOOD COUNT 1.75 MIL/MM3 (4.00-5.30); RED CELL DISTRIBUTION WIDTH 15.9 % (11.6-17.2); WHITE BLOOD COUNT 1.5 TH/MM3 (4.0-11.0)
[2016-08-28 04:28] LABS: HEMO FLAGS AUTO DIFF
[2016-08-28 04:30] LABS: HEMATOCRIT 14.8 % (35.0-46.0)
[2016-08-28 04:56] LABS: ALKALINE PHOSPHATASE 98 U/L (45-117); ALT (GPT) 24 U/L (10-53); ANION GAP 12 MEQ/L (5-15); AST (GOT) 18 U/L (15-37); BICARBONATE 18.5 MEQ/L (21.0-32.0); BLOOD UREA NITROGEN 11 MG/DL (7-18); CHLORIDE 105 MEQ/L (98-107); GLOMERULAR FILTRATION RATE 68 ML/MIN (>89); MAGNESIUM 1.8 MG/DL (1.5-2.5); POTASSIUM 3.6 MEQ/L (3.5-5.1); SODIUM (NA) 135 MEQ/L (136-145); TOTAL BILIRUBIN ADULT 0.4 MG/DL (0.2-1.0)
[2016-08-28 06:00] LABS: BANDS 42 % (0-6); METAMYELOCYTES 1 % (0-1); NEUTROPHIL # MANUAL DIFF 0.9 TH/MM3 (1.8-7.7); POLYS (SEG NEUTROPHILS) 16 % (16-70); SCAN/DIFF FINAL DIFF MANUAL; WBC DIFF SAMPLE 100
[2016-08-28 06:01] LABS: PLATELET ESTIMATE SMEAR LOW (NORMAL); PLATELET MORPHOLOGY NORMAL (NORMAL)
--- NOTE | 2016-08-28 08:04 | HHI.CCPN ---
Subjective Remarks/Hospital Course Hospital Course: 46-year-old female with history of HIV/AIDS on HARRT, unknown last CD4 count, unknown last viral load, sent in by her infectious disease physician Dr. Dangelo for abnormal labs and abnormal CT abdomen pelvis. She was admitted to the hospital in June and was discharged in July after having been diagnosed with mastoiditis. For the last couple of weeks she has been having increasing weakness, shortness of breath, and a cough. No hemoptysis. No abdominal pain. She had an outpatient CAT scan of the abdomen and pelvis at the [facility] imaging facility that shows bilateral lower lobe pulmonary consolidations as well as abnormal lymph nodes in her abdomen. Subjective: 08/28: doing well this morning. receiving her 4th unit of prbc on my exam. states she feels slightly better. on room air. still fatigued. Objective Vital Signs Date Time Temp Pulse Resp B/P Pulse Ox O2 Delivery O2 Flow Rate FiO2 08/28/16 06:00 90 08/28/16 05:15 98.8 23 100/65 93 08/27/16 23:28 21 08/27/16 22:55 Nasal Cannula 4 Intake and Output 08/27/16 08/27/16 08/28/16 08:00 16:00 00:00 Intake Total 3100 ml Balance 3100 ml Result Diagram: 08/28/16 0405 08/28/16 0405 Other Results Laboratory Tests Test 08/27/16 21:14 Blood Gas Puncture Site LT RADIAL Blood Gas Patient Temperature 98.6 Blood Gas HCO3 17 mmol/L (22-26) Blood Gas Base Excess -6.3 mmol/L (-2-2) Blood Gas Oxygen Saturation 94 % (90-100) Arterial Blood pH 7.48 (7.380-7.420) Arterial Blood Partial 23 mmHg (38-42) Pressure CO2 Arterial Blood Partial 77 mmHG Pressure O2 (61-120) Arterial Blood Oxygen Content 7.8 Vol % (12.0-20.0) Arterial Blood 1.1 % (0-4) Carboxyhemoglobin Arterial Blood Methemoglobin 0.5 % (0-2) Blood Gas Hemoglobin 5.8 G/DL (12.0-16.0) Oxygen Delivery Device NASAL CANNULA Blood Gas Liter Flow 4 L/M Objective Remarks GENERAL: thin, pale, middle-aged woman, lying in bed. SKIN: Warm and dry and pale. HEAD: Normocephalic. EYES: No scleral icterus. No injection or drainage. NECK: trachea midline. No JVD CARDIOVASCULAR: normal rate, regular rhythm. no appreciable murmurs. RESPIRATORY: Breath sounds equal bilaterally. No accessory muscle use. GASTROINTESTINAL: Abdomen soft, non-tender, nondistended. MUSCULOSKELETAL: No cyanosis, or edema. . EXTREMITIES: No clubbing cyanosis or edema A/P Assessment and Plan Assessment: 46yF with HIV/AIDS with worsening shortness of breath, cough, fatigue. We are following up CD4 count. Added Bactrim for empiric PCP coverage given high concern over possible low CD4 count and unknown HAART compliance. could d/c Bactrim if CD4 is not low. f/u cultures. Appreciate ID assistance. Clinically, I do not think she needs an ICU bed now that she is more stable. Community-acquired pneumonia - Bilateral infiltrates on a CT - Broad-spectrum antibiotics - f/u cultures. add sputum bacterial/fungal/AFB cultures. Send TB quantiferon. - added Bactrim empirically until CD4 count comes back. - ID consult Lymphoma??? - Multiple enlarged lymph nodes on CT - Severe anemia - Leukopenia - f/u hematology consult Anemia - Due to above - Transfuse PRBCs - f/u post-transfusion cbc HIV-AIDS - Resume HAART meds if appropriate by ID - ID consult DVT GI prophylaxis - Subcutaneous heparin/Pepcid dispo: transfer to floor with hospitalist following. Boo Maza MD Aug 28, 2016 08:04
[2016-08-28] MEDS: SULFAMETHOXAZOLE-TRIMETHOPRIM DS 800-160 MG TAB PO SCH ×3 (08:54→23:46)
[2016-08-28] MEDS: HEPARIN SODIUM - SQ 10,000 UNITS/ML VIAL SQ SCH ×2 (08:55→20:14)
[2016-08-28] MEDS: methylPREDNISolone SOD SUCC 40 MG/1 ML VIAL IV SCH ×2 (08:55→20:14)
[2016-08-28] MEDS: DOCUSATE SODIUM 100 MG CAP PO SCH ×2 (08:55→20:14)
[2016-08-28] MEDS: FAMOTIDINE 20 MG/2 ML VIAL IV PUSH SCH ×2 (08:55→20:14)
--- NOTE | 2016-08-28 10:44 | EKG ---
Date Performed: 08/27/2016 Time Performed: 19:15:26 PTAGE: 46 years EKG: SINUS TACHYCARDIA WITH SHORT MS INTERVAL MINIMAL ST DEPRESSION Compared to previous tracing , the MS interval appears to be short. ABNORMAL RHYTHM ECG PREVIOUS TRACING : 07/11/2016 18.23 DOCTOR: Tosha Barrera Interpretating Date/Time 08/28/2016 10:37:12
[2016-08-28] MEDS: VANCOMYCIN 1,000 MG/NS 250 ML IV SCH ×4 (12:12→23:47)
[2016-08-28] MEDS: BENZONATATE 100 MG CAP PO PRN ×2 (13:58→22:21)
[2016-08-28] MEDS ORDERED: VANCOMYCIN 1,000 MG/NS 250 ML IV SCH ×2 (14:00)
[2016-08-28 16:01] LABS: REVIEW FLAG FINAL
[2016-08-28 16:03] LABS: HEMATOCRIT 20.7 % (35.0-46.0)
--- NOTE | 2016-08-28 19:08 | MB ---
cc: TIANA MCNAMARA MD DATE OF CONSULTATION 08/28/[address] Connelly REASON FOR CONSULTATION Hematology consulted to render an opinion guarding patient with pancytopenia. HISTORY OF PRESENT ILLNESS The patient is a 46-year-old female with history of HIV/AIDS sent ti the hospital by Dr. Dangelo because of severe anemia. She was diagnosed with HIV in 2004. She was just admitted the hospital in June with pancytopenia and fever. At that time, she was given Neupogen and her neutropenia resolved. During the hospital stay, she was also found to have mastoiditis and was treated with antibiotic. During her last hospital stay, she stated that she was compliant with her antiretroviral therapy. However, her CD-4 count was only 65. We do not have her recent viral load. When she was discharged from the hospital, she was supposed to be on antiretroviral therapy but she stated she ran out of medicine at least two weeks ago. She saw Dr. Dangelo and was sent for a CT scan which showed nonspecific abdominal adenopathy. She was found to have severe anemia and was sent to the hospital. She stated that she has a low grade fever and she has chills. She also has sweats and fatigue. She has increased nonproductive cough. She has increased shortness of breath and dizziness. She still have decreased hearing on the left side. She denies any headache. Denies any neck stiffness. Denies any abdominal pain. She has occasional nausea and loose stool, denies any dysuria or hematuria. PAST MEDICAL HISTORY 1. HIV/AIDS 2. Anxiety, depression. 3. Recent mastoiditis with left-sided hearing loss. PAST SURGICAL HISTORY 1. Hernia repair 2. section 3. Tooth extraction. FAMILY HISTORY Noncontributory. SOCIAL HISTORY Smoked two pack a day for about 33 years. She quit recently. She was drinking 6-7 beers a day. ALLERGIES PENICILLIN MEDICATIONS Current, 1. Azithromycin. 2. Vancomycin. 3. Bactrim 4. Cefepime. 5. DuoNebs. 6. Colace. 7. Heparin 8. Solu-Medrol. REVIEW OF SYSTEMS CONSTITUTIONAL: As above. EYES: Denies any blurry vision, double vision. ENT: Has left sided hearing loss. CARDIOVASCULAR: Chest pain, palpitation RESPIRATORY: Shortness of breath, dyspnea on exertion. Has nonproductive cough. GI: Has occasional nausea and loose stool, denies abdominal pain. : Denies dysuria, hematuria. MUSCULOSKELETAL: Negative. HEMATOLOGY: As above. ENDOCRINE: Negative. DERMATOLOGY: Negative. PSYCHIATRIC: Anxiety. NEUROLOGIC: Negative. PHYSICAL EXAMINATION VITAL SIGNS: Temperature 99, blood pressure was 106/61, O2 saturation 97% room air, T-max 100.6. GENERAL: She is alert and oriented x3 in no acute distress. HEENT: Atraumatic, normocephalic. Pupils equal, round and reactive to light. Extraocular muscles intact. No scleral icterus. Oropharynx no lesions. NECK: No thyromegaly. No palpable mass. LYMPHATICS: No palpable cervical, clavicular, axillary or inguinal lymph nodes, CARDIOVASCULAR: Regular S1-S2 no murmur. LUNGS: Clear to auscultation anteriorly. ABDOMEN: Soft, nontender. I could not palpate liver, spleen. EXTREMITIES: No cyanosis, clubbing, edema, no calf tenderness. BACK: No paravertebral tenderness. SKIN: No rash or petechiae. NEUROLOGIC: Exam nonfocal. LABORATORY DATA Laboratory data reviewed ASSESSMENT 1. Pancytopenia which I think is due to underlying HIV/AIDS. I do not think she is compliant with taking her antiretroviral therapy. She presented with neutropenic fever in June. She was given Neupogen and her neutropenia resolved. During the hospital stay, she was also found to have mastoiditis and treated with antibiotic. She stated she has not been taking her antiretroviral therapy for several weeks. She has now presented with severe anemia. She also has leukopenia and thrombocytopenia. Her last CMV screen was negative. She did have hepatosplenomegaly likely due to her HIV and AIDS. Her recent CT scan showed nonspecific adenopathy which is likely due to HIV, but we cannot rule out lymphoproliferative disorder. She will need a bone marrow biopsy for further evaluation. She is currently receiving a transfusion. Will give her Neupogen after the bone marrow biopsy. 2. Nonspecific adenopathy. Her CT showed nonspecific para-aortic and mesenteric adenopathy. She also has hepatosplenomegaly. This could all be due to underlying HIV/AIDS but cannot rule out lymphoproliferative disorder at this time. We will get a bone marrow for further evaluation as above. 3. HIV/AIDS. Recent CD-4 count was 65. She is being evaluated by Infectious Disease. 4. Recent mastoiditis with left-sided hearing loss. 5. Anxiety, depression. RECOMMENDATIONS 1. I have reviewed her CT report. 2. Agree with transfusion. 3. She will need a bone marrow biopsy. 4. Will start her on Neupogen after the bone marrow biopsy. Thank you, Dr. Connelly, for asking us see this patient. MD VIVIENNE Dumont/ /5:37 PM /6:41 PM ISAC
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
[2016-08-28] MEDS: AZITHROMYCIN INJ 500 MG in SODIUM CHLOR 0.9% 250 ML INJ 250 ML IV SCH (20:13)
[2016-08-29] VITALS (13 sets, daily range): BP systolic 106–145; BP diastolic 54–85; PULSE 60–103; RESP 14–20; TEMP 96.2–97.9; O2SAT 94–98
[2016-08-29 00:28] LABS: REVIEW FLAG FINAL
[2016-08-29 00:30] LABS: HEMATOCRIT 20.1 % (35.0-46.0)
[2016-08-29] MEDS: RESP: ALBUTEROL 2.5 MG/IPRATROPIUM 0.5 MG NEB (SCH) INH ×3 (00:33→08:05)
[2016-08-29] MEDS ORDERED: ACETAMINOPHEN 325 MG TAB PO PRN (01:00)
[2016-08-29] MEDS ORDERED: SODIUM CHLOR 0.9% 250 ML INJ 250 ML IV ONE (01:00)
[2016-08-29] MEDS ORDERED: diphenhydrAMINE HCL 25 MG CAP PO PRN (01:00)
[2016-08-29] MEDS: CHLORHEXIDINE GLUCONATE 2 % 1 PACK (2 CLOTHS) TOP SCH (04:00)
[2016-08-29] MEDS: CEFEPIME INJ 2,000 MG in SODIUM CHLORIDE 0.9% INJ 100 ML IV SCH ×2 (04:42→15:00)
[2016-08-29] MEDS: BENZONATATE 100 MG CAP PO PRN ×2 (06:13→13:48)
[2016-08-29] MEDS: SULFAMETHOXAZOLE-TRIMETHOPRIM DS 800-160 MG TAB PO SCH ×3 (08:56→23:36)
[2016-08-29] MEDS: methylPREDNISolone SOD SUCC 40 MG/1 ML VIAL IV SCH ×2 (08:56→20:52)
[2016-08-29] MEDS: DOCUSATE SODIUM 100 MG CAP PO SCH ×2 (08:57→20:52)
[2016-08-29] MEDS: HEPARIN SODIUM - SQ 10,000 UNITS/ML VIAL SQ SCH ×2 (08:58→09:00)
[2016-08-29] MEDS: SODIUM CHLORIDE 0.9% FLUSH 10 ML FLUSH SCH ×2 (08:58→20:52)
[2016-08-29] MEDS: [UNRECOGNIZED DRUG - OTHER] PO SCH (09:10)
[2016-08-29] MEDS: FAMOTIDINE 20 MG/2 ML VIAL IV PUSH SCH ×2 (09:41→20:52)
[2016-08-29] MEDS ORDERED: FLUCONAZOLE 200 MG TAB PO SCH (11:00)
[2016-08-29] MEDS ORDERED: valACYclovir HCL 500 MG TAB PO SCH (11:00)
[2016-08-29] MEDS ORDERED: DOLUTEGRAVIR SODIUM 50 MG TAB PO SCH (11:00)
--- NOTE | 2016-08-29 11:22 | PD.ONC.PN ---
Subjective Subjective Remarks Afebrile overnight. Patient tells me she is tired today but otherwise is without complaint. discussed bone marrow biopsy, patient states she is agreeable to have that done but wants to have anesthesia beforehand. Objective Data Date Time Temp Pulse Resp B/P Pulse Ox O2 Delivery O2 Flow Rate FiO2 08/29/16 08:00 96.7 96 14 106/56 95 08/29/16 04:40 96.2 80 17 114/59 97 08/29/16 04:30 96.2 80 17 114/59 97 08/29/16 02:25 97.5 103 17 123/63 97 08/29/16 02:10 97.3 98 17 119/72 98 08/29/16 00:33 96 Nasal Cannula 08/29/16 00:08 96.8 90 18 119/63 95 08/28/16 20:15 97.1 80 21 131/83 98 08/28/16 16:00 98.2 86 21 109/68 99 08/28/16 12:00 98.0 97 21 102/68 92 08/29/16 08/29/16 08/29/16 07:00 15:00 23:00 Intake Total 1260 ml Balance 1260 ml Result Diagram: 08/28/16 9731 08/28/16 0405 Laboratory Results Laboratory Tests Test 08/28/16 08/28/16 15:40 23:51 Hemoglobin 7.2 GM/DL 7.0 GM/DL Hematocrit 20.7 % 20.1 % Culture Results Microbiology Date/Time Procedure Status Source Growth 08/27/16 19:10 Aerobic Blood Culture - Preliminary Resulted Blood Peripheral NO GROWTH IN 2 DAYS 08/27/16 19:10 Anaerobic Blood Culture - Preliminary Resulted Blood Peripheral NO GROWTH IN 2 DAYS 08/27/16 19:20 Aerobic Blood Culture - Preliminary Resulted Blood Peripheral NO GROWTH IN 2 DAYS 08/27/16 19:20 Anaerobic Blood Culture - Preliminary Resulted Blood Peripheral NO GROWTH IN 2 DAYS 08/28/16 08:52 Gram Stain - Final Resulted Sputum Expectorated Sputum 08/28/16 08:52 Sputum Culture - Preliminary Resulted Sputum Expectorated Sputum HEAVY GROWTH NORMAL RESPIRATORY MIC... 08/28/16 08:52 Acid Fast Stain - Final Resulted Sputum Expectorated Sputum NO ACID FAST BACILLI SEEN 08/28/16 08:52 Mycobacterial Culture Resulted Sputum Expectorated Sputum Pending 08/28/16 08:52 Fungal Smear - Final Resulted Sputum Expectorated Sputum NO FUNGAL ELEMENTS SEEN. 08/28/16 08:52 Fungal Culture Resulted Sputum Expectorated Sputum Pending Administered Medications Medications (Trade) Dose Ordered Sig/Carolyn Route PRN Reason Start Time Stop Time Status Last Admin Dose Admin Sodium Chloride (NS Flush) 2 ml BID .XX 08/27/16 21:00 08/29/16 08:58 Famotidine (Pepcid Inj) 20 mg Q12HR IV PUSH 08/27/16 21:00 08/29/16 09:41 Docusate Sodium (Colace) 100 mg BID PO 08/27/16 21:00 08/29/16 08:57 Heparin Sodium (Porcine) (Heparin Inj) 5,000 units Q12H SQ 08/27/16 21:00 08/28/16 20:14 Miscellaneous Information 1 [id number] XX 08/27/16 20:45 08/27/16 20:45 Chlorhexidine Gluconate 3 pack 3 pack Taper DAILY@04 TOP 08/28/16 04:00 08/24/17 03:59 08/28/16 03:16 Azithromycin/ Sodium Chloride (Zithromax Inj/ NS 250 ml Inj) 250 ml @ 250 mls/hr Q24H IV 08/28/16 20:00 08/28/16 20:13 Methylprednisolone Sodium Succinate 40 mg 40 mg Q12H IV 08/27/16 21:00 08/29/16 08:56 Cefepime HCl/ Sodium Chloride (Maxipime Inj/NS Inj) 100 ml @ 200 mls/hr Q12H IV 08/28/16 03:00 08/29/16 04:42 Trimethoprim/ Sulfamethoxazole 2 tab 2 tab Q8H PO 08/28/16 08:00 08/29/16 08:56 Vancomycin HCl/ Sodium Chloride (Vancomycin Inj/ NS 250 ml Inj) 250 ml @ 250 mls/hr Q12H IV 08/28/16 12:00 08/28/16 23:47 Benzonatate 100 mg 100 mg Q8H PRN PO COUGH 08/28/16 14:00 08/29/16 06:13 Sodium Chloride (NS 250 ml Inj) 250 ml @ 15 mls/hr ONCE ONCE IV 08/29/16 01:00 08/29/16 17:39 08/29/16 01:21 Objective Remarks GENERAL: Middle aged female, lying in bed resting. SKIN: Warm and dry. HEAD: Normocephalic. EYES: No injection or drainage. NECK: Supple, trachea midline. CARDIOVASCULAR: Regular rate and rhythm RESPIRATORY: Breath sounds equal bilaterally. No accessory muscle use. GASTROINTESTINAL: Abdomen soft, non-tender, nondistended. EXTREMITIES: No cyanosis NEUROLOGICAL: awake and alert, normal speech Assessment/Plan Problem List: (1) Pancytopenia Status: Acute Plan: --likely d/t underlying HIV/AIDS --unlikely to be compliant with HAART therapy --last CMV screen was negative. +hepatosplenomegaly likely due to her HIV and AIDS. --recent CT scan showed nonspecific adenopathy which is likely due to HIV, but we cannot rule out lymphoproliferative disorder. She will need a bone marrow biopsy for further evaluation. --will start Neupogen after the bone marrow biopsy Assessment 46y/o female with pancytopenia HIV/AIDS Anxiety, depression. Recent mastoiditis with left-sided hearing loss. Plan 1. consult IR for bone marrow biopsy 2. monitor CBC 3. will start Neupogen after bone marrow biopsy, likely tomorrow. Attending Statement The exam, history, and the medical decision-making described in the above note were completed with the assistance of the mid-level provider. I reviewed and agree with the findings presented. I attest that I had a [id number] encounter with the patient on the same day, and personally performed and documented my assessment and findings in the medical record. Feeling slightly better. Hgb trended up with transfusion. Discussed the need for bone marrow biopsy and she agreed to proceed. Consult radiology for the bone marrow biopsy. Will start neupogen after the bone marrow biopsy. Monitor CBC. Yolanda Bustamante Aug 29, 2016 11:22 Leonidas Ogden MD Aug 29, 2016 16:00
[2016-08-29] MEDS: VANCOMYCIN 1,000 MG/NS 250 ML IV SCH ×4 (12:00→23:36)
--- NOTE | 2016-08-29 14:06 | HHI.PR ---
Subjective Remarks Patient states that she is tired. She did not sleep very well last night. Denies any chest pain, shortness of breath, nausea or vomiting. She will be going for bone marrow biopsy later today per RN. Objective Vitals Vital Signs Date Time Temp Pulse Resp B/P Pulse Ox O2 Delivery O2 Flow Rate FiO2 08/29/16 12:00 96.5 91 20 108/54 96 08/29/16 08:00 96.7 96 14 106/56 95 08/29/16 04:40 96.2 80 17 114/59 97 08/29/16 04:30 96.2 80 17 114/59 97 08/29/16 02:25 97.5 103 17 123/63 97 08/29/16 02:10 97.3 98 17 119/72 98 08/29/16 00:33 96 Nasal Cannula 08/29/16 00:08 96.8 90 18 119/63 95 08/28/16 20:15 97.1 80 21 131/83 98 08/28/16 16:00 98.2 86 21 109/68 99 I/O 08/28/16 08/28/16 08/28/16 08/29/16 08/29/16 08/29/16 07:00 15:00 23:00 07:00 15:00 23:00 Intake Total 3850 ml 1700 ml 360 ml 1260 ml Balance 3850 ml 1700 ml 360 ml 1260 ml Intake Oral 150 ml 600 ml 360 ml 360 ml IV Total 2950 ml 500 ml 600 ml Packed Cells 750 ml 600 ml 300 ml # Voids 3 4 1 3 Result Diagram: 08/28/16 2351 08/28/16 0405 Imaging Last Impressions Chest X-Ray 08/27/16 0000 Signed Impressions: Service Date/Time: Saturday, August 27, 2016 18:59 - CONCLUSION: No acute cardiopulmonary disease. Nadia Chu MD Objective Remarks GENERAL: Well-nourished, well-developed pale patient. CARDIOVASCULAR: Regular rate and rhythm without murmurs RESPIRATORY: Breath sounds equal bilaterally. No accessory muscle use. GASTROINTESTINAL: Abdomen soft, non-tender, nondistended. MUSCULOSKELETAL: No cyanosis, or edema. EXTREMITIES: No clubbing cyanosis or edema A/P Assessment and Plan Assessment: 46yF with HIV/AIDS with worsening shortness of breath, cough, fatigue. We are following up CD4 count. on Bactrim for empiric PCP coverage given high concern over possible low CD4 count and unknown HAART compliance. could d/c Bactrim if CD4 is not low. f/u cultures. Appreciate ID assistance. Clinically, I do not think she needs an ICU bed now that she is more stable. Community-acquired pneumonia - Bilateral infiltrates on a CT. on cefepime, vanco, bactrim and azithro - cultures neg to date. sputum bacterial/fungal/AFB cultures, no acid fast or fungal seen on gram stain/smear . TB quantiferon. - ID following Lymphoma???/severe anemia/leukopenia - Multiple enlarged lymph nodes on CT. Pt scheduled for BM bx. Hematology following. start neupogen post bone marrow biopsy Anemia - Due to above - s/p 3 units of PRBCs - f/u post-transfusion cbc HIV-AIDS - on HAART meds DVT/GI prophylaxis - SCD/LASHELL/Pepcid. d/c heparin Discharge Planning d/c pending further work-up and clinical improvement Radha Rodríguez MD Aug 29, 2016 14:06 Radha Rodríguez MD Aug 29, 2016 14:06
[2016-08-29] MEDS ORDERED: LIDOCAINE 1%/EPINEPHrine 1:100,000 SOLN 20 ML VIAL ONE (14:22)
[2016-08-29] MEDS ORDERED: fentaNYL CITRATE 250 MCG/5 ML AMP ONE (14:42)
[2016-08-29] MEDS ORDERED: MIDAZOLAM HCL 5 MG/5 ML VIAL ONE (14:42)
--- NOTE | 2016-08-29 16:03 | RADRPT ---
EXAM DATE/TIME: 08/29/2016 15:18 [facility] COMPARISON: No previous studies available for comparison. INDICATIONS : Pancytopenia SEDATION TIME: 30 minutes BIOPSY SITE: Right Ilium MEDICATION(S): 1.) 3 mg midazolam (Versed) IV 2.) 150 mcg fentanyl (Sublimaze) IV DEVICE(S): 1.) 11 gauge On-Control needle MEDICAL HISTORY : HIV. SURGICAL HISTORY : section. Umbilical hernia repair. ENCOUNTER: Initial ACUITY: 1 day PAIN SCORE: 0/10 LOCATION: Bone marrow A total of one core specimen(s) were obtained and sent to the laboratory for pathologic evaluation. PROCEDURE: 1. CT guided bone marrowRight biopsy. 2. Conscious sedation with continuous EKG and oximetry monitoring. Prior to the procedure informed consent was obtained. Any appropriate prior imaging studies were rev iewed. Using automated exposure control and adjustment of the mA and/or kV according to patient size , radiation dose was kept as low as reasonably achievable to obtain optimal diagnostic quality images . The site was prepped in a sterile fashion. Full sterile technique was used, including cap, mask, valentin rile gloves and gown and a large sterile sheet. Hand hygiene and 2% chlorhexidine and/or betadine/al cohol prep was utilized per protocol for cutaneous antisepsis. The skin and subcutaneous tissues wer e infiltrated with local anesthetic solution. With CT guidance the previously identified target was localized. Biopsy was performed using the presc ribed needle as above. Following biopsy marrow aspiration was performed with repeat puncture. Adequa te hemostasis was obtained with compression at the puncture site. Follow-up CT scan reveals no hemorrhage. Conscious sedation was performed with the prescribed dosages and duration as above in the presence of an independent trained radiology nurse to assist in the monitoring of the patient. EKG and oximetry remained stable throughout the procedure. The patient tolerated the procedure well and there were no complications. The patient was sent to Radiology Outpatient Unit in stable condition. CONCLUSION: 1. Uncomplicated CT guided bone marrow aspirate. 2. Uncomplicated CT guided bone marrow biopsy. Jonnathan Solano MD FACR on August 29, 2016 at 16:00 Board Certified Radiologist. This report was verified electronically.
[2016-08-29 16:39] LABS: BONE MARROW PROCESSING COMPLETE; IRON STAIN DONE; JENNER GIEMSA STAIN DONE
[2016-08-29] MEDS: BENZOCAINE 6 MG/MENTHOL 10 MG LOZENGE BUCCAL PRN ×2 (18:19→23:49)
[2016-08-29] MEDS: AZITHROMYCIN INJ 500 MG in SODIUM CHLOR 0.9% 250 ML INJ 250 ML IV SCH (20:52)
[2016-08-29] MEDS: ACETAMINOPHEN 325 MG TAB PO PRN (21:59)
[2016-08-29] MEDS ORDERED: diphenhydrAMINE HCL 50 MG CAP PO ONE (22:00)
[2016-08-30 00:01] VITALS: BP 122/78; PULSE 74; RESP 18; TEMP 97.8; O2SAT 96
[2016-08-30] MEDS: CEFEPIME INJ 2,000 MG in SODIUM CHLORIDE 0.9% INJ 100 ML IV SCH ×2 (02:23→17:01)
[2016-08-30] MEDS: CHLORHEXIDINE GLUCONATE 2 % 1 PACK (2 CLOTHS) TOP SCH (03:35)
[2016-08-30 03:51] LABS: CD4/CD8 RATIO 0.6 (0.86-5.00)
[2016-08-30 05:05] LABS: AUTOMATED NEUTROPHIL # 2.2 TH/MM3 (1.8-7.7); BASOPHIL % 0.2 % (0.0-2.0); EOSINOPHIL % 0.1 % (0.0-4.0); HEMATOCRIT 24.4 % (35.0-46.0); LYMPH % 20.1 % (9.0-44.0); LYMPHOCYTE # 0.6 TH/MM3 (1.0-4.8); MEAN CELL VOLUME 85.1 FL (80.0-100.0); MEAN CORPUSCULAR HEMOGLOBIN 29.1 PG (27.0-34.0); MEAN CORPUSCULAR HGB CONC 34.2 % (32.0-36.0); MONO % 9.3 % (0.0-8.0); NEUT % 70.3 % (16.0-70.0); PLATELET COUNT 96 TH/MM3 (150-450); RED BLOOD COUNT 2.87 MIL/MM3 (4.00-5.30); RED CELL DISTRIBUTION WIDTH 16.1 % (11.6-17.2); WHITE BLOOD COUNT 3.2 TH/MM3 (4.0-11.0)
[2016-08-30 05:11] LABS: HEMO FLAGS AUTO DIFF
[2016-08-30 06:18] LABS: BANDS 26 % (0-6); METAMYELOCYTES 2 % (0-1); NEUTROPHIL # MANUAL DIFF 2.4 TH/MM3 (1.8-7.7); POLYS (SEG NEUTROPHILS) 46 % (16-70); SCAN/DIFF FINAL DIFF MANUAL; WBC DIFF SAMPLE 100
[2016-08-30 06:19] LABS: PLATELET ESTIMATE SMEAR LOW (NORMAL); PLATELET MORPHOLOGY NORMAL (NORMAL)
[2016-08-30 08:00] VITALS: BP 112/65; PULSE 72; RESP 17; TEMP 97.5; O2SAT 96
[2016-08-30] MEDS: SULFAMETHOXAZOLE-TRIMETHOPRIM DS 800-160 MG TAB PO SCH ×3 (09:53→23:15)
[2016-08-30] MEDS: methylPREDNISolone SOD SUCC 40 MG/1 ML VIAL IV SCH ×2 (09:55→19:51)
[2016-08-30] MEDS: SODIUM CHLORIDE 0.9% FLUSH 10 ML FLUSH SCH ×2 (09:55→19:52)
[2016-08-30] MEDS: FAMOTIDINE 20 MG/2 ML VIAL IV PUSH SCH ×2 (09:55→19:51)
[2016-08-30] MEDS: DOCUSATE SODIUM 100 MG CAP PO SCH ×2 (10:00→19:57)
[2016-08-30] MEDS: [UNRECOGNIZED DRUG - OTHER] PO SCH (11:09)
[2016-08-30] MEDS: VANCOMYCIN 1,000 MG/NS 250 ML IV SCH ×2 (11:18)
--- NOTE | 2016-08-30 11:34 | PD.ONC.PN ---
Subjective Subjective Remarks Afebrile overnight. Patient has cough this morning. She denies chest pain or shortness of breath. No bleeding. Objective Data Date Time Temp Pulse Resp B/P Pulse Ox O2 Delivery O2 Flow Rate FiO2 08/30/16 08:00 97.5 72 17 112/65 96 08/30/16 00:01 97.8 74 18 122/78 96 08/29/16 20:00 96.3 60 18 145/63 98 08/29/16 17:43 96.2 78 15 123/85 96 08/29/16 16:45 80 18 116/81 94 08/29/16 16:15 86 20 114/62 94 08/29/16 16:00 97.9 98 20 124/79 94 08/29/16 12:00 96.5 91 20 108/54 96 08/30/16 08/30/16 08/30/16 07:00 15:00 23:00 Intake Total 1345 ml Balance 1345 ml Result Diagram: 08/30/16 0334 08/30/16 0334 Laboratory Results Laboratory Tests Test 08/30/16 03:34 White Blood Count 3.2 TH/MM3 Red Blood Count 2.87 MIL/MM3 Hemoglobin 8.3 GM/DL Hematocrit 24.4 % Mean Corpuscular Volume 85.1 FL Mean Corpuscular Hemoglobin 29.1 PG Mean Corpuscular Hemoglobin 34.2 % Concent Red Cell Distribution Width 16.1 % Platelet Count 96 TH/MM3 Mean Platelet Volume 8.8 FL Neutrophils (%) (Auto) 70.3 % Lymphocytes (%) (Auto) 20.1 % Monocytes (%) (Auto) 9.3 % Eosinophils (%) (Auto) 0.1 % Basophils (%) (Auto) 0.2 % Neutrophils # (Auto) 2.2 TH/MM3 Lymphocytes # (Auto) 0.6 TH/MM3 Monocytes # (Auto) 0.3 TH/MM3 Eosinophils # (Auto) 0.0 TH/MM3 Basophils # (Auto) 0.0 TH/MM3 CBC Comment AUTO DIFF Differential Total Cells 100 Counted Neutrophils % (Manual) 46 % Band Neutrophils % 26 % Lymphocytes % 16 % Monocytes % 10 % Neutrophils # (Manual) 2.4 TH/MM3 Metamyelocytes 2 % Differential Comment FINAL DIFF MANUAL Platelet Estimate LOW Platelet Morphology Comment NORMAL Creatinine 1.01 MG/DL Estimat Glomerular Filtration 60 ML/MIN Rate Culture Results Microbiology Date/Time Procedure Status Source Growth 08/27/16 19:10 Aerobic Blood Culture - Preliminary Resulted Blood Peripheral NO GROWTH IN 3 DAYS 08/27/16 19:10 Anaerobic Blood Culture - Preliminary Resulted Blood Peripheral NO GROWTH IN 3 DAYS 08/27/16 19:20 Aerobic Blood Culture - Preliminary Resulted Blood Peripheral NO GROWTH IN 3 DAYS 08/27/16 19:20 Anaerobic Blood Culture - Preliminary Resulted Blood Peripheral NO GROWTH IN 3 DAYS 08/28/16 08:52 Gram Stain - Final Complete Sputum Expectorated Sputum 08/28/16 08:52 Sputum Culture - Final Complete Sputum Expectorated Sputum HEAVY GROWTH NORMAL RESPIRATORY MIC 08/28/16 08:52 Acid Fast Stain - Final Resulted Sputum Expectorated Sputum NO ACID FAST BACILLI SEEN 08/28/16 08:52 Mycobacterial Culture Resulted Sputum Expectorated Sputum Pending 08/28/16 08:52 Fungal Smear - Final Resulted Sputum Expectorated Sputum NO FUNGAL ELEMENTS SEEN. 08/28/16 08:52 Fungal Culture Resulted Sputum Expectorated Sputum Pending 08/29/16 14:15 Legionella Antigen - Final Complete Urine Random Urine PRESUMPTIVE NEGATIVE FOR LEGIONELLA P... 08/29/16 14:15 Streptococcus pneumoniae Antigen (M - Final Complete Urine Random Urine PRESUMPTIVE NEGATIVE FOR STREPTOCOCCU... Administered Medications Medications (Trade) Dose Ordered Sig/Carolyn Route PRN Reason Start Time Stop Time Status Last Admin Dose Admin Sodium Chloride (NS Flush) 2 ml BID .XX 08/27/16 21:00 08/30/16 09:55 Acetaminophen (Tylenol) 650 mg Q6H PRN PO PAIN 1-10 AND/OR FEVER >101F 08/27/16 20:45 08/29/16 21:59 Famotidine (Pepcid Inj) 20 mg Q12HR IV PUSH 08/27/16 21:00 08/30/16 09:55 Docusate Sodium (Colace) 100 mg BID PO 08/27/16 21:00 08/30/16 10:00 Miscellaneous Information 1 Q361D XX 08/27/16 20:45 08/27/16 20:45 Chlorhexidine Gluconate 3 pack 3 pack Taper DAILY@04 TOP 08/28/16 04:00 08/24/17 03:59 08/28/16 03:16 Azithromycin/ Sodium Chloride (Zithromax Inj/ NS 250 ml Inj) 250 ml @ 250 mls/hr Q24H IV 08/28/16 20:00 08/29/16 20:52 Methylprednisolone Sodium Succinate 40 mg 40 mg Q12H IV 08/27/16 21:00 08/30/16 09:55 Cefepime HCl/ Sodium Chloride (Maxipime Inj/NS Inj) 100 ml @ 200 mls/hr Q12H IV 08/28/16 03:00 08/30/16 02:23 Miscellaneous Information SPECIFIC LAB TO BE DRAWN:VANCO TROUGH DATE TO BE DR... ONCE ONCE .XX 08/30/16 11:45 08/30/16 11:46 08/30/16 11:15 Trimethoprim/ Sulfamethoxazole 2 tab 2 tab Q8H PO 08/28/16 08:00 08/30/16 09:53 Vancomycin HCl/ Sodium Chloride (Vancomycin Inj/ NS 250 ml Inj) 250 ml @ 250 mls/hr Q12H IV 08/28/16 12:00 08/30/16 11:18 Benzonatate (Tessalon) 100 mg Q8H PRN PO COUGH 08/28/16 14:00 08/29/16 13:48 Benzocaine/Menthol (Chloraseptic Sheba) 1 lozenge UNSCH PRN BUCCAL THROAT PAIN 08/29/16 18:15 08/29/16 23:49 Objective Remarks GENERAL: Middle aged female, supine in bed in nad SKIN: Warm and dry. HEAD: Normocephalic. EYES: No injection or drainage. NECK: Supple, trachea midline. CARDIOVASCULAR: Regular rate and rhythm RESPIRATORY: Breath sounds equal bilaterally. No accessory muscle use. GASTROINTESTINAL: Abdomen soft, non-tender, nondistended. EXTREMITIES: No cyanosis NEUROLOGICAL: awake and alert, normal speech. moving all extremities. Assessment/Plan Problem List: (1) Pancytopenia Status: Acute Plan: --likely d/t underlying HIV/AIDS --unlikely to be compliant with HAART therapy --last CMV screen was negative. +hepatosplenomegaly likely due to her HIV and AIDS. --recent CT scan showed nonspecific adenopathy which is likely due to HIV, but we cannot rule out lymphoproliferative disorder. --s/p bone marrow biopsy, awaiting pathology Assessment 46y/o female with pancytopenia HIV/AIDS Anxiety, depression. Recent mastoiditis with left-sided hearing loss. Plan 1. monitor CBC 2. WBC recovered--no need for Neupogen 3. will await results of bone marrow biopsy Attending Statement The exam, history, and the medical decision-making described in the above note were completed with the assistance of the mid-level provider. I reviewed and agree with the findings presented. I attest that I had a [id number] encounter with the patient on the same day, and personally performed and documented my assessment and findings in the medical record. +SOB/fatigue. S/p bone marrow biopsy, path pending. WBC trended up likely due to effect of HAART and control of her infection. No need for neupogen today as her neutropenia has resolved. Continue to monitor CBC. Yolanda Bustamante Aug 30, 2016 11:34 Leonidas Ogden MD Aug 30, 2016 14:30
[2016-08-30] MEDS ORDERED: PHARMACY ORDERED LAB ONE (11:45)
[2016-08-30 12:00] VITALS: BP 115/67; PULSE 76; RESP 18; TEMP 98.8; O2SAT 97
[2016-08-30] MEDS: ACETAMINOPHEN 325 MG TAB PO PRN (14:14)
[2016-08-30 16:00] VITALS: BP 113/73; PULSE 73; RESP 17; TEMP 96.4; O2SAT 96
[2016-08-30 17:15] LABS: MITOGEN MINUS NIL RESULT 0.13 IU/mL (()); NIL RESULT 0.03 IU/mL (()); QUANTIFERON TB GOLD RESULT Indeterminate (Negative)
[2016-08-30] MEDS ORDERED: ACETAMINOPHEN/HYDROcodone 325 MG/5 MG TAB PO PRN (19:30)
[2016-08-30] MEDS: AZITHROMYCIN INJ 500 MG in SODIUM CHLOR 0.9% 250 ML INJ 250 ML IV SCH (19:51)
[2016-08-30] MEDS: ACETAMINOPHEN/HYDROcodone 325 MG/7.5 MG TAB PO PRN ×2 (19:52→23:37)
[2016-08-30 20:00] VITALS: BP 133/81; PULSE 79; RESP 22; TEMP 96.2; O2SAT 99
--- NOTE | 2016-08-30 21:52 | HHI.PR ---
Subjective Remarks Late entry: pt was evaluated around 5:30pm Pt complaining of pain around the area of the biopsy. States that the morphine doesn't make her feel good and would rather have tablets. denies any CP/SOB/N/V Objective Vitals Vital Signs Date Time Temp Pulse Resp B/P Pulse Ox O2 Delivery O2 Flow Rate FiO2 08/30/16 20:00 96.2 79 22 133/81 99 08/30/16 16:00 96.4 73 17 113/73 96 08/30/16 12:00 98.8 76 18 115/67 97 08/30/16 08:00 97.5 72 17 112/65 96 08/30/16 00:01 97.8 74 18 122/78 96 I/O 08/29/16 08/29/16 08/29/16 08/30/16 08/30/16 08/30/16 07:00 15:00 23:00 07:00 15:00 23:00 Intake Total 1260 ml 360 ml 480 ml 1345 ml 528 ml Output Total 500 ml 425 ml Balance 1260 ml 360 ml -20 ml 1345 ml 103 ml Intake Oral 360 ml 360 ml 480 ml 480 ml 240 ml IV Total 600 ml 865 ml 288 ml Packed Cells 300 ml Output Urine Total 500 ml 425 ml # Voids 3 3 4 3 # Bowel Movements 0 Result Diagram: 08/30/16 0334 08/30/16 0334 Imaging Last Impressions Bone Biopsy CT 08/29/16 0000 Signed Impressions: Service Date/Time: Monday, August 29, 2016 15:18 - CONCLUSION: 1. Uncomplicated CT guided bone marrow aspirate. 2. Uncomplicated CT guided bone marrow biopsy. Jonnathan Solano MD FACR Chest X-Ray 08/27/16 0000 Signed Impressions: Service Date/Time: Saturday, August 27, 2016 18:59 - CONCLUSION: No acute cardiopulmonary disease. Nadia Chu MD Objective Remarks GENERAL: Well-nourished, well-developed pale patient. CARDIOVASCULAR: Regular rate and rhythm without murmurs RESPIRATORY: Breath sounds equal bilaterally. No accessory muscle use. GASTROINTESTINAL: Abdomen soft, non-tender, nondistended. MUSCULOSKELETAL: moves extremities A/P Assessment and Plan Assessment: 46y F with HIV/AIDS with worsening shortness of breath, cough, fatigue. We are following up CD4 count. on Bactrim for empiric PCP coverage given high concern over possible low CD4 count and unknown HAART compliance. Community-acquired pneumonia - Bilateral infiltrates on a CT. on cefepime, vanco, bactrim and azithro - cultures neg to date. sputum bacterial/fungal/AFB cultures, no acid fast or fungal seen on gram stain/smear . TB quantiferon. - ID following Lymphoma???/severe anemia/leukopenia - Multiple enlarged lymph nodes on CT. rs/p Bone marrow biopsy. Hematology following. per their recs, no need for neupogen at this time as her neutropenia is improved. Awaiting pathology report. Anemia/thrombocytopenia - Due to above - s/p 3 units of PRBCs - monitor cbc HIV-AIDS - on HAART meds DVT/GI prophylaxis - SCD/LASHELL/Pepcid. d/c heparin due to anemia/thrombocytopenia. encourage ambulation Discharge Planning d/c pending further work-up and clinical improvement Radha Rodríguez MD Aug 30, 2016 21:52
[2016-08-30] MEDS: BENZONATATE 100 MG CAP PO PRN (23:37)
[2016-08-31] VITALS: BP 114/82; PULSE 80; RESP 20; TEMP 96.6; O2SAT 95
[2016-08-31] MEDS: CEFEPIME INJ 2,000 MG in SODIUM CHLORIDE 0.9% INJ 100 ML IV SCH ×2 (03:03→15:17)
[2016-08-31] MEDS: CHLORHEXIDINE GLUCONATE 2 % 1 PACK (2 CLOTHS) TOP SCH (03:08)
[2016-08-31 05:22] LABS: AUTOMATED NEUTROPHIL # 1.9 TH/MM3 (1.8-7.7); BASOPHIL % 0.2 % (0.0-2.0); HEMATOCRIT 26.4 % (35.0-46.0); LYMPH % 25.4 % (9.0-44.0); LYMPHOCYTE # 0.8 TH/MM3 (1.0-4.8); MEAN CELL VOLUME 84.2 FL (80.0-100.0); MEAN CORPUSCULAR HEMOGLOBIN 28.7 PG (27.0-34.0); MEAN CORPUSCULAR HGB CONC 34.1 % (32.0-36.0); MONO % 13.1 % (0.0-8.0); NEUT % 61.3 % (16.0-70.0); PLATELET COUNT 99 TH/MM3 (150-450); RED BLOOD COUNT 3.13 MIL/MM3 (4.00-5.30); WHITE BLOOD COUNT 3.1 TH/MM3 (4.0-11.0)
[2016-08-31 05:52] LABS: HEMO FLAGS AUTO DIFF
[2016-08-31 06:56] LABS: KERATOCYTES OCC (NORMAL)
[2016-08-31 06:57] LABS: OVALOCYTES 1+ (NORMAL); PLATELET ESTIMATE SMEAR LOW (NORMAL); PLATELET MORPHOLOGY NORMAL (NORMAL); SCAN/DIFF AUTO DIFF CONFIRMED
--- NOTE | 2016-08-31 06:59 | RADRPT ---
EXAM DATE/TIME: 08/31/2016 06:17 [facility] COMPARISON: CHEST SINGLE AP, August 27, 2016, 18:59. INDICATIONS : Cough, short of breath MEDICAL HISTORY : HIV anemia SURGICAL HISTORY : section. ENCOUNTER: Subsequent ACUITY: 4 - 6 days PAIN SCORE: 0/10 LOCATION: Bilateral chest FINDINGS: Slight bibasilar atelectasis and/or infiltrate is seen. Heart and mediastinum are unremarkable for te chnique. CONCLUSION: Slight bibasilar atelectasis and/or infiltrate is seen. Nadia Chu MD on August 31, 2016 at 6:57 Board Certified Radiologist. This report was verified electronically.
[2016-08-31 08:00] VITALS: BP 112/69; PULSE 75; RESP 16; TEMP 96.3; O2SAT 94
[2016-08-31] MEDS: SULFAMETHOXAZOLE-TRIMETHOPRIM DS 800-160 MG TAB PO SCH ×2 (09:10→15:17)
[2016-08-31] MEDS: DOCUSATE SODIUM 100 MG CAP PO SCH ×2 (09:11→21:33)
[2016-08-31] MEDS: methylPREDNISolone SOD SUCC 40 MG/1 ML VIAL IV SCH (09:11)
[2016-08-31] MEDS: SODIUM CHLORIDE 0.9% FLUSH 10 ML FLUSH SCH ×2 (09:11→21:28)
[2016-08-31] MEDS: FAMOTIDINE 20 MG/2 ML VIAL IV PUSH SCH ×2 (09:11→21:33)
--- NOTE | 2016-08-31 09:54 | HHI.PR ---
Subjective Remarks Patient reports feeling overly tired. She is coughing less. Afebrile. No shortness of breath or chest pain. Eating well. Constipated Objective Vitals Vital Signs Date Time Temp Pulse Resp B/P Pulse Ox O2 Delivery O2 Flow Rate FiO2 08/31/16 08:00 96.3 75 16 112/69 94 08/31/16 00:00 96.6 80 20 114/82 95 08/30/16 20:00 96.2 79 22 133/81 99 08/30/16 16:00 96.4 73 17 113/73 96 08/30/16 12:00 98.8 76 18 115/67 97 I/O 08/30/16 08/30/16 08/30/16 08/31/16 08/31/16 08/31/16 07:00 15:00 23:00 07:00 15:00 23:00 Intake Total 1345 ml 528 ml 320 ml 980 ml Output Total 425 ml Balance 1345 ml 103 ml 320 ml 980 ml Intake Oral 480 ml 240 ml 320 ml 480 ml IV Total 865 ml 288 ml 500 ml Output Urine Total 425 ml # Voids 3 2 2 # Bowel Movements 0 0 0 Result Diagram: 08/31/16 0458 08/30/16 0334 Imaging Last Impressions Chest X-Ray 08/31/16 0600 Signed Impressions: Service Date/Time: Wednesday, August 31, 2016 06:17 - CONCLUSION: Slight bibasilar atelectasis and/or infiltrate is seen. Nadia Chu MD Bone Biopsy CT 08/29/16 0000 Signed Impressions: Service Date/Time: Monday, August 29, 2016 15:18 - CONCLUSION: 1. Uncomplicated CT guided bone marrow aspirate. 2. Uncomplicated CT guided bone marrow biopsy. Jonnathan Solano MD FACR Objective Remarks GENERAL: Patient appear older than stated age in no apparent distress. CARDIOVASCULAR: Normal rate and regular rhythm without murmurs, gallops, or rubs. RESPIRATORY: Good respiratory efforts. Breath sounds equal and clear to auscultation bilaterally. GASTROINTESTINAL: Abdomen soft, non-tender, non-distended. Normal active bowel sounds MUSCULOSKELETAL: Extremities without cyanosis, or edema. NEURO: Alert & Oriented x4 to person, place, time, situation. Moves all ext x4 PSYCH: Appropriate mood and affect. A/P Assessment and Plan 46y F with HIV/AIDS admitted for severe anemia, community-acquired pneumonia, lymphadenopathy of uncertain significance. Status post bone marrow biopsy. Concern for noncompliance with HAART medications. Community-acquired pneumonia - Bilateral infiltrates on a CT. on cefepime, vanco, bactrim and azithro - All cultures negative to date. sputum bacterial/fungal/AFB cultures, no acid fast or fungal seen on gram stain/smear . TB quantiferon. - ID following Lymphadenopathy/severe anemia/leukopenia - Multiple enlarged lymph nodes on CT. rs/p Bone marrow biopsy. Hematology following. per their recs, no need for Neupogen at this time as her neutropenia is improved. Awaiting pathology report. Anemia/thrombocytopenia - Due to above - s/p 3 units of PRBCs - monitor cbc HIV-AIDS: CD4 count on 07/12/16 was 65. Repeat on 08/28/16 is 35. Patient reports she had issues with noncompliance in the past due to drug use but reports she has been compliant prior to her last hospitalization. - on HAART meds. Infectious disease following. On Bactrim for prophylaxis. Constipation: Milk of magnesia ordered. DVT/GI prophylaxis - SCD/LASHELL/Pepcid. d/c heparin due to anemia/thrombocytopenia. encourage ambulation Discharge Planning d/c pending further work-up and clinical improvement Candelario Rasheed MD Aug 31, 2016 09:54
[2016-08-31] MEDS ORDERED: MAGNESIUM HYDROXIDE SUSP 30 ML CUP PO PRN (10:00)
--- NOTE | 2016-08-31 10:32 | PD.ONC.PN ---
Subjective Subjective Remarks Afebrile overnight. Patient resting comfortably without complaint. Objective Data Date Time Temp Pulse Resp B/P Pulse Ox O2 Delivery O2 Flow Rate FiO2 08/31/16 08:00 96.3 75 16 112/69 94 08/31/16 00:00 96.6 80 20 114/82 95 08/30/16 20:00 96.2 79 22 133/81 99 08/30/16 16:00 96.4 73 17 113/73 96 08/30/16 12:00 98.8 76 18 115/67 97 08/31/16 08/31/16 08/31/16 07:00 15:00 23:00 Intake Total 980 ml Balance 980 ml Result Diagram: 08/31/16 0458 08/30/16 0334 Laboratory Results Laboratory Tests Test 08/30/16 08/31/16 11:17 04:58 Vancomycin Level Trough 19.2 MCG/ML White Blood Count 3.1 TH/MM3 Red Blood Count 3.13 MIL/MM3 Hemoglobin 9.0 GM/DL Hematocrit 26.4 % Mean Corpuscular Volume 84.2 FL Mean Corpuscular Hemoglobin 28.7 PG Mean Corpuscular Hemoglobin 34.1 % Concent Red Cell Distribution Width 16.0 % Platelet Count 99 TH/MM3 Mean Platelet Volume 8.5 FL Neutrophils (%) (Auto) 61.3 % Lymphocytes (%) (Auto) 25.4 % Monocytes (%) (Auto) 13.1 % Eosinophils (%) (Auto) 0.0 % Basophils (%) (Auto) 0.2 % Neutrophils # (Auto) 1.9 TH/MM3 Lymphocytes # (Auto) 0.8 TH/MM3 Monocytes # (Auto) 0.4 TH/MM3 Eosinophils # (Auto) 0.0 TH/MM3 Basophils # (Auto) 0.0 TH/MM3 CBC Comment AUTO DIFF Differential Comment AUTO DIFF CONFIRMED Platelet Estimate LOW Platelet Morphology Comment NORMAL Ovalocytes 1+ Keratocytes OCC Culture Results Microbiology Date/Time Procedure Status Source Growth 08/29/16 14:15 Legionella Antigen - Final Complete Urine Random Urine PRESUMPTIVE NEGATIVE FOR LEGIONELLA P... 08/29/16 14:15 Streptococcus pneumoniae Antigen (M - Final Complete Urine Random Urine PRESUMPTIVE NEGATIVE FOR STREPTOCOCCU... Imaging Studies Last 24 hours Impressions Chest X-Ray 08/31/16 0600 Signed Impressions: Service Date/Time: Wednesday, August 31, 2016 06:17 - CONCLUSION: Slight bibasilar atelectasis and/or infiltrate is seen. Nadia Chu MD Administered Medications Medications (Trade) Dose Ordered Sig/Carolyn Route PRN Reason Start Time Stop Time Status Last Admin Dose Admin Sodium Chloride (NS Flush) 2 ml BID .XX 08/27/16 21:00 08/31/16 09:11 Acetaminophen (Tylenol) 650 mg Q6H PRN PO PAIN 1-4 AND/OR FEVER >101F 08/27/16 20:45 08/30/16 14:14 Famotidine (Pepcid Inj) 20 mg Q12HR IV PUSH 08/27/16 21:00 08/31/16 09:11 Docusate Sodium (Colace) 100 mg BID PO 08/27/16 21:00 08/31/16 09:11 Miscellaneous Information 1 Q361D XX 08/27/16 20:45 08/27/16 20:45 Chlorhexidine Gluconate 3 pack 3 pack Taper DAILY@04 TOP 08/28/16 04:00 08/24/17 03:59 08/28/16 03:16 Azithromycin 500 mg/Sodium Chloride 250 ml @ 250 mls/hr Q24H IV 08/28/16 20:00 08/30/16 19:51 Cefepime HCl/ Sodium Chloride (Maxipime Inj/NS Inj) 100 ml @ 200 mls/hr Q12H IV 08/28/16 03:00 08/31/16 03:03 Trimethoprim/ Sulfamethoxazole (Bactrim Ds 800-160 Mg) 2 tab Q8H PO 08/28/16 08:00 08/31/16 09:10 Benzonatate (Tessalon) 100 mg Q8H PRN PO COUGH 08/28/16 14:00 08/30/16 23:37 Benzocaine/Menthol (Chloraseptic Sheba) 1 lozenge UNSCH PRN BUCCAL THROAT PAIN 08/29/16 18:15 08/29/16 23:49 Acetaminophen/ Hydrocodone Bitart (Barker 7.5-325 Mg) 1 tab Q4H PRN PO PAIN 8-10 08/30/16 19:30 08/30/16 23:37 Objective Remarks GENERAL: Middle aged female, resting in bed in nad SKIN: Warm and dry. HEAD: Normocephalic. EYES: No injection or drainage. NECK: Supple, trachea midline. CARDIOVASCULAR: Regular rate and rhythm RESPIRATORY: Breath sounds equal bilaterally. No accessory muscle use. GASTROINTESTINAL: Abdomen soft, non-tender, nondistended. EXTREMITIES: No cyanosis Assessment/Plan Problem List: (1) Pancytopenia Status: Acute Plan: --improving --unlikely to be compliant with HAART therapy --last CMV screen was negative. +hepatosplenomegaly likely due to her HIV and AIDS. --recent CT scan showed nonspecific adenopathy which is likely due to HIV, but we cannot rule out lymphoproliferative disorder. --s/p bone marrow biopsy, awaiting pathology Assessment 46y/o female with pancytopenia HIV/AIDS Anxiety, depression. Recent mastoiditis with left-sided hearing loss. Plan 1. monitor CBC 2. await pathology from bone marrow biopsy Attending Statement The exam, history, and the medical decision-making described in the above note were completed with the assistance of the mid-level provider. I reviewed and agree with the findings presented. I attest that I had a [id number] encounter with the patient on the same day, and personally performed and documented my assessment and findings in the medical record. Neutropenia has resolved. No need for neupogen. Continue supportive care. Bone marrow path pending. Yolanda Bustamante Aug 31, 2016 10:31 Leonidas Ogden MD Aug 31, 2016 19:28
[2016-08-31 12:00] VITALS: BP 126/81; PULSE 112; RESP 18; TEMP 95.4; O2SAT 96
[2016-08-31] MEDS: [UNRECOGNIZED DRUG - OTHER] PO SCH (12:11)
[2016-08-31] MEDS: ACETAMINOPHEN/HYDROcodone 325 MG/7.5 MG TAB PO PRN ×2 (12:17→21:21)
[2016-08-31 16:00] VITALS: BP 118/81; PULSE 62; RESP 18; TEMP 97; O2SAT 96
[2016-08-31] MEDS: ONDANSETRON HCL 4 MG/2 ML VIAL IV PRN (17:44)
[2016-08-31 20:00] VITALS: BP 128/74; PULSE 74; RESP 18; TEMP 96.9; O2SAT 95
[2016-08-31] MEDS: AZITHROMYCIN INJ 500 MG in SODIUM CHLOR 0.9% 250 ML INJ 250 ML IV SCH (21:21)
[2016-08-31] MEDS: BENZONATATE 100 MG CAP PO PRN (21:21)
--- NOTE | 2016-08-31 23:12 | HHI.IDPN ---
Subjective Subjective Remarks co malaise, low energy no fever Antibiotics azithromycin cefepime bactrim Allergies: Coded Allergies: Penicillin (Verified Allergy, Intermediate, rash, 08/27/16) Objective . Vital Signs Date Time Temp Pulse Resp B/P Pulse Ox O2 Delivery O2 Flow Rate FiO2 08/31/16 20:00 96.9 74 18 128/74 95 08/31/16 16:00 97.0 62 18 118/81 96 08/31/16 12:00 95.4 112 18 126/81 96 08/31/16 08:00 96.3 75 16 112/69 94 08/31/16 00:00 96.6 80 20 114/82 95 08/30/16 08/30/16 08/31/16 15:00 23:00 07:00 Intake Total 528 ml 320 ml 980 ml Output Total 425 ml Balance 103 ml 320 ml 980 ml Intake Oral 240 ml 320 ml 480 ml IV Total 288 ml 500 ml Output Urine Total 425 ml # Voids 2 2 # Bowel Movements 0 0 0 . Laboratory Tests Test 08/30/16 08/31/16 03:34 04:58 White Blood Count 3.2 TH/MM3 3.1 TH/MM3 Red Blood Count 2.87 MIL/MM3 3.13 MIL/MM3 Hemoglobin 8.3 GM/DL 9.0 GM/DL Hematocrit 24.4 % 26.4 % Mean Corpuscular Volume 85.1 FL 84.2 FL Mean Corpuscular Hemoglobin 29.1 PG 28.7 PG Mean Corpuscular Hemoglobin 34.2 % 34.1 % Concent Red Cell Distribution Width 16.1 % 16.0 % Platelet Count 96 TH/MM3 99 TH/MM3 Mean Platelet Volume 8.8 FL 8.5 FL Neutrophils (%) (Auto) 70.3 % 61.3 % Lymphocytes (%) (Auto) 20.1 % 25.4 % Monocytes (%) (Auto) 9.3 % 13.1 % Eosinophils (%) (Auto) 0.1 % 0.0 % Basophils (%) (Auto) 0.2 % 0.2 % Neutrophils # (Auto) 2.2 TH/MM3 1.9 TH/MM3 Lymphocytes # (Auto) 0.6 TH/MM3 0.8 TH/MM3 Monocytes # (Auto) 0.3 TH/MM3 0.4 TH/MM3 Eosinophils # (Auto) 0.0 TH/MM3 0.0 TH/MM3 Basophils # (Auto) 0.0 TH/MM3 0.0 TH/MM3 CBC Comment AUTO DIFF AUTO DIFF Differential Total Cells 100 Counted Neutrophils % (Manual) 46 % Band Neutrophils % 26 % Lymphocytes % 16 % Monocytes % 10 % Neutrophils # (Manual) 2.4 TH/MM3 Metamyelocytes 2 % Differential Comment FINAL DIFF AUTO DIFF MANUAL CONFIRMED Platelet Estimate LOW LOW Platelet Morphology Comment NORMAL NORMAL Ovalocytes 1+ Keratocytes OCC Laboratory Tests Test 08/30/16 03:34 Creatinine 1.01 MG/DL Estimat Glomerular Filtration 60 ML/MIN Rate Microbiology Date/Time Procedure Status Source Growth 08/29/16 14:15 Legionella Antigen - Final Complete Urine Random Urine PRESUMPTIVE NEGATIVE FOR LEGIONELLA P... 08/29/16 14:15 Streptococcus pneumoniae Antigen (M - Final Complete Urine Random Urine PRESUMPTIVE NEGATIVE FOR STREPTOCOCCU... Imaging Last Impressions Chest X-Ray 08/31/16 0600 Signed Impressions: Service Date/Time: Wednesday, August 31, 2016 06:17 - CONCLUSION: Slight bibasilar atelectasis and/or infiltrate is seen. Nadia Chu MD Bone Biopsy CT 08/29/16 0000 Signed Impressions: Service Date/Time: Monday, August 29, 2016 15:18 - CONCLUSION: 1. Uncomplicated CT guided bone marrow aspirate. 2. Uncomplicated CT guided bone marrow biopsy. Jonnathan Solano MD FACR Physical Exam CONSTITUTIONAL/GENERAL: This is an adequately nourished patient, in no apparent distress. TUBES/LINES/DRAINS: SKIN: No jaundice, rashes, or lesions. Skin temperature appropriate. Not diaphoretic. EYES: Pupils equal and round and reactive. Extraocular motions intact. No scleral icterus. No injection or drainage. Fundi not examined. CARDIOVASCULAR: Regular rate and rhythm without murmurs, gallops, or rubs. No JVD. Peripheral pulses symmetric. RESPIRATORY/CHEST: Symmetric, unlabored respirations. Clear to auscultation. Breath sounds equally decreased . No wheezes, rales, or rhonchi. GASTROINTESTINAL: Abdomen soft, non-tender, nondistended. No hepato-splenomegaly , or palpable masses. No guarding. Bowel sounds present. MUSCULOSKELETAL: Extremities without clubbing, cyanosis, or edema. NEUROLOGICAL: Awake and alert. Motor and sensory grossly within normal limits. Follows commands. Speech normal. Moves all extremities. PSYCHIATRIC: calm and cooperative Assessment & Plan Remarks HIV, AIDS, states compliance - Dr Sumner pt - CD4 66 last visit ; 41 this admission - Pancytopenia Invasive pneumococcal dz : ? mastoiditis vs meningitis (CSF clx is neg so far) - CXR not cw PNA - cont HAART as per pt s profile:Prezcobix, Epivir and Tivicay - agree with plan for BM bx - cont azithromycin, cefepime, vanco and Bactrim - fu path Adilia Tanner MD Aug 31, 2016 23:12
[2016-09-01] VITALS: BP 137/87; PULSE 75; RESP 18; TEMP 97.5; O2SAT 96
[2016-09-01] MEDS: SULFAMETHOXAZOLE-TRIMETHOPRIM DS 800-160 MG TAB PO SCH ×3 (00:20→15:48)
[2016-09-01] MEDS: ACETAMINOPHEN/HYDROcodone 325 MG/7.5 MG TAB PO PRN (01:30)
[2016-09-01] MEDS: CEFEPIME INJ 2,000 MG in SODIUM CHLORIDE 0.9% INJ 100 ML IV SCH ×2 (01:30→15:48)
[2016-09-01] MEDS: CHLORHEXIDINE GLUCONATE 2 % 1 PACK (2 CLOTHS) TOP SCH (04:00)
[2016-09-01] MEDS: ONDANSETRON HCL 4 MG/2 ML VIAL IV PRN (05:59)
[2016-09-01 06:06] LABS: AUTOMATED NEUTROPHIL # 1.8 TH/MM3 (1.8-7.7); BASOPHIL % 0.2 % (0.0-2.0); HEMATOCRIT 28.6 % (35.0-46.0); HEMO FLAGS DIFF FINAL; LYMPH % 38.3 % (9.0-44.0); LYMPHOCYTE # 1.5 TH/MM3 (1.0-4.8); MEAN CELL VOLUME 85.2 FL (80.0-100.0); MEAN CORPUSCULAR HEMOGLOBIN 28.7 PG (27.0-34.0); MEAN CORPUSCULAR HGB CONC 33.7 % (32.0-36.0); MONO % 15.9 % (0.0-8.0); NEUT % 45.6 % (16.0-70.0); PLATELET COUNT 107 TH/MM3 (150-450); RED BLOOD COUNT 3.36 MIL/MM3 (4.00-5.30); RED CELL DISTRIBUTION WIDTH 15.6 % (11.6-17.2)
[2016-09-01 06:30] LABS: POTASSIUM 4.6 MEQ/L (3.5-5.1)
[2016-09-01 08:00] VITALS: BP 104/68; PULSE 68; RESP 14; TEMP 96.5; O2SAT 94
[2016-09-01] MEDS: SODIUM CHLORIDE 0.9% FLUSH 10 ML FLUSH SCH ×2 (08:17→20:56)
[2016-09-01] MEDS: FAMOTIDINE 20 MG/2 ML VIAL IV PUSH SCH ×2 (08:17→20:56)
[2016-09-01] MEDS: DOCUSATE SODIUM 100 MG CAP PO SCH ×2 (08:17→20:55)
--- NOTE | 2016-09-01 09:33 | HHI.PR ---
Subjective Remarks Patient complaint of constipation today. No relief with milk of magnesia. No other complaints. No nausea or vomiting. Objective Vitals Vital Signs Date Time Temp Pulse Resp B/P Pulse Ox O2 Delivery O2 Flow Rate FiO2 09/01/16 00:00 97.5 75 18 137/87 96 08/31/16 20:00 96.9 74 18 128/74 95 08/31/16 16:00 97.0 62 18 118/81 96 08/31/16 12:00 95.4 112 18 126/81 96 I/O 08/31/16 08/31/16 08/31/16 09/01/16 09/01/16 09/01/16 07:00 15:00 23:00 07:00 15:00 23:00 Intake Total 980 ml 240 ml 480 ml 480 ml Balance 980 ml 240 ml 480 ml 480 ml Intake Oral 480 ml 240 ml 480 ml 480 ml IV Total 500 ml 0 ml # Voids 2 4 2 3 # Bowel Movements 0 0 0 0 Result Diagram: 09/01/16 0446 09/01/16 0446 Objective Remarks GENERAL: Patient appear older than stated age in no apparent distress. CARDIOVASCULAR: Normal rate and regular rhythm without murmurs, gallops, or rubs. RESPIRATORY: Good respiratory efforts. Breath sounds equal and clear to auscultation bilaterally. GASTROINTESTINAL: Abdomen soft, non-tender, non-distended. Normal active bowel sounds MUSCULOSKELETAL: Extremities without cyanosis, or edema. NEURO: Alert & Oriented x4 to person, place, time, situation. Moves all ext x4 PSYCH: Appropriate mood and affect. A/P Assessment and Plan 46y F with HIV/AIDS admitted for severe anemia, community-acquired pneumonia, lymphadenopathy of uncertain significance. Status post bone marrow biopsy. Concern for noncompliance with HAART medications. Community-acquired pneumonia - Bilateral infiltrates on a CT. on cefepime, Vanco, Bactrim and Azithro - All cultures negative to date. sputum bacterial/fungal/AFB cultures, no acid fast or fungal seen on gram stain/smear . TB quantiferon. - ID following Lymphadenopathy/severe anemia/leukopenia - Multiple enlarged lymph nodes on CT. rs/p Bone marrow biopsy. Hematology following. per their recs, no need for Neupogen at this time as her neutropenia is improved. Awaiting pathology. Anemia/thrombocytopenia - Due to above - s/p 3 units of PRBCs - monitor cbc HIV-AIDS: CD4 count on 07/12/16 was 65. Repeat on 08/28/16 is 35. Patient reports she had issues with noncompliance in the past due to drug use but reports she has been compliant prior to her last hospitalization. - on HAART meds. Infectious disease following. On Bactrim for prophylaxis. Constipation: No response to milk of magnesia. Will try lactulose. DVT/GI prophylaxis - SCD/LASHELL/Pepcid. d/c heparin due to anemia/thrombocytopenia. encourage ambulation Discharge Planning d/c pending further work-up and clinical improvement Candelario Rasheed MD Sep 01, 2016 09:33
[2016-09-01] MEDS: [UNRECOGNIZED DRUG - OTHER] PO SCH (10:44)
[2016-09-01] MEDS ORDERED: LACTULOSE SYRUP 20 GM/30 ML CUP PO PRN (10:45)
[2016-09-01] MEDS ORDERED: PHARMACY ORDERED LAB ONE (11:45)
[2016-09-01 12:00] VITALS: BP 106/71; PULSE 73; RESP 18; TEMP 96.8; O2SAT 96
[2016-09-01 16:00] VITALS: BP 100/70; PULSE 69; RESP 20; TEMP 97; O2SAT 100
[2016-09-01 20:00] VITALS: BP 111/77; PULSE 92; RESP 17; TEMP 96.6; O2SAT 93
[2016-09-01] MEDS: AZITHROMYCIN INJ 500 MG in SODIUM CHLOR 0.9% 250 ML INJ 250 ML IV SCH (20:56)
[2016-09-01] MEDS: BENZONATATE 100 MG CAP PO PRN (21:03)
[2016-09-01] MEDS: BENZOCAINE 6 MG/MENTHOL 10 MG LOZENGE BUCCAL PRN (21:08)
[2016-09-02] VITALS: BP 122/74; PULSE 100; RESP 19; TEMP 97.3; O2SAT 94
[2016-09-02] MEDS: SULFAMETHOXAZOLE-TRIMETHOPRIM DS 800-160 MG TAB PO SCH ×4 (01:09→23:57)
[2016-09-02] MEDS: BENZOCAINE 6 MG/MENTHOL 10 MG LOZENGE BUCCAL PRN (01:12)
[2016-09-02] MEDS: CEFEPIME INJ 2,000 MG in SODIUM CHLORIDE 0.9% INJ 100 ML IV SCH ×2 (02:46→14:44)
[2016-09-02] MEDS: CHLORHEXIDINE GLUCONATE 2 % 1 PACK (2 CLOTHS) TOP SCH (04:00)
[2016-09-02 06:01] LABS: AUTOMATED NEUTROPHIL # 2.4 TH/MM3 (1.8-7.7); BASOPHIL % 0.6 % (0.0-2.0); HEMATOCRIT 29.6 % (35.0-46.0); HEMO FLAGS DIFF FINAL; LYMPH % 37.3 % (9.0-44.0); LYMPHOCYTE # 1.7 TH/MM3 (1.0-4.8); MEAN CELL VOLUME 84.2 FL (80.0-100.0); MEAN CORPUSCULAR HGB CONC 35.6 % (32.0-36.0); MONO % 10.3 % (0.0-8.0); NEUT % 50.8 % (16.0-70.0); PLATELET COUNT 114 TH/MM3 (150-450); RED BLOOD COUNT 3.52 MIL/MM3 (4.00-5.30); RED CELL DISTRIBUTION WIDTH 15.9 % (11.6-17.2); WHITE BLOOD COUNT 4.6 TH/MM3 (4.0-11.0)
[2016-09-02 06:12] LABS: POTASSIUM 4.4 MEQ/L (3.5-5.1)
[2016-09-02] MEDS: DOCUSATE SODIUM 100 MG CAP PO SCH ×2 (08:04→21:00)
[2016-09-02] MEDS: SODIUM CHLORIDE 0.9% FLUSH 10 ML FLUSH SCH ×2 (09:00→21:19)
[2016-09-02] MEDS: FAMOTIDINE 20 MG/2 ML VIAL IV PUSH SCH ×2 (09:00→21:19)
[2016-09-02] MEDS: [UNRECOGNIZED DRUG - OTHER] PO SCH (11:00)
--- NOTE | 2016-09-02 11:25 | HHI.PR ---
Subjective Remarks Still no bowel movement per the patient. She reports some mild bloating but no abdominal pain, nausea, or vomiting. Otherwise she reports feeling fatigue. No new issues. Objective Vitals Vital Signs Date Time Temp Pulse Resp B/P Pulse Ox O2 Delivery O2 Flow Rate FiO2 09/02/16 00:00 97.3 100 19 122/74 94 09/01/16 20:00 96.6 92 17 111/77 93 09/01/16 16:00 97.0 69 20 100/70 100 09/01/16 12:00 96.8 73 18 106/71 96 I/O 09/01/16 09/01/16 09/01/16 09/02/16 09/02/16 09/02/16 07:00 15:00 23:00 07:00 15:00 23:00 Intake Total 480 ml 360 ml 240 ml 240 ml Balance 480 ml 360 ml 240 ml 240 ml Intake Oral 480 ml 360 ml 240 ml 240 ml # Voids 3 3 2 2 # Bowel Movements 0 0 Result Diagram: 09/02/1651709/02/16517 Objective Remarks GENERAL: Patient appear older than stated age in no apparent distress. CARDIOVASCULAR: Normal rate and regular rhythm without murmurs, gallops, or rubs. RESPIRATORY: Good respiratory efforts. Breath sounds equal and clear to auscultation bilaterally. GASTROINTESTINAL: Abdomen soft, non-tender, non-distended. Normal active bowel sounds MUSCULOSKELETAL: Extremities without cyanosis, or edema. NEURO: Alert & Oriented x4 to person, place, time, situation. Moves all ext x4 PSYCH: Appropriate mood and affect. A/P Assessment and Plan 46y F with HIV/AIDS admitted for severe anemia, community-acquired pneumonia, lymphadenopathy of uncertain significance. Status post bone marrow biopsy. Concern for noncompliance with HAART medications. Community-acquired pneumonia - Bilateral infiltrates on a CT. on cefepime, Vanco, Bactrim and Azithro - All cultures negative to date. sputum bacterial/fungal/AFB cultures, no acid fast or fungal seen on gram stain/smear . TB quantiferon. - ID following Lymphadenopathy/severe anemia/leukopenia - Multiple enlarged lymph nodes on CT. s/p Bone marrow biopsy. Hematology following. per their recs, no need for Neupogen at this time as her neutropenia is improved. Awaiting pathology. Anemia/thrombocytopenia - Due to above - s/p 3 units of PRBCs - monitor cbc HIV-AIDS: CD4 count on 07/12/16 was 65. Repeat on 08/28/16 is 35. Patient reports she had issues with noncompliance in the past due to drug use but reports she has been compliant prior to her last hospitalization. - on HAART meds. Infectious disease following. On Bactrim for prophylaxis. Constipation: No response to milk of magnesia. Will give a dose of lactulose today and monitor progress. DVT/GI prophylaxis - SCD/LASHELL/Pepcid. d/c heparin due to anemia/thrombocytopenia. encourage ambulation Discharge Planning d/c pending further work-up and clinical improvement. Awaiting for pathology and further antibiotics recommendations from Candelario Michaud MD Sep 02, 2016 11:25
[2016-09-02] MEDS ORDERED: LACTULOSE SYRUP 20 GM/30 ML CUP PO ONE (11:30)
[2016-09-02 12:00] VITALS: BP 95/64; PULSE 96; RESP 16; TEMP 98.7; O2SAT 96
[2016-09-02 16:00] VITALS: BP 95/72; PULSE 102; RESP 16; TEMP 97.9; O2SAT 97
[2016-09-02 20:00] VITALS: BP 103/66; PULSE 94; RESP 17; TEMP 98; O2SAT 98
[2016-09-02] MEDS: AZITHROMYCIN INJ 500 MG in SODIUM CHLOR 0.9% 250 ML INJ 250 ML IV SCH (21:19)
[2016-09-03] VITALS: BP 106/71; PULSE 98; RESP 17; TEMP 96.9; O2SAT 98
[2016-09-03] MEDS: CHLORHEXIDINE GLUCONATE 2 % 1 PACK (2 CLOTHS) TOP SCH ×2 (04:00→20:36)
[2016-09-03] MEDS: CEFEPIME INJ 2,000 MG in SODIUM CHLORIDE 0.9% INJ 100 ML IV SCH ×2 (04:07→15:32)
[2016-09-03 05:37] LABS: HEMATOCRIT 28.9 % (35.0-46.0); MEAN CELL VOLUME 84.6 FL (80.0-100.0); MEAN CORPUSCULAR HEMOGLOBIN 28.9 PG (27.0-34.0); MEAN CORPUSCULAR HGB CONC 34.2 % (32.0-36.0); PLATELET COUNT 109 TH/MM3 (150-450); RED BLOOD COUNT 3.42 MIL/MM3 (4.00-5.30); RED CELL DISTRIBUTION WIDTH 15.6 % (11.6-17.2); REVIEW FLAG FINAL; WHITE BLOOD COUNT 3.4 TH/MM3 (4.0-11.0)
[2016-09-03 05:50] LABS: BICARBONATE 17.4 MEQ/L (21.0-32.0)
[2016-09-03 08:00] VITALS: BP 103/61; PULSE 82; RESP 20; TEMP 96.7; O2SAT 95
[2016-09-03] MEDS: SULFAMETHOXAZOLE-TRIMETHOPRIM DS 800-160 MG TAB PO SCH (08:43)
[2016-09-03] MEDS: DOCUSATE SODIUM 100 MG CAP PO SCH ×2 (08:43→20:36)
[2016-09-03] MEDS: FAMOTIDINE 20 MG/2 ML VIAL IV PUSH SCH ×2 (08:43→20:36)
[2016-09-03] MEDS: SODIUM CHLORIDE 0.9% FLUSH 10 ML FLUSH SCH ×2 (08:44→20:35)
[2016-09-03] MEDS: [UNRECOGNIZED DRUG - OTHER] PO SCH (11:00)
--- NOTE | 2016-09-03 11:37 | HHI.PR ---
Subjective Remarks No acute events overnight. Patient reports she is feeling okay today. Inquired about when she can go home. Objective Vitals Vital Signs Date Time Temp Pulse Resp B/P Pulse Ox O2 Delivery O2 Flow Rate FiO2 09/03/16 08:00 96.7 82 20 103/61 95 09/03/16 00:00 96.9 98 17 106/71 98 09/02/16 20:00 98.0 94 17 103/66 98 09/02/16 16:00 97.9 102 16 95/72 97 09/02/16 12:00 98.7 96 16 95/64 96 I/O 09/02/16 09/02/16 09/02/16 09/03/16 09/03/16 09/03/16 07:00 15:00 23:00 07:00 15:00 23:00 Intake Total 240 ml 240 ml 240 ml Output Total 800 ml Balance 240 ml -800 ml 240 ml 240 ml Intake Oral 240 ml 240 ml 240 ml Output Urine Total 800 ml # Voids 2 3 2 2 Result Diagram: 09/03/16 0445 09/03/16 0440 Objective Remarks GENERAL: Patient appear older than stated age in no apparent distress. CARDIOVASCULAR: Normal rate and regular rhythm without murmurs, gallops, or rubs. RESPIRATORY: Good respiratory efforts. Breath sounds equal and clear to auscultation bilaterally. GASTROINTESTINAL: Abdomen soft, non-tender, non-distended. Normal active bowel sounds MUSCULOSKELETAL: Extremities without cyanosis, or edema. NEURO: Alert & Oriented x4 to person, place, time, situation. Moves all ext x4 PSYCH: Appropriate mood and affect. A/P Assessment and Plan 46y F with HIV/AIDS admitted for severe anemia, community-acquired pneumonia, lymphadenopathy of uncertain significance. Status post bone marrow biopsy. Concern for noncompliance with HAART medications. Community-acquired pneumonia - Bilateral infiltrates on imaging on cefepime, Vanco, Bactrim and Azithro - All cultures negative to date. sputum bacterial/fungal/AFB cultures, no acid fast or fungal seen on gram stain/smear . TB quantiferon. - ID following. Discussed with infectious disease today. Lymphadenopathy/severe anemia/leukopenia - Multiple enlarged lymph nodes on CT. s/p Bone marrow biopsy. Hematology following. per their recs, no need for Neupogen at this time as her neutropenia is improved. Awaiting pathology. - Discussed with ID, chest CT today to rule out thymoma Anemia/thrombocytopenia - Due to above - s/p 3 units of PRBCs - monitor cbc Elevated Creatinine: Could be secondary to Bactrim vs dehydration. Bactrim dose changed to 3 times a week per ID. Give IVF. Repeat labs in AM. HIV-AIDS: CD4 count on 07/12/16 was 65. Repeat on 08/28/16 is 35. Patient reports she had issues with noncompliance in the past due to drug use but reports she has been compliant prior to her last hospitalization. - on HAART meds. Infectious disease following. On Bactrim for prophylaxis. Constipation: No response to milk of magnesia. Lactulose PRN. DVT/GI prophylaxis - SCD/LASHELL/Pepcid. d/c heparin due to anemia/thrombocytopenia. encourage ambulation Discharge Planning d/c pending further work-up Candelario Rasheed MD Sep 03, 2016 11:37
--- NOTE | 2016-09-03 11:38 | PD.ONC.PN ---
Subjective Subjective Remarks Afebrile overnight. patient resting comfortably. She is tired of being in the hospital and wants to go home. Objective Data Date Time Temp Pulse Resp B/P Pulse Ox O2 Delivery O2 Flow Rate FiO2 09/03/16 08:00 96.7 82 20 103/61 95 09/03/16 00:00 96.9 98 17 106/71 98 09/02/16 20:00 98.0 94 17 103/66 98 09/02/16 16:00 97.9 102 16 95/72 97 09/02/16 12:00 98.7 96 16 95/64 96 09/03/16 09/03/16 09/03/16 07:00 15:00 23:00 Intake Total 240 ml Balance 240 ml Result Diagram: 09/03/16 0445 09/03/16 0440 Laboratory Results Laboratory Tests Test 09/03/16 09/03/16 04:40 04:45 Sodium Level 130 MEQ/L Potassium Level 4.0 MEQ/L Chloride Level 99 MEQ/L Carbon Dioxide Level 17.4 MEQ/L Anion Gap 14 MEQ/L Blood Urea Nitrogen 29 MG/DL Creatinine 1.40 MG/DL Estimat Glomerular Filtration 41 ML/MIN Rate Random Glucose 93 MG/DL Calcium Level 8.6 MG/DL White Blood Count 3.4 TH/MM3 Red Blood Count 3.42 MIL/MM3 Hemoglobin 9.9 GM/DL Hematocrit 28.9 % Mean Corpuscular Volume 84.6 FL Mean Corpuscular Hemoglobin 28.9 PG Mean Corpuscular Hemoglobin 34.2 % Concent Red Cell Distribution Width 15.6 % Platelet Count 109 TH/MM3 Mean Platelet Volume 8.5 FL Administered Medications Medications (Trade) Dose Ordered Sig/Carolyn Route PRN Reason Start Time Stop Time Status Last Admin Dose Admin Sodium Chloride (NS Flush) 2 ml UNSCH PRN .XX FLUSH AFTER USING IV ACCESS 08/27/16 20:45 09/02/16 02:47 Sodium Chloride (NS Flush) 2 ml BID .XX 08/27/16 21:00 09/03/16 08:44 Acetaminophen (Tylenol) 650 mg Q6H PRN PO PAIN 1-4 AND/OR FEVER >101F 08/27/16 20:45 08/30/16 14:14 Famotidine (Pepcid Inj) 20 mg Q12HR IV PUSH 08/27/16 21:00 09/03/16 08:43 Ondansetron HCl (Zofran Inj) 4 mg Q6H PRN IV NAUSEA OR VOMITING 08/27/16 20:45 09/01/16 05:59 Metoclopramide HCl (Reglan Inj) 10 mg Q6H PRN IV NAUSEA OR VOMITING 08/27/16 20:45 09/01/16 05:59 Docusate Sodium (Colace) 100 mg BID PO 08/27/16 21:00 09/03/16 08:43 Miscellaneous Information 1 Q361D XX 08/27/16 20:45 08/27/16 20:45 Chlorhexidine Gluconate Taper DAILY@04 TOP 08/28/16 04:00 08/24/17 03:59 08/28/16 03:16 Azithromycin 500 mg/Sodium Chloride 250 ml @ 250 mls/hr Q24H IV 08/28/16 20:00 09/02/16 21:19 Cefepime HCl/ Sodium Chloride (Maxipime Inj/NS Inj) 100 ml @ 200 mls/hr Q12H IV 08/28/16 03:00 09/03/16 04:07 Trimethoprim/ Sulfamethoxazole (Bactrim Ds 800-160 Mg) 2 tab Q8H PO 08/28/16 08:00 09/03/16 08:43 Benzonatate (Tessalon) 100 mg Q8H PRN PO COUGH 08/28/16 14:00 09/01/16 21:03 Benzocaine/Menthol (Chloraseptic Sheba) 1 lozenge UNSCH PRN BUCCAL THROAT PAIN 08/29/16 18:15 09/02/16 01:12 Acetaminophen/ Hydrocodone Bitart (S[facility]red [facility] 7.5-325 Mg) 1 tab Q4H PRN PO PAIN 8-10 08/30/16 19:30 09/01/16 01:30 Objective Remarks GENERAL: Middle aged female, lying in bed in nad SKIN: Warm and dry. HEAD: Normocephalic. EYES: No injection or drainage. NECK: Supple, trachea midline. CARDIOVASCULAR: Regular rate and rhythm RESPIRATORY: Breath sounds equal bilaterally. No accessory muscle use. GASTROINTESTINAL: Abdomen soft, non-tender, nondistended. EXTREMITIES: No cyanosis NEURO: awake and alert, normal speech Assessment/Plan Problem List: (1) Pancytopenia Status: Acute Plan: --improving --unlikely to be compliant with HAART therapy --last CMV screen was negative. +hepatosplenomegaly likely due to her HIV and AIDS. --recent CT scan showed nonspecific adenopathy which is likely due to HIV, but we cannot rule out lymphoproliferative disorder. --s/p bone marrow biopsy, awaiting pathology Assessment 46y/o female with pancytopenia HIV/AIDS Anxiety, depression. Recent mastoiditis with left-sided hearing loss. Plan 1. clear for discharge. patient can follow up in clinic for results of bone marrow biopsy 2. supportive care. Attending Statement The exam, history, and the medical decision-making described in the above note were completed with the assistance of the mid-level provider. I reviewed and agree with the findings presented. I attest that I had a [id number] encounter with the patient on the same day, and personally performed and documented my assessment and findings in the medical record. Feeling better. Blood counts are stable. Bone marrow path pending, but flowcytometry did not show abnormal immunophenotype. Continue supportive care. Can be d/c when stable. Yolanda Bustamante Sep 03, 2016 11:37 Leonidas Ogden MD Sep 03, 2016 15:12
[2016-09-03 12:00] VITALS: BP 93/60; PULSE 104; RESP 20; TEMP 96.2; O2SAT 96
[2016-09-03] MEDS: SODIUM CHLOR 0.9% 1000 ML INJ 1,000 ML IV SCH ×3 (12:00→20:35)
[2016-09-03 12:36] LABS: RETIC % 0.1 % (0.4-3.0); REVIEW FLAG FINAL
--- NOTE | 2016-09-03 13:19 | RADRPT ---
EXAM DATE/TIME: 09/03/2016 12:25 [facility] COMPARISON: No previous studies available for comparison. INDICATIONS : Evaluate for thymoma. RADIATION DOSE: 3.39 CTDIvol (mGy) MEDICAL HISTORY : HIV. SURGICAL HISTORY : section. Hernea ENCOUNTER: Initial ACUITY: 1 day PAIN SCALE: 2/10 LOCATION: chest TECHNIQUE: Volumetric scanning of the chest was performed. Using automated exposure control and adjustment of t he mA and/or kV according to patient size, radiation dose was kept as low as reasonably achievable to obtain optimal diagnostic quality images. FINDINGS: There are faint reticular-nodular infiltrates in the right upper lobe, mild focal consolidation in th e right middle lobe, and left lower lobe and lingular infiltrate is seen. The osseous structures are intact. No pleural effusions are seen. A moderate pericardial effusion is noted anteriorly measuring up to 21 cm and AP dimension. There is a left adrenal nodule of the lateral limb measuring 1.5 x 1.6 cm in AP and transverse dimension and -4 Hounsfield units suggest an adenoma. No pathologically enlar ged lymph nodes are identified in the hilar regions. A 9 mm subcarinal lymph node is present. The spl een is enlarged measuring 14 cm. CONCLUSION: 1. Left adrenal adenoma. 2. Splenomegaly. 3. No evidence for thymic mass. 4. Scattered pulmonary infiltrates. This is most pronounced in the left lower lobe with medial basila r consolidation. Ole Dean MD on September 03, 2016 at 13:09 Board Certified Radiologist. This report was verified electronically.
[2016-09-03 16:00] VITALS: BP 110/71; PULSE 86; RESP 20; TEMP 97.7; O2SAT 97
--- NOTE | 2016-09-03 16:05 | HHI.IDPN ---
Subjective Subjective Remarks Creatinine is upco malaise, low energy which she attributes to lack of sleep no fever cough is getting better no new co dw Dr Santos: ? thymoma vs medx effects less likely infx (HSV CMV). MAC unlikely Antibiotics azithromycin cefepime bactrim Allergies: Coded Allergies: Penicillin (Verified Allergy, Intermediate, rash, 08/27/16) Objective . Vital Signs Date Time Temp Pulse Resp B/P Pulse Ox O2 Delivery O2 Flow Rate FiO2 09/03/16 12:00 96.2 104 20 93/60 96 09/03/16 08:00 96.7 82 20 103/61 95 09/03/16 00:00 96.9 98 17 106/71 98 09/02/16 20:00 98.0 94 17 103/66 98 09/02/16 16:00 97.9 102 16 95/72 97 09/02/16 09/02/16 09/03/16 15:00 23:00 07:00 Intake Total 240 ml 240 ml Output Total 800 ml Balance -800 ml 240 ml 240 ml Intake Oral 240 ml 240 ml Output Urine Total 800 ml # Voids 3 2 2 . Laboratory Tests Test 09/02/16 09/03/16 09/03/16 05:18 04:40 04:45 White Blood Count 4.6 TH/MM3 3.4 TH/MM3 Red Blood Count 3.52 MIL/MM3 3.42 MIL/MM3 Hemoglobin 10.5 GM/DL 9.9 GM/DL Hematocrit 29.6 % 28.9 % Mean Corpuscular Volume 84.2 FL 84.6 FL Mean Corpuscular Hemoglobin 30.0 PG 28.9 PG Mean Corpuscular Hemoglobin 35.6 % 34.2 % Concent Red Cell Distribution Width 15.9 % 15.6 % Platelet Count 114 TH/MM3 109 TH/MM3 Mean Platelet Volume 8.6 FL 8.5 FL Neutrophils (%) (Auto) 50.8 % Lymphocytes (%) (Auto) 37.3 % Monocytes (%) (Auto) 10.3 % Eosinophils (%) (Auto) 1.0 % Basophils (%) (Auto) 0.6 % Neutrophils # (Auto) 2.4 TH/MM3 Lymphocytes # (Auto) 1.7 TH/MM3 Monocytes # (Auto) 0.5 TH/MM3 Eosinophils # (Auto) 0.0 TH/MM3 Basophils # (Auto) 0.0 TH/MM3 CBC Comment DIFF FINAL Differential Comment Reticulocyte Count 0.1 % Absolute Reticulocyte Count 4.7 MIL/L Laboratory Tests Test 09/02/16 09/03/16 05:18 04:40 Sodium Level 129 MEQ/L 130 MEQ/L Potassium Level 4.4 MEQ/L 4.0 MEQ/L Chloride Level 97 MEQ/L 99 MEQ/L Carbon Dioxide Level 21.0 MEQ/L 17.4 MEQ/L Anion Gap 11 MEQ/L 14 MEQ/L Blood Urea Nitrogen 31 MG/DL 29 MG/DL Creatinine 1.27 MG/DL 1.40 MG/DL Estimat Glomerular Filtration 46 ML/MIN 41 ML/MIN Rate Random Glucose 85 MG/DL 93 MG/DL Calcium Level 9.0 MG/DL 8.6 MG/DL Imaging Last Impressions Chest CT 09/03/16 0000 Signed Impressions: Service Date/Time: Saturday, September 03, 2016 12:25 - CONCLUSION: 1. Left adrenal adenoma. 2. Splenomegaly. 3. No evidence for thymic mass. 4. Scattered pulmonary infiltrates. This is most pronounced in the left lower lobe with medial basilar consolidation. Ole Dean MD Chest X-Ray 08/31/16 0600 Signed Impressions: Service Date/Time: Wednesday, August 31, 2016 06:17 - CONCLUSION: Slight bibasilar atelectasis and/or infiltrate is seen. Nadia Chu MD Bone Biopsy CT 08/29/16 0000 Signed Impressions: Service Date/Time: Monday, August 29, 2016 15:18 - CONCLUSION: 1. Uncomplicated CT guided bone marrow aspirate. 2. Uncomplicated CT guided bone marrow biopsy. Jonnathan Solano MD FACR Physical Exam CONSTITUTIONAL/GENERAL: This is an adequately nourished patient, teraful and visinly upset TUBES/LINES/DRAINS: SKIN: No jaundice, rashes, or lesions. Skin temperature appropriate. Not diaphoretic. EYES: Pupils equal and round and reactive. Extraocular motions intact. No scleral icterus. No injection or drainage. Fundi not examined. CARDIOVASCULAR: Regular rate and rhythm without murmurs, gallops, or rubs. No JVD. Peripheral pulses symmetric. RESPIRATORY/CHEST: Symmetric, unlabored respirations. Clear to auscultation. Breath sounds equally decreased . No wheezes, rales, or rhonchi. GASTROINTESTINAL: Abdomen soft, non-tender, nondistended. No hepato-splenomegaly , or palpable masses. No guarding. Bowel sounds present. MUSCULOSKELETAL: Extremities without clubbing, cyanosis, or edema. NEUROLOGICAL: Awake and alert. Motor and sensory grossly within normal limits. Follows commands. Speech normal. Moves all extremities. PSYCHIATRIC: tearful Assessment & Plan Remarks HIV, AIDS, states compliance - Dr Sumner pt - CD4 66 last visit ; 39 this admission - Pancytopenia: dw pathologist - pt denies any new meds. Her cyrrent HAART Rx, fluconazole and bactrim she used at least for 1 yr - denies OTC, herbal medx - Used intranasally cocaine - last time about 2-3 mos ago PNA with scattred infiltrates including biggest one in [place] - cont HAART as per pt s profile:Prezcobix, Epivir and Tivicay -cont azithromycin, cefepime - change Bactrim to profilalxis dose - fu path untill final CT chest wo contrast (done) - retics CMV HIV VL fu creatinine urrine eos: done - none seen Adilia Tanner MD Sep 03, 2016 16:05
[2016-09-03 20:00] VITALS: BP 108/66; PULSE 61; RESP 17; TEMP 97; O2SAT 95
[2016-09-03] MEDS: AZITHROMYCIN INJ 500 MG in SODIUM CHLOR 0.9% 250 ML INJ 250 ML IV SCH (20:37)
[2016-09-04] VITALS: BP 104/64; PULSE 91; RESP 17; TEMP 98.1; O2SAT 96
[2016-09-04] MEDS: CEFEPIME INJ 2,000 MG in SODIUM CHLORIDE 0.9% INJ 100 ML IV SCH ×2 (03:36→14:55)
[2016-09-04] MEDS: SODIUM CHLOR 0.9% 1000 ML INJ 1,000 ML IV SCH ×3 (03:36→21:33)
[2016-09-04 06:21] LABS: MEAN CELL VOLUME 84.1 FL (80.0-100.0); MEAN CORPUSCULAR HEMOGLOBIN 29.3 PG (27.0-34.0); MEAN CORPUSCULAR HGB CONC 34.8 % (32.0-36.0); PLATELET COUNT 120 TH/MM3 (150-450); RED BLOOD COUNT 3.34 MIL/MM3 (4.00-5.30); RED CELL DISTRIBUTION WIDTH 15.5 % (11.6-17.2); WHITE BLOOD COUNT 2.9 TH/MM3 (4.0-11.0)
[2016-09-04 06:31] LABS: HEMO FLAGS AUTO DIFF
[2016-09-04 07:28] LABS: BICARBONATE 18.9 MEQ/L (21.0-32.0); POTASSIUM 4.3 MEQ/L (3.5-5.1)
[2016-09-04 08:00] VITALS: BP 92/65; PULSE 80; RESP 22; TEMP 96.2; O2SAT 95
[2016-09-04] MEDS: FAMOTIDINE 20 MG/2 ML VIAL IV PUSH SCH ×2 (08:25→21:24)
[2016-09-04] MEDS: DOCUSATE SODIUM 100 MG CAP PO SCH ×2 (08:25→21:00)
[2016-09-04] MEDS: SODIUM CHLORIDE 0.9% FLUSH 10 ML FLUSH SCH ×2 (08:26→21:00)
[2016-09-04 08:30] LABS: BANDS 4 % (0-6); EOSINOPHILS 4 % (0-4); METAMYELOCYTES 1 % (0-1); NEUTROPHIL # MANUAL DIFF 1.2 TH/MM3 (1.8-7.7); POLYS (SEG NEUTROPHILS) 37 % (16-70); WBC DIFF SAMPLE 100
[2016-09-04 08:31] LABS: OVALOCYTES 1+ (NORMAL); PLATELET ESTIMATE SMEAR LOW (NORMAL); PLATELET MORPHOLOGY NORMAL (NORMAL); SCAN/DIFF FINAL DIFF MANUAL
[2016-09-04] MEDS: [UNRECOGNIZED DRUG - OTHER] PO SCH (11:00)
--- NOTE | 2016-09-04 11:49 | PD.ONC.PN ---
Subjective Subjective Remarks Afebrile overnight. patient resting, stating she is tired of being in hospital. Wants to go home. Objective Data Date Time Temp Pulse Resp B/P Pulse Ox O2 Delivery O2 Flow Rate FiO2 09/04/16 08:00 96.2 80 22 92/65 95 09/04/16 00:00 98.1 91 17 104/64 96 09/03/16 20:00 97.0 61 17 108/66 95 09/03/16 16:00 97.7 86 20 110/71 97 09/03/16 12:00 96.2 104 20 93/60 96 09/04/16 09/04/16 09/04/16 07:00 15:00 23:00 Intake Total 1205 ml Output Total 900 ml Balance 305 ml Result Diagram: 09/04/16 0459 09/04/16 0459 Laboratory Results Laboratory Tests Test 09/03/16 09/03/16 09/03/16 09/04/16 12:48 13:00 20:52 04:59 Cytomegalovirus DNA Quant Undetected (PCR) IU/mL Urine Eosinophils NONE SEEN /HPF Prealbumin 39 MG/DL White Blood Count 2.9 TH/MM3 Red Blood Count 3.34 MIL/MM3 Hemoglobin 9.8 GM/DL Hematocrit 28.0 % Mean Corpuscular Volume 84.1 FL Mean Corpuscular Hemoglobin 29.3 PG Mean Corpuscular Hemoglobin 34.8 % Concent Red Cell Distribution Width 15.5 % Platelet Count 120 TH/MM3 Mean Platelet Volume 8.3 FL Neutrophils (%) (Auto) % Lymphocytes (%) (Auto) % Monocytes (%) (Auto) % Eosinophils (%) (Auto) % Basophils (%) (Auto) % Neutrophils # (Auto) TH/MM3 Lymphocytes # (Auto) TH/MM3 Monocytes # (Auto) TH/MM3 Eosinophils # (Auto) TH/MM3 Basophils # (Auto) TH/MM3 CBC Comment AUTO DIFF Differential Total Cells 100 Counted Neutrophils % (Manual) 37 % Band Neutrophils % 4 % Lymphocytes % 35 % Monocytes % 19 % Eosinophils % 4 % Neutrophils # (Manual) 1.2 TH/MM3 Metamyelocytes 1 % Differential Comment FINAL DIFF MANUAL Platelet Estimate LOW Platelet Morphology Comment NORMAL Ovalocytes 1+ Sodium Level 132 MEQ/L Potassium Level 4.3 MEQ/L Chloride Level 102 MEQ/L Carbon Dioxide Level 18.9 MEQ/L Anion Gap 11 MEQ/L Blood Urea Nitrogen 25 MG/DL Creatinine 1.28 MG/DL Estimat Glomerular Filtration 45 ML/MIN Rate Random Glucose 90 MG/DL Calcium Level 8.6 MG/DL Administered Medications Medications (Trade) Dose Ordered Sig/Carolyn Route PRN Reason Start Time Stop Time Status Last Admin Dose Admin Sodium Chloride (NS Flush) 2 ml UNSCH PRN .XX FLUSH AFTER USING IV ACCESS 08/27/16 20:45 09/02/16 02:47 Sodium Chloride (NS Flush) 2 ml BID .XX 08/27/16 21:00 09/03/16 20:35 Acetaminophen (Tylenol) 650 mg Q6H PRN PO PAIN 1-4 AND/OR FEVER >101F 08/27/16 20:45 08/30/16 14:14 Famotidine (Pepcid Inj) 20 mg Q12HR IV PUSH 08/27/16 21:00 09/04/16 08:25 Ondansetron HCl (Zofran Inj) 4 mg Q6H PRN IV NAUSEA OR VOMITING 08/27/16 20:45 09/01/16 05:59 Metoclopramide HCl (Reglan Inj) 10 mg Q6H PRN IV NAUSEA OR VOMITING 08/27/16 20:45 09/01/16 05:59 Docusate Sodium (Colace) 100 mg BID PO 08/27/16 21:00 09/04/16 08:25 Miscellaneous Information 1 Q361D XX 08/27/16 20:45 08/27/16 20:45 Chlorhexidine Gluconate Taper DAILY@04 TOP 08/28/16 04:00 08/24/17 03:59 08/28/16 03:16 Azithromycin 500 mg/Sodium Chloride 250 ml @ 250 mls/hr Q24H IV 08/28/16 20:00 09/03/16 20:37 Cefepime HCl/ Sodium Chloride (Maxipime Inj/NS Inj) 100 ml @ 200 mls/hr Q12H IV 08/28/16 03:00 09/04/16 03:36 Benzonatate (Tessalon) 100 mg Q8H PRN PO COUGH 08/28/16 14:00 09/01/16 21:03 Benzocaine/Menthol (Chloraseptic Sheba) 1 lozenge UNSCH PRN BUCCAL THROAT PAIN 08/29/16 18:15 09/02/16 01:12 Acetaminophen/ Hydrocodone Bitart 1 tab 1 tab Q4H PRN PO PAIN 8-10 08/30/16 19:30 09/01/16 01:30 Sodium Chloride (NS 1000 ml Inj) 1,000 ml @ 125 mls/hr Q8H IV 09/03/16 12:00 09/04/16 03:36 Objective Remarks GENERAL: Middle aged female, sitting up in bed in nad. SKIN: Warm and dry. HEAD: Normocephalic. EYES: No injection or drainage. NECK: Supple, trachea midline. CARDIOVASCULAR: Regular rate and rhythm RESPIRATORY: Breath sounds equal bilaterally. No accessory muscle use. GASTROINTESTINAL: Abdomen soft, non-tender, nondistended. EXTREMITIES: No cyanosis NEURO: awake and alert, normal speech. moving all extremities. Assessment/Plan Problem List: (1) Pancytopenia Status: Acute Plan: --improving --unlikely to be compliant with HAART therapy --last CMV screen was negative. +hepatosplenomegaly likely due to her HIV and AIDS. --recent CT scan showed nonspecific adenopathy which is likely due to HIV, but we cannot rule out lymphoproliferative disorder. --s/p bone marrow biopsy, awaiting pathology Assessment 46y/o female with pancytopenia HIV/AIDS Anxiety, depression. Recent mastoiditis with left-sided hearing loss. Plan 1. oncology clear for discharge 2. fs faxed to [facility] for follow up with Dr. Ogden in 4-6 weeks for lymphadenopathy 3. monitor CBC 4. await pathology Attending Statement The exam, history, and the medical decision-making described in the above note were completed with the assistance of the mid-level provider. I reviewed and agree with the findings presented. I attest that I had a [id number] encounter with the patient on the same day, and personally performed and documented my assessment and findings in the medical record. No new c/o. Blood counts are stable. Bone marrow showed no lymphoproliferative d/o. + myeloid hyperplasia with absent erythroid precursors. Clinically her Hgb is stable and she does not require red cell transfusion. I think the marrow finding is due to her underlying HIV/AIDS. Continue HAART per ID. Yolanda Bustamante Sep 04, 2016 11:49 Leonidas Ogden MD Sep 04, 2016 17:25
--- NOTE | 2016-09-04 11:54 | HHI.PR ---
Subjective Remarks Patient reports she is feeling okay except for being tired. No shortness of breath or chest pain. No cough. Anxious to go home. Objective Vitals Vital Signs Date Time Temp Pulse Resp B/P Pulse Ox O2 Delivery O2 Flow Rate FiO2 09/04/16 08:00 96.2 80 22 92/65 95 09/04/16 00:00 98.1 91 17 104/64 96 09/03/16 20:00 97.0 61 17 108/66 95 09/03/16 16:00 97.7 86 20 110/71 97 09/03/16 12:00 96.2 104 20 93/60 96 I/O 09/03/16 09/03/16 09/03/16 09/04/16 09/04/16 09/04/16 07:00 15:00 23:00 07:00 15:00 23:00 Intake Total 240 ml 1240 ml 1205 ml Output Total 1400 ml 900 ml Balance 240 ml -160 ml 305 ml Intake Oral 240 ml 240 ml 240 ml IV Total 1000 ml 965 ml Output Urine Total 1400 ml 900 ml # Voids 2 3 Result Diagram: 09/04/16 0459 09/04/16 0459 Imaging Last Impressions Chest CT 09/03/16 0000 Signed Impressions: Service Date/Time: Saturday, September 03, 2016 12:25 - CONCLUSION: 1. Left adrenal adenoma. 2. Splenomegaly. 3. No evidence for thymic mass. 4. Scattered pulmonary infiltrates. This is most pronounced in the left lower lobe with medial basilar consolidation. Ole Dean MD Chest X-Ray 08/31/16 0600 Signed Impressions: Service Date/Time: Wednesday, August 31, 2016 06:17 - CONCLUSION: Slight bibasilar atelectasis and/or infiltrate is seen. Nadia Chu MD Bone Biopsy CT 08/29/16 0000 Signed Impressions: Service Date/Time: Monday, August 29, 2016 15:18 - CONCLUSION: 1. Uncomplicated CT guided bone marrow aspirate. 2. Uncomplicated CT guided bone marrow biopsy. Jonnathan Solano MD FACR Objective Remarks GENERAL: Patient appear older than stated age in no apparent distress. CARDIOVASCULAR: Normal rate and regular rhythm without murmurs, gallops, or rubs. RESPIRATORY: Good respiratory efforts. Breath sounds equal and clear to auscultation bilaterally. GASTROINTESTINAL: Abdomen soft, non-tender, non-distended. Normal active bowel sounds MUSCULOSKELETAL: Extremities without cyanosis, or edema. NEURO: Alert & Oriented x4 to person, place, time, situation. Moves all ext x4 PSYCH: Appropriate mood and affect. A/P Assessment and Plan 46y F with HIV/AIDS admitted for severe anemia, community-acquired pneumonia, lymphadenopathy of uncertain significance. Status post bone marrow biopsy. Concern for noncompliance with HAART medications. Community-acquired pneumonia - Bilateral infiltrates on imaging. Patient completing cefepime and vancomycin per ID. On Bactrim for prophylaxis. - All cultures negative to date. sputum bacterial/fungal/AFB cultures, no acid fast or fungal seen on gram stain/smear . - ID following. Discussed with infectious disease today. Abx course complete. Lymphadenopathy/severe anemia/leukopenia - Multiple enlarged lymph nodes on CT. s/p Bone marrow biopsy. Hematology following. per their recs, no need for Neupogen at this time as her neutropenia is improved. Awaiting pathology. - Discussed with ID, awaiting further input from Pathologist and Heme/onc Anemia/thrombocytopenia - Due to above - s/p 3 units of PRBCs - monitor cbc Elevated Creatinine: Likely secondary to Bactrim vs dehydration. Bactrim dose changed to 3 times a week per ID. Improving. Can follow up outpatient. HIV-AIDS: CD4 count on 07/12/16 was 65. Repeat on 08/28/16 is 35. Patient reports she had issues with noncompliance in the past due to drug use but reports she has been compliant prior to her last hospitalization. - on HAART meds. Infectious disease following. On Bactrim for prophylaxis. Need to follow up outpatient with Dr. Dangelo. DVT/GI prophylaxis - SCD/LASHELL/Pepcid. d/c heparin due to anemia/thrombocytopenia. encourage ambulation Discharge Planning Probable DC tomorrow. Awaiting final recs from pathology and Heme/Onc Candelario Rasheed MD Sep 04, 2016 11:54
[2016-09-04 12:00] VITALS: BP 100/56; PULSE 94; RESP 18; TEMP 97.6; O2SAT 97
--- NOTE | 2016-09-04 15:08 | HHI.IDPN ---
Subjective Subjective Remarks Creatinine is better dw Dr Santos: staines are negative for organisms no fever cough is getting better no new co No tymoma Antibiotics azithromycin cefepime bactrim Allergies: Coded Allergies: Penicillin (Verified Allergy, Intermediate, rash, 08/27/16) Objective . Vital Signs Date Time Temp Pulse Resp B/P Pulse Ox O2 Delivery O2 Flow Rate FiO2 09/04/16 12:00 97.6 94 18 100/56 97 09/04/16 08:00 96.2 80 22 92/65 95 09/04/16 00:00 98.1 91 17 104/64 96 09/03/16 20:00 97.0 61 17 108/66 95 09/03/16 16:00 97.7 86 20 110/71 97 09/03/16 09/03/16 09/04/16 15:00 23:00 07:00 Intake Total 1240 ml 1445 ml Output Total 1400 ml 1150 ml Balance -160 ml 295 ml Intake Oral 240 ml 480 ml IV Total 1000 ml 965 ml Output Urine Total 1400 ml 1150 ml # Voids 3 # Bowel Movements 0 . Laboratory Tests Test 09/03/16 09/03/16 09/04/16 04:40 04:45 04:59 Reticulocyte Count 0.1 % Absolute Reticulocyte Count 4.7 MIL/L White Blood Count 3.4 TH/MM3 2.9 TH/MM3 Red Blood Count 3.42 MIL/MM3 3.34 MIL/MM3 Hemoglobin 9.9 GM/DL 9.8 GM/DL Hematocrit 28.9 % 28.0 % Mean Corpuscular Volume 84.6 FL 84.1 FL Mean Corpuscular Hemoglobin 28.9 PG 29.3 PG Mean Corpuscular Hemoglobin 34.2 % 34.8 % Concent Red Cell Distribution Width 15.6 % 15.5 % Platelet Count 109 TH/MM3 120 TH/MM3 Mean Platelet Volume 8.5 FL 8.3 FL Neutrophils (%) (Auto) % Lymphocytes (%) (Auto) % Monocytes (%) (Auto) % Eosinophils (%) (Auto) % Basophils (%) (Auto) % Neutrophils # (Auto) TH/MM3 Lymphocytes # (Auto) TH/MM3 Monocytes # (Auto) TH/MM3 Eosinophils # (Auto) TH/MM3 Basophils # (Auto) TH/MM3 CBC Comment AUTO DIFF Differential Total Cells 100 Counted Neutrophils % (Manual) 37 % Band Neutrophils % 4 % Lymphocytes % 35 % Monocytes % 19 % Eosinophils % 4 % Neutrophils # (Manual) 1.2 TH/MM3 Metamyelocytes 1 % Differential Comment FINAL DIFF MANUAL Platelet Estimate LOW Platelet Morphology Comment NORMAL Ovalocytes 1+ Laboratory Tests Test 09/03/16 09/03/16 09/04/16 04:40 20:52 04:59 Sodium Level 130 MEQ/L 132 MEQ/L Potassium Level 4.0 MEQ/L 4.3 MEQ/L Chloride Level 99 MEQ/L 102 MEQ/L Carbon Dioxide Level 17.4 MEQ/L 18.9 MEQ/L Anion Gap 14 MEQ/L 11 MEQ/L Blood Urea Nitrogen 29 MG/DL 25 MG/DL Creatinine 1.40 MG/DL 1.28 MG/DL Estimat Glomerular Filtration 41 ML/MIN 45 ML/MIN Rate Random Glucose 93 MG/DL 90 MG/DL Calcium Level 8.6 MG/DL 8.6 MG/DL Prealbumin 39 MG/DL Imaging Last Impressions Chest CT 09/03/16 0000 Signed Impressions: Service Date/Time: Saturday, September 03, 2016 12:25 - CONCLUSION: 1. Left adrenal adenoma. 2. Splenomegaly. 3. No evidence for thymic mass. 4. Scattered pulmonary infiltrates. This is most pronounced in the left lower lobe with medial basilar consolidation. Ole Dean MD Chest X-Ray 08/31/16 0600 Signed Impressions: Service Date/Time: Wednesday, August 31, 2016 06:17 - CONCLUSION: Slight bibasilar atelectasis and/or infiltrate is seen. Nadia Chu MD Bone Biopsy CT 08/29/16 0000 Signed Impressions: Service Date/Time: Monday, August 29, 2016 15:18 - CONCLUSION: 1. Uncomplicated CT guided bone marrow aspirate. 2. Uncomplicated CT guided bone marrow biopsy. Jonnathan Solano MD FACR Physical Exam CONSTITUTIONAL/GENERAL: Calm . NAD SKIN: No jaundice, rashes, or lesions. Skin temperature appropriate. Not diaphoretic. EYES: Pupils equal and round and reactive. Extraocular motions intact. No scleral icterus. No injection or drainage. Fundi not examined. CARDIOVASCULAR: Regular rate and rhythm without murmurs, gallops, or rubs. No JVD. Peripheral pulses symmetric. RESPIRATORY/CHEST: Symmetric, unlabored respirations. Clear to auscultation. Breath sounds equally decreased . No wheezes, rales, or rhonchi. GASTROINTESTINAL: Abdomen soft, non-tender, nondistended. MUSCULOSKELETAL: Extremities without clubbing, cyanosis, or edema. NEUROLOGICAL: Awake and alert. Motor and sensory grossly within normal limits. Follows commands. Speech normal. Moves all extremities. PSYCHIATRIC: calmm and cooperatve Assessment & Plan Remarks HIV, AIDS, admits to non compliance - Dr Sumner pt - CD4 64 last visit ; 39 this admission - Pancytopenia: dw pathologist :medx vs intrinsic bone marrow pathology - pt denies any new meds. Her current HAART Rx, fluconazole and bactrim she used at least for 1 yr - denies OTC, herbal medx - Used intranasally cocaine - last time about 2-3 mos ago - retics low -CMV undetectable - HIV VL P PNA with scattred infiltrates including biggest one in LLL - cont HAART as per pt s profile:Prezcobix, Epivir and Tivicay -complete azithromycin, cefepime - change Bactrim to profilalxis dose - fu path untill final - OK to dc from ID standpoint once cleared y hematology and hem/onc fu arranged shw will need to fu with Dr Dangelo for falling CD4 counts despite HAART within 1 -2 wks p dc Adilia Tanner MD Sep 04, 2016 15:08
[2016-09-04 16:00] VITALS: BP 109/67; PULSE 99; RESP 18; TEMP 98.6; O2SAT 96
[2016-09-04 17:44] LABS: RETIC % 0.2 % (0.4-3.0); REVIEW FLAG FINAL
[2016-09-04 20:00] VITALS: BP 105/69; PULSE 96; RESP 17; TEMP 98.5; O2SAT 98
[2016-09-04] MEDS: AZITHROMYCIN INJ 500 MG in SODIUM CHLOR 0.9% 250 ML INJ 250 ML IV SCH (21:24)
[2016-09-05] VITALS: BP 107/71; PULSE 98; RESP 17; TEMP 98.2; O2SAT 97
[2016-09-05] MEDS: CEFEPIME INJ 2,000 MG in SODIUM CHLORIDE 0.9% INJ 100 ML IV SCH (03:37)
[2016-09-05] MEDS: CHLORHEXIDINE GLUCONATE 2 % 1 PACK (2 CLOTHS) TOP SCH (04:00)
[2016-09-05] MEDS: SODIUM CHLOR 0.9% 1000 ML INJ 1,000 ML IV SCH (06:37)
[2016-09-05 08:00] VITALS: BP 100/66; PULSE 104; RESP 17; TEMP 97.8; O2SAT 95
[2016-09-05] MEDS: SODIUM CHLORIDE 0.9% FLUSH 10 ML FLUSH SCH (08:55)
[2016-09-05] MEDS: FAMOTIDINE 20 MG/2 ML VIAL IV PUSH SCH (08:56)
[2016-09-05] MEDS: DOCUSATE SODIUM 100 MG CAP PO SCH (08:57)
[2016-09-05] MEDS ORDERED: SULFAMETHOXAZOLE-TRIMETHOPRIM DS 800-160 MG TAB PO SCH (09:00)
[2016-09-05] MEDS ORDERED: SULF1TAB23 PO (10:18)
--- NOTE | 2016-09-05 10:19 | HHI.DS ---
Discharge Summary Admission Date Aug 27, 2016 at 20:23 Discharge Date: Sep 05, 2016 Admitting Diagnosis severe anemia, pneumonia, lymphadenopathy, pancreatitis (1) Pneumonia ICD Code: J18.9 (2) Anemia ICD Code: D64.9 (3) Lymphadenopathy ICD Code: R59.1 (4) AIDS ICD Code: B20 Procedures Bone marrow biopsy Brief History - From Admission 46-year-old female with history of HIV/AIDS on HARRT, unknown last CD4 count, unknown last viral load, sent in by her infectious disease physician Dr. Dangelo for abnormal labs and abnormal CT abdomen pelvis. She was admitted to the hospital in June and was discharged in July after having been diagnosed with mastoiditis. For the last couple of weeks she has been having increasing weakness, shortness of breath, and a cough. No hemoptysis. No abdominal pain. She had an outpatient CAT scan of the abdomen and pelvis at the [facility] or [facility] imaging facility that shows bilateral lower lobe pulmonary consolidations as well as abnormal lymph nodes in her abdomen. CBC/BMP: 09/04/16 0459 09/04/16 0459 Significant Findings Laboratory Tests Test 09/03/16 09/03/16 09/04/16 09/04/16 04:40 04:45 04:59 17:19 Reticulocyte Count 0.1 % (0.4-3.0) 0.2 % (0.4-3.0) Absolute Reticulocyte Count 4.7 MIL/L 5.7 MIL/L (20.0-150.0) (20.0-150.0) Sodium Level 130 MEQ/L 132 MEQ/L (136-145) (136-145) Carbon Dioxide Level 17.4 MEQ/L 18.9 MEQ/L (21.0-32.0) (21.0-32.0) Blood Urea Nitrogen 29 MG/DL (7-18) 25 MG/DL (7-18) Creatinine 1.40 MG/DL 1.28 MG/DL (0.50-1.00) (0.50-1.00) Estimat Glomerular Filtration 41 ML/MIN (>89) 45 ML/MIN (>89) Rate White Blood Count 3.4 TH/MM3 2.9 TH/MM3 (4.0-11.0) (4.0-11.0) Red Blood Count 3.42 MIL/MM3 3.34 MIL/MM3 (4.00-5.30) (4.00-5.30) Hemoglobin 9.9 GM/DL 9.8 GM/DL (11.6-15.3) (11.6-15.3) Hematocrit 28.9 % 28.0 % (35.0-46.0) (35.0-46.0) Platelet Count 109 TH/MM3 120 TH/MM3 (150-450) (150-450) Monocytes % 19 % (0-8) Neutrophils # (Manual) 1.2 TH/MM3 (1.8-7.7) Platelet Estimate LOW (NORMAL) Ovalocytes 1+ (NORMAL) Imaging Last Impressions Chest CT 09/03/16 0000 Signed Impressions: Service Date/Time: Saturday, September 03, 2016 12:25 - CONCLUSION: 1. Left adrenal adenoma. 2. Splenomegaly. 3. No evidence for thymic mass. 4. Scattered pulmonary infiltrates. This is most pronounced in the left lower lobe with medial basilar consolidation. Ole Dean MD Chest X-Ray 08/31/16 0600 Signed Impressions: Service Date/Time: Wednesday, August 31, 2016 06:17 - CONCLUSION: Slight bibasilar atelectasis and/or infiltrate is seen. Nadia Chu MD Bone Biopsy CT 08/29/16 0000 Signed Impressions: Service Date/Time: Monday, August 29, 2016 15:18 - CONCLUSION: 1. Uncomplicated CT guided bone marrow aspirate. 2. Uncomplicated CT guided bone marrow biopsy. Jonnathan Solano MD FACR PE at Discharge GENERAL: Patient appear older than stated age in no apparent distress. CARDIOVASCULAR: Normal rate and regular rhythm without murmurs, gallops, or rubs. RESPIRATORY: Good respiratory efforts. Breath sounds equal and clear to auscultation bilaterally. GASTROINTESTINAL: Abdomen soft, non-tender, non-distended. Normal active bowel sounds MUSCULOSKELETAL: Extremities without cyanosis, or edema. NEURO: Alert & Oriented x4 to person, place, time, situation. Moves all ext x4 PSYCH: Appropriate mood and affect. Pt update on day of discharge Patient reports she is feeling great. She is eager to be discharged home. She was seen by hematology earlier. She understand the findings of the bone marrow. She does not want to follow up outpatient. She agreed to follow-up with Dr. Dangelo for HIV treatment. Hospital Course 46y F with HIV/AIDS admitted for severe anemia, community-acquired pneumonia, lymphadenopathy of uncertain significance. Status post bone marrow biopsy. Concern for noncompliance with HAART medications. Evaluation and treatment course detailed below: Community-acquired pneumonia - Bilateral infiltrates on imaging. Patient completed cefepime and vancomycin per ID. On Bactrim for prophylaxis. - All cultures negative to date. sputum bacterial/fungal/AFB cultures, no acid fast or fungal seen on gram stain/smear . Lymphadenopathy/severe anemia/leukopenia - Multiple enlarged lymph nodes on CT. s/p Bone marrow biopsy. Hematology following. per their recs, no need for Neupogen at this time as her neutropenia is improved. Per hematology, No lymphoproliferative disorder noted in bone marrow. There is decreased in Red cell precursors. Reticulocyte count is low. Parvovirus is pending. Patient does not want to follow up outpatient with hematology. She was told to follow-up with Dr. Dangelo. Anemia/thrombocytopenia - Due to above - s/p 3 units of PRBCs. Anemia stabilized. See above Elevated Creatinine: Likely secondary to Bactrim vs dehydration. Bactrim dose changed to 3 times a week per ID. Improving. Can follow up outpatient. HIV-AIDS: CD4 count on 07/12/16 was 65. Repeat on 08/28/16 is 35. Patient reports she had issues with noncompliance in the past due to drug use but reports she has been compliant prior to her last hospitalization. - on HAART meds. Infectious disease followed. On Bactrim for prophylaxis. Need to follow up outpatient with Dr. Dangelo. Pt Condition on Discharge: Good Discharge Disposition: Discharge Home Discharge Time: > 30 minutes Discharge Instructions DIET: Follow Instructions for: As Tolerated, No Restrictions Activities you can perform: Regular-No Restrictions Follow up Referrals: Hematology - 10/03/16 with Leonidas Ogden MD Infectious Disease - 09/12/16 with Marek Dangelo MD Continued Medications: Calcium Carbonate-Cholecalciferol (Caltrate 600+D) 600-800 Mg-Unit Tab 1 TAB PO BID Calcium Supplement Ref 0 TAB Darunavir-Cobicistat (Prezcobix) 800-150 Mg Tab 1 TAB PO AC LUNCH Mgmt Viral Infection #30 Ref 0 TAB Dolutegravir (Tivicay) 50 Mg Tab 50 MG PO AC LUNCH Mgmt Viral Infection #60 Ref 0 TAB Lamivudine (Lamivudine) 300 Mg Tab 300 MG PO AC LUNCH Mgmt Viral Infection #30 Ref 0 TAB Multiple Vitamin (Thera) 1 Tab Tab 1 TAB PO AC LUNCH Sulfamethoxazole-Trimethoprim (Sulfamethoxazole-Trimethoprim) 800-160 Mg Tab 1 TAB PO MoWeFr @1200 Infection #14 Ref 0 TAB (This prescription has been renewed) Valacyclovir (Valtrex) 1 Gm Tab 1000 MG PO AC LUNCH Mgmt Viral Infection #30 Ref 0 TAB Discontinued Medications: Fluconazole (Fluconazole) 200 Mg Tab 200 MG PO AC LUNCH Infection Ref 0 TAB Oxycodone-Acetaminophen (Percocet) 10-325 mg Tab 1 TAB PO Q4H PRN PAIN #30 Ref 0 TAB Candelario Rasheed MD Sep 05, 2016 10:19
[2016-09-05 11:52] LABS: HIV RNA LOG COPIES 1.74 (())
--- NOTE | 2016-09-05 17:04 | PD.ONC.PN ---
Subjective Subjective Remarks Late entry. saw pt at 0715. She is feeling better and eager to go home. Objective Data Date Time Temp Pulse Resp B/P Pulse Ox O2 Delivery O2 Flow Rate FiO2 09/05/16 08:00 97.8 104 17 100/66 95 09/05/16 00:00 98.2 98 17 107/71 97 09/04/16 20:00 98.5 96 17 105/69 98 09/05/16 09/05/16 09/05/16 07:00 15:00 23:00 Intake Total 1492 ml Balance 1492 ml Result Diagram: 09/04/16 0459 09/04/16 0459 Laboratory Results Laboratory Tests Test 09/04/16 17:19 Reticulocyte Count 0.2 % Absolute Reticulocyte Count 5.7 MIL/L Objective Remarks GENERAL: Well-nourished, well-developed patient. SKIN: Warm and dry. HEAD: Normocephalic. EYES: No scleral icterus. No injection or drainage. NECK: Supple, trachea midline. No JVD or lymphadenopathy. LYMPHATIC: No adenopathy. CARDIOVASCULAR: Regular rate and rhythm without murmurs. RESPIRATORY: Breath sounds equal bilaterally. No accessory muscle use. GASTROINTESTINAL: Abdomen soft, non-tender, nondistended. EXTREMITIES: No cyanosis, or edema. MUSCULOSKELETAL: Adequate muscle tone. NEUROLOGICAL: No obvious focal deficit. Awake, alert, and oriented x3. PSYCHIATRIC: Appropriate mood and affect; insight and judgment normal. Assessment/Plan Problem List: (1) Pancytopenia Status: Acute Plan: --improving --unlikely to be compliant with HAART therapy --last CMV screen was negative. +hepatosplenomegaly likely due to her HIV and AIDS. --recent CT scan showed nonspecific adenopathy which is likely due to HIV, but we cannot rule out lymphoproliferative disorder. --Discussed bone marrow biopsy result with her. No lymphoproliferative d/o noted in bone marrow. There is decreased red cell precursor. Retic is low. She does not require transfusion. Parvo virus pending. She does not want to f/u with hematology. Told her to f/u with . Assessment 46y/o female with pancytopenia HIV/AIDS Anxiety, depression. Recent mastoiditis with left-sided hearing loss. Plan 1. oncology clear for discharge 2. fs faxed to [facility] for follow up with Dr. Ogden in 4-6 weeks for lymphadenopathy 3. monitor CBC 4. discussed pathology with patient. Leonidas Ogden MD Sep 05, 2016 17:04
[2016-09-07 19:53] LABS: PARVOVIRUS B19 IGG 2.5 (())
[2016-10-24] MEDS ORDERED: THERTAB53 PO (10:23)
[2016-10-24] MEDS ORDERED: FLUC200T2 PO (10:23)
[2016-10-24] MEDS ORDERED: VITA100064 PO (10:23)
[2016-10-31] MEDS ORDERED: PRED20 PO (09:56)
== END 2016-09-05 10:37 | disposition home or self-care (01) | DRG 974 ==
LOC: NEPA 18:23 → NEDA 20:23 → HIMN 22:45 → N07B 08-28 19:03
PROVIDERS: ADMIT Family Medicine; ATTEND Family Medicine
PROC: 30233N1 Transfusion of Nonautologous Red Blood Cells into Peripheral Vein, Percutaneous Approach (ICD-10-PCS; principal; 2016-08-27)
PROC: 07DR3ZX Extraction of Iliac Bone Marrow, Percutaneous Approach, Diagnostic (ICD-10-PCS; 2016-08-29)
DX: B20 Human immunodeficiency virus [HIV] disease (principal); J18.9 Pneumonia, unspecified organism; K85.90 Acute pancreatitis without necrosis or infection, unspecified; R59.1 Generalized enlarged lymph nodes; Z88.0 Allergy status to penicillin; F41.9 Anxiety disorder, unspecified; F32.9 Major depressive disorder, single episode, unspecified; Z87.891 Personal history of nicotine dependence; H91.92 Unspecified hearing loss, left ear; Z91.19 Patient's noncompliance with other medical treatment and regimen; K59.00 Constipation, unspecified
CPT/HCPCS: 36430; 36600; 38221; 71010; 71250; 77012; 80048; 80053; 80202; 81001; 82550; 82565; 82805; 82948; 83605; 83690; 83735; 84100; 84134; 84484; 84702; 85007; 85014; 85018; 85025; 85027; 85044; 85097; 85610; 85730; 86077; 86355; 86357; 86359; 86360; 86480; 86747; 86850; 86870; 86880; 86900; 86901; 86920; 86921; 86922; 87015; 87040; 87070; 87102; 87116; 87205; 87206; 87449; 87497; 87536; 87641; 88184; 88185; 88237; 88305; 88311; 88312; 88313; 88341; 88342; 93005; 94150; 94640; 94664; 96365; 96368; C1830; G0364; J0456; J0692; J1644; J2250; J2405; J2765; J2920; J3010; J3370; J7030; J7050; P9016; Q0163

== ENCOUNTER 2016-11-24 21:19 | Inpatient (IN) | payer MEDICARE, OTHER ==
[~2016-11-24] VITALS: Ht 162.6 cm; Wt 90.6 kg
[~2016-11-24 21:19] MED LIST changes: -CALC1TAB87 PO; +CALTTAB PO; -CIPRHC10A EACH EAR; -CLIN1CAP6 PO; -DARU800T PO; -LEVA750T PO; -PERC10TA27 PO; +PRED20 PO; -RITO100 PO; -SULF1TAB23 PO; +THERTAB53 PO; -THERTAB56 PO
[2016-11-24 21:21] VITALS: BP 110/77; PULSE 152; RESP 24; TEMP 98.7; O2SAT 95
[2016-11-24] MEDS ORDERED: KETOROLAC TROMETHAMINE 30 MG/ML (IVP) VIAL IVP ONE (21:45)
[2016-11-24] MEDS ORDERED: ONDANSETRON HCL 4 MG/2 ML VIAL IVP ONE (21:45)
[2016-11-24] MEDS ORDERED: HYDROmorphone HCL PF 1 MG/ML VIAL IVS ONE (21:45)
[2016-11-24] MEDS ORDERED: SODIUM CHLOR 0.9% 1000 ML INJ 1,000 ML IV ONE (21:45)
[2016-11-24] MEDS ORDERED: hydrOXYzine HCL 50 MG/ML VIAL IM ONE (22:15)
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
--- NOTE | 2016-11-24 22:16 | RADRPT ---
EXAM DATE/TIME: 11/24/2016 22:00 [facility] COMPARISON: CHEST SINGLE AP, August 31, 2016, 6:17. INDICATIONS : Cough and short of breath. MEDICAL HISTORY : HIV. SURGICAL HISTORY : section. ENCOUNTER: Initial ACUITY: 2 days PAIN SCORE: 0/10 LOCATION: Bilateral chest FINDINGS: A single view of the chest demonstrates the lungs to be symmetrically aerated without evidence of mas s, infiltrate or effusion. The cardiomediastinal contours are unremarkable. There is an old healed r ight clavicle fracture. CONCLUSION: No acute disease. Anderson Gary MD on November 24, 2016 at 22:13 Board Certified Radiologist. This report was verified electronically.
[2016-11-24] MEDS ORDERED: VANCOMYCIN INJ 1,000 MG in SODIUM CHLOR 0.9% 250 ML INJ 250 ML IV ONE (22:45)
--- NOTE | 2016-11-24 22:46 | PD ---
HPI Chief Complaint: Bite or Sting Time Seen by Provider: 21:42 Travel History International Travel<30 days: No Contact w/Intl Traveler<30days: No Traveled to known affect area: No History of Present Illness HPI This patient is a 46 y.o. F with a history of IVDA and HIV infection who presents with pain in her right hand that radiates up to her upper axilla. She reports that she was on her phone last night when a brown recluse spider jumped onto her bed and bit her 3rd finger. She then killed it with a beer bottle and says a piece of glass got stuck in the wound. She adds that she discovered a nest of these spiders in her closet, and several scurried out through her room. After waking up this morning, her pain worsened throughout the day. She denies taking anything for the pain. She comes to the ED reporting severe pain. Denies other PMHx. No medications. Smokes half a pack a day. Drinks alcohol occasionally. Reports last using IVDA and cocaine 24 years ago. She denies recent drug use. She reports having chest pain, palpitations and dyspnea. Denies fever, chills, headache, nausea, vomiting and abdominal pain. PFSH Past Medical History Narrative Medical HIV+ Arthritis: Yes Autoimmune Disease: Yes (HIV) Anxiety: Yes Depression: Yes Cancer: No Cardiovascular Problems: No Cerebrovascular Accident: No Diminished Hearing: No Endocrine: No Gastrointestinal Disorders: Yes (pt states diarrhea, related to antiviral medications) Genitourinary: No Headaches: Yes Immune Disorder: Yes Musculoskeletal: No Neurologic: No Psychiatric: No Reproductive: No Respiratory: No Immunizations Current: Yes Migraines: Yes Seizures: No LMP: MAY 2016 : 5 Para: 3 Past Surgical History Abdominal Surgery: Yes (HERNIA REPAIR) Section: Yes Ear Surgery: No Endocrine Surgery: No Eye Surgery: No Gynecologic Surgery: Yes ( 2011) Oral Surgery: Yes (tooth extraction x 5) Other Surgery: Yes Social History Alcohol Use: No Tobacco Use: No (QUIT 5 DAYS AGO) Substance Use: Yes Allergies-Medications (Allergen,Severity, Reaction): Coded Allergies: Latex (Verified Allergy, Severe, RASH, 10/31/16) Penicillin (Verified Allergy, Intermediate, rash, 10/31/16) Reported Meds & Prescriptions Reported Meds & Active Scripts Active Reported Prednisone 20 Mg Tab 40 Mg PO BID Take 40 mg (2 tablets) daily for 5 days Vitamin D (Cholecalciferol) 1,000 Unit Tab 1,000 Units PO DAILY Thera-Tabs (Multiple Vitamin) 1 Tab Tab 1 Tab PO DAILY Fluconazole 200 Mg Tab 200 Mg PO DAILY Caltrate 600+D (Calcium Carbonate-Cholecalciferol) 600-800 Mg-Unit Tab 1 Tab PO BID Tivicay (Dolutegravir Sodium) 50 Mg Tab 50 Mg PO AC LUNCH Valtrex (Valacyclovir HCl) 1 Gm Tab 1,000 Mg PO AC LUNCH Prezcobix (Darunavir-Cobicistat) 800-150 Mg Tab 1 Tab PO AC LUNCH Lamivudine 300 Mg Tab 300 Mg PO AC LUNCH Review of Systems Cardiovascular: Positive: Chest Pain or Discomfort Respiratory: Positive: Shortness of Breath Musculoskeletal: Positive: Pain (10/10 pain radiating up her right arm to axilla) Physical Exam Narrative GENERAL: Alert and oriented, writhing in bed. Agitated and yells in pain frequently during the exam. SKIN: Warm and dry. 0.5 cm circular lesion noted on the dorsal proximal middle finger near the web space. Small eschar noted in the center of the lesion. Several linear erythematous streaks 4-5 cm in length visualized throughout her right arm. HEAD: Atraumatic. Normocephalic. EYES: Pupils equal and round. No scleral icterus. No injection or drainage. ENT: No nasal bleeding or discharge. Mucous membranes pink and moist. NECK: Trachea midline. No JVD. CARDIOVASCULAR: Tachycardic. RESPIRATORY: No accessory muscle use. Clear to auscultation. Breath sounds equal bilaterally. GASTROINTESTINAL: Abdomen soft, non-tender, nondistended. Hepatic and splenic margins not palpable. MUSCULOSKELETAL: Extremities without clubbing, cyanosis, or edema. No obvious deformities. NEUROLOGICAL: Awake and alert. No obvious cranial nerve deficits. Motor grossly within normal limits. Five out of 5 muscle strength in the arms and legs. Normal speech. PSYCHIATRIC: Appropriate mood and affect; insight and judgment normal. Data Data Last Documented VS Vital Signs Date Time Temp Pulse Resp B/P Pulse Ox O2 Delivery O2 Flow Rate FiO2 11/24/16 21:21 98.7 152 24 110/77 95 Room Air Orders Basic Metabolic Panel (Bmp) (11/24/16 21:42) Complete Blood Count With Diff (11/24/16 21:42) Blood Culture (11/24/16 21:42) Iv Access Insert/Monitor (11/24/16 21:42) Electrocardiogram (11/24/16 21:42) Ckmb (Isoenzyme) Profile (11/24/16 21:42) Troponin I (11/24/16 21:42) Chest, Single Ap (11/24/16 21:42) Drug Screen, Random Urine (11/24/16 21:42) Hand, Limited (2vws) (11/24/16 21:42) Sodium Chlor 0.9% 1000 Ml Inj (Ns 1000 M (11/24/16 21:45) Ketorolac Inj (Toradol Inj) (11/24/16 21:45) Ondansetron Inj (Zofran Inj) (11/24/16 21:45) Hydromorphone Pf Inj (Dilaudid Pf Inj) (11/24/16 21:45) Alcohol (Ethanol) (11/24/16 22:13) Hydroxyzine Hcl Inj (Vistaril Inj) (11/24/16 22:15) Vancomycin Inj (Vancomycin Inj) (11/24/16 22:45) Vancomycin Consult Pharmacy (Vancomycin (11/25/16 00:30) Cefepime Inj (Maxipime Inj) (11/25/16 01:00) Lorazepam Inj (Ativan Inj) (11/25/16 00:30) Vital Signs (Adult) Q4H (11/25/16 00:16) Activity Oob Ad Josette (11/25/16 00:16) Intake + Output CASEY.QSHIFT (11/25/16 00:16) Diet Regular Basic (11/25/16 Breakfast) Sodium Chlor 0.9% 1000 Ml Inj (Ns 1000 M (11/25/16 00:16) Sodium Chloride 0.9% Flush (Ns Flush) (11/25/16 00:30) Sodium Chloride 0.9% Flush (Ns Flush) (11/25/16 09:00) Ondansetron Inj (Zofran Inj) (11/25/16 00:30) Comprehensive Metabolic Panel (11/25/16 06:00) Complete Blood Count With Diff (11/25/16 06:00) Scd Bilateral/Knee High CASEY.BID (11/25/16 00:16) Abel Bilateral/Knee High CASEY.QSHIFT (11/25/16 00:16) Acetaminophen (Tylenol) (11/25/16 00:30) Oxycodone (Roxicodone) (11/25/16 00:30) Oxycodone (Roxicodone) (11/25/16 00:30) Docusate Sodium-Senna (Lakshmi-Colace) (11/25/16 09:00) Magnesium Hydroxide Liq (Milk Of Magnesi (11/25/16 00:30) Sennosides (Senokot) (11/25/16 00:30) Bisacodyl Supp (Dulcolax Supp) (11/25/16 00:30) Lactulose Liq (Lactulose Liq) (11/25/16 00:30) Inpatient Certification (11/25/16 ) Azithromycin (Zithromax) (11/25/16 09:00) Sulfamet-Trimeth Ds 800-160 Mg (Bactrim (11/26/16 09:00) Admit Order (Ed Use Only) (11/25/16 00:57) Labs Laboratory Tests Test 11/24/16 22:10 Sodium Level 137 MEQ/L Potassium Level 3.2 MEQ/L Chloride Level 102 MEQ/L Carbon Dioxide Level 24.8 MEQ/L Anion Gap 10 MEQ/L Blood Urea Nitrogen 28 MG/DL Creatinine 1.25 MG/DL Estimat Glomerular Filtration 47 ML/MIN Rate Random Glucose 93 MG/DL Calcium Level 9.0 MG/DL Total Creatine Kinase 13 U/L Troponin I LESS THAN 0.02 NG/ML White Blood Count 1.0 TH/MM3 Red Blood Count 2.77 MIL/MM3 Hemoglobin 8.1 GM/DL Hematocrit 23.4 % Mean Corpuscular Volume 84.4 FL Mean Corpuscular Hemoglobin 29.1 PG Mean Corpuscular Hemoglobin 34.5 % Concent Red Cell Distribution Width 13.8 % Platelet Count 37 TH/MM3 Mean Platelet Volume 10.5 FL Neutrophils (%) (Auto) % Lymphocytes (%) (Auto) % Monocytes (%) (Auto) % Eosinophils (%) (Auto) % Basophils (%) (Auto) % Neutrophils # (Auto) TH/MM3 Lymphocytes # (Auto) TH/MM3 Monocytes # (Auto) TH/MM3 Eosinophils # (Auto) TH/MM3 Basophils # (Auto) TH/MM3 CBC Comment AUTO DIFF Differential Total Cells 100 Counted Neutrophils % (Manual) 2 % Lymphocytes % 92 % Monocytes % 6 % Neutrophils # (Manual) 0.0 TH/MM3 Differential Comment FINAL DIFF MANUAL Platelet Estimate LOW Platelet Morphology Comment NORMAL Ovalocytes 1+ Ethyl Alcohol Level LESS THAN 3 MG/DL MDM Medical Decision Making Medical Screen Exam Complete: Yes Emergency Medical Condition: Yes Medical Record Reviewed: Yes Differential Diagnosis Insect bite, cellulitis, lymphangitis secondary to IVDA, drug withdrawal Narrative Course This is a 46 y.o. HIV+ F presenting with a lesion on the dorsal aspect of her proximal right middle finger. She states that a brown recluse spider bit her. She has 0.5 circular lesion with central eschar, accompanied by several erythematous linear streaks on her right forearm. Denies recent IVDA. She agrees to receiving pain medicine and IV Abx for her symptoms. She also agrees to EKG, CXR and blood cultures to further investigate the cause her symptoms. The patient's white blood cell count was 1. Given her immunocompromise state, she'll be admitted to the hospital. She has been started on vancomycin. Cultures are pending at this time. She is afebrile at this time. Case was discussed with Dr. Chow who will admit the patient to her service. Diagnosis Primary Impression: right upper extremity cellulitis with lymphangitis. Additional Impressions: Hypokalemia Pancytopenia HIV disease Admitting Information Admitting Physician Requests: Admit Chan Larios MD Nov 24, 2016 22:46
[2016-11-24 23:17] LABS: HEMATOCRIT 23.4 % (35.0-46.0); MEAN CELL VOLUME 84.4 FL (80.0-100.0); MEAN CORPUSCULAR HEMOGLOBIN 29.1 PG (27.0-34.0); MEAN CORPUSCULAR HGB CONC 34.5 % (32.0-36.0); PLATELET COUNT 37 TH/MM3 (150-450); RED BLOOD COUNT 2.77 MIL/MM3 (4.00-5.30); RED CELL DISTRIBUTION WIDTH 13.8 % (11.6-17.2)
[2016-11-24 23:29] LABS: HEMO FLAGS AUTO DIFF
[2016-11-24 23:39] LABS: ANION GAP 10 MEQ/L (5-15); BICARBONATE 24.8 MEQ/L (21.0-32.0); BLOOD UREA NITROGEN 28 MG/DL (7-18); CHLORIDE 102 MEQ/L (98-107); GLOMERULAR FILTRATION RATE 47 ML/MIN (>89); POTASSIUM 3.2 MEQ/L (3.5-5.1); SODIUM (NA) 137 MEQ/L (136-145)
[2016-11-24 23:45] LABS: CREATINE KINASE 13 U/L (26-192)
[2016-11-25] VITALS (16 sets, daily range): BP systolic 68–121; BP diastolic 39–55; PULSE 124–144; RESP 16–27; TEMP 99.7–102; O2SAT 0–100
[2016-11-25 00:04] LABS: POLYS (SEG NEUTROPHILS) 2 % (16-70); WBC DIFF SAMPLE 100
[2016-11-25 00:07] LABS: OVALOCYTES 1+ (NORMAL); PLATELET ESTIMATE SMEAR LOW (NORMAL); PLATELET MORPHOLOGY NORMAL (NORMAL); SCAN/DIFF FINAL DIFF MANUAL
[2016-11-25] MEDS ORDERED: SODIUM CHLOR 0.9% 1000 ML INJ 1,000 ML IV SCH (00:16)
[2016-11-25] MEDS ORDERED: MAGNESIUM HYDROXIDE SUSP 30 ML CUP PO PRN (00:30)
[2016-11-25] MEDS ORDERED: ONDANSETRON HCL 4 MG/2 ML VIAL IVP PRN (00:30)
[2016-11-25] MEDS ORDERED: LORazepam 2 MG/ML VIAL IV PUSH PRN (00:30)
[2016-11-25] MEDS ORDERED: BISACODYL 10 MG SUPP RECTAL PRN (00:30)
[2016-11-25] MEDS ORDERED: ACETAMINOPHEN 325 MG TAB PO PRN (00:30)
[2016-11-25] MEDS ORDERED: SODIUM CHLORIDE 0.9% FLUSH 10 ML FLUSH IV FLUSH PRN (00:30)
[2016-11-25] MEDS ORDERED: Vancomycin Consult Pharmacy 1 EA OTHER SCH ×2 (00:30→03:15)
[2016-11-25] MEDS ORDERED: LACTULOSE SYRUP 20 GM/30 ML CUP PO PRN (00:30)
[2016-11-25] MEDS ORDERED: SENNOSIDES 8.6 MG TAB PO PRN (00:30)
[2016-11-25] MEDS ORDERED: CEFEPIME INJ 2,000 MG in SODIUM CHLORIDE 0.9% INJ 100 ML IV SCH (01:00)
--- NOTE | 2016-11-25 01:30 | HHI.HP ---
HPI Service [facility] Primary Care Physician Marek Dangelo MD Admission Diagnosis right hand cellulitis with lymphangitis, spider bite, tachycardia Diagnoses: (1) Cellulitis Diagnosis: Principal (2) Hypokalemia Diagnosis: Principal (3) AIDS Diagnosis: Principal (4) Pancytopenia Diagnosis: Principal (5) Renal insufficiency Diagnosis: Principal (6) IVDU (intravenous drug user) Diagnosis: Principal Travel History International Travel<30 Days: No Contact w/Intl Traveler <30 Da: No Traveled to Known Affected Are: No History of Present Illness This is a 46-year-old female with a PMH of Anxiety, Depression, HIV/AIDS and h/ o IVDU who presented to the ER with complaints of severe pain and swelling to right finger and hand which started 2 days ago after being bitten by a "brown recluse spider". Per patient she found a "nest" in her closet and was bitten by a spider on her right 3rd finger on . On Saturday afternoon she noticed redness/swelling and has had progressive worsening of symptoms. Denies fever, chills. On arrival, BP 110/77, HR 152, O2 sat 95% on RA, Afebrile. Patient noted to be significantly agitated on arrival, possibly drug-induced. Reports previous history of Cocaine, but denies recent ingestion or recent IVDU. WBC 1.0, previously 2.1 on 11/05/16. Hemoglobin 8.1, previously 12 and 05/12. Platelets 37, previously 34 on 11/05/16. K+ 3.2. Creatinine 1.25, previously 1.28 on 09/04/16. CXR with no acute findings. Hand X-ray with no acute findings. S/p Blood Cultures, Vanc in ER. Review of Systems Except as stated in HPI: all other systems reviewed are Neg ROS: 14 point review of systems otherwise negative. Past Family Social History Past Medical History PMH: Anxiety, Depression, HIV/AIDS and h/o IVDU Past Surgical History PAST SURGICAL HISTORY: Hernia Repair, , Tooth Extraction Allergies: Coded Allergies: Latex (Verified Allergy, Severe, RASH, 10/31/16) Penicillin (Verified Allergy, Intermediate, rash, 10/31/16) Family History PAST FAMILY HISTORY: Reviewed. No h/o DM or CAD Social History PAST SOCIAL HISTORY: Negative for alcohol. Smokes 1/2ppd. h/o IVDU, +Cocaine. Physical Exam Vital Signs Vital Signs Date Time Temp Pulse Resp B/P Pulse Ox O2 Delivery O2 Flow Rate FiO2 11/24/16 21:21 98.7 152 24 110/77 95 Room Air Physical Exam PE: GENERAL: Middle-aged white female in no acute distress, but significantly agitated/tearful. HEENT: PERRLA, EOMI. No scleral icterus or conjunctival pallor. No lid lag or facial droop. CARDIOVASCULAR: Regular rate and rhythm. No obvious murmurs to auscultation. No chest tenderness to palpation. RESPIRATORY: No obvious rhonchi or wheezing. Clear to auscultation. Breath sounds equal bilaterally. GASTROINTESTINAL: Abdomen soft, non-tender, nondistended. BS normal. MUSCULOSKELETAL: Extremities without clubbing, cyanosis, or edema. No obvious deformities. RUE w/ necrotic lesion to right 3rd finger, +edema/erythema w/ streaking up arm. NEUROLOGICAL: Awake, alert and oriented x4. No focal neurologic deficits. Moving both upper and lower extremities spontaneously. Laboratory Laboratory Tests Test 11/24/16 22:10 Sodium Level 137 Potassium Level 3.2 Chloride Level 102 Carbon Dioxide Level 24.8 Anion Gap 10 Blood Urea Nitrogen 28 Creatinine 1.25 Estimat Glomerular Filtration 47 Rate Random Glucose 93 Calcium Level 9.0 Total Creatine Kinase 13 Troponin I LESS THAN 0.02 White Blood Count 1.0 Red Blood Count 2.77 Hemoglobin 8.1 Hematocrit 23.4 Mean Corpuscular Volume 84.4 Mean Corpuscular Hemoglobin 29.1 Mean Corpuscular Hemoglobin 34.5 Concent Red Cell Distribution Width 13.8 Platelet Count 37 Mean Platelet Volume 10.5 Neutrophils (%) (Auto) Lymphocytes (%) (Auto) Monocytes (%) (Auto) Eosinophils (%) (Auto) Basophils (%) (Auto) Neutrophils # (Auto) Lymphocytes # (Auto) Monocytes # (Auto) Eosinophils # (Auto) Basophils # (Auto) CBC Comment AUTO DIFF Differential Total Cells 100 Counted Neutrophils % (Manual) 2 Lymphocytes % 92 Monocytes % 6 Neutrophils # (Manual) 0.0 Differential Comment FINAL DIFF MANUAL Platelet Estimate LOW Platelet Morphology Comment NORMAL Ovalocytes 1+ Ethyl Alcohol Level LESS THAN 3 Date/Time Procedure Status Source Growth 11/24/16 22:20 Aerobic Blood Culture Received Blood Peripheral Pending 11/24/16 22:20 Anaerobic Blood Culture Received Blood Peripheral Pending Result Diagram: 11/24/16 2210 11/24/162209 Assessment and Plan Problem List: (1) Cellulitis ICD Code: L03.90 Status: Acute (2) Hypokalemia ICD Code: E87.6 Status: Acute (3) AIDS ICD Code: B20 Status: Acute (4) Pancytopenia ICD Code: D61.818 Status: Acute (5) Renal insufficiency ICD Code: N28.9 Status: Acute (6) IVDU (intravenous drug user) ICD Code: F19.90 Status: Acute Assessment and Plan A/P: 1. RUE Cellulitis: s/p bite by "brown recluse spider" 2 days ago w/ progressive swelling/redness to right 3rd finger, now w/ progression. H/o IVDU , denies recent use. S/p Blood Cultures/Vanc in ER, will follow up cultures, continue w/ IV Abx. Hand X-ray w/ no acute findings, images reviewed by me. 2. Hypokalemia: K+ 3.2, will recheck and replace as needed. 3. HIV/AIDS: CD4 36 on 08/28/16, follows w/ Dr. Dangelo as outpatient, ? compliance w/ HAART. Will start on prophylaxis. 4. Pancytopenia: Chronic. WBC 1.0, previously 2.1 on 11/05/16. Hgb 8.1, previously 12.0, Platelets 37, previously 34 on 11/05/16. S/p eval by Hematology on previous admit 08/2016 w/ BM biopsy w/ no lymphoproliferative disorder. Has required multiple transfusions for anemia, will monitor, plan to transfuse if Hgb <8. Continue w/ outpatient follow up as planned. 5. Renal Insufficiency: Chronic. Creatinine 1.25, PC 1.28 on 09/04/16. Will monitor, repeat labs in a.m. 6. IVDU: h/o IVDU, +Cocaine, denies recent use, however significantly agitated on arrival requiring medication. Urine Drug Screen pending. Ativan prn for withdrawal/agitation. 7. DVT Prophylaxis: SCD/Teds. 8. Social work for d/c planning as needed 9. Case discussed w/ ER physician at length. Physician Certification 2 Midnight Certification Type: Admission for Inpatient Services Order for Inpatient Services The services are ordered in accordance with Medicare regulations or non- Medicare payer requirements, as applicable. In the case of services not specified as inpatient-only, they are appropriately provided as inpatient services in accordance with the 2-midnight benchmark. Estimated LOS (days): 2 days is the estimated time the patient will need to remain in the hospital, assuming treatment plan goals are met and no additional complications. Post-Hospital Plan: Not yet determined Adriana Degroot MD Nov 25, 2016 01:30
[2016-11-25] MEDS ORDERED: TERBUTALINE INJ 1 MG/ML AMP SQ PRN ×2 (03:15→06:30)
[2016-11-25] MEDS ORDERED: CHLORHEXIDINE GLUCONATE 2 % 1 PACK (2 CLOTHS) TOP PRN (03:15)
[2016-11-25] MEDS ORDERED: MISCELLANEOUS NURSING INFORMATION XX SCH (03:15)
[2016-11-25] MEDS ORDERED: NOREPINEPHRINE-DEXTROSE DRIP 250 ML IV SCH (03:15)
[2016-11-25] MEDS ORDERED: NOREPINEPHRINE 4 MG/4 ML AMP ONE (03:52)
[2016-11-25] MEDS: CHLORHEXIDINE GLUCONATE 2 % 1 PACK (2 CLOTHS) TOP SCH ×2 (04:00→22:02)
[2016-11-25] MEDS ORDERED: SODIUM CHLOR 0.9% 1000 ML INJ 1,000 ML IV ONE (04:45)
--- NOTE | 2016-11-25 04:46 | PD.CONS ---
[facility] Service Critical Care Medicine Consult Requested By Dr. Degroot Reason for Consult Septic shock Primary Care Physician Marek Dangelo MD History of Present Illness Patient is currently unable to provide history. She is moaning, says a few sentences but will not answer questions. She has received ativan prior to my evaluation. This is a 46-year-old female with a PMH of AIDS with CD4 count 34 on 09/10, on HAART, pancytopenia, h/o IVDU who presented to [facility] ED with pain and swelling of her 3rd digit on the right hand 2 days ago. She reported that she had found a brown recluse spider nest in her closet on 11/22 and that she had been bitten on her finger. On Saturday afternoon (10/27) she noticed the redness. She denied fever or chills. She was also very agitated on arrival and there was concern that it may be drug induced because she has history of cocaine and IVDU. However, UDS is pending. She is pancytopenic with WBC 1, ANC 200 which is chronic (previously wBC 0.5-2.1 in October 2016), hgb 8.1 (priors 7-12), Platelets 37 (prior 34). Creatinine 1.25, previously 1.28 on 09/04/16. CXR with no acute findings. XRay of the hand demonstrated no fracture. Blood cultures were obtained and she received vanc in the ED. She has also received cefepime. Initially her blood pressure was 110/77 and she was tachycardic in the 130s to 150s. She was given 1 L normal saline bolus. She became hypotensive with systolic pressure 74/45 and was given an additional 2 L normal saline bolus. Nonetheless she remained hypotensive with blood pressure 77/42 and mean arterial pressure of 54. She has not voided since arrival 5 hours ago. She was apparently alert and providing history when she first came in but became agitated and would not cooperate with therapy. Therefore she was given Ativan 1 mg IV. She is now somnolent but says a few sentences and follows commands with all extremities. ED staff states that she was refusing opioids in the ED, reporting that she was clean. Past Family Social History Allergies: Coded Allergies: Latex (Verified Allergy, Severe, RASH, 10/31/16) Penicillin (Verified Allergy, Intermediate, rash, 10/31/16) Past Medical History AIDS IVDU Anxiety Depression Past Surgical History Unable to obtain directly from patient due to clinical condition. Reviewed EMR. Hernia Repair C section Dental extraction Reported Medications Prednisone 40 g by mouth twice a day Prezcobix 1 tab daily Dolutegravir 50 mg po daily Lamivudine 300 mg po daily Fluconazole 200 mg by mouth daily Multivitamin one by mouth daily Valtrex 1000 mg po daily Calcium carbonate 600 mg by mouth twice a day Cholecalciferol 1000 units by mouth daily Family History Unable to obtain directly from patient due to mental status. Per EMR no history of coronary artery disease or diabetes. Social History Smokes half pack of cigarettes per day. History of IV drug use and cocaine abuse. No history of alcohol abuse Physical Exam Vital Signs Vital Signs Date Time Temp Pulse Resp B/P Pulse Ox O2 Delivery O2 Flow Rate FiO2 11/25/16 03:09 136 20 68/51 100 Nasal Cannula 2 11/25/16 02:35 144 22 102/55 100 Nasal Cannula 2 11/25/16 02:15 99.7 138 24 74/45 100 Nasal Cannula 2 11/24/16 21:21 98.7 152 24 110/77 95 Room Air Physical Exam GENERAL: Disheveled female who is laying in ED stretcher with sonorous respirations but arouses to voice and follows commands, moans, speak short sentences. SKIN: Warm and dry. No rash. Cellulitis of finger as per below. HEAD: Atraumatic. Normocephalic. EYES: Pupils equal and round, pinpoint and reactive bilaterally. No scleral icterus. No injection or drainage. ENT: No nasal bleeding or discharge. Mucous membranes dry NECK: Trachea midline. No JVD. CARDIOVASCULAR: Regular rate and rhythm. No murmurs rubs or gallops. RESPIRATORY: TAchypneic but No accessory muscle use. Clear to auscultation. Breath sounds equal bilaterally. GASTROINTESTINAL: Abdomen soft, non-tender, nondistended. Bowel sounds present. Navel piercing. : Hasnt voided since arrival nearly 8 hours ago. MUSCULOSKELETAL: Extremities without clubbing, cyanosis. There is swelling of the dorsum of right hand diffusely. There is dark purple/black lesion ~0.5 cm overlying dorsum of right 3rd digit just proximal to PIP. There is some swelling of the finger proximal to that. There is a streak of erythema across proximal phalanx 3rd digit and dorsum of right hand 2/[address] the dorsum of the hand. Able to passively flex/extend fingers. No fluctuance noted. NEUROLOGICAL: Sonorous respirations but arouses and follows commands with all extremities. Moves all extremities spontaneously without focal deficit. Intermittently agitated and thrashing head back and forth. Says a few sentences like "you are hurting me". Does not answer questions of orientation. No obvious cranial nerve deficits. Laboratory Laboratory Tests Test 11/24/16 22:10 Sodium Level 137 Potassium Level 3.2 Chloride Level 102 Carbon Dioxide Level 24.8 Anion Gap 10 Blood Urea Nitrogen 28 Creatinine 1.25 Estimat Glomerular Filtration 47 Rate Random Glucose 93 Calcium Level 9.0 Total Creatine Kinase 13 Troponin I LESS THAN 0.02 White Blood Count 1.0 Red Blood Count 2.77 Hemoglobin 8.1 Hematocrit 23.4 Mean Corpuscular Volume 84.4 Mean Corpuscular Hemoglobin 29.1 Mean Corpuscular Hemoglobin 34.5 Concent Red Cell Distribution Width 13.8 Platelet Count 37 Mean Platelet Volume 10.5 Neutrophils (%) (Auto) Lymphocytes (%) (Auto) Monocytes (%) (Auto) Eosinophils (%) (Auto) Basophils (%) (Auto) Neutrophils # (Auto) Lymphocytes # (Auto) Monocytes # (Auto) Eosinophils # (Auto) Basophils # (Auto) CBC Comment AUTO DIFF Differential Total Cells 100 Counted Neutrophils % (Manual) 2 Lymphocytes % 92 Monocytes % 6 Neutrophils # (Manual) 0.0 Differential Comment FINAL DIFF MANUAL Platelet Estimate LOW Platelet Morphology Comment NORMAL Ovalocytes 1+ Ethyl Alcohol Level LESS THAN 3 Date/Time Procedure Status Source Growth 11/24/16 22:20 Aerobic Blood Culture Received Blood Peripheral Pending 11/24/16 22:20 Anaerobic Blood Culture Received Blood Peripheral Pending Result Diagram: 11/24/16220911/24/162209 Septic Shock Reassessment Heart: Other (tachycardic) Lungs: Clear Skin: Warm Peripheral Pulses: Weak Right Radial Weak Left Radial Weak Right Dorsalis Pedis Weak Left Dorsalis Pedis Weak Right Posterior Tibial Weak Left Posterior Tibial Capillary Refill: >2 seconds Assessment and Plan Assessment and Plan NEURO: Acute encephalopathy secondary to sepsis UDS pending. EtOH <1 Received Ativan 1 mg IV in the ED. ABG to evaluate for hypercapnia RESP: Acute respiratory insufficiency with hypoxia Nasal cannula wean as tolerated Obtain ABG CV: Septic shock Received 3 L normal saline in the emergency department. We'll give additional 1 L normal saline bolus. On levophed to maintain mean arterial pressure greater than 65. Will add vasopressin as levophed requirements are 20 mcg/min. Obtain lactic acid now and then obtain serial lactic acid if abnormal. Appears patient has been on prednisone. Will initiate stress dose Hydrocortisone 100 mg IV q8 as she is in profound shock. GI: Nothing by mouth. FEN/RENAL: Acute kidney injury Hypokalemia Lactic acidemia Has had no urine output since arrival. Patient with risk of infection given pancytopenia, but at this point will require Padilla to monitor UOP as marker of end organ perfusion. KCL 40 MEQ IV x1 for potassium 2.9. ID/HEME: Right hand cellulitis AIDS Pancytopenia ANC 200 has been on HAART CD4 count 34 on 09/10 On prophylactic bactrun ds m/w/f and azithromycin 1200 mg po weekly Received Cefepime and Vancomycin. Has h/o rash with PCN. WIll continue aztrenam , vancomycin. Follow up blood cultures. Follow-up clinical exam. OBtain U/a and culture. CXR negative Infectious disease consult OBtain Coags. ENDO: Relative adrenal insufficiency [place]-cortisone 100 mg IV every 8 hours as per above. Euglycemic. Monitor glucose every 6 hours and administer low-dose insulin sliding scale as needed. PROPH: Hold on pharmacologic DVT prophylaxis at this time due to severe pancytopenia. SCDs for DVT prophylaxis. Protonix 40 mg IV daily for stress ulcer prophylaxis. ACCESS: Right IJ central venous line placed 11/25 #1 Called sister Dannielle Norton overnight multiple times and no answer. Left a message at 07:20 on 11/25 to contact the hospital. Discussed with Dr. Degroot and Dr. Larios. Critical care time 65 minutes exclusive of separately billable procedures. Joanne Mcgovern MD Nov 25, 2016 04:46
--- NOTE | 2016-11-25 05:20 | PD.PROCEDR ---
Procedure Note Procedure DATE: 11/25/16 CENTRAL LINE PLACEMENT: Right internal jugular vein. Ultrasound-guided INDICATION: Central venous access CONSENT Patient is not capacitated for medical decision-making. She is in profound shock and in need of vasopressor and central line placement. Family is not available so procedure is being done emergently.. DESCRIPTION OF THE PROCEDURE Patient is not very cooperative. She had already received Ativan in the ED. Place wrists in soft restraints and nurse helped to hold patient's head in position. The patient was placed in supine position, mild Trendelenburg. The skin was cleansed with Chloraprep 3. Additional barrier precautions included large sterile drape, sterile gloves, sterile gown, face mask, and hat. 1 % lidocaine was used for local anesthesia. Under direct ultrasound guidance and on single attempt, the vein was accessed with an introducer needle. The guide wire was advanced and the tract was dilated. Using Seldinger technique a 7 Icelandic 20 cm antimicrobial coated triple-lumen catheter was advanced to a depth of 18 centimeters. The guide wire was removed. All ports had good return of dark venous blood and flushed easily with saline. The central line was secured with 2.0 silk. A sterile dressing with antibiotic disc was applied. ESTIMATED BLOOD LOSS: Minimal COMPLICATIONS: No apparent complications. STAT chest x-ray demonstrated satisfactory central venous line position in the SVC with no apparent complication. Joanne Mcgovern MD Nov 25, 2016 05:20
--- NOTE | 2016-11-25 05:46 | RADRPT ---
EXAM DATE/TIME: 11/25/2016 04:52 [facility] COMPARISON: CHEST SINGLE AP, November 24, 2016, 22:00. INDICATIONS : Right side central line placement, patient unresponsive. MEDICAL HISTORY : None. SURGICAL HISTORY : None. ENCOUNTER: Initial ACUITY: 1 day PAIN SCORE: Non-responsive. LOCATION: Right chest FINDINGS: A single view of the chest demonstrates some diffuse airspace disease throughout the left lung. Right IJ central venous catheter in good position. Mild airspace disease right lung. The cardiomediastina l contours are unremarkable. Osseous structures are intact. Healed right clavicular fracture. CONCLUSION: Bilateral airspace disease left greater than right. Dilip Balderrama MD on November 25, 2016 at 5:43 Board Certified Radiologist. This report was verified electronically.
[2016-11-25] MEDS: VASOPRESSIN INJ 40 UNITS in DEXTROSE 5% IN WATER 100ML INJ 98 ML IV SCH ×4 (05:48→20:48)
[2016-11-25] MEDS: HYDROCORTISONE SOD SUCCINATE 100 MG VIAL IV PUSH SCH ×3 (05:57→21:08)
[2016-11-25] MEDS: PANTOPRAZOLE SODIUM 40 MG VIAL IV PUSH SCH (05:57)
[2016-11-25 06:13] LABS: MEAN CELL VOLUME 84.4 FL (80.0-100.0); MEAN CORPUSCULAR HEMOGLOBIN 29.5 PG (27.0-34.0); PLATELET COUNT 49 TH/MM3 (150-450); RED BLOOD COUNT 2.17 MIL/MM3 (4.00-5.30); WHITE BLOOD COUNT 1.7 TH/MM3 (4.0-11.0)
[2016-11-25] MEDS ORDERED: PHENYLEPHRINE HCL 10 MG/ML VIAL ONE ×2 (06:22→09:12)
[2016-11-25 06:27] LABS: HEMO FLAGS AUTO DIFF
[2016-11-25 06:28] LABS: APTT (PATIENT) 25.8 SEC (24.3-30.1); INTERNATIONAL NORMALIZED RATIO 1.2 RATIO; PROTHROMBIN TIME - PATIENT 13.1 SEC (9.8-11.6)
[2016-11-25 06:31] LABS: HEMATOCRIT 18.3 % (35.0-46.0)
[2016-11-25 06:34] LABS: BLOOD GAS BASE EXCESS -7.8 mmol/L (-2-2); BLOOD GAS CARBOXYHEMOGLOBIN 1.7 % (0-4); BLOOD GAS HCO3 16 mmol/L (22-26); BLOOD GAS O2 HGB SATURATION 93 % (90-100); BLOOD GAS OXYGEN CONTENT 9.3 Vol % (12.0-20.0); BLOOD GAS PCO2 24 mmHg (38-42); BLOOD GAS PO2 76 mmHg (61-120); CRITICAL VALUE YES; LITER FLOW 2 L/M; OXYGEN DEVICE NASAL CANNULA; TEMP CORR TO 98.6
[2016-11-25 06:35] LABS: DRAW SITE ART LINE; FIO2 28 %; STAT NO
[2016-11-25 06:41] LABS: ALT (GPT) 21 U/L (10-53); ANION GAP 11 MEQ/L (5-15); AST (GOT) 18 U/L (15-37); BICARBONATE 19.1 MEQ/L (21.0-32.0); BLOOD UREA NITROGEN 29 MG/DL (7-18); CHLORIDE 109 MEQ/L (98-107); GLOMERULAR FILTRATION RATE 32 ML/MIN (>89); SODIUM (NA) 139 MEQ/L (136-145)
[2016-11-25] MEDS ORDERED: SODIUM CHLOR 0.9% 250 ML INJ 250 ML IV ONE ×2 (06:45→14:30)
[2016-11-25 06:48] LABS: POTASSIUM 2.9 MEQ/L (3.5-5.1)
[2016-11-25 06:49] LABS: ALKALINE PHOSPHATASE 63 U/L (45-117); TOTAL BILIRUBIN ADULT 0.5 MG/DL (0.2-1.0)
[2016-11-25 06:58] LABS: LACTIC ACID GHOST NOT REPORTABLE
[2016-11-25] MEDS: AZTREONAM INJ 2,000 MG in SODIUM CHLORIDE 0.9% INJ 100 ML IV SCH ×3 (07:17→21:04)
[2016-11-25] MEDS ORDERED: PHENYLEPHRINE INJ 40 MG in DEXTROSE 5% IN WATE 500 ML INJ 496 ML IV SCH ×2 (07:30)
[2016-11-25] MEDS ORDERED: POTASSIUM CHLOR 40 MEQ PREMIX 100 ML IV ONE (08:00)
[2016-11-25] MEDS: DOCUSATE SODIUM 50 MG/SENNA 8.6 MG TAB PO SCH ×2 (08:16→20:49)
[2016-11-25] MEDS: SODIUM CHLORIDE 0.9% FLUSH 10 ML FLUSH IV FLUSH SCH ×2 (08:17→21:10)
[2016-11-25 08:34] LABS: AMPHETAMINE, URINE POS (NEG); BARBITURATES, URINE NEG (NEG); COCAINE, URINE POS (NEG)
[2016-11-25 08:36] LABS: BANDS 4 % (0-6); CORRECTED NUCLEATED RBC 2 /100 WBC (0-0); POLYS (SEG NEUTROPHILS) 1 % (16-70); PROMYELOCYTES 1 % (0-0); WBC DIFF SAMPLE 100
[2016-11-25 08:39] LABS: NEUTROPHIL # MANUAL DIFF 0.1 TH/MM3 (1.8-7.7)
[2016-11-25 08:40] LABS: OVALOCYTES 1+ (NORMAL); PLATELET ESTIMATE SMEAR LOW (NORMAL); PLATELET MORPHOLOGY NORMAL (NORMAL); SCAN/DIFF FINAL DIFF MANUAL
[2016-11-25 08:46] LABS: LACTIC ACID GHOST NOT REPORTABLE
[2016-11-25] MEDS ORDERED: AZITHROMYCIN 600 MG TAB PO SCH (09:00)
[2016-11-25] MEDS ORDERED: FILGRASTIM INJ 300 MCG in DEXTROSE 5% IN WATER INJ 24 ML IV ONE ×2 (09:00)
[2016-11-25] MEDS ORDERED: CLINDAMYCIN INJ 900 MG in SODIUM CHLORIDE 0.9% INJ 100 ML IV STA (10:12)
--- NOTE | 2016-11-25 10:24 | PD.PROCEDR ---
Procedure Note Procedure Procedure: Left axillary arterial catheter placement with ultrasound guidance Preop diagnosis: Septic shock Postop diagnosis: Same Anesthesia: 1% lidocaine for local infiltration anesthesia Procedure: After sterile prepping and draping using 1% lidocaine for local infiltration anesthesia, left axillary artery was visualized using ultrasound vessel finder and was cannulated using an introducer needle with bright pulsatile blood return. A guidewire was passed through the introducer needle without any resistance and the needle was then removed. A 12 cm 20-gauge arterial catheter was passed over the guidewire by modified Seldinger's technique up to the 12 cm blanca and after removal of guidewire catheter was connected to transducer tubing with good waveform being obtained on the monitor. Biopatch was applied to the insertion site and catheter was sutured in place. Sterile Bio-occlusive dressing was applied to the site. Patient tolerated the procedure well with no immediate complications noted. James Wan MD Nov 25, 2016 10:24
[2016-11-25] MEDS ORDERED: NORMOSOL R INJ 1,000 ML IV SCH (11:00)
[2016-11-25] MEDS ORDERED: PHENYLEPH/NS 1000 MCG/10 ML SYR IV ONE (12:00)
[2016-11-25] MEDS ORDERED: VASOPRESSIN INJ 20 UNITS/ML VIAL IV ONE (12:00)
[2016-11-25] MEDS ORDERED: NOREPINEPHRINE 4 MG/4 ML AMP IV ONE (12:00)
[2016-11-25] MEDS: ALBUMIN HUMAN 25% 12.5 GM/50 ML BAGP IV SCH ×2 (12:06→18:51)
[2016-11-25] MEDS ORDERED: PHENYLEPHRINE HCL 160 MG/D5W 484 ML ADMIX IV SCH ×2 (12:15)
[2016-11-25] MEDS ORDERED: NOREPINEPHRINE 16 MG/D5W 250 ML IV SCH ×2 (12:15)
[2016-11-25] MEDS ORDERED: ETOMIDATE 20 MG/10 ML VIAL ONE (12:36)
[2016-11-25] MEDS ORDERED: ROCURONIUM INJ 50 MG/5 ML VIAL ONE (12:37)
[2016-11-25] MEDS ORDERED: MIDAZOLAM HCL 5 MG/ML VIAL (1 ML) ONE (13:00)
[2016-11-25 13:06] LABS: HEMATOCRIT 23.5 % (35.0-46.0); MEAN CELL VOLUME 86.6 FL (80.0-100.0); MEAN CORPUSCULAR HEMOGLOBIN 29.9 PG (27.0-34.0); MEAN CORPUSCULAR HGB CONC 34.6 % (32.0-36.0); PLATELET COUNT 90 TH/MM3 (150-450); RED BLOOD COUNT 2.72 MIL/MM3 (4.00-5.30); RED CELL DISTRIBUTION WIDTH 14.7 % (11.6-17.2); WHITE BLOOD COUNT 2.5 TH/MM3 (4.0-11.0)
[2016-11-25 13:08] LABS: REVIEW FLAG FINAL
[2016-11-25 13:17] LABS: APTT (PATIENT) 32.9 SEC (24.3-30.1); INTERNATIONAL NORMALIZED RATIO 1.3 RATIO; PROTHROMBIN TIME - PATIENT 14.7 SEC (9.8-11.6)
[2016-11-25] MEDS ORDERED: fentaNYL DRIP 250 ML IV SCH (13:30)
[2016-11-25] MEDS ORDERED: MIDAZOLAM 100 MG/NS 100 ML DRIP Premix IV SCH (13:30)
[2016-11-25] MEDS ORDERED: ROCURONIUM INJ 50 MG/5 ML VIAL IV ONE (13:30)
[2016-11-25] MEDS ORDERED: MIDAZOLAM 100 MG/ML INJ 100 ML IV SCH (13:30)
[2016-11-25] MEDS ORDERED: fentaNYL 2,500 MCG/NS 250 ML IV SCH (13:30)
[2016-11-25] MEDS ORDERED: ETOMIDATE 20 MG/10 ML VIAL IV PUSH ONE (13:30)
--- NOTE | 2016-11-25 13:34 | PD.PROCEDR ---
Procedure Note Procedure Procedure: Endotracheal intubation Preop diagnosis: Septic shock, acute respiratory failure Postop diagnosis: Same Sedation used: Etomidate 20 mg, fentanyl 200 mcg, rocuronium 50 mg IV Procedure: Patient was preoxygenated with 100% oxygen via Ambu bag with bag mask ventilation, following induction of sedation and neuromuscular blockade, direct laryngoscopy was performed using a Mac 4 blade with good visualization of vocal cords. An 8 Bahamian ET tube was passed through the vocal cords under direct visualization up to the 22 centimeter blanca and after inflating cuff of ET tube, correct placement was confirmed using bagging with good color change on CO2 detector, 5 point auscultation and chest rise with ventilation. Patient was connected to mechanical ventilation. Patient tolerated the procedure well with no immediate complications noted. Postprocedure chest x-ray was ordered. James Wan MD Nov 25, 2016 13:34
--- NOTE | 2016-11-25 13:44 | RADRPT ---
EXAM DATE/TIME: 11/25/2016 12:50 [facility] COMPARISON: CT THORAX W/O CONTRAST, September 03, 2016, 12:25. INDICATIONS : Post intubation. MEDICAL HISTORY : HIV SURGICAL HISTORY : None. ENCOUNTER: Initial ACUITY: 1 day PAIN SCORE: Non-responsive. LOCATION: Bilateral chest FINDINGS: A single view of the chest demonstrates endotracheal tube is atelectasis of the right central line in superior vena cava. Bilateral airspace disease slightly increased from exam performed earlier today and was present the lung bases. Probable small right effusion. There is some mild widening of the med iastinum. Old right clavicle fracture. CONCLUSION: 1. Increase in bilateral airspace disease since exam earlier today, especially at the right lung base . 2. Endotracheal tube and right central line in satisfactory position Urbano Yee MD on November 25, 2016 at 13:41 Board Certified Radiologist. This report was verified electronically.
--- NOTE | 2016-11-25 13:46 | EKG ---
Date Performed: 11/24/2016 Time Performed: 23:53:59 PTAGE: 46 years EKG: SINUS TACHYCARDIA WITH SHORT NM INTERVAL NONSPECIFIC ST & T-WAVE ABNORMALITY Compared to pr evious tracing, the patient has developed anterolateral ST segment depression. Clinical correlation t o exclude ischemia will be important ABNORMAL RHYTHM ECG NO PREVIOUS TRACING DOCTOR: Sanjuana Riley Interpretating Date/Time 11/25/2016 13:44:23
[2016-11-25 14:04] LABS: BLOOD GAS BASE EXCESS -13.5 mmol/L (-2-2); BLOOD GAS CARBOXYHEMOGLOBIN 0.8 % (0-4); BLOOD GAS HCO3 14 mmol/L (22-26); BLOOD GAS METHEMOGLOBIN 1.1 % (0-2); BLOOD GAS O2 HGB SATURATION 89 % (90-100); BLOOD GAS OXYGEN CONTENT 9.7 Vol % (12.0-20.0); BLOOD GAS PCO2 41 mmHg (38-42); BLOOD GAS PO2 71 mmHg (61-120); BLOOD GAS TOTAL HGB 7.7 G/DL (12.0-16.0); CRITICAL VALUE YES; OXYGEN DEVICE VENTILATOR; TEMP CORR TO 98.6
[2016-11-25 14:05] LABS: DRAW SITE ART LINE; FIO2 60 %; STAT NO; VENT SETTINGS A/C 20/550/PEEP8/FIO
[2016-11-25] MEDS ORDERED: SODIUM BICARBONATE 8.4% INJ 50 MEQ/50 ML SYR ONE (14:09)
[2016-11-25] MEDS ORDERED: SODIUM BICARBONATE 8.4% SOLN 50 MEQ/50 ML VIAL IV ONE ×2 (14:15)
[2016-11-25] MEDS ORDERED: PHENYLEPHRINE HCL 80 MG/D5W 492 ML ADMIX IV SCH ×2 (14:45)
[2016-11-25] MEDS ORDERED: NOREPINEPHRINE 8 MG/D5W 250 ML IV SCH ×2 (14:45)
[2016-11-25] MEDS ORDERED: SODIUM CHLORID 0.9% 500 ML INJ 500 ML IV SCH (15:00)
[2016-11-25] MEDS: SODIUM BICARBONATE 8.4% INJ 150 MEQ in WATER STERILE FOR INJ 850 ML IV SCH ×2 (15:27→20:48)
[2016-11-25] MEDS ORDERED: ALBUMIN HUMAN 5% 25 GM/500 ML BOTTLE IV ONE (15:30)
--- NOTE | 2016-11-25 15:30 | PD.ID.CON ---
History of Present Illness Service ID Consult Requested By Reason for Consult Evaluation and Mment of Septic Shock, Cellulitis ? Necrotizing fascitis of right hand. Primary Care Physician Marek Dangelo MD Diagnoses: History of Present Illness Most of the history was obtained by review of medical records as pt intubated. Ms. Madrigal is a 46 y/o CF with a PMH of AIDS with CD4 count 34 on 09/10, on HAART , pancytopenia, h/o IVDU who presented to [facility] with pain and swelling of her 3rd digit on the right hand 2 days ago. She reported that she had found a brown recluse spider nest in her closet on 11/22 and that she had been bitten on her finger. On Saturday afternoon (10/27) she noticed the redness. She denied fever or chills. She was also very agitated on arrival and there was concern that it may be drug induced because she has history of cocaine and IVDU. She is pancytopenic with WBC 1, ANC 200 which is chronic (previously wBC 0.5-2.1 in October 2016), hgb 8.1 (priors 7-12), Platelets 37 (prior 34). Creatinine 1.25, previously 1.28 on 09/04/16. CXR with no acute findings. XRay of the hand demonstrated no fracture. Blood cultures were obtained and she received vanc in the ED. She has also received cefepime. Initially her blood pressure was 110/ 77 and she was tachycardic in the 130s to 150s. She was given 1 L normal saline bolus. She became hypotensive with systolic pressure 74/45 and was given an additional 2 L normal saline bolus. Patient was transferred under care of occupational health nurse manager. At the time of my evaluation, patient is in the ICU on max dose multiple pressors, intubated and sedated. Upon d.w RN for patient: no resp secretions, UO ok, no diarrhea, no rash. No vaginal discharge. No tampons visible at time of hayes insertion. Patient is en route to OR and detailed vaginal exam will be performed at a later date. ID consulted for evaluation and Mment of Septic Shock, Cellulitis, Spider bite ? , Necrotizing fascitis. Review of Systems ROS Limitations: Intubated, Altered Mental Status Past Family Social History Allergies: Coded Allergies: Latex (Verified Allergy, Severe, RASH, 10/31/16) Penicillin (Verified Allergy, Intermediate, rash, 10/31/16) Past Medical History AIDS IVDU Anxiety Depression Past Surgical History Hernia Repair C section Dental extraction Reported Medications Reported Meds & Active Scripts Active Reported Prednisone 20 Mg Tab 40 Mg PO BID Take 40 mg (2 tablets) daily for 5 days Vitamin D (Cholecalciferol) 1,000 Unit Tab 1,000 Units PO DAILY Thera-Tabs (Multiple Vitamin) 1 Tab Tab 1 Tab PO DAILY Fluconazole 200 Mg Tab 200 Mg PO DAILY Caltrate 600+D (Calcium Carbonate-Cholecalciferol) 600-800 Mg-Unit Tab 1 Tab PO BID Tivicay (Dolutegravir Sodium) 50 Mg Tab 50 Mg PO AC LUNCH Valtrex (Valacyclovir HCl) 1 Gm Tab 1,000 Mg PO AC LUNCH Prezcobix (Darunavir-Cobicistat) 800-150 Mg Tab 1 Tab PO AC LUNCH Lamivudine 300 Mg Tab 300 Mg PO AC LUNCH Active Ordered Medications Current Medications Medications (Trade) Dose Ordered Sig/Carolyn Route Start Time Stop Time Status Last Admin (Ativan Inj) 1 mg Q2H PRN IV PUSH 11/25/16 00:30 11/25/16 02:33 (NS Flush) 2 ml UNSCH PRN IV FLUSH 11/25/16 00:30 (NS Flush) 2 ml BID IV FLUSH 11/25/16 09:00 11/25/16 08:17 (Zofran Inj) 4 mg Q6H PRN IVP 11/25/16 00:30 11/25/16 02:34 (Tylenol) 650 mg Q6H PRN PO 11/25/16 00:30 11/25/16 02:34 (Roxicodone) 10 mg Q4H PRN PO 11/25/16 00:30 (Roxicodone) 5 mg Q4H PRN PO 11/25/16 00:30 (Lakshmi-Colace) 1 tab BID PO 11/25/16 09:00 (Milk Of Magnesia Liq) 30 ml Q12H PRN PO 11/25/16 00:30 (Senokot) 17.2 mg Q12H PRN PO 11/25/16 00:30 (Dulcolax Supp) 10 mg DAILY PRN RECTAL 11/25/16 00:30 (Lactulose Liq) 30 ml DAILY PRN PO 11/25/16 00:30 (Zithromax) 1,200 mg Q7D PO 11/25/16 09:00 (Bactrim Ds 800-160 Mg) 1 tab MoWeFr@09 PO 11/26/16 09:00 Miscellaneous Information 1 Q361D XX 11/25/16 03:15 (Chlorhexidine 2% Cloth) 3 pack Taper DAILY@04 TOP 11/25/16 04:00 11/21/17 03:59 11/25/16 04:00 (Chlorhexidine 2% Cloth) 3 pack UNSCH PRN TOP 11/25/16 03:15 Terbutaline Sulfate 1 mg 1 mg UNSCH PRN SQ 11/25/16 03:15 Pharmacy Profile Note 0 ml @ 0 mls/hr UNSCH OTHER 11/25/16 03:15 Aztreonam 2000 mg/ Sodium Chloride 100 ml @ 200 mls/hr Q8H IV 11/25/16 05:00 11/25/16 12:06 (Pitressin Inj/ D5W 100 ml Inj) 100 ml @ 4.5 mls/hr [id number] IV 11/25/16 05:05 11/25/16 05:48 (SoluCORTEF INJ) 100 mg Q8HR IV PUSH 11/25/16 05:30 11/25/16 14:00 (Protonix Inj) 40 mg Q24H IV PUSH 11/25/16 06:00 11/25/16 05:57 Terbutaline Sulfate 1 mg 1 mg UNSCH PRN SQ 11/25/16 06:30 Sodium Chloride 250 ml @ 15 mls/hr ONCE ONCE IV 11/25/16 06:45 11/25/16 23:24 11/25/16 08:00 Clindamycin Phosphate 600 mg/ Sodium Chloride 104 ml @ 208 mls/hr Q8H IV 11/25/16 20:00 Parenteral Electrolytes 1,000 ml @ 125 mls/hr Q8H IV 11/25/16 11:00 11/25/16 12:06 (Vancomycin Inj/ NS 250 ml Inj) 250 ml @ 250 mls/hr Q24H IV 11/25/16 23:00 Miscellaneous Information SPECIFIC LAB TO BE KAIN... ONCE ONCE .XX 11/27/16 22:45 11/27/16 22:46 Albumin Human 12.5 gm 12.5 gm Q6HR IV 11/25/16 12:00 11/27/16 12:00 11/25/16 12:06 (Neosynephrine Inj/D5W 500 ml Inj) 500 ml @ 0 mls/hr TITRATE IV 11/25/16 12:15 Chlorhexidine Gluconate 15 ml 15 ml BID@08,20 MT 11/25/16 20:00 Midazolam HCl 100 ml @ 0 mls/hr TITRATE IV 11/25/16 13:30 Fentanyl Citrate 250 ml @ 0 mls/hr TITRATE IV 11/25/16 13:30 Sodium Bicarbonate 150 meq/Sterile Water 1,000 ml @ 150 mls/hr Q6H40M IV 11/25/16 16:00 11/25/16 15:27 Sodium Chloride 250 ml @ 15 mls/hr ONCE ONCE IV 11/25/16 14:30 11/26/16 07:09 11/25/16 14:30 Norepinephrine Bitartrate 8 mg/ Dextrose 250 ml @ 0 mls/hr TITRATE IV 11/25/16 14:45 Phenylephrine HCl 80 mg/Dextrose 500 ml @ 0 mls/hr TITRATE IV 11/25/16 14:45 (NS 500 ml Inj) 500 ml @ 20 mls/hr Q24H IV 11/25/16 15:00 11/25/16 14:57 Family History could not be obtained. Social History could not be obtained. Physical Exam Vital Signs Vital Signs Date Time Temp Pulse Resp B/P Pulse Ox O2 Delivery O2 Flow Rate FiO2 11/25/16 14:05 92 70 11/25/16 12:45 100 100 11/25/16 08:00 100.6 127 27 83/52 11/25/16 07:56 97 Nasal Cannula 2.00 11/25/16 05:30 102.0 131 25 69/39 98 11/25/16 04:48 124 16 79/40 100 Nasal Cannula 2 11/25/16 04:26 134 16 89/46 100 Nasal Cannula 2 11/25/16 04:00 144 16 77/42 100 Nasal Cannula 2 11/25/16 03:09 136 20 68/51 100 Nasal Cannula 2 11/25/16 02:35 144 22 102/55 100 Nasal Cannula 2 11/25/16 02:15 99.7 138 24 74/45 100 Nasal Cannula 2 11/24/16 21:21 98.7 152 24 110/77 95 Room Air Physical Exam GENERAL: This is a well-nourished, well-developed patient, in no apparent distress. SKIN: No rashes, ecchymoses or lesions. Cool and dry. HEAD: Atraumatic. Normocephalic. No temporal or scalp tenderness. EYES: Pupils equal round and reactive. No scleral icterus. ENT: Intubated. NECK: Trachea midline. Supple, nontender, no meningeal signs. CARDIOVASCULAR: Regular rate and rhythm without murmurs, gallops, or rubs. RESPIRATORY: Clear to auscultation. Breath sounds equal bilaterally. No wheezes , rales, or rhonchi. GASTROINTESTINAL: Abdomen soft, non-tender, nondistended. MUSCULOSKELETAL: Right hand dorsum swelling, mild erythema noted. 3rd digit with area of 1 cm necrosis noted. E/o lymphangitis noted extending into the right elbow area. NEUROLOGICAL: Awake and alert. Grossly non focal Psych: could not be assessed. IV line sites with no e.o infection. Laboratory Laboratory Tests Test 11/24/16 11/25/16 11/25/16 11/25/16 22:10 04:50 05:45 06:21 Sodium Level 137 139 Potassium Level 3.2 2.9 Chloride Level 102 109 Carbon Dioxide Level 24.8 19.1 Anion Gap 10 11 Blood Urea Nitrogen 28 29 Creatinine 1.25 1.74 Estimat Glomerular Filtration 47 32 Rate Random Glucose 93 112 Calcium Level 9.0 7.7 Total Creatine Kinase 13 Troponin I LESS THAN 0.02 White Blood Count 1.0 1.7 Red Blood Count 2.77 2.17 Hemoglobin 8.1 6.4 Hematocrit 23.4 18.3 Mean Corpuscular Volume 84.4 84.4 Mean Corpuscular Hemoglobin 29.1 29.5 Mean Corpuscular Hemoglobin 34.5 35.0 Concent Red Cell Distribution Width 13.8 14.0 Platelet Count 37 49 Mean Platelet Volume 10.5 10.4 Neutrophils (%) (Auto) Lymphocytes (%) (Auto) Monocytes (%) (Auto) Eosinophils (%) (Auto) Basophils (%) (Auto) Neutrophils # (Auto) Lymphocytes # (Auto) Monocytes # (Auto) Eosinophils # (Auto) Basophils # (Auto) CBC Comment AUTO DIFF AUTO DIFF Differential Total Cells 100 100 Counted Neutrophils % (Manual) 2 1 Lymphocytes % 92 64 Monocytes % 6 30 Neutrophils # (Manual) 0.0 0.1 Differential Comment FINAL DIFF FINAL DIFF MANUAL MANUAL Platelet Estimate LOW LOW Platelet Morphology Comment NORMAL NORMAL Ovalocytes 1+ 1+ Ethyl Alcohol Level LESS THAN 3 Lactic Acid Level 3.9 Random Cortisol 27.3 Band Neutrophils % 4 Promyelocytes 1 Nucleated Red Blood Cells 2 Prothrombin Time 13.1 Prothromb Time International 1.2 Ratio Activated Partial 25.8 Thromboplast Time Nasal Screen MRSA (PCR) MRSA NOT DETECTED Total Bilirubin 0.5 Aspartate Amino Transf 18 (AST/SGOT) Alanine Aminotransferase 21 (ALT/SGPT) Alkaline Phosphatase 63 Total Protein 4.8 Albumin 2.1 Blood Gas Puncture Site ART LINE Blood Gas Patient Temperature 98.6 Blood Gas HCO3 16 Blood Gas Base Excess -7.8 Blood Gas Oxygen Saturation 93 Arterial Blood pH 7.43 Arterial Blood Partial 24 Pressure CO2 Arterial Blood Partial 76 Pressure O2 Arterial Blood Oxygen Content 9.3 Arterial Blood 1.7 Carboxyhemoglobin Arterial Blood Methemoglobin 1.0 Blood Gas Hemoglobin 7.0 Oxygen Delivery Device NASAL CANNULA Blood Gas Liter Flow 2 Blood Gas Inspired Oxygen 28 Test 11/25/16 11/25/16 11/25/16 11/25/16 06:45 08:00 12:37 13:45 Lactic Acid Level 3.2 3.1 Blood Type O POSITIVE Antibody Screen POSITIVE Crossmatch Leukocyte-Reduced Red Blood Cells Blood Bank Comment Urine Opiates Screen NEG Urine Barbiturates Screen NEG Urine Amphetamines Screen POS Urine Benzodiazepines Screen NEG Urine Cocaine Screen POS Urine Cannabinoids Screen NEG White Blood Count 2.5 Red Blood Count 2.72 Hemoglobin 8.1 Hematocrit 23.5 Mean Corpuscular Volume 86.6 Mean Corpuscular Hemoglobin 29.9 Mean Corpuscular Hemoglobin 34.6 Concent Red Cell Distribution Width 14.7 Platelet Count 90 Mean Platelet Volume 10.1 Prothrombin Time 14.7 Prothromb Time International 1.3 Ratio Activated Partial 32.9 Thromboplast Time Fibrinogen 344 Blood Gas Puncture Site ART LINE Blood Gas Patient Temperature 98.6 Blood Gas HCO3 14 Blood Gas Base Excess -13.5 Blood Gas Oxygen Saturation 89 Arterial Blood pH 7.15 Arterial Blood Partial 41 Pressure CO2 Arterial Blood Partial 71 Pressure O2 Arterial Blood Oxygen Content 9.7 Arterial Blood 0.8 Carboxyhemoglobin Arterial Blood Methemoglobin 1.1 Blood Gas Hemoglobin 7.7 Oxygen Delivery Device VENTILATOR Blood Gas Ventilator Setting A/C 20/550/PEEP8/FIO Blood Gas Inspired Oxygen 60 Test 11/25/16 14:17 Crossmatch Leukocyte-Reduced Red Blood Cells Blood Bank Comment Date/Time Procedure Status Source Growth 11/25/16 13:26 Gram Stain Received Sputum Endotracheal Pending 11/25/16 13:26 Sputum Culture Received Sputum Endotracheal Pending 11/24/16 22:20 Aerobic Blood Culture - Preliminary Resulted Blood Peripheral NO GROWTH IN 1 DAY 11/24/16 22:20 Anaerobic Blood Culture - Preliminary Resulted Blood Peripheral NO GROWTH IN 1 DAY Result Diagram: 11/25/16 1237 11/25/16 0545 Imaging Last Impressions Chest X-Ray 11/25/16 1235 Signed Impressions: Service Date/Time: Friday, November 25, 2016 12:50 - CONCLUSION: 1. Increase in bilateral airspace disease since exam earlier today, especially at the right lung base. 2. Endotracheal tube and right central line in satisfactory position Urbano Yee MD Hand X-Ray 11/24/[id number] Signed Impressions: Service Date/Time: Thursday, November 24, 2016 22:00 - CONCLUSION: No acute disease. Anderson Gary MD Assessment and Plan Assessment and Plan Septic Shock with MODS (on multiple pressors, acute resp failure, acute renal failure, acute metabolic encephalopathy) Source: likely secondary to Cellulitis. But patient immunecompromised and IVDA ( bacteremia, other infections in Differential) Possible Pneumonia: aspiration (IVDA) vs PCP vs atypical. HIV/AIDS CD4 < 20 not on PCP prophylaxis. Is on Diflucan ? due to Crypto or Tari esophagitis not known. No records available. Patient sees as outpatient. On Steroids as outpatient ? reason. Hypotension persistent: Sepsis, Toxic shock syndrome (Staph Strep skin infection ), Spider venom induced immune mediated reaction, IVDA) Acute resp failure: sepsis, IVDA Acute renal failure: sepsis, IVDA Recs: Vonnie GARZA MD: recommend hand surgery consult STAT. Discussed Aztreonam IV, Vanco IV and Clinda IV (for toxin neutralization) Start Azithro IV daily Continue Bactrim for PCP prophylaxis if Cr continues to rise will reassess. Continue Diflucan for now. Check urine legionella antigen Check Urine pneumococcal antigen Check Cryptococcal antigen Check Influenza antigen as Immunecompromised patient. AFB blood cultures to r/o disseminated EFFIE as cause for hypotension(adrenal is often involved in disseminated EFFIE) Fungal blood cultures to r/o disseminated fungal infection in view of advanced AIDS. Ok to hold HAART till we can discuss case with , or obtain records. Not sure if patient compliant with this regimen listed as her counts are low and restarting HAART in presence of disseminated infection can give rise to IRIS. Follow cultures Follow clinically. case d.w hand surgeon Case d.w Dr.Nemani GREG HERMOSILLO D.w RN No family in room. Critical thinking and decision making time spent. Linda Wan MD Nov 25, 2016 15:30
[2016-11-25 15:45] LABS: BLOOD GAS BASE EXCESS -9.4 mmol/L (-2-2); BLOOD GAS CARBOXYHEMOGLOBIN 0.9 % (0-4); BLOOD GAS HCO3 15 mmol/L (22-26); BLOOD GAS METHEMOGLOBIN 1.1 % (0-2); BLOOD GAS O2 HGB SATURATION 95 % (90-100); BLOOD GAS OXYGEN CONTENT 10.2 Vol % (12.0-20.0); BLOOD GAS PCO2 30 mmHg (38-42); BLOOD GAS PO2 84 mmHg (61-120); BLOOD GAS TOTAL HGB 7.6 G/DL (12.0-16.0); CRITICAL VALUE YES; OXYGEN DEVICE VENTILATOR; TEMP CORR TO 98.6
[2016-11-25 15:46] LABS: DRAW SITE ART LINE; FIO2 60 %; STAT YES; VENT SETTINGS A/C 24/550/PEEP8
[2016-11-25] MEDS ORDERED: EPINEPHrine HCL (1:10,000) 1 MG/10 ML SYRINGE ONE ×2 (15:48→18:42)
[2016-11-25] MEDS ORDERED: LIDOCAINE HCL 2% 50 ML VIAL ONE (15:48)
[2016-11-25] MEDS ORDERED: AZITHROMYCIN INJ 500 MG in SODIUM CHLOR 0.9% 250 ML INJ 250 ML IV SCH (16:00)
[2016-11-25 16:01] LABS: BICARBONATE 17.4 MEQ/L (21.0-32.0); POTASSIUM 3.9 MEQ/L (3.5-5.1)
[2016-11-25 16:03] LABS: CALCIUM-PROTEIN CORRECTED 7.8 MG/DL (8.5-10.1)
[2016-11-25 16:20] LABS: BACTERIA, URINE RARE /hpf; BLOOD, URINE NEG (NEG); GLUCOSE,URINE NEG (NEG); HYALINE CAST, URINE 5 /lpf (RARE); KETONE, URINE NEG (NEG); MUCUS URINE FEW /lpf (OCC); NITRITE,URINE NEG (NEG); PH, URINE 5.5 (5.0-8.5); SQUAMOUS EPITHELIAL CELL URINE <1 /hpf (0-5); URINE COLOR YELLOW (YELLW/STRAW)
[2016-11-25 16:24] LABS: COMMENT (UR) CATH-CULTURE IND; CULTURE IF INDICATED CATH CULTURE IND
[2016-11-25] MEDS ORDERED: NEOMYCIN/POLYMYXIN 1 ML G.U. IRRIGANT TOPICAL ONE (16:45)
[2016-11-25] MEDS ORDERED: fentaNYL CITRATE 250 MCG/5 ML AMP ONE (17:42)
[2016-11-25] MEDS: PHENYLEPHRINE INJ 80 MG in SODIUM CHLORID 0.9% 500 ML INJ 492 ML IV SCH ×2 (18:24→20:48)
[2016-11-25] MEDS: NOREPINEPHRINE INJ 8 MG in SODIUM CHLOR 0.9% 250 ML INJ 242 ML IV SCH ×2 (18:24→20:47)
[2016-11-25] MEDS ORDERED: EPINEPHrine HCL (1:1000) 1 MG/ML VIAL ONE (18:44)
[2016-11-25 18:58] LABS: BLOOD GAS BASE EXCESS -12.5 mmol/L (-2-2); BLOOD GAS CARBOXYHEMOGLOBIN 0.7 % (0-4); BLOOD GAS HCO3 14 mmol/L (22-26); BLOOD GAS METHEMOGLOBIN 0.8 % (0-2); BLOOD GAS O2 HGB SATURATION 88 % (90-100); BLOOD GAS OXYGEN CONTENT 10.1 Vol % (12.0-20.0); BLOOD GAS PCO2 36 mmHg (38-42); BLOOD GAS PO2 61 mmHg (61-120); BLOOD GAS TOTAL HGB 8.1 G/DL (12.0-16.0); TEMP CORR TO 98.6
[2016-11-25 18:59] LABS: OXYGEN DEVICE VENTILATOR
[2016-11-25 19:00] LABS: CRITICAL VALUE YES; DRAW SITE ART LINE; FIO2 60 %; STAT YES; VENT SETTINGS A/C24/550/PEEP8
[2016-11-25] MEDS ORDERED: CALCIUM GLUCONATE INJ 2 GM in SODIUM CHLORIDE 0.9% INJ 100 ML IV ONE (19:00)
[2016-11-25] MEDS ORDERED: EPINEPHrine HCL (1:1000) 1 MG/ML VIAL IV ONE (19:30)
[2016-11-25] MEDS ORDERED: EPINEPHrine 2 MG/D5W 250 ML IV SCH ×2 (19:30)
[2016-11-25] MEDS ORDERED: EPINEPHrine (1:1000) INJ 2 MG in SODIUM CHLOR 0.9% 250 ML INJ 248 ML IV SCH (19:39)
[2016-11-25 19:40] LABS: BICARBONATE 15.6 MEQ/L (21.0-32.0); MAGNESIUM 0.8 MG/DL (1.5-2.5); POTASSIUM 4.2 MEQ/L (3.5-5.1); TOTAL BILIRUBIN ADULT 1.3 MG/DL (0.2-1.0)
[2016-11-25 19:50] LABS: CALCIUM-PROTEIN CORRECTED 7.4 MG/DL (8.5-10.1)
[2016-11-25] MEDS ORDERED: SODIUM BICARBONATE 8.4% INJ 50 MEQ/50 ML SYR IV PUSH ONE (20:00)
[2016-11-25] MEDS: CHLORHEXIDINE 0.12% (ORAL KIT) 15 ML CUP MT SCH (20:49)
--- NOTE | 2016-11-25 21:22 | PD.ORT.PN ---
Subjective Subjective Remarks Patient intubated and sedated. Discussed case with Dr Wan critical care and infectious disease. Please see dictated note for full details. Objective Vitals Vital Signs Date Time Temp Pulse Resp B/P Pulse Ox O2 Delivery O2 Flow Rate FiO2 11/25/16 20:07 90 100 11/25/16 19:00 Mechanical Ventilator 11/25/16 16:01 100 60 11/25/16 14:05 92 70 11/25/16 12:45 100 100 11/25/16 08:00 100.6 127 27 83/52 11/25/16 07:56 97 Nasal Cannula 2.00 11/25/16 05:30 102.0 131 25 69/39 98 11/25/16 04:48 124 16 79/40 100 Nasal Cannula 2 11/25/16 04:26 134 16 89/46 100 Nasal Cannula 2 11/25/16 04:00 144 16 77/42 100 Nasal Cannula 2 11/25/16 03:09 136 20 68/51 100 Nasal Cannula 2 11/25/16 02:35 144 22 102/55 100 Nasal Cannula 2 11/25/16 02:15 99.7 138 24 74/45 100 Nasal Cannula 2 11/24/16 21:21 98.7 152 24 110/77 95 Room Air I/O 11/24/16 11/24/16 11/24/16 11/25/16 11/25/16 11/25/16 07:00 15:00 23:00 07:00 15:00 23:00 Intake Total 2936 ml Output Total 600 ml Balance 2336 ml Intake IV Total 2186 ml Packed Cells 750 ml Output Urine Total 450 ml Stool Total 0 ml Gastric Drainage Total 150 ml Result Diagram: 11/25/16 1237 11/25/16 1754 Other Results Laboratory Tests Test 11/25/16 11/25/16 05:45 12:37 Prothrombin Time 13.1 SEC 14.7 SEC (9.8-11.6) (9.8-11.6) Prothromb Time International 1.2 RATIO 1.3 RATIO Ratio Imaging Last 24 hours Impressions Chest X-Ray 11/25/16 1235 Signed Impressions: Service Date/Time: Friday, November 25, 2016 12:50 - CONCLUSION: 1. Increase in bilateral airspace disease since exam earlier today, especially at the right lung base. 2. Endotracheal tube and right central line in satisfactory position Urbano Yee MD Chest X-Ray 11/25/16 0000 Signed Impressions: Service Date/Time: Friday, November 25, 2016 04:52 - CONCLUSION: Bilateral airspace disease left greater than right. Dilip Balderrama MD Hand X-Ray 11/[id number] Signed Impressions: Service Date/Time: Thursday, November 24, 2016 22:00 - CONCLUSION: No acute disease. Anderson Gary MD Chest X-Ray 11/24/162141 Signed Impressions: Service Date/Time: Thursday, November 24, 2016 22:00 - CONCLUSION: No acute disease. Anderson Gary MD Objective Remarks Dressing in place right hand, fascial drain in place with serous drainage. 2+ radial pulse Assessment & Plan Assessment and Plan [id number] pmhx significant for HIV and IVDU intubated in ICU with concern for septic shock with wound over right middle finger concern for source -Case discussed at length preoperatively with Dr Wan critical care, infectious disease, and patients son Manuel [phone]. Son consented for incision and drainage abscess right middle finger and hand -Purulence noted along extensor tendon sheath right middle finger and hand intraoperatively, fascial drain placed. Leave drain in place to bulb suction. Follow cultures. Ab per ID -Patient at high risk for complications due to immunosuppression and WBC 1. Will continue to follow. No place for repeat surgical intervention at this time. Recommend elevation right hand Carolina Davis MD Nov 25, 2016 21:22
[2016-11-25 21:41] LABS: HEMATOCRIT 25.1 % (35.0-46.0); MEAN CELL VOLUME 87.6 FL (80.0-100.0); MEAN CORPUSCULAR HEMOGLOBIN 28.9 PG (27.0-34.0); PLATELET COUNT 59 TH/MM3 (150-450); RED BLOOD COUNT 2.86 MIL/MM3 (4.00-5.30); RED CELL DISTRIBUTION WIDTH 14.8 % (11.6-17.2); WHITE BLOOD COUNT 2.8 TH/MM3 (4.0-11.0)
[2016-11-25 21:52] LABS: REVIEW FLAG FINAL
[2016-11-25] MEDS: CLINDAMYCIN INJ 600 MG in SODIUM CHLORIDE 0.9% INJ 100 ML IV SCH (22:01)
[2016-11-25] MEDS ORDERED: VANCOMYCIN INJ 1,250 MG in SODIUM CHLOR 0.9% 250 ML INJ 250 ML IV SCH (23:00)
[2016-11-26] VITALS (10 sets, daily range): BP systolic 72–88; BP diastolic 40–62; PULSE 122–144; RESP 24; TEMP 98.2–99.8; O2SAT 0–96
[2016-11-26] MEDS: ALBUMIN HUMAN 25% 12.5 GM/50 ML BAGP IV SCH ×3 (00:20→11:11)
[2016-11-26] MEDS: EPINEPHrine (1:1000) INJ 2 MG in SODIUM CHLOR 0.9% 250 ML INJ 248 ML IV SCH ×8 (02:55→11:14)
[2016-11-26] MEDS: NOREPINEPHRINE INJ 8 MG in SODIUM CHLOR 0.9% 250 ML INJ 242 ML IV SCH ×6 (02:55→11:15)
[2016-11-26] MEDS: PHENYLEPHRINE INJ 80 MG in SODIUM CHLORID 0.9% 500 ML INJ 492 ML IV SCH ×6 (02:55→11:14)
[2016-11-26] MEDS: CLINDAMYCIN INJ 600 MG in SODIUM CHLORIDE 0.9% INJ 100 ML IV SCH ×2 (03:23→11:11)
--- NOTE | 2016-11-26 04:33 | RADRPT ---
EXAM DATE/TIME: 11/26/2016 03:52 [facility] COMPARISON: CHEST SINGLE AP, November 25, 2016, 12:50. INDICATIONS : Shortness of breath. MEDICAL HISTORY : HIV. SURGICAL HISTORY : None. ENCOUNTER: Subsequent ACUITY: 1 week PAIN SCORE: 0/10 LOCATION: Bilateral chest FINDINGS: A single view of the chest demonstrates unchanged position endotracheal tube and right jugular centra l line. Bilateral airspace disease again seen greater in the right lung there appears to be moderate right-sided pleural effusion. Right paratracheal opacity again seen. Osseous structures are intact. CONCLUSION: 1. Patchy airspace disease again noted. 2. Moderate right pleural effusion. 3. Right paratracheal opacity/widened mediastinum. CT chest recommended. Erickson Merida MD on November 26, 2016 at 4:28 Board Certified Radiologist. This report was verified electronically.
[2016-11-26 05:00] LABS: HEMATOCRIT 26.6 % (35.0-46.0); MEAN CORPUSCULAR HEMOGLOBIN 29.2 PG (27.0-34.0); MEAN CORPUSCULAR HGB CONC 32.8 % (32.0-36.0); PLATELET COUNT 43 TH/MM3 (150-450); RED BLOOD COUNT 2.99 MIL/MM3 (4.00-5.30); RED CELL DISTRIBUTION WIDTH 14.9 % (11.6-17.2); WHITE BLOOD COUNT 2.5 TH/MM3 (4.0-11.0)
[2016-11-26] MEDS: PANTOPRAZOLE SODIUM 40 MG VIAL IV PUSH SCH (05:11)
[2016-11-26] MEDS: HYDROCORTISONE SOD SUCCINATE 100 MG VIAL IV PUSH SCH (05:11)
[2016-11-26] MEDS: SODIUM BICARBONATE 8.4% INJ 150 MEQ in WATER STERILE FOR INJ 850 ML IV SCH ×2 (05:12→05:45)
[2016-11-26 05:26] LABS: HEMO FLAGS AUTO DIFF
[2016-11-26] MEDS: AZTREONAM INJ 2,000 MG in SODIUM CHLORIDE 0.9% INJ 100 ML IV SCH (05:44)
[2016-11-26 06:47] LABS: BICARBONATE 12.1 MEQ/L (21.0-32.0); MAGNESIUM 1.3 MG/DL (1.5-2.5); POTASSIUM 4.3 MEQ/L (3.5-5.1); TOTAL BILIRUBIN ADULT 2.3 MG/DL (0.2-1.0)
[2016-11-26 06:52] LABS: CALCIUM-PROTEIN CORRECTED 6.8 MG/DL (8.5-10.1)
[2016-11-26] MEDS ORDERED: DEXTROSE 10% INJ 1,000 ML IV SCH (07:00)
[2016-11-26] MEDS ORDERED: DEXTROSE 50% IN WATER 50 ML SYRINGE ONE (07:02)
[2016-11-26] MEDS ORDERED: CALCIUM CHLORIDE 10% SOLN 1 GRAM/10 ML SYR IV PUSH ONE (07:30)
[2016-11-26] MEDS ORDERED: DEXTROSE 50% IN WATER 50 ML SYRINGE IV ONE (07:30)
[2016-11-26 07:52] LABS: BANDS 20 % (0-6); CORRECTED NUCLEATED RBC 23 /100 WBC (0-0); DOHLE BODIES PRESENT (NONE SEEN); METAMYELOCYTES 12 % (0-1); MYELOCYTES 2 % (0-0); PLATELET ESTIMATE SMEAR LOW (NORMAL); POLYS (SEG NEUTROPHILS) 5 % (16-70); TOXIC GRANULATION 2+ (NORMAL); WBC DIFF SAMPLE 100
[2016-11-26 07:53] LABS: OVALOCYTES 1+ (NORMAL)
[2016-11-26 07:55] LABS: PLATELET MORPHOLOGY NORMAL (NORMAL)
[2016-11-26 07:56] LABS: CRENATED RBCS 2+ (NORMAL); SCAN/DIFF FINAL DIFF MANUAL
--- NOTE | 2016-11-26 08:34 | MB ---
cc: NAWAF WOOD MD DATE OF CONSULTATION 11/25/2016 REASON FOR CONSULTATION Acute renal failure management. HISTORY OF PRESENT ILLNESS This is a 46-year-old female with history of AIDS with a CD-4 count of 34 in August of this year, also history of pancytopenia as well as IV drug use. The patient was admitted here with pain and swelling at the third digit of her right hand after she had apparent brown recluse spider bite. The patient became hypotensive upon presentation here with a systolic blood pressure in the 70s. She was initially treated with fluid boluses. Her laboratory findings also revealed that the patient was positive for cocaine and amphetamines. The patient was intubated. She was seen with Infectious Disease and the patient was started on broad-spectrum antibiotics. Throughout the course of the day hr urine output has decreased and she is making approximately 5 cc of urine output per hour. Given the decrease in urine output, Nephrology was consulted. She is on maximal pressor support with four pressors at this point. Regarding her renal function, she presented here with a creatinine of 1.25; this increased up to a level of 1.7, then slightly decreased down to 1.4. Her urine outputs have not been recorded here at this time. REVIEW OF SYSTEMS Unattainable. The patient is intubated. PAST MEDICAL HISTORY 1. AIDS. 2. IV drug abuse. 3. Anxiety and depression. SURGICAL HISTORY 1. Hernia repair. 2. . 3. Dental extractions. ALLERGIES LATEX. PENICILLIN. MEDICATIONS AT HOME 1. Prednisone. 2. Vitamin D. 3. Multivitamins. 4. Fluconazole. 5. Caltrate. 6. Antiretroviral meds. 7. Lamivudine. FAMILY HISTORY Unobtainable. SOCIAL HISTORY Apparent drug use. PHYSICAL EXAMINATION VITAL SIGNS: At time of evaluation blood pressure was 69/39, pulse ox 92% on 60% FIO2. GENERAL: Intubated, in no apparent distress. HEENT/NECK: Soft supple. CARDIAC: Tachycardia. RESPIRATORY: Decreased breath sounds at the bases. Clear to auscultation. EXTREMITIES: Right hand swelling. LABORATORY FINDINGS Sodium 134, potassium 3.9, chloride 105, bicarb 17, BUN 33, creatinine 1.44, glucose of 171, corrected calcium of 7.8, albumin 1.9. Toxicology positive for amphetamines and cocaine. White count is 2.5, hemoglobin 8.1, hematocrit 23.5 with a platelet count of 90. ASSESSMENT AND PLAN 1. Acute kidney injury. At this point the patient has shock and sepsis apparently secondary to spider bite especially with underlying cocaine use as well. She is hypotensive on multiple pressor support and has minimal urine output at 5 cc/hour; however, she is still making some urine with clear yellow urine at this point. There is no immediate urgent need for hemodialysis at this point. Her potassium is 3.9 and her bicarbonate is 17. I have discussed with the ICU team. At this point continue with bicarbonate drip with 150 cc/hour; this will hopefully help temporize some of the acidosis and as well provide some volume repletion here in the setting of sepsis. She will likely developed progression of ATN if there is ongoing hypotension. She has a poor overall prognosis; however, continue aggressive fluid support and medical management. Should she further stabilize, there may be consideration for possible CRRT should that be necessary. However, continue with fluids at this point. It is 8 p.m. at this time. We will check labs in the morning and further assess further goals of care. Continue renal dose medications and antibiotics as possible. 2. Acidosis. The patient has a bicarbonate level of 17. Continue with bicarbonate drip. This is all secondary to acute kidney injury. She was found in septic shock. The patient is being followed with ID. She is on aztreonam, vancomycin, clindamycin as well as Bactrim. Caution with vancomycin as well as Bactrim given renal dysfunction. Continue to closely follow with ID. The patient had an apparent spider bite and this was evaluated with Hand Surgery as well. 3. Cocaine use. The patient is positive for cocaine. Continue to monitor. 4. AIDS. The patient had a CD-4 count apparently in the 30s and had been on and some antiretroviral; it is unclear what the compliance was. Continue aggressive care and follow up with Infectious Disease. MD MITCHEL Bills/ARNULFO /8:02 PM /8:23 AM ISAC
[2016-11-26 08:38] LABS: BLOOD GAS BASE EXCESS -19.5 mmol/L (-2-2); BLOOD GAS CARBOXYHEMOGLOBIN 0.1 % (0-4); BLOOD GAS HCO3 10 mmol/L (22-26); BLOOD GAS METHEMOGLOBIN 1.4 % (0-2); BLOOD GAS O2 HGB SATURATION 90 % (90-100); BLOOD GAS PCO2 42 mmHg (38-42); BLOOD GAS PO2 84 mmHg (61-120); BLOOD GAS TOTAL HGB 8.6 G/DL (12.0-16.0); TEMP CORR TO 98.6
[2016-11-26 08:39] LABS: CRITICAL VALUE YES; DRAW SITE ART LINE; FIO2 100 %; OXYGEN DEVICE VENTILATOR; STAT NO; ULNAR PULSE PRESENT; VENT SETTINGS AC/24/550/PEEP8
[2016-11-26] MEDS: SODIUM CHLORIDE 0.9% FLUSH 10 ML FLUSH IV FLUSH SCH (08:42)
[2016-11-26] MEDS: CHLORHEXIDINE 0.12% (ORAL KIT) 15 ML CUP MT SCH (08:42)
[2016-11-26] MEDS: DOCUSATE SODIUM 50 MG/SENNA 8.6 MG TAB PO SCH (08:43)
[2016-11-26 08:56] LABS: MAGNESIUM 1.4 MG/DL (1.5-2.5); POTASSIUM 4.2 MEQ/L (3.5-5.1); TOTAL BILIRUBIN ADULT 2.3 MG/DL (0.2-1.0)
[2016-11-26 08:59] LABS: CALCIUM-PROTEIN CORRECTED 6.6 MG/DL (8.5-10.1)
[2016-11-26] MEDS ORDERED: SULFAMETHOXAZOLE-TRIMETHOPRIM DS 800-160 MG TAB PO SCH (09:00)
[2016-11-26] MEDS ORDERED: FLUCONAZOLE 100 MG TAB PO SCH (09:00)
--- NOTE | 2016-11-26 09:10 | MB ---
cc: CAROLINA DAVIS DATE OF SERVICE 11/25/2016 HISTORY OF PRESENT ILLNESS Luis F Madrigal is a 46-year-old female who was I was consulted on urgently from the intensive care unit. The network lead, Dr. Wan, as well as the infectious disease doctor, a different Dr. Wan, had recently intubated the patient due to declining mental status and vital signs. At the time of my evaluation the patient was intubated and sedated and I was unable to obtain history from the patient per the other physicians in the report. The patient is a 46-year-old female with a past medical history significant for HIV, AIDS and IV drug use who does not take medication with a CD4 count of 36 and a white count of 1, who presented to the emergency room on 11/24/2016 around 22:46, who presented with pain in her right hand and states that she sustained a spider bite to the right middle finger. The patient was concerned for a foreign body over the finger. Per the note, the patient denied recent IV drug use. She does smoke. She also reported chest pain and dyspnea. The patient was reported as having a LATEX AND THE PENICILLIN ALLERGY. She is reportedly taking prednisone 20 mg b.i.d., possibly taking Prezcobix and lamivudine. At the initial presentation the patient was tachycardic with a pulse of 152, blood pressure was 110/77 with respirations of 24, temperature 98.7. White count 1, hemoglobin 8, hematocrit 23.4. The patient was admitted and started on vancomycin. I was not consulted at that time. The patient was transferred to the ICU around approximately 03:00 a.m. per the notes due to hypotension and tachycardia. I was consulted around 03:00 p.m. and came immediately to see the patient. At that time the patient had been intubated and was currently sedated. At that time she was somewhat hemodynamically unstable and I had a discussion with Dr. Wan. He was waiting for blood gases to see if the patient would be cleared for surgical intervention. This was discussed again with Dr. Wan of critical care, Dr. Wan of Infectious Disease and Dr. Hay of Anesthesia. Dr. Wan felt that the hand wound was the patient's main source for possible infection. At that time she had no other known source of infection. No family was at the bedside. I did speak with the patient's son over the phone, Manuel, who lives out of state. The patient's ANC was 200. The patient was on pressors at the time of my exam. ALLERGIES LATEX. PENICILLIN. PAST MEDICAL HISTORY 1. AIDS, HIV. 2. IV drug use. PAST SURGICAL HISTORY 1. Hernia. 2. . 3. Dental extractions. MEDICATIONS The patient reported taking - 1. Prednisone. 2. Fluconazole. 3. Tivicay. 4. Preczobix. 5. Lamuvidine. Dr. Wan of Infectious Disease will manage the antibiotics and has recommended aztreonam, vancomycin and clindamycin. She also recommended azithromycin and Bactrim and Diflucan. LABORATORY DATA See some of the prior labs previously. Platelet count prior to surgical intervention was 90, increased from 37 at admission. Blood gas prior to the surgical intervention showed a pH of 7.33 increased from prior of 7.15. INR 1.3, glucose 171. Albumin 1.90, total protein 4.4. Urine positive for amphetamines as well as cocaine. Blood cultures pending. Currently negative at this time. X-RAYS X-ray of the right hand showed no evidence of retained foreign body or osteomyelitis or fracture. PHYSICAL EXAMINATION GENERAL: A 46-year-old female intubated and sedated, critically ill due to concern for septic shock with the only known source the wound over the dorsal radial aspect of the right middle finger at the level of the middle phalanx. I was consulted urgently for possible incision and drainage to obtain cultures and to decompress the abscess. Again this was discussed at length with the network lead, infectious disease physician, anesthesiologist and the patient's son. The son provided informed consent. He understands that his mother is critically ill and may not survive. He understands she is at risk for a persistent wound over the finger due to her chronic immunosuppressed state and being on prednisone. He understands the goal is to irrigate the abscess as well as obtain a culture. He signed informed consent. ASSESSMENT AND PLAN Again, this patient is at high risk for , wound complications, need for amputation of the finger, respiratory and neuro compromise. The decision after all parties were evaluated was to take the patient emergently to the operating room while on the ventilator, performed incision and drainage of the abscess, place a drain and return the patient as soon as possible to the ICU. This was done with local and minimal sedation by anesthesia. A significant amount of time was performed on this consult to consult with other physician due to the critically ill nature of the patient. Carolina Davis MD SH/SSB /9:37 PM /8:48 AM ISAC
--- NOTE | 2016-11-26 13:20 | MP ---
cc: CAROLINA DAVIS DATE OF SURGERY 11/25/2016 PREOPERATIVE DIAGNOSIS Wound right middle finger with concern for abscess right middle finger as well as dorsum of right hand. POSTOPERATIVE DIAGNOSIS Wound right middle finger with concern for abscess right middle finger as well as dorsum of right hand. PROCEDURE 1. Incision and drainage abscess right middle finger along the extensor tendon sheath. 2. Incision and drainage abscess dorsum of right hand. SURGEON Dr. Carolina Davis ANESTHESIA The patient is already sedated and intubated. Approximately 10 cc of 2% lidocaine with no epinephrine was used to perform local anesthesia over the hand. SPECIMEN Cultures x 2. DRAINS Facial drain. INDICATION FOR PROCEDURE Please see consult note. INDICATIONS FOR PROCEDURE Luis F Madrigal is a 46-year-old female with past medical history significant for HIV/AIDS which is not under control with a CD-4 count of 36, white count of 1 who presented in septic shock with the only known source the wound and abscess over the right middle finger. The patient also has a small wound over the right toe with no purulence. I was requested by the base remover and Infectious Disease to perform possible incision and drainage to obtain cultures and decompress the area. The patient's son gave verbal consent for the procedure. He understands she is at high risk for , long-term respiratory and neurovascular compromise, persistent wound and need for amputation of the finger and he elected to proceed. DESCRIPTION OF PROCEDURE The patient was transferred from the ICU by the anesthesia team. Tourniquet was inflated to 250 mmHg for 20 minutes. Incision was made over the necrotic tissue over the radial-dorsal aspect of the right middle finger. There was purulence and serous fluid which was sent for culture. The extensor tendon sheath was irrigated with antibiotic saline all the way into the dorsum of the hand. The abscess was decompressed and fluid was drained distally from the proximal swelling of the abscess distally out of the wound. The decision was made not to make a counter-incision due to the patient's significant immunocompromise. Again this wound was irrigated through both the extensor tendon sheath and the dorsum of the hand. Loose chromic stitches were placed as well as the facial drain to allow for continued drainage of the abscess. The tourniquet was then released. The patient was placed into a soft dressing and transferred back to the ICU and she tolerated the procedure. PLAN The plan will be for elevation of the hand, close followup of the cultures and addition evaluation if the patient awakens from sedation. The patient is critically ill and may not survive the night. Antibiotics per Infectious Disease. There was no sign of cellulitis or abscess proximally in the forearm proximal to the dorsal hand. MD HARRIETT Vines/SSB /9:49 PM /1:17 PM MTDGodwin
[2016-11-26] MEDS ORDERED: PHARMACY ORDERED LAB ONE (22:45)
[2016-11-28 11:53] LABS: CRYPTOCOCCUS ANTIGEN Negative (Negative)
== END 2016-11-26 17:43 | disposition expired | DRG 602 ==
LOC: NEPE 21:19 → NEDA 11-25 00:59 → N03B 11-25 05:03
PROVIDERS: ADMIT Emergency Medicine; ATTEND Emergency Medicine
PROC: 03HY32Z Insertion of Monitoring Device into Upper Artery, Percutaneous Approach (ICD-10-PCS; 2016-11-25)
PROC: 02HV33Z Insertion of Infusion Device into Superior Vena Cava, Percutaneous Approach (ICD-10-PCS; 2016-11-25)
PROC: 0BH17EZ Insertion of Endotracheal Airway into Trachea, Via Natural or Artificial Opening (ICD-10-PCS; 2016-11-25)
PROC: 5A1935Z Respiratory Ventilation, Less than 24 Consecutive Hours (ICD-10-PCS; 2016-11-25)
PROC: 30233N1 Transfusion of Nonautologous Red Blood Cells into Peripheral Vein, Percutaneous Approach (ICD-10-PCS; 2016-11-25)
PROC: 0X9J0ZX Drainage of Right Hand, Open Approach, Diagnostic (ICD-10-PCS; principal; 2016-11-25 16:35)
DX: L02.511 Cutaneous abscess of right hand (principal); B20 Human immunodeficiency virus [HIV] disease; J96.01 Acute respiratory failure with hypoxia; N17.0 Acute kidney failure with tubular necrosis; R65.21 Severe sepsis with septic shock; G93.41 Metabolic encephalopathy; D61.818 Other pancytopenia; A41.9 Sepsis, unspecified organism; L03.113 Cellulitis of right upper limb; E87.2 Acidosis; F17.210 Nicotine dependence, cigarettes, uncomplicated; F41.9 Anxiety disorder, unspecified; F32.9 Major depressive disorder, single episode, unspecified; G43.909 Migraine, unspecified, not intractable, without status migrainosus; E87.6 Hypokalemia; Z78.1 Physical restraint status; F14.90 Cocaine use, unspecified, uncomplicated
CPT/HCPCS: 31500; 36430; 36620; 71010; 73120; 80048; 80053; 80307; 81001; 82533; 82550; 82805; 82948; 83605; 83735; 84100; 84484; 85007; 85027; 85384; 85610; 85730; 86403; 86850; 86900; 86901; 86920; 86921; 86922; 87015; 87040; 87070; 87086; 87102; 87116; 87147; 87205; 87206; 87449; 87641; 87899; 93005; 94003; 96361; 96365; 96372; 96375; C9113; J0171; J0456; J0610; J0692; J1442; J1720; J1885; J2060; J2250; J2370; J2405; J3010; J3370; J3410; J3480; J7030; J7040; J7050; P9016; P9045; P9047